=== PATIENT | female | born 1950 | race Caucasian/White ===

== ENCOUNTER → 2020-10-03 12:58 | Outpatient (BNVA) | payer MEDICARE, SELFPAY | PROVIDERS: PCP Internal Medicine; Referring Provider Internal Medicine; Visit Provider Internal Medicine Cardiovascular Disease | DX: R00.2 Palpitations (principal); I49.3 Ventricular premature depolarization; I10 Essential (primary) hypertension; Z79.899 Other long term (current) drug therapy | CPT/HCPCS: 99212 ==

== ENCOUNTER → 2021-03-22 13:08 | Outpatient (BNVA) | payer MEDICARE, MEDICAID, SELFPAY | PROVIDERS: PCP Internal Medicine; Referring Provider Internal Medicine; Visit Provider Internal Medicine Cardiovascular Disease | DX: I49.3 Ventricular premature depolarization (principal); I10 Essential (primary) hypertension; R07.89 Other chest pain | CPT/HCPCS: 99212 ==

== ENCOUNTER → 2021-04-09 07:33 | Outpatient (REF) | payer MEDICARE, MEDICAID, SELFPAY ==
--- NOTE | 2021-04-09 | CA_ITS ---
Acquisition Time: 2021-04-09 08:52:31 Total Exercise Time: 00:06:03 Test Indications: CP Medications: Protocol: HALEIGH Max HR: 131 BPM 86% of Pred: 152 BPM Max BP: 158/074 mmHG Max Work Load: 7.0 METS Exercise stress test with exercise 6 min 3 sec of Haleigh protocol, without anginal symptoms, without arrythmia, with normotensive response to exercise, without EKG changes meeting criteria for ischemia. Nuclear images pending. Test reviewed with Dr Osborne. Referred By: Von Rizzo Overread By: MILAGROS [place]
--- NOTE | ~2021-04-09 | NM_ITS ---
Myocardial perfusion study Indication: Chest pain to evaluate for myocardial ischemia Technique: The patient was brought in for a Lexiscan perfusion study on 04/09/2021. Patient performed low-level exercise and was injected 0.4 mg of Lexiscan intravenously. Within a minute of injection, 30 mCi of sestamibi was given intravenously. Images were obtained using the SPECT gamma camera interlaced with the gating device. Images were obtained in supine position. Resting perfusion study was performed on 04/10/2021. Patient was administered 30 mCi of sestamibi intravenously at rest. Images were then obtained in supine position. Images were obtained with and without CT attenuation. Total DLP 100 mGy-cm. Images were processed with the software and compared side to side in short axis, horizontal long axis and vertical long axis views. Findings: The stress perfusion study showed non attenuated images show normal uptake of radiotracer in all segments of LV myocardium. Attenuation corrected images show minimally reduced uptake in the apex of the LV myocardium.. The gated study shows normal LV systolic function with calculated LVEF of 69%. LV cavity is normal in size. The gated study shows normal systolic wall thickening and contraction of segments. Resting study shows no change in perfusion pattern compared to stress perfusion study. Gating at rest reveals normal systolic wall motion with ejection fraction at 61%. The findings are consistent with normal myocardial perfusion. NM/NM cardiolite stress test Impression: 1. Myocardial perfusion imaging study shows normal myocardial perfusion 2. Gated LVEF is 69% 3. Transient ischemic dilatation not present EKG is nondiagnostic for ischemia
--- NOTE | 2021-04-09 07:45 | CA_ITS ---
Transthoracic Echocardiogram Patient (Last, First, Middle): Padmini Caruso, Gender: Female Date of : 1950 Age: 70 Procedure Date: 04/09/2021 Procedure Type: Transthoracic Echocardiogram Location: OP Height: 167.64 cm Weight: 89.81 kg BSA: 1.99 m2 Heart Rate: bpm BP: 138 / 82 mmHg Hand Shoe Cutter: BALBIR Referring MD: Von Rizzo MD Symptoms: R06.02 - Shortness of breath Study Quality: Fair ECG Rhythm: Sinus Conclusions: - The left ventricular systolic function is normal. The visually estimated ejection fraction is between 55-60%. - There is mild anterior mitral leaflet thickening. There is mild mitral annular calcification. There is mild mitral valve regurgitation. - There is mild dilatation of the ascending aorta measuring 3.90 cm. Findings Left Ventricle Normal left ventricular cavity size. There is normal left ventricular wall thickness. The left ventricular systolic function is normal. The visually estimated ejection fraction is between 55-60%. There is no evidence of regional wall motion abnormalities. E/E prime ratio is between 8 and 15 consistent with indeterminate filling pressures. Evidence suggests grade I (mild) diastolic dysfunction. Right Ventricle Normal right ventricular cavity size and systolic function. Atria The left atrium is normal in size. The right atrium is normal in size. Aortic Valve There is a normal trileaflet aortic valve. There is no aortic valve stenosis. There is trace (trivial) aortic valve regurgitation. Mitral Valve There is mild anterior mitral leaflet thickening. There is mild mitral annular calcification. There is mild mitral valve regurgitation. There is no mitral valve stenosis. Pulmonic Valve The pulmonic valve was not well visualized. Tricuspid Valve Normal tricuspid valve structure. There is trace tricuspid valve regurgitation. The pulmonary artery systolic pressure is normal. Great Vessels There is mild dilatation of the ascending aorta measuring 3.90 cm. Venous The inferior vena cava is normal in size and collapses greater than 50% with inspiration. Pericardium/Pleural There is no evidence of pericardial effusion. Prior Study Comparison Changes noted compared to prior study dated: 06/03/2016. See comments on ascending aorta. Measurements 2D Linear Measurements IVSd: 0.95 0.6-0.9/0.6-1.0 cm LVIDd: 4.04 3.9-5.3/4.2-5.9 cm LVIDd Index: 2.03 2.4-3.2/2.2-3.1 cm/m2 LVIDs: 2.68 2.0-3.6 cm LVPWd: 1.00 0.7-1.1 cm Ao Root: 3.70 2.1-3.5 cm LA Diam: 3.30 2.7-3.8/3.0-4.0 cm LAIDs Index: 1.66 1.5-2.3 cm/m2 LV Mass: 155.39 67-162/88-224 g LV Mass Index: 78.09 43-95/49-115 g/m2 LVOT Diam: 2.00 3.0+(-)1.3 cm 2D Systolic Function EF 4C: 52.20 >55% EF 2C: 59.80 >55% EF BiP: 55.50 >55% Mitral Valve MV Pk E: 0.66 MV PK A: 0.96 MV Decel Time: 173.00 E/A: 0.70 E'Lateral: 7.18 E'Medial: 4.35 E/E' Med: 15.10 E/E' Lat: 9.10 PHT: 51.00 MVA PHT: 4.31 Decel Benzie: 3.78 Aortic Valve AoV Pk Doni: 1.52 AoV Mn Doni: 1.09 AoV VTI: 0.33 AoV Pk Grad: 9.00 Aov Mn Grad: 5.00 DEMARCO Cont.VTI: 1.78 LVOT LVOT Pk Doni: 0.90 LVOT Mn Doni: 0.66 LVOT VTI: 0.19 LVOT Pk Grad: 3.00 LVOT Mn Grad: 2.00 LVOT Diam: 2.00 LVOT Area: 3.14 Diastolic Function MV Pk E: 0.66 MV Pk A: 0.96 E/A: 0.70 E'Medial: 4.35 E/E' Med: 15.10 E' Laterial: 7.18 E/E' Lat: 9.10 Tricuspid Valve TR Pk Doni: 2.38 TR Pk Grad: 23.00 RA Press: 3.00 RVSP: 26.00 Great Vessels Aorta Ao Root-2D: 3.70 2.0-3.7 cm Ao Asc: 3.90 2.1-3.4 cm Ao Arch: 2.60 Updated in Other Vendor System with Status of Final Kike Osborne MD electronically signed on 04/09/2021 11:51:46 AM with status of Final
== END ==
LOC: HO.CARD 07:33
PROVIDERS: PCP Internal Medicine; Visit Provider Internal Medicine Cardiovascular Disease
DX: R06.02 Shortness of breath (principal); R07.89 Other chest pain
CPT/HCPCS: 78452; 93016; 93017; 93018; 93306; A9500

== ENCOUNTER → 2021-04-19 12:40 | Outpatient (BNVA) | payer MEDICARE, MEDICAID, SELFPAY | PROVIDERS: PCP Internal Medicine; Referring Provider Internal Medicine; Visit Provider Internal Medicine Cardiovascular Disease | DX: R00.2 Palpitations (principal); I10 Essential (primary) hypertension | CPT/HCPCS: 99212 ==

== ENCOUNTER → 2021-05-15 10:57 | Outpatient (REF) | payer MEDICARE, MEDICAID, SELFPAY ==
--- NOTE | 2021-05-15 11:03 | HM_ITS ---
TEST PERFORMED: Cardiac event monitoring. REQUESTING PHYSICIAN: Von Rizzo MD ENROLLMENT PERIOD: 05/15/2021-06/18/2021-34 days. INDICATION: Palpitations. FINDINGS: In the above monitoring period, the underlying rhythm was sinus. Baseline rate is 84/min. There was no evidence of any supraventricular or ventricular arrhythmias or any other abnormalities during this time. No patient activated symptoms as well. CONCLUSION: Study shows underlying sinus rhythm only without any arrhythmias. Kike Osborne MD HS/MODL / [id number]
== END ==
LOC: HO.CARD 10:57
PROVIDERS: Visit Provider Internal Medicine Cardiovascular Disease
DX: R00.2 Palpitations (principal)
CPT/HCPCS: 93270

== ENCOUNTER → 2021-09-03 13:57 | Outpatient (BNVA) | payer MEDICARE, MEDICAID, SELFPAY | PROVIDERS: PCP Internal Medicine; Referring Provider Internal Medicine; Visit Provider Internal Medicine Cardiovascular Disease | DX: I10 Essential (primary) hypertension (principal); R00.2 Palpitations | CPT/HCPCS: 93005; 99212 ==

== ENCOUNTER 2021-09-21 15:40 | Outpatient (REF) | payer MEDICARE, MEDICAID, SELFPAY ==
[2021-09-21 16:49] LABS: Influenza A PCR NEGATIVE (Negative); Influenza B PCR NEGATIVE (Negative); Resp Syncy Virus RNA Qual PCR NEGATIVE (Negative); SARS COV2 PCR INHOUSE NEGATIVE (Negative)
== END 2021-09-21 15:41 | disposition home or self-care (01) ==
LOC: HO.LNP 15:40
PROVIDERS: Visit Provider Internal Medicine
DX: Z20.822 Contact with and (suspected) exposure to COVID-19 (principal); J06.9 Acute upper respiratory infection, unspecified
CPT/HCPCS: 0241U

== ENCOUNTER 2021-11-29 18:48 | Outpatient (REF) | payer MEDICARE, MEDICAID, SELFPAY | END 2021-11-29 18:49 | disposition home or self-care (01) | LOC: HO.LNP 18:48 | PROVIDERS: Visit Provider Physician Assistant Medical | DX: Z20.822 Contact with and (suspected) exposure to COVID-19 (principal) | CPT/HCPCS: U0003; U0005 ==

== ENCOUNTER 2022-02-13 | Outpatient (REF) | payer MEDICARE, MEDICAID, SELFPAY ==
[2022-02-15 14:03] LABS: OBS1 NEGATIVE (NEGATIVE); OBS2 NEGATIVE (NEGATIVE)
[2022-02-15 14:04] LABS: OBS Int Ctl Valid YES; OBS3 NEGATIVE (NEGATIVE)
== END 2022-02-13 00:01 | disposition home or self-care (01) ==
LOC: HO.LNP
PROVIDERS: Visit Provider Internal Medicine
DX: R79.0 Abnormal level of blood mineral (principal); Z12.11 Encounter for screening for malignant neoplasm of colon
CPT/HCPCS: 82270

== ENCOUNTER 2022-03-05 20:57 | Emergency (ER) | payer OTHER, SELFPAY ==
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
[2022-03-05 21:14] VITALS: BP 168/76; PULSE 77; RESP 20; TEMP 36.7; O2SAT 97; BMI 33.7
[2022-03-05 22:24] VITALS: BP 142/72; PULSE 67; RESP 16; TEMP 36.1; O2SAT 97
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
[2022-03-05] MEDS: Ibuprofen 800 MG TABLET PO (23:25)
[2022-03-05] MEDS: Ondansetron ODT 4 MG TAB.RAPDIS TRANSLINGU (23:26)
[2022-03-06 00:14] VITALS: BP 136/79; PULSE 79; RESP 20; TEMP 36.9; O2SAT 98
== END 2022-03-06 00:15 | disposition home or self-care (01) ==
PROVIDERS: Emergency Provider Emergency Medicine Emergency Medical Services; PCP Internal Medicine
DX: S13.4XXA Sprain of ligaments of cervical spine, initial encounter (principal); R42 Dizziness and giddiness; V43.52XA Car driver injured in collision with other type car in traffic accident, initial encounter; Y93.9 Activity, unspecified; Y92.410 Unspecified street and highway as the place of occurrence of the external cause; Y99.9 Unspecified external cause status; Z79.899 Other long term (current) drug therapy
CPT/HCPCS: 70450; 72125; 99284

== ENCOUNTER 2022-06-18 11:23 | Outpatient (REF) | payer MEDICARE, MEDICAID, SELFPAY ==
--- NOTE | ~2022-06-18 | XR_ITS ---
EXAMINATION: XR FOOT, RIGHT CLINICAL INFORMATION: Pain. COMPARISON: None TECHNIQUE: AP, lateral, and oblique views of the right foot. FINDINGS: Bony alignment and mineralization are normal. No fracture, dislocation or right ankle joint effusion is seen. Boehler's angle is normal. There are minimal posterior and small to moderate plantar calcaneal spurs. No fracture or dislocation is seen. There is mild osteoarthritic change of the first metatarsophalangeal joint. No focal soft tissue swelling, gas or foreign body is seen. XR/XR foot RT min 3V IMPRESSION: 1. No fracture, dislocation or right ankle joint effusion is seen. 2. There are minimal posterior and small to moderate plantar calcaneal spurs. 3. There is mild osteoarthritic change of the right first metatarsophalangeal joint.
== END 2022-06-18 11:24 | disposition home or self-care (01) ==
LOC: HO.HMGCX 11:23
PROVIDERS: PCP Internal Medicine; Visit Provider Internal Medicine
DX: M79.671 Pain in right foot (principal)
CPT/HCPCS: 73630

== ENCOUNTER 2022-06-29 00:37 | Inpatient (IN) | payer MEDICARE, MEDICAID, SELFPAY ==
[2022-06-29] VITALS (11 sets, daily range): BP systolic 119–188; BP diastolic 59–105; PULSE 80–133; RESP 15–21; TEMP 36–39; O2SAT 95–98; BMI 35.0
--- NOTE | ~2022-06-29 | XR_ITS ---
EXAMINATION: XR CHEST CLINICAL INFORMATION: Chest pain COMPARISON: 07/22/2020 TECHNIQUE: Frontal view of the chest was obtained. FINDINGS: The lungs are well expanded. There is a hazy opacity at the right base. No pleural effusion or pneumothorax. No edema. The cardiomediastinal silhouette is normal in size, with a calcified aorta. XR/XR chest 1V IMPRESSION: Hazy right basilar opacity could be infectious/inflammatory.
--- NOTE | 2022-06-29 00:44 | ECG_ITS ---
Test Reason : CHEST PAIN Blood Pressure : / mmHG Vent. Rate : 130 BPM Atrial Rate : 130 BPM P-R Int : 166 ms QRS Dur : 074 ms QT Int : 292 ms P-R-T Axes : 059 038 057 degrees QTc Int : 429 ms Sinus tachycardia Nonspecific ST and T wave abnormality Abnormal ECG When compared with ECG of 29-JUN-2022 00:35, Nonspecific T wave abnormality, worse in Lateral leads Referred By: Generic ED Physician Electronically Signed By:YAMEL GARDNER
[2022-06-29 01:22] LABS: COVID-19 Test Negative (Negative); IDNOW Serial# 16C4AD1C; IDNOW Serial# 9DB6401D; Influenza A Negative (Negative); Influenza B2 Negative (Negative)
--- NOTE | 2022-06-29 01:22 | ED_ITS ---
[facility] - [facility] Chief complaint: Fever Stated complaint: high fever (108?) , cp , difficulty breathing Time Seen by Provider: 06/29/22 01:06 Source: patient Mode of arrival: ambulatory Limitations: no limitations History of Present Illness HPI narrative: Patient comes to the emergency room complaining of fever, chills, cough for 6 days. Patient states that tonight she had worsening cough symptoms and made her vomit. Patient states that at home her fever was 100.8. Patient denies any nausea vomiting or diarrhea, no abdominal pain, no UTI symptoms but states she has had more frequency than usual. Patient denies hematuria. Patient has tried Robitussin [id number] without any relief. 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 Patient is currently in remission to her knowledge, patient is usually seen at [facility]. Patient currently taking Denosumab and Daratumumab Related Data Home Medications Medication Instructions Recorded Confirmed nitroglycerin 0.3 mg sublingual mg sublingual DAILY PRN 08/29/20 06/18/22 tablet ondansetron 4 mg disintegrating 4 mg PO Q6H PRN nausea 08/29/20 06/18/22 tablet dexamethasone 4 mg tablet 4 mg PO PRN 09/03/21 06/18/22 amlodipine 10 mg-olmesartan 40 mg 1 tab PO DAILY 02/08/22 06/18/22 tablet Previous Rx's Medication Instructions Recorded Bystolic 5 mg tablet (nebivolol) 5 mg PO DAILY #90 tabs 01/15/22 naproxen 500 mg tablet 500 mg PO BID PRN pain 10 days #20 03/06/22 tabs Allergies Allergy/AdvReac Type Severity Reaction Status Date / Time niacin [NIACIN] Allergy Mild REDNESS, Verified 06/29/22 00:50 rash, rash Penicillins [PCN] Allergy Mild BODY RASH Verified 06/29/22 00:50 penicillin V Allergy Unknown rash Verified 06/29/22 00:50 tbo-filgrastim [From Granix] Allergy Unknown palpitation Verified 06/29/22 00:50 s atenolol AdvReac Unknown palpatations, Verified 06/29/22 00:50 palpitations lisinopril AdvReac Unknown cough Verified 06/29/22 00:50 valsartan [Diovan] AdvReac Unknown cough Verified 06/29/22 00:50 Review of Systems Review of Systems: Constitutional : No Weight loss, complaining of fever, chills, fatigue and generalized malaise ENT/Mouth : No Hearing loss, No Ear Pain, No Nasal Congestion, No Sinus Pain, No Hoarseness, No sore throat, No Rhinorrhea, No Swallowing Difficulty Eyes: No Eye Pain, No Swelling, No Redness, No Foreign Body, No Discharge, No Vision Changes Cardiovascular : No Chest Pain, No SOB, No Dyspnea on Exertion, No Orthopnea, No Edema, No Palpitations Respiratory : Complaining of cough, no sputum, wheezing, mild shortness of breath Gastrointestinal : Complaining of post-tussive vomiting cough No Diarrhea, No Constipation, No abdominal Pain, No Hematochezia, No Melena Genitourinary : no irregular bleeding, No Dysuria, complaining of recent Urinary Frequency, No Hematuria, No Urinary Incontinence, No Urgency, No Flank Pain, No Urinary Flow Changes, No Hesitancy Musculoskeletal : No joint pain, No Myalgias, No Joint Swelling Skin : No Skin Lesions, No rash Neuro : No Weakness, No Numbness, No Paresthesias, No Loss of Consciousness, No Dizziness, No Headache Psych : No Anxiety/Panic, No Depression, No SI/HI/AH/VH, No Social Issues, Heme/Lymph: No Bruising, No Bleeding,No Lymphadenopathy Endocrine : No Polyuria, No Polydipsia, No Temperature Intolerance PMF Past Medical History Medical History Allergic rhinitis Hypertension, essential Intermittent palpitations Lipid disorder Multiple myeloma in remission Obstructive sleep apnea PVCs (premature ventricular contractions) Surgical History History of appendectomy Family History Family History Father No problems noted. Mother Diabetes mellitus Sister Diabetes mellitus Sister History of high blood pressure Social History Social History Housing: House Patient Tobacco Use Status: Never used Tobacco e-Cigarette/Vaping Use: Never Used Advance Directives: No Advance Directives Information Provided: Yes Current occupational status: retired Cognitive needs: No Hearing needs: No Vision needs: No Physical Exam ED Vital Signs: Vital Signs - 24 hr 06/29/22 00:49 06/29/22 01:12 06/29/22 01:18 Temperature 102.2 F H 101.7 F H Pulse Rate 130 H 133 H Respiratory Rate 18 16 Blood Pressure 188/105 H 148/90 H Pulse Oximetry 96 95 Oxygen Delivery Method Room Air Room Air BMI result Body Mass Index 35.0 Const Other: Appearance: Alert. Oriented X3. No acute distress. Eyes: Pupils equal, round and reactive to light. ENT: Pharynx normal. Neck: Normal inspection. Neck supple. No lymph nodes noted. No crepitus CVS: Normal heart rate and rhythm. Pulses normal. Normal S1 and S2 Respiratory: No respiratory distress. Breath sounds normal. No Wheezing. No ral es Abdomen: Soft and nontender. No rigidity. No distention. Skin: Skin is warm to touch, not diaphoretic. Normal skin color. Normal skin turgor. Extremities: No lower extremity edema. No Lacerations. No Rash Neuro: Oriented X 3. No motor deficit. No sensory deficit. Moving all extremities. No slurred speech. CN 2 through 12 grossly intact Psych: calm, cooperative, normal affect Course Course Course Narrative: All of patient's labs and imaging are pending. Patient is empirically being alana ated with cefepime 2 g and 2 L of normal saline, fluids being given based on ideal weight of 55 kg, patient is obese. Patient's white blood cell count and lactic acid within normal limits, patient i s not hypotensive, sepsis not suspected. Urinalysis negative for urinary tract infection. Chest x-ray shows possible pneumonia in the right side. Due to patient's comorbidities, patient would benefit from admission. I discussed the patient with Dr. Natarajan, pt being admitted Medical Decision Making Lab Data Result diagrams: 06/29/22 01:38 06/29/22 01:38 Labs: Lab Results 06/29/22 06/29/22 06/29/22 Range/Units 01:02 01:02 01:38 WBC (4.8-10.8) X10*3/uL RBC (4.20-5.50) X10*6/uL Hgb (12.0-16.0) g/dl Hct (37.0-47.0) % MCV (80.0-98.0) fL MCH (27.0-33.0) pg MCHC (31.0-35.0) g/dl RDW (11.0-16.0) % Plt Count (160-400) X10*3/uL MPV (9.4-12.3) fL Immature Gran % (Auto) (0.0-0.4) % Neut % (Auto) (45-73) % Lymph % (Auto) (20-40) % [place] % (Auto) (2-11) % Eos % (Auto) (0-4) % Baso % (Auto) (0-2) % Lymph # (Auto) (1.2-4.9) X10*3/uL [place] # (Auto) (0.1-1.2) X10*3/uL Eos # (Auto) (0.0-0.4) X10*3/uL Baso # (Auto) (0.0-0.2) X10*3/uL Abs Immat Gran (auto) (0.00-0.03) X10*3/uL Absolute Neuts (auto) (2.0-8.3) x10*3/uL Absolute Nucleated RBC (0.0-0.012) X10*3/uL Nucleated RBC % (auto) (0.0-0.2) /100WBC PT (10.0-13.1) SEC INR (0.9-1.1) Sodium 140 (135-145) mmol/L Potassium 3.7 (3.3-5.1) mmol/L Chloride 105 (96-108) mmol/L Carbon Dioxide 21 L (22-29) mmol/L Anion Gap 18 (12-20) BUN 15 (9-16) mg/dL Creatinine 0.74 (0.5-1.4) mg/dL Estim Creat Clear Calc 79.1 Estimated GFR > 60 Random Glucose 122 H (60-115) mg/dL Lactic Acid (0.5-2.0) mmol/L Calcium 8.6 (8.4-10.2) mg/dL Total Bilirubin 0.6 (0.0-1.0) mg/dL Direct Bilirubin 0.2 (0.0-0.5) mg/dL AST 18 (5-31) U/L ALT 22 (0-31) U/L Alkaline Phosphatase 74 (39-117) U/L Troponin I High Sens (<3.5-17.0) ng/L Total Protein 6.4 L (6.5-8.0) g/dL Albumin 4.4 (3.5-5.0) g/dL Urine Color Urine Appearance Urine pH (5.0-8.0) Ur Specific [place] (1.005-1.025) Urine Protein (NEG-TRACE) MG/DL Urine Glucose (UA) (NEG) MG/DL Urine Ketones (NEG) MG/DL Urine Blood (NEG) Urine Nitrite (NEG) Ur Leukocyte Esterase (NEG) Urine RBC (0) /HPF Urine WBC (0-4) /HPF Ur Squamous Epith Cells /LPF Calcium Phosphate Cryst /LPF Urine Bacteria /LPF COVID-19 (TRACEY) Negative (Negative) COVID-19 Clin Com See Note Influenza Type A (TERRY) Negative (Negative) Influenza Type B (TERRY) Negative (Negative) Influenza A & B Note See Note 06/29/22 06/29/22 06/29/22 Range/Units 01:38 01:38 01:38 WBC (4.8-10.8) X10*3/uL RBC (4.20-5.50) X10*6/uL Hgb (12.0-16.0) g/dl Hct (37.0-47.0) % MCV (80.0-98.0) fL MCH (27.0-33.0) pg MCHC (31.0-35.0) g/dl RDW (11.0-16.0) % Plt Count (160-400) X10*3/uL MPV (9.4-12.3) fL Immature Gran % (Auto) (0.0-0.4) % Neut % (Auto) (45-73) % Lymph % (Auto) (20-40) % [place] % (Auto) (2-11) % Eos % (Auto) (0-4) % Baso % (Auto) (0-2) % Lymph # (Auto) (1.2-4.9) X10*3/uL [place] # (Auto) (0.1-1.2) X10*3/uL Eos # (Auto) (0.0-0.4) X10*3/uL Baso # (Auto) (0.0-0.2) X10*3/uL Abs Immat Gran (auto) (0.00-0.03) X10*3/uL Absolute Neuts (auto) (2.0-8.3) x10*3/uL Absolute Nucleated RBC (0.0-0.012) X10*3/uL Nucleated RBC % (auto) (0.0-0.2) /100WBC PT 10.2 (10.0-13.1) SEC INR 0.9 (0.9-1.1) Sodium (135-145) mmol/L Potassium (3.3-5.1) mmol/L Chloride (96-108) mmol/L Carbon Dioxide (22-29) mmol/L Anion Gap (12-20) BUN (9-16) mg/dL Creatinine (0.5-1.4) mg/dL Estim Creat Clear Calc Estimated GFR Random Glucose (60-115) mg/dL Lactic Acid 1.3 (0.5-2.0) mmol/L Calcium (8.4-10.2) mg/dL Total Bilirubin (0.0-1.0) mg/dL Direct Bilirubin (0.0-0.5) mg/dL AST (5-31) U/L ALT (0-31) U/L Alkaline Phosphatase (39-117) U/L Troponin I High Sens 5.1 (<3.5-17.0) ng/L Total Protein (6.5-8.0) g/dL Albumin (3.5-5.0) g/dL Urine Color Urine Appearance Urine pH (5.0-8.0) Ur Specific Henderson (1.005-1.025) Urine Protein (NEG-TRACE) MG/DL Urine Glucose (UA) (NEG) MG/DL Urine Ketones (NEG) MG/DL Urine Blood (NEG) Urine Nitrite (NEG) Ur Leukocyte Esterase (NEG) Urine RBC (0) /HPF Urine WBC (0-4) /HPF Ur Squamous Epith Cells /LPF Calcium Phosphate Cryst /LPF Urine Bacteria /LPF COVID-19 (TRACEY) (Negative) COVID-19 Clin Com Influenza Type A (TERRY) (Negative) Influenza Type B (TERRY) (Negative) Influenza A & B Note 06/29/22 06/29/22 Range/Units 01:38 01:49 WBC 6.1 (4.8-10.8) X10*3/uL RBC 4.73 (4.20-5.50) X10*6/uL Hgb 13.6 (12.0-16.0) g/dl Hct 41.2 (37.0-47.0) % MCV 87.1 (80.0-98.0) fL MCH 28.8 (27.0-33.0) pg MCHC 33.0 (31.0-35.0) g/dl RDW 13.7 (11.0-16.0) % Plt Count 111 L (160-400) X10*3/uL MPV 9.6 (9.4-12.3) fL Immature Gran % (Auto) 0.2 (0.0-0.4) % Neut % (Auto) 74.5 H (45-73) % Lymph % (Auto) 12.8 L (20-40) % [place] % (Auto) 11.0 (2-11) % Eos % (Auto) 1.0 (0-4) % Baso % (Auto) 0.5 (0-2) % Lymph # (Auto) 0.8 L (1.2-4.9) X10*3/uL [place] # (Auto) 0.7 (0.1-1.2) X10*3/uL Eos # (Auto) 0.1 (0.0-0.4) X10*3/uL Baso # (Auto) 0.0 (0.0-0.2) X10*3/uL Abs Immat Gran (auto) 0.01 (0.00-0.03) X10*3/uL Absolute Neuts (auto) 4.6 (2.0-8.3) x10*3/uL Absolute Nucleated RBC 0.000 (0.0-0.012) X10*3/uL Nucleated RBC % (auto) 0.0 (0.0-0.2) /100WBC PT (10.0-13.1) SEC INR (0.9-1.1) Sodium (135-145) mmol/L Potassium (3.3-5.1) mmol/L Chloride (96-108) mmol/L Carbon Dioxide (22-29) mmol/L Anion Gap (12-20) BUN (9-16) mg/dL Creatinine (0.5-1.4) mg/dL Estim Creat Clear Calc Estimated GFR Random Glucose (60-115) mg/dL Lactic Acid (0.5-2.0) mmol/L Calcium (8.4-10.2) mg/dL Total Bilirubin (0.0-1.0) mg/dL Direct Bilirubin (0.0-0.5) mg/dL AST (5-31) U/L ALT (0-31) U/L Alkaline Phosphatase (39-117) U/L Troponin I High Sens (<3.5-17.0) ng/L Total Protein (6.5-8.0) g/dL Albumin (3.5-5.0) g/dL Urine Color STRAW Urine Appearance CLEAR Urine pH 5.5 (5.0-8.0) Ur Specific [place] 1.020 (1.005-1.025) Urine Protein TRACE (NEG-TRACE) MG/DL Urine Glucose (UA) NEG (NEG) MG/DL Urine Ketones NEG (NEG) MG/DL Urine Blood TRACE (NEG) Urine Nitrite NEG (NEG) Ur Leukocyte Esterase NEG (NEG) Urine RBC 0-2 (0) /HPF Urine WBC 0-2 (0-4) /HPF Ur Squamous Epith Cells 1+ /LPF Calcium Phosphate Cryst TRACE /LPF Urine Bacteria NONE /LPF COVID-19 (TRACEY) (Negative) COVID-19 Clin Com Influenza Type A (TERRY) (Negative) Influenza Type B (TERRY) (Negative) Influenza A & B Note Imaging Data Chest x-ray: Radiologist's impression: FINDINGS: The lungs are well expanded. There is a hazy opacity at the right base. No pleural effusion or pneumothorax. No edema. The cardiomediastinal silhouette is normal in size, with a calcified aorta. XR/XR chest 1V IMPRESSION: Hazy right basilar opacity could be infectious/inflammatory. Critical Care Time Critical Care Time Critical Care Time: Yes Total Critical Care Time: 30 Attestation: I have personally provided critical care time. Time includes review of lab data, radiology results, discussion with consultants, and monitoring for potential decompensation. Intervention performed as documented. Discharge Plan Discharge Clinical Impression: Pneumonia Patient Disposition: Admitted As Inpatient Prescriptions: No Action nebivolol [Bystolic] 5 mg tablet 5 mg PO DAILY Qty: 90 3RF naproxen 500 mg tablet 500 mg PO BID PRN (Reason: pain) 10 Days Qty: 20 0RF nitroglycerin 0.3 mg tablet, sublingual sublingual DAILY PRN ondansetron 4 mg tablet,disintegrating 4 mg PO Q6H PRN (Reason: nausea) dexamethasone 4 mg tablet 4 mg PO PRN amlodipine-olmesartan 10-40 mg tablet 1 tab PO DAILY
[2022-06-29] MEDS: cefEPime HCl 2 GM in 0.9 % Sodium Chloride 50 ML IV (01:30)
[2022-06-29] MEDS: 0.9 % Sodium Chloride 2,000 ML 999 ML IVCONT (01:31)
[2022-06-29 01:50] LABS: INTERNATIONAL NORM RATIO 0.9 (0.9-1.1); Prothrombin Time 10.2 SEC (10.0-13.1)
[2022-06-29 01:56] LABS: Lactic Acid 1.3 mmol/L (0.5-2.0)
[2022-06-29 02:02] LABS: Alanine Aminotransferase 22 U/L (0-31); Albumin Level 4.4 g/dL (3.5-5.0); Alkaline Phosphatase 74 U/L (39-117); Anion Gap 18 (12-20); Aspartate Amino Transferase 18 U/L (5-31); Bilirubin Direct 0.2 mg/dL (0.0-0.5); Bilirubin Total 0.6 mg/dL (0.0-1.0); Blood Urea Nitrogen 15 mg/dL (9-16); Calcium 8.6 mg/dL (8.4-10.2); Carbon Dioxide 21 mmol/L (22-29); Chloride 105 mmol/L (96-108); Creatinine Clr Calc Pharmacy 79.1; Estimated Glomerular Filt Rate > 60; Glucose Random 122 mg/dL (60-115); Potassium 3.7 mmol/L (3.3-5.1); Sodium 140 mmol/L (135-145); Total Protein 6.4 g/dL (6.5-8.0)
[2022-06-29 02:08] LABS: Appearance Urine CLEAR; Color Urine STRAW; Glucose Urine UA NEG (NEG); Leukocyte Esterase Urine NEG (NEG); Nitrite Urine NEG (NEG); PH 5.5 (5.0-8.0); UACC Culture Trigger NO; Urine Blood TRACE (NEG); Urine Ketones NEG (NEG); Urine Protein TRACE MG/DL (NEG-TRACE)
[2022-06-29 02:14] LABS: Troponin-I High Sensitivity 5.1 ng/L (<3.5-17.0)
[2022-06-29 02:14] LABS: Calcium Phosphate Crystals Ur TRACE /LPF; RBC Urine 0-2 /HPF (0); Squamous Epithelial Cell Urine 1+ /LPF; WBC Urine 0-2 /HPF (0-4)
[2022-06-29 02:27] LABS: Basophils Percent Auto 0.5 % (0-2); Eosinophils Absolute Auto 0.1 X10*3/uL (0.0-0.4); Hematocrit 41.2 % (37.0-47.0); Hemoglobin 13.6 g/dl (12.0-16.0); Imm Gran Abs Auto 0.01 X10*3/uL (0.00-0.03); Imm Gran Pct Auto 0.2 % (0.0-0.4); Lymphocytes Absolute Auto 0.8 X10*3/uL (1.2-4.9); Lymphocytes Percent Auto 12.8 % (20-40); MANUAL DIFF FLAG NO; Mean Corpuscular Hemoglobin 28.8 pg (27.0-33.0); Mean Corpuscular Volume 87.1 fL (80.0-98.0); Mean Platelet Volume 9.6 fL (9.4-12.3); Monocytes Absolute Auto 0.7 X10*3/uL (0.1-1.2); Neutrophils Absolute Auto 4.6 x10*3/uL (2.0-8.3); Neutrophils Percent Auto 74.5 % (45-73); Platelet Count 111 X10*3/uL (160-400); Red Blood Count 4.73 X10*6/uL (4.20-5.50); Red Cell Distribution Width 13.7 % (11.0-16.0); White Blood Count 6.1 X10*3/uL (4.8-10.8)
[2022-06-29] MEDS: Acetaminophen 325 MG TABLET 975 MG PO (03:30)
--- NOTE | 2022-06-29 06:24 | P.HPHOSP_ITS ---
History of Present Illness Date of Service: 06/29/22 Chief Complaint: cough 71-year-old female with past medical history of HTN, multiple myeloma, plasmacytoma, reports that she is in remission presents to the hospital with 5-6 days of cough, as well as shortness of breath. Patient reports that her cough got so bad today that she had a vomiting episode as a result. She reports feeling feverish, chills, having pleuritic chest pain with every coughing, abdominal pain nausea or vomiting, no diarrhea constipation, no urinary symptoms and no lower extremity edema. Patient denies any palpitations. No headache or change in vision no numbness tingling. On arrival to the ED patient was found to have a temperature of 102.2 degrees, heart rate of 130, blood pressure of 188/104, satting 96% on room air Labs is significant for WBC count of 6.1, hemoglobin of 13.6, labs otherwise unremarkable, COVID-19 negative Chest x-ray shows hazy right basilar opacity Patient started on IV antibiotics and will be admitted for further management Review of Systems Review of Systems: Yes all other systems are reviewed and are negative [facility] Medical History Allergic rhinitis Hypertension, essential Intermittent palpitations Lipid disorder Multiple myeloma in remission Obstructive sleep apnea PVCs (premature ventricular contractions) Family History Father No problems noted. Mother Diabetes mellitus Sister Diabetes mellitus Sister History of high blood pressure Surgical History History of appendectomy Social History Housing: House Patient Tobacco Use Status: Never used Tobacco e-Cigarette/Vaping Use: Never Used Advance Directives: No Advance Directives Information Provided: Yes Current occupational status: retired Cognitive needs: No Hearing needs: No Vision needs: No Meds Allergies Allergy/AdvReac Type Severity Reaction Status Date / Time niacin [NIACIN] Allergy Mild REDNESS, Verified 06/29/22 00:50 rash, rash Penicillins [PCN] Allergy Mild BODY RASH Verified 06/29/22 00:50 penicillin V Allergy Unknown rash Verified 06/29/22 00:50 tbo-filgrastim [From Granix] Allergy Unknown palpitation Verified 06/29/22 00:50 s atenolol AdvReac Unknown palpatations, Verified 06/29/22 00:50 palpitations lisinopril AdvReac Unknown cough Verified 06/29/22 00:50 valsartan [Diovan] AdvReac Unknown cough Verified 06/29/22 00:50 Home Medications Medication Instructions Recorded Confirmed Last Taken Type nitroglycerin 0.3 mg sublingual mg sublingual DAILY PRN 08/29/20 06/18/22 Unknow n History tablet ondansetron 4 mg disintegrating 4 mg PO Q6H PRN nausea 08/29/20 06/18/22 Unknown History tablet dexamethasone 4 mg tablet 4 mg PO PRN 09/03/21 06/18/22 Unknown History amlodipine 10 mg-olmesartan 40 mg 1 tab PO DAILY 02/08/22 06/18/22 Unknown History tablet Physical Exam Vital Signs and Narrative: Vital Signs: Last Vital Signs Temp 98.8 F 06/29/22 04:26 Pulse 85 06/29/22 05:33 Resp 19 06/29/22 05:33 BP 146/69 H 06/29/22 05:33 Pulse Ox 95 06/29/22 05:33 O2 Del Method 06/29/22 05:33 BMI result Body Mass Index 35.0 Const: General: cooperative and no acute distress Orientation/consciousness: patient oriented x3 Eyes: General: appearance normal, both eyes and all related structures Resp: Other: Productive cough during my interview Crackles mostly heard in the right lower lobe Effort & Inspection: normal respiratory effort Cardio: Rate: regular rate Rhythm: regular rhythm GI: Palpation (GI): Soft to palpation Auscultation: normal bowel sounds Skin: General skin exam: no rashes or lesions noted Neuro: General: patient oriented x3 Cognition (Neuro): normal cognition Extrem: General: Yes normal to inspection and Yes no pedal edema Results Labs CBC and Chem 7: 06/29/22 01:38 06/29/22 01:38 Labs: Laboratory Results - last 24 hr 06/29/22 06/29/22 06/29/22 01:02 01:02 01:38 MCV MCH MCHC RDW Plt Count MPV Immature Gran % (Auto) Neut % (Auto) Lymph % (Auto) [place] % (Auto) Eos % (Auto) Baso % (Auto) Lymph # (Auto) [place] # (Auto) Eos # (Auto) Baso # (Auto) Abs Immat Gran (auto) Absolute Neuts (auto) Absolute Nucleated RBC Nucleated RBC % (auto) PT INR Anion Gap 18 Estim Creat Clear Calc 79.1 Estimated GFR > 60 Random Glucose 122 H Lactic Acid Calcium 8.6 Total Bilirubin 0.6 Direct Bilirubin 0.2 AST 18 ALT 22 Alkaline Phosphatase 74 Total Protein 6.4 L Albumin 4.4 Urine Color Urine Appearance Urine pH Ur Specific [place] Urine Protein Urine Glucose (UA) Urine Ketones Urine Blood Urine Nitrite Ur Leukocyte Esterase Urine RBC Urine WBC Ur Squamous Epith Cells Calcium Phosphate Cryst Urine Bacteria COVID-19 (TRACEY) Negative COVID-19 Clin Com See Note Influenza Type A (TERRY) Negative Influenza Type B (TERRY) Negative Influenza A & B Note See Note 06/29/22 06/29/22 06/29/22 01:38 01:38 01:38 MCV 87.1 MCH 28.8 MCHC 33.0 RDW 13.7 Plt Count 111 L MPV 9.6 Immature Gran % (Auto) 0.2 Neut % (Auto) 74.5 H Lymph % (Auto) 12.8 L [place] % (Auto) 11.0 Eos % (Auto) 1.0 Baso % (Auto) 0.5 Lymph # (Auto) 0.8 L [place] # (Auto) 0.7 Eos # (Auto) 0.1 Baso # (Auto) 0.0 Abs Immat Gran (auto) 0.01 Absolute Neuts (auto) 4.6 Absolute Nucleated RBC 0.000 Nucleated RBC % (auto) 0.0 PT 10.2 INR 0.9 Anion Gap Estim Creat Clear Calc Estimated GFR Random Glucose Lactic Acid 1.3 Calcium Total Bilirubin Direct Bilirubin AST ALT Alkaline Phosphatase Total Protein Albumin Urine Color Urine Appearance Urine pH Ur Specific [place] Urine Protein Urine Glucose (UA) Urine Ketones Urine Blood Urine Nitrite Ur Leukocyte Esterase Urine RBC Urine WBC Ur Squamous Epith Cells Calcium Phosphate Cryst Urine Bacteria COVID-19 (TRACEY) COVID-19 Clin Com Influenza Type A (TERRY) Influenza Type B (TERRY) Influenza A & B Note 06/29/22 01:49 MCV MCH MCHC RDW Plt Count MPV Immature Gran % (Auto) Neut % (Auto) Lymph % (Auto) [place] % (Auto) Eos % (Auto) Baso % (Auto) Lymph # (Auto) [place] # (Auto) Eos # (Auto) Baso # (Auto) Abs Immat Gran (auto) Absolute Neuts (auto) Absolute Nucleated RBC Nucleated RBC % (auto) PT INR Anion Gap Estim Creat Clear Calc Estimated GFR Random Glucose Lactic Acid Calcium Total Bilirubin Direct Bilirubin AST ALT Alkaline Phosphatase Total Protein Albumin Urine Color STRAW Urine Appearance CLEAR Urine pH 5.5 Ur Specific [place] 1.020 Urine Protein TRACE Urine Glucose (UA) NEG Urine Ketones NEG Urine Blood TRACE Urine Nitrite NEG Ur Leukocyte Esterase NEG Urine RBC 0-2 Urine WBC 0-2 Ur Squamous Epith Cells 1+ Calcium Phosphate Cryst TRACE Urine Bacteria NONE COVID-19 (TRACEY) COVID-19 Clin Com Influenza Type A (TERRY) Influenza Type B (TERRY) Influenza A & B Note Imaging Radiologist's Impressions: Impressions Chest X-Ray 06/29/22 01:09 IMPRESSION: Hazy right basilar opacity could be infectious/inflammatory. Assessment and Plan (1) Pneumonia: Status: Acute (2) Sepsis: Status: Acute Plan 71-year-old female with past medical history of multiple myeloma, hypertension presents to the hospital with cough as well as dyspnea found to have pneumonia # sepsis - meets sepsis criteria with fever and tachycardia, no leukocytosis, normal lactic acid - likely source pneumonia - will treat with IV antibiotics - follow cultures # community-acquired pneumonia - negative COVID, influenza and RSV - will treat with IV antibiotics - follow cultures - monitor respiratory status # hypertension - stable - continue home medications DVT prophylaxis: Lovenox Given patient's comorbidities as well as sepsis as well as need for IV antib iotics patient will be admitted to in patient will require minimal to night hospital stay for further management Quality Stroke Does the patient have a stroke diagnosis?: No VTE Prior VTE?: No VTE Risk Level:: Medical - moderate - high VTE Device Contraindication: Treatment Not Indicated VTE Drug Contraindication: N/A - Med Ordered
[2022-06-29] MEDS: Enoxaparin Sodium 40 MG/0.4 ML SYRINGE SUBCUT (06:45)
[2022-06-29] MEDS: Azithromycin 500 MG in 0.9 % Sodium Chloride 250 ML 125 MG IV (06:45)
--- NOTE | 2022-06-29 07:58 | PHA.MEDREC ---
Pharmacy Consult ? Medication Reconciliation Pharmacy has completed the medication reconciliation.
--- NOTE | 2022-06-29 08:53 | MHC.CM.PN ---
PT REPORTS SHE LIVES WITH HER AND IS FULLY INDEPENDENT PT REPORTS SHE HAS HOME OXYGEN THAT SHE WEARS AT NIGHT, AND NO OTHER DME PT DENIES ANY HOME OR COMMUNITY SERVICES PT REPORTS SHE HAS A HCP, NAMING HER , ON FILE AT [facility] PT CONFIRMS HER PCP IS DORIAN BLAND PT REPORTS SHE IS COVID VACCINATED IMM DELIVERED, COPY SENT TO [facility] CURRENT DC PLAN IS HOME WITH NO SERVICES TO TRANSPORT
--- NOTE | 2022-06-29 08:55 | ECG_ITS ---
Test Reason : cp,cough Blood Pressure : / mmHG Vent. Rate : 136 BPM Atrial Rate : 136 BPM P-R Int : 148 ms QRS Dur : 076 ms QT Int : 270 ms P-R-T Axes : 036 020 052 degrees QTc Int : 406 ms Sinus tachycardia with Fusion complexes Nonspecific ST and T wave abnormality Abnormal ECG When compared with ECG of 22-JUL-2020 13:53, Fusion complexes are now Present Aberrant conduction is no longer Present ST now depressed in Anterolateral leads Referred By: Petrona Hurtado Electronically Signed By:BEBO RAMIREZ
[2022-06-29] MEDS: cefTRIAXone sodium 1 GM in 0.9 % Sodium Chloride 50 ML IV (09:58)
[2022-06-29 10:36] LABS: Procalcitonin 0.04 ng/mL
[2022-06-29] MEDS: Acetaminophen 325 MG TABLET 650 MG PO (12:42)
--- NOTE | 2022-06-29 13:25 | PM.EVENT ---
Event Note Date of Service: 06/29/22 Event Note: day hospitalist update S purulent cough + dyspnea no lightheadedness O Temp Pulse Resp BP Pulse Ox O2 Del Method 98.8 F 80 21 H 128/71 95 06/29/22 04:26 06/29/22 06:38 06/29/22 06:38 06/29/22 06:38 06/29/22 06:38 06/29/22 06:38 gen NAD HEENT MMM no ulcers neck supple no LAD lungs diminished air entry R base CV RRR no m/r/g abd soft/NT ext no C/C/E Laboratory Results - last 24 hr 06/29/22 06/29/22 06/29/22 01:02 01:02 01:38 WBC RBC Hgb Hct MCV MCH MCHC RDW Plt Count MPV Immature Gran % (Auto) Neut % (Auto) Lymph % (Auto) [place] % (Auto) Eos % (Auto) Baso % (Auto) Lymph # (Auto) [place] # (Auto) Eos # (Auto) Baso # (Auto) Abs Immat Gran (auto) Absolute Neuts (auto) Absolute Nucleated RBC Nucleated RBC % (auto) PT INR Sodium 140 Potassium 3.7 Chloride 105 Carbon Dioxide 21 L Anion Gap 18 BUN 15 Creatinine 0.74 Estim Creat Clear Calc 79.1 Estimated GFR > 60 Random Glucose 122 H Lactic Acid Calcium 8.6 Total Bilirubin 0.6 Direct Bilirubin 0.2 AST 18 ALT 22 Alkaline Phosphatase 74 Troponin I High Sens Total Protein 6.4 L Albumin 4.4 Procalcitonin Urine Color Urine Appearance Urine pH Ur Specific [place] Urine Protein Urine Glucose (UA) Urine Ketones Urine Blood Urine Nitrite Ur Leukocyte Esterase Urine RBC Urine WBC Ur Squamous Epith Cells Calcium Phosphate Cryst Urine Bacteria COVID-19 (TRACEY) Negative COVID-19 Clin Com See Note Influenza Type A (TERRY) Negative Influenza Type B (TERRY) Negative Influenza A & B Note See Note 06/29/22 06/29/22 06/29/22 01:38 01:38 01:38 WBC RBC Hgb Hct MCV MCH MCHC RDW Plt Count MPV Immature Gran % (Auto) Neut % (Auto) Lymph % (Auto) [place] % (Auto) Eos % (Auto) Baso % (Auto) Lymph # (Auto) [place] # (Auto) Eos # (Auto) Baso # (Auto) Abs Immat Gran (auto) Absolute Neuts (auto) Absolute Nucleated RBC Nucleated RBC % (auto) PT 10.2 INR 0.9 Sodium Potassium Chloride Carbon Dioxide Anion Gap BUN Creatinine Estim Creat Clear Calc Estimated GFR Random Glucose Lactic Acid 1.3 Calcium Total Bilirubin Direct Bilirubin AST ALT Alkaline Phosphatase Troponin I High Sens 5.1 Total Protein Albumin Procalcitonin Urine Color Urine Appearance Urine pH Ur Specific [place] Urine Protein Urine Glucose (UA) Urine Ketones Urine Blood Urine Nitrite Ur Leukocyte Esterase Urine RBC Urine WBC Ur Squamous Epith Cells Calcium Phosphate Cryst Urine Bacteria COVID-19 (TRACEY) COVID-19 Clin Com Influenza Type A (TERRY) Influenza Type B (TERRY) Influenza A & B Note 06/29/22 06/29/22 06/29/22 01:38 01:38 01:49 WBC 6.1 RBC 4.73 Hgb 13.6 Hct 41.2 MCV 87.1 MCH 28.8 MCHC 33.0 RDW 13.7 Plt Count 111 L MPV 9.6 Immature Gran % (Auto) 0.2 Neut % (Auto) 74.5 H Lymph % (Auto) 12.8 L [place] % (Auto) 11.0 Eos % (Auto) 1.0 Baso % (Auto) 0.5 Lymph # (Auto) 0.8 L [place] # (Auto) 0.7 Eos # (Auto) 0.1 Baso # (Auto) 0.0 Abs Immat Gran (auto) 0.01 Absolute Neuts (auto) 4.6 Absolute Nucleated RBC 0.000 Nucleated RBC % (auto) 0.0 PT INR Sodium Potassium Chloride Carbon Dioxide Anion Gap BUN Creatinine Estim Creat Clear Calc Estimated GFR Random Glucose Lactic Acid Calcium Total Bilirubin Direct Bilirubin AST ALT Alkaline Phosphatase Troponin I High Sens Total Protein Albumin Procalcitonin 0.04 Urine Color STRAW Urine Appearance CLEAR Urine pH 5.5 Ur Specific [place] 1.020 Urine Protein TRACE Urine Glucose (UA) NEG Urine Ketones NEG Urine Blood TRACE Urine Nitrite NEG Ur Leukocyte Esterase NEG Urine RBC 0-2 Urine WBC 0-2 Ur Squamous Epith Cells 1+ Calcium Phosphate Cryst TRACE Urine Bacteria NONE COVID-19 (TRACEY) COVID-19 Clin Com Influenza Type A (TERRY) Influenza Type B (TERRY) Influenza A & B Note A/P hospital d#1 71yo F with multiple myeloma [diagnosed 2019, plasmacytoma resected, s/p chemo/XRT, currently on immunotherapy q2mo at [facility] [place]] presenting with 6d of cough + dyspnea, found to be septic from PNA # sepsis due to PNA, PSI score 89 - not severe - continue ceftriaxone + azithromycin d#2 - trend PCT - follow BCx - check urinary antigens for Legionella + pneumococcus, respiratory pathogen panel - ID consult # HTN - continue b-annita, CCB/ARB # VTE ppx: LMWH In my clinical judgment, the patient requires continued hospitalization for the following reasons: IV ABX
--- NOTE | 2022-06-29 16:26 | PC.NURSE ---
RN to RN report given to Heidy.
[2022-06-29] MEDS: 0.9 % Sodium Chloride Flush 3 ML SYRINGE IVFLUSH ×2 (18:03→21:04)
[2022-06-30 04:00] VITALS: BP 129/66; PULSE 78; RESP 17; TEMP 36.1; O2SAT 97
[2022-06-30 06:09] LABS: MANUAL DIFF FLAG NO
[2022-06-30 06:12] LABS: Basophils Percent Auto 0.4 % (0-2); Eosinophils Absolute Auto 0.1 X10*3/uL (0.0-0.4); Eosinophils Percent Auto 1.2 % (0-4); Hematocrit 36.5 % (37.0-47.0); Hemoglobin 11.9 g/dl (12.0-16.0); Imm Gran Abs Auto 0.01 X10*3/uL (0.00-0.03); Imm Gran Pct Auto 0.1 % (0.0-0.4); Lymphocytes Absolute Auto 1.5 X10*3/uL (1.2-4.9); Lymphocytes Percent Auto 22.3 % (20-40); Mean Corpuscular HGB Conc 32.6 g/dl (31.0-35.0); Mean Corpuscular Hemoglobin 28.8 pg (27.0-33.0); Mean Corpuscular Volume 88.4 fL (80.0-98.0); Mean Platelet Volume 9.8 fL (9.4-12.3); Monocytes Absolute Auto 0.8 X10*3/uL (0.1-1.2); Monocytes Percent Auto 12.2 % (2-11); Neutrophils Absolute Auto 4.3 x10*3/uL (2.0-8.3); Neutrophils Percent Auto 63.8 % (45-73); Platelet Count 107 X10*3/uL (160-400); Red Blood Count 4.13 X10*6/uL (4.20-5.50); Red Cell Distribution Width 13.9 % (11.0-16.0); White Blood Count 6.7 X10*3/uL (4.8-10.8)
[2022-06-30 06:37] LABS: Anion Gap 15 (12-20); Blood Urea Nitrogen 11 mg/dL (9-16); Calcium 8.3 mg/dL (8.4-10.2); Carbon Dioxide 25 mmol/L (22-29); Chloride 104 mmol/L (96-108); Creatinine Clr Calc Pharmacy 82.4; Estimated Glomerular Filt Rate > 60; Glucose Random 112 mg/dL (60-115); Potassium 3.8 mmol/L (3.3-5.1); Sodium 140 mmol/L (135-145)
[2022-06-30] MEDS: Benzonatate 100 MG CAPSULE PO ×3 (07:22→21:49)
[2022-06-30] MEDS: Enoxaparin Sodium 40 MG/0.4 ML SYRINGE SUBCUT (07:22)
[2022-06-30] MEDS: Azithromycin 500 MG in 0.9 % Sodium Chloride 250 ML 125 MG IV (07:22)
[2022-06-30 07:30] VITALS: BP 144/67; PULSE 73; RESP 18; TEMP 36.3; O2SAT 98
[2022-06-30] MEDS: 0.9 % Sodium Chloride Flush 3 ML SYRINGE IVFLUSH ×2 (07:33→21:42)
[2022-06-30 08:56] LABS: Adenovirus PCR Not Detected (Not Detect.); Bordetella parapertussis PCR Not Detected (Not Detect.); Bordetella pertussis PCR Not Detected (Not Detect.); Chlamydia pneumoniae PCR Not Detected (Not Detect.); Coronavirus 229E PCR Not Detected (Not Detect.); Coronavirus HKU1 PCR Not Detected (Not Detect.); Coronavirus NL63 PCR Not Detected (Not Detect.); Coronavirus OC43 PCR Not Detected (Not Detect.); Human metapneumovirus PCR Not Detected (Not Detect.); Influenza A PCR Not Detected (Not Detect.); Influenza B PCR Not Detected (Not Detect.); Mycoplasma pneumoniae PCR Not Detected (Not Detect.); Parainfluenza 1 PCR Not Detected (Not Detect.); Parainfluenza 2 PCR Not Detected (Not Detect.); Parainfluenza 3 PCR Not Detected (Not Detect.); Parainfluenza 4 PCR Detected (Not Detect.); RSV PCR Not Detected (Not Detect.); Rhino/Enterovirus PCR Not Detected (Not Detect.); SARS-CoV-2 PCR Not Detected (Not Detect.)
[2022-06-30] MEDS: cefTRIAXone sodium 1 GM in 0.9 % Sodium Chloride 50 ML IV (10:07)
--- NOTE | 2022-06-30 10:33 | HO.PM.IMPN ---
Subjective Subjective Date of Service: 06/30/22 Physical Exam Vital Signs: Vital Signs: Last Vital Signs Temp 97.3 F 06/30/22 07:30 Pulse 73 06/30/22 07:30 Resp 18 06/30/22 07:30 BP 144/67 H 06/30/22 07:30 Pulse Ox 98 06/30/22 07:30 O2 Del Method 06/30/22 07:30 O2 Flow Rate 2 06/30/22 07:30 BMI result Body Mass Index 35.0 Objective Data Active Medications Acetaminophen (Acetaminophen 325 Mg Tablet) 650 mg PO Q6H PRN PRN Reason: Pain, Mild (Pain Scale 1-3) Last Admin: 06/29/22 12:42 Dose: 650 mg Documented By: ELIANE Benzonatate (Benzonatate 100 Mg Capsule) 100 mg PO TID PRN PRN Reason: Cough Last Admin: 06/30/22 07:22 Dose: 100 mg Documented By: EDWIGE Docusate Sodium (Docusate Sodium 100 Mg Capsule) 100 mg PO DAILY PRN PRN Reason: Constipation Enoxaparin Sodium (Enoxaparin Sodium 40 Mg/0.4 Ml Syringe) 40 mg SUBCUT Q24H [facility], [facility] Last Admin: 06/30/22 07:22 Dose: 40 mg Documented By: EDWIGE Ceftriaxone Sodium 1 gm/ (Sodium Chloride) 50 mls @ 100 mls/hr IV Q24H [facility], [facility] Last Admin: 06/30/22 10:07 Dose: 100 mls/hr Documented By: EDWIGE Azithromycin 500 mg/ Sodium (Chloride) 250 mls @ 125 mls/hr IV Q24H [facility], [facility] Last Infusion: 06/30/22 10:08 Dose: 0 mls/hr Documented By: EDWIGE Non-Formulary Medication (Amlodipine-Olmesartan) 1 tab PO DAILY [facility] Pt Own (Nebivolol [ Bystolic] 5 Mg Tablet) 5 mg PO DAILY [facility] Last Admin: 06/30/22 07:22 Dose: 5 mg Documented By: EDWIGE Ondansetron HCl (Ondansetron Hcl 4 Mg/2 Ml Vial) 4 mg IVPUSH Q8H PRN PRN Reason: Nausea and Vomiting Sodium Chloride (0.9 % Sodium Chloride Flush 3 Ml Syringe) 3 ml IVFLUSH QSHIFT [facility] Last Admin: 06/30/22 07:33 Dose: 3 ml Documented By: EDWIGE Labs CBC & Chem 7: 06/30/22 05:41 06/30/22 05:41 Labs: Laboratory Results - last 24 hr 06/29/22 06/29/22 06/30/22 01:38 17:52 05:41 MCV 88.4 MCH 28.8 MCHC 32.6 RDW 13.9 Plt Count 107 L MPV 9.8 Immature Gran % (Auto) 0.1 Neut % (Auto) 63.8 Lymph % (Auto) 22.3 [place] % (Auto) 12.2 H Eos % (Auto) 1.2 Baso % (Auto) 0.4 Lymph # (Auto) 1.5 [place] # (Auto) 0.8 Eos # (Auto) 0.1 Baso # (Auto) 0.0 Abs Immat Gran (auto) 0.01 Absolute Neuts (auto) 4.3 Absolute Nucleated RBC 0.000 Nucleated RBC % (auto) 0.0 Anion Gap Estim Creat Clear Calc Estimated GFR Random Glucose Calcium Procalcitonin 0.04 Respiratory Panel [place] See Note Adenovirus (Rapid PCR) Not Detected B.pert (TEM-PCR) Not Detected B.parapertussis DNA PCR Not Detected C. pneumoniae DNA (PCR) Not Detected Coronavirus OC43 (PCR) Not Detected Coronavirus HKU1 (PCR) Not Detected Coronavirus 229E (PCR) Not Detected Coronavirus NL63 (PCR) Not Detected Human Metapneumovir PCR Not Detected Influenza A (RT-PCR) Not Detected Influenza B (RT-PCR) Not Detected M. pneumoniae (PCR) Not Detected Parainfluenza 1 (PCR) Not Detected Parainfluenza 2 (PCR) Not Detected Parainfluenza 3 (PCR) Not Detected Parainfluenza 4 (PCR) Detected A RSV (PCR) Not Detected Entero/Rhino (PCR) Not Detected SARS-CoV-2 RNA (RT-PCR) Not Detected 06/30/22 05:41 MCV MCH MCHC RDW Plt Count MPV Immature Gran % (Auto) Neut % (Auto) Lymph % (Auto) [place] % (Auto) Eos % (Auto) Baso % (Auto) Lymph # (Auto) [place] # (Auto) Eos # (Auto) Baso # (Auto) Abs Immat Gran (auto) Absolute Neuts (auto) Absolute Nucleated RBC Nucleated RBC % (auto) Anion Gap 15 Estim Creat Clear Calc 82.4 Estimated GFR > 60 Random Glucose 112 Calcium 8.3 L Procalcitonin Respiratory Panel [place] Adenovirus (Rapid PCR) B.pert (TEM-PCR) B.parapertussis DNA PCR C. pneumoniae DNA (PCR) Coronavirus OC43 (PCR) Coronavirus HKU1 (PCR) Coronavirus 229E (PCR) Coronavirus NL63 (PCR) Human Metapneumovir PCR Influenza A (RT-PCR) Influenza B (RT-PCR) M. pneumoniae (PCR) Parainfluenza 1 (PCR) Parainfluenza 2 (PCR) Parainfluenza 3 (PCR) Parainfluenza 4 (PCR) RSV (PCR) Entero/Rhino (PCR) SARS-CoV-2 RNA (RT-PCR) Microbiology Microbiology Results: Microbiology 06/29/22 Unknown Gram Stain - Final Sputum - Expectorated 06/29/22 01:49 Blood Culture - Preliminary Blood - Venous No growth after 24 hours. 06/29/22 01:38 Blood Culture - Preliminary Blood - Venous No growth after 24 hours. Assessment and Plan (1) Sepsis: Status: Acute (2) Pneumonia: Status: Acute Plan hospital d#2 71yo F with multiple myeloma [diagnosed 2019, plasmacytoma resected, s/p chemo/XRT, [place] [facility] [place] presenting with 6d of cough + dyspnea, found to be septic from PNA # sepsis due to PNA in immmunosuppressed host - PSI score 89, sepsis not severe - continue ceftriaxone + azithromycin d#2, follow BCx, urinary antigens for Legionella + pneumococcus pending - RPP positive for parainfluenza 4 so consider d/c'ing ABX tomorrow if PCT low, discuss with ID [consult pending] # HTN - continue b-annita, CCB/ARB # VTE ppx: LMWH In my clinical judgment, the patient requires continued hospitalization for the following reasons: IV ABX, immunocompromise Quality Stroke Does the patient have a stroke diagnosis?: No VTE Prior VTE?: No VTE Risk Level:: Medical - moderate - high VTE Device Contraindication: Treatment Not Indicated VTE Drug Contraindication: N/A - Med Ordered
[2022-06-30] MEDS: guaiFEN/Codeine SF 200/20/10ML 10 ML LIQUID PO ×3 (10:53→21:48)
[2022-06-30 11:46] VITALS: BP 139/77; PULSE 75; RESP 18; TEMP 36.6; O2SAT 97
[2022-06-30] MEDS: Throat Lozenge, Medicated LOZENGE 1 LOZENGE MUCOUS MEM (15:08)
[2022-06-30 15:47] VITALS: BP 144/70; PULSE 70; RESP 22; TEMP 36.3; O2SAT 92
[2022-06-30 19:51] VITALS: BP 158/74; PULSE 77; RESP 20; TEMP 36.2; O2SAT 97
[2022-06-30 23:38] VITALS: BP 139/69; PULSE 73; RESP 17; TEMP 36.9; O2SAT 99
[2022-07-01 03:09] VITALS: BP 135/72; PULSE 70; RESP 17; TEMP 36; O2SAT 99
[2022-07-01] MEDS: Azithromycin 500 MG in 0.9 % Sodium Chloride 250 ML 125 MG IV (06:18)
[2022-07-01] MEDS: Enoxaparin Sodium 40 MG/0.4 ML SYRINGE SUBCUT (06:18)
[2022-07-01 06:26] LABS: Procalcitonin 0.04 ng/mL
[2022-07-01] MEDS: guaiFEN/Codeine SF 200/20/10ML 10 ML LIQUID PO ×2 (06:30→21:12)
[2022-07-01 07:28] VITALS: BP 144/76; PULSE 75; RESP 18; TEMP 36.4; O2SAT 93
[2022-07-01] MEDS: Docusate Sodium 100 MG CAPSULE PO (08:03)
[2022-07-01] MEDS: 0.9 % Sodium Chloride Flush 3 ML SYRINGE IVFLUSH ×3 (08:04→21:19)
[2022-07-01] MEDS: cefTRIAXone sodium 1 GM in 0.9 % Sodium Chloride 50 ML IV (09:17)
[2022-07-01] MEDS: Benzonatate 100 MG CAPSULE PO ×2 (10:38→21:12)
[2022-07-01 11:35] VITALS: BP 151/76; PULSE 75; RESP 18; TEMP 36.4; O2SAT 95
--- NOTE | 2022-07-01 14:30 | P.PNIM_ITS ---
Subjective Subjective Date of Service: 07/01/22 Interval History: slowly improving. Still short of breath with minimal exertion Review of Systems denies chest pain Denies shortness of breath Denies nausea vomiting diarrhea Denies fever chills Physical Exam Vital Signs: Vital Signs: Last Vital Signs Temp 97.6 F 07/01/22 11:35 Pulse 75 07/01/22 11:35 Resp 18 07/01/22 11:35 BP 151/76 H 07/01/22 11:35 Pulse Ox 95 07/01/22 11:35 O2 Del Method 07/01/22 11:35 O2 Flow Rate 2 07/01/22 03:09 BMI result Body Mass Index 35.0 Const: Other: no acute issues Resp: Other: bilateral crackles left greater than right with scattered exp Cardio: Other: no S4; positive S1-S2; no S3 murmurs rubs or gallops GI: Other: soft nontender nondistended normoactive bowel sounds Extrem: Other: no edema bilaterally Objective Data Active Medications Acetaminophen (Acetaminophen 325 Mg Tablet) 650 mg PO Q6H PRN PRN Reason: Pain, Mild (Pain Scale 1-3) Last Admin: 06/29/22 12:42 Dose: 650 mg Documented By: ELIANE Benzocaine (Throat Lozenge, Medicated Lozenge) 1 lozenge MUCOUS MEM Q2H PRN PRN Reason: Sore Throat Last Admin: 06/30/22 15:08 Dose: 1 lozenge Documented By: EDWIGE Benzonatate (Benzonatate 100 Mg Capsule) 100 mg PO TID PRN PRN Reason: Cough Last Admin: 07/01/22 10:38 Dose: 100 mg Documented By: EDNA Docusate Sodium (Docusate Sodium 100 Mg Capsule) 100 mg PO DAILY PRN PRN Reason: Constipation Last Admin: 07/01/22 08:03 Dose: 100 mg Documented By: EDNA Enoxaparin Sodium (Enoxaparin Sodium 40 Mg/0.4 Ml Syringe) 40 mg SUBCUT Q24H [facility] Last Admin: 07/01/22 06:18 Dose: 40 mg Documented By: MALLIKA Guaifenesin/Codeine Phosphate (Guaifen/Codeine Sf 200/20/10ml 10 Ml Liquid) 10 ml PO Q4H PRN PRN Reason: cough Last Admin: 07/01/22 06:30 Dose: 10 ml Documented By: MALLIKA Ceftriaxone Sodium 1 gm/ (Sodium Chloride) 50 mls @ 100 mls/hr IV Q24H [facility] Last Infusion: 07/01/22 09:47 Dose: 0 mls/hr Documented By: EDNA Azithromycin 500 mg/ Sodium (Chloride) 250 mls @ 125 mls/hr IV Q24H [facility] Last Infusion: 07/01/22 08:18 Dose: 0 mls/hr Documented By: EDNA Non-Formulary ( Amlodipine- Olmesartan 10-40 Mg Tablet) 1 tab PO DAILY [facility] Last Admin: 07/01/22 08:03 Dose: 1 tab Documented By: EDNA Pt Own (Nebivolol [ Bystolic] 5 Mg Tablet) 5 mg PO DAILY [facility] Last Admin: 07/01/22 08:03 Dose: 5 mg Documented By: EDNA Ondansetron HCl (Ondansetron Hcl 4 Mg/2 Ml Vial) 4 mg IVPUSH Q8H PRN PRN Reason: Nausea and Vomiting Sodium Chloride (0.9 % Sodium Chloride Flush 3 Ml Syringe) 3 ml IVFLUSH QSHIFT [facility] Last Admin: 07/01/22 08:04 Dose: 3 ml Documented By: EDNA Labs CBC & Chem 7: 06/30/22 05:41 06/30/22 05:41 Labs: Laboratory Results - last 24 hr 07/01/22 05:26 Procalcitonin 0.04 Microbiology Microbiology Results: Microbiology 06/29/22 Unknown Gram Stain - Final Sputum - Expectorated Sputum Culture - Preliminary Normal so far. 06/29/22 01:49 Blood Culture - Preliminary Blood - Venous No growth after 48 hours. 06/29/22 01:38 Blood Culture - Preliminary Blood - Venous No growth after 48 hours. Assessment and Plan (1) Pneumonia: Status: Acute (2) Hypertension: Status: Acute Plan 71yo F with multiple myeloma [diagnosed 2019, plasmacytoma resected, s/p chemo/XRT, currently on immunotherapy [place]2mo [place] [facility] [place] presenting with 6d of cough + dyspnea, found to be septic from PNA 1. Right lower lobe pneumonia -Ceftriaxone/Azithromycin(3) - id consult pending - given exam; would add pulse dose methylprednisolone for the next 24 hours 2.HTN - acceptable control on current therapies - continue b-annita, CCB/ARB # VTE ppx: LMWH requires ongoing hospitalization for IV antibiotics to treat pneumonia along with IV steroids Quality Stroke Does the patient have a stroke diagnosis?: No VTE Prior VTE?: No VTE Risk Level:: Medical - moderate - high VTE Device Contraindication: Treatment Not Indicated VTE Drug Contraindication: N/A - Med Ordered
--- NOTE | 2022-07-01 14:57 | W.PM.IDCN ---
History of Present Illness Data of Consult Service Date: 07/01/22 Requesting physician: Adam Ovalles Primary Care Provider: MD DARRYL Chambers Reason for consult: shortness of breath She has shortness of breath and cough for a week. She has no hypoxia at this time She has right middle lung concern infiltrate. Review of Systems Review of Systems: Yes all other systems are reviewed and are negative PMFSH Past Medical History Medical History Allergic rhinitis Hypertension, essential Intermittent palpitations Lipid disorder Multiple myeloma in remission Obstructive sleep apnea PVCs (premature ventricular contractions) Family History Family History Father No problems noted. Mother Diabetes mellitus Sister Diabetes mellitus Sister History of high blood pressure Family history: reviewed and not pertinent Surgical History Surgical History History of appendectomy Social History Social History Household Members: Spouse Housing: House Do you presently have visiting nurse or other home services: No Patient Tobacco Use Status: Never used Tobacco e-Cigarette/Vaping Use: Never Used service: No Current occupational status: retired Cognitive needs: No Hearing needs: No Vision needs: No Meds Allergies Allergy/AdvReac Type Severity Reaction Status Date / Time niacin [NIACIN] Allergy Mild REDNESS, Verified 06/29/22 00:50 rash, rash Penicillins [PCN] Allergy Mild BODY RASH Verified 06/29/22 00:50 penicillin V Allergy Unknown rash Verified 06/29/22 00:50 tbo-filgrastim [From Granix] Allergy Unknown palpitation Verified 06/29/22 00:50 s atenolol AdvReac Unknown palpatations, Verified 06/29/22 00:50 palpitations lisinopril AdvReac Unknown cough Verified 06/29/22 00:50 valsartan [Diovan] AdvReac Unknown cough Verified 06/29/22 00:50 Active Medications: Current Medications Acetaminophen (Acetaminophen 325 Mg Tablet) 650 mg PO Q6H PRN PRN Reason: Pain, Mild (Pain Scale 1-3) Last Admin: 06/29/22 12:42 Dose: 650 mg Benzocaine (Throat Lozenge, Medicated Lozenge) 1 lozenge MUCOUS MEM Q2H PRN PRN Reason: Sore Throat Last Admin: 06/30/22 15:08 Dose: 1 lozenge Benzonatate (Benzonatate 100 Mg Capsule) 100 mg PO TID PRN PRN Reason: Cough Last Admin: 07/01/22 10:38 Dose: 100 mg Docusate Sodium (Docusate Sodium 100 Mg Capsule) 100 mg PO DAILY PRN PRN Reason: Constipation Last Admin: 07/01/22 08:03 Dose: 100 mg Enoxaparin Sodium (Enoxaparin Sodium 40 Mg/0.4 Ml Syringe) 40 mg SUBCUT Q24H [facility] Last Admin: 07/01/22 06:18 Dose: 40 mg Guaifenesin/Codeine Phosphate (Guaifen/Codeine Sf 200/20/10ml 10 Ml Liquid) 10 ml PO Q4H PRN PRN Reason: cough Last Admin: 07/01/22 06:30 Dose: 10 ml Ceftriaxone Sodium 1 gm/ (Sodium Chloride) 50 mls @ 100 mls/hr IV Q24H [facility] Last Infusion: 07/01/22 09:47 Dose: Infused Azithromycin 500 mg/ Sodium (Chloride) 250 mls @ 125 mls/hr IV Q24H [facility] Last Infusion: 07/01/22 08:18 Dose: Infused Magnesium Hydroxide (Milk Of Magnesia 30 Ml Oral.Susp) 30 ml PO DAILY PRN PRN Reason: Constipation Methylprednisolone Sodium Succinate (Methylprednisolone Sod Succ 40 Mg/Ml Vial) 40 mg IVPUSH Q8H [facility] Non-Formulary ( Amlodipine- Olmesartan 10-40 Mg Tablet) 1 tab PO DAILY [facility] Last Admin: 07/01/22 08:03 Dose: 1 tab Pt Own (Nebivolol [ Bystolic] 5 Mg Tablet) 5 mg PO DAILY [facility] Last Admin: 07/01/22 08:03 Dose: 5 mg Ondansetron HCl (Ondansetron Hcl 4 Mg/2 Ml Vial) 4 mg IVPUSH Q8H PRN PRN Reason: Nausea and Vomiting Sodium Chloride (0.9 % Sodium Chloride Flush 3 Ml Syringe) 3 ml IVFLUSH QSHIFT [facility] Last Admin: 07/01/22 08:04 Dose: 3 ml Home Medications Medication Instructions Recorded Confirmed Last Taken Type ondansetron 4 mg disintegrating 4 mg PO Q6H PRN nausea 08/29/20 06/29/22 Unknown History tablet amlodipine 10 mg-olmesartan 40 mg 1 tab PO DAILY 02/08/22 06/29/22 06/28/22 History tablet acyclovir 400 mg tablet 1 tab PO BID 06/29/22 06/29/22 Unknown History dexamethasone 4 mg tablet 3 tab PO DAILY 06/29/22 06/29/22 Unknown History Physical Exam Vital Signs: Vital Signs: Last Vital Signs Temp 97.6 F 07/01/22 11:35 Pulse 75 07/01/22 11:35 Resp 18 07/01/22 11:35 BP 151/76 H 07/01/22 11:35 Pulse Ox 95 07/01/22 11:35 O2 Del Method 07/01/22 11:35 O2 Flow Rate 2 07/01/22 03:09 BMI result Body Mass Index 35.0 Const: General: cooperative HEENT: Head: Yes normal to inspection Face and sinus: Yes normal facial exam Mouth: Normal oral and palatal mucosa present Teeth and gingiva: dentition normal Eyes: General: appearance normal, both eyes and all related structures Pupils: Equal, round and reactive pupils present Resp: Effort & Inspection: normal respiratory effort Cardio: Rate: regular rate Rhythm: regular rhythm GI: Palpation (GI): Soft to palpation and nontender : General: Yes no CVA tenderness Back/Spine/Pelvis: Back: no CVA tenderness Skin: General skin exam: no rashes or lesions noted Neuro: General: moves all extremities Cranial nerves: Yes Equal, round and reactive pupils present Extrem: General: Yes normal to inspection Psych: Appearance: grossly normal Results Labs CBC & Chem 7: 06/30/22 05:41 06/30/22 05:41 Microbiology Microbiology Results: Microbiology 06/29/22 Unknown Sputum - Expectorated Gram Stain - Final 06/29/22 Unknown Sputum - Expectorated Sputum Culture - Preliminary Normal so far. 06/29/22 01:49 Blood - Venous Blood Culture - Preliminary No growth after 48 hours. 06/29/22 01:38 Blood - Venous Blood Culture - Preliminary No growth after 48 hours. Assessment and Plan (1) Sepsis: Status: Acute (2) Pneumonia: Status: Acute There is possible strep pneumonia,atypical Plan Continue Ceftriaxone and azithromycin check urine Legionella Check nares MRSA Duration 3-5 d IV and then po Ceftin and Zmax total 10 d
[2022-07-01] MEDS: methylPREDNISolone Sod Succ 40 MG/ML VIAL IVPUSH (15:39)
[2022-07-01] MEDS: Milk of Magnesia 30 ML ORAL.SUSP PO (15:41)
[2022-07-01 16:00] VITALS: BP 157/80; PULSE 75; RESP 16; TEMP 36.3; O2SAT 95
[2022-07-01 19:40] VITALS: BP 159/78; PULSE 81; RESP 17; TEMP 36.1; O2SAT 97
[2022-07-01] MEDS: Throat Lozenge, Medicated LOZENGE 1 LOZENGE MUCOUS MEM (21:12)
[2022-07-01 23:59] VITALS: BP 156/79; PULSE 81; RESP 18; TEMP 36; O2SAT 97
[2022-07-02 00:42] LABS: Strep Pneumo Ag urine Not Detected (Not Detected)
[2022-07-02 04:00] VITALS: BP 159/73; PULSE 69; RESP 20; TEMP 36.2; O2SAT 98
[2022-07-02 05:35] LABS: MANUAL DIFF FLAG NO
[2022-07-02 05:42] LABS: Basophils Percent Auto 0.2 % (0-2); Hematocrit 35.1 % (37.0-47.0); Hemoglobin 11.7 g/dl (12.0-16.0); Imm Gran Abs Auto 0.02 X10*3/uL (0.00-0.03); Imm Gran Pct Auto 0.5 % (0.0-0.4); Lymphocytes Absolute Auto 0.6 X10*3/uL (1.2-4.9); Lymphocytes Percent Auto 15.3 % (20-40); Mean Corpuscular HGB Conc 33.3 g/dl (31.0-35.0); Mean Corpuscular Hemoglobin 29.3 pg (27.0-33.0); Mean Corpuscular Volume 87.8 fL (80.0-98.0); Mean Platelet Volume 10.1 fL (9.4-12.3); Monocytes Absolute Auto 0.2 X10*3/uL (0.1-1.2); Monocytes Percent Auto 4.7 % (2-11); Neutrophils Absolute Auto 3.2 x10*3/uL (2.0-8.3); Neutrophils Percent Auto 79.3 % (45-73); Platelet Count 123 X10*3/uL (160-400); Red Cell Distribution Width 13.2 % (11.0-16.0); White Blood Count 4.1 X10*3/uL (4.8-10.8)
[2022-07-02 05:57] LABS: Alanine Aminotransferase 23 U/L (0-31); Albumin Level 3.9 g/dL (3.5-5.0); Alkaline Phosphatase 71 U/L (39-117); Anion Gap 14 (12-20); Aspartate Amino Transferase 16 U/L (5-31); Bilirubin Total 0.4 mg/dL (0.0-1.0); Blood Urea Nitrogen 14 mg/dL (9-16); Calcium 8.7 mg/dL (8.4-10.2); Carbon Dioxide 26 mmol/L (22-29); Chloride 105 mmol/L (96-108); Creatinine Clr Calc Pharmacy 84.8; Estimated Glomerular Filt Rate > 60; Glucose Fasting 139 mg/dL (60-99); Potassium 4.6 mmol/L (3.3-5.1); Sodium 140 mmol/L (135-145); Total Protein 5.8 g/dL (6.5-8.0)
[2022-07-02] MEDS: Enoxaparin Sodium 40 MG/0.4 ML SYRINGE SUBCUT (06:11)
[2022-07-02] MEDS: Azithromycin 500 MG in 0.9 % Sodium Chloride 250 ML 125 MG IV (06:12)
[2022-07-02 07:50] VITALS: BP 163/80; PULSE 79; RESP 19; TEMP 36.4; O2SAT 100
--- NOTE | 2022-07-02 08:44 | P.PNIM_ITS ---
Subjective Subjective Date of Service: 07/02/22 Interval History: No acute issues overnight. States cough no longer productive. . . Dry in nature with some chest pain with cough Review of Systems Admits chest pain with cough Denies shortness of breath at rest or with ambulation Denies nausea vomiting diarrhea Denies fever chills Physical Exam Vital Signs: Vital Signs: Last Vital Signs Temp 97.5 F 07/02/22 07:50 Pulse 79 07/02/22 07:50 Resp 19 07/02/22 07:50 BP 163/80 H 07/02/22 07:50 Pulse Ox 100 07/02/22 07:50 O2 Del Method 07/02/22 07:50 O2 Flow Rate 2 07/02/22 04:00 BMI result Body Mass Index 35.0 Const: Other: no acute distress Resp: Other: dense crackles and rhonchi left base otherwise clear wheezing resolved Cardio: Other: no S4; positive S1-S2; no S3 murmurs rubs or gallops GI: Other: soft nontender nondistended with normoactive bowel sounds Neuro: Other: cranial nerves 2-12 grossly intact. Motor 5/5 all extremities. Sensation intact. Cognition appropriate. Gait stable Extrem: Other: no edema bilaterally Objective Data Active Medications Acetaminophen (Acetaminophen 325 Mg Tablet) 650 mg PO Q6H PRN PRN Reason: Pain, Mild (Pain Scale 1-3) Last Admin: 06/29/22 12:42 Dose: 650 mg Documented By: ELIANE Benzocaine (Throat Lozenge, Medicated Lozenge) 1 lozenge MUCOUS MEM Q2H PRN PRN Reason: Sore Throat Last Admin: 07/01/22 21:12 Dose: 1 lozenge Documented By: MALLIKA Benzonatate (Benzonatate 100 Mg Capsule) 100 mg PO TID PRN PRN Reason: Cough Last Admin: 07/01/22 21:12 Dose: 100 mg Documented By: MALLIKA Docusate Sodium (Docusate Sodium 100 Mg Capsule) 100 mg PO DAILY PRN PRN Reason: Constipation Last Admin: 07/01/22 08:03 Dose: 100 mg Documented By: EDNA Enoxaparin Sodium (Enoxaparin Sodium 40 Mg/0.4 Ml Syringe) 40 mg SUBCUT Q24H [facility] Last Admin: 07/02/22 06:11 Dose: 40 mg Documented By: KULDIP Guaifenesin/Codeine Phosphate (Guaifen/Codeine Sf 200/20/10ml 10 Ml Liquid) 10 ml PO Q4H PRN PRN Reason: cough Last Admin: 07/01/22 21:12 Dose: 10 ml Documented By: MALLIKA Ceftriaxone Sodium 1 gm/ (Sodium Chloride) 50 mls @ 100 mls/hr IV Q24H [facility] Last Infusion: 07/01/22 09:47 Dose: 0 mls/hr Documented By: EDNA Azithromycin 500 mg/ Sodium (Chloride) 250 mls @ 125 mls/hr IV Q24H [facility] Last Admin: 07/02/22 06:12 Dose: 125 mls/hr Documented By: KULDIP Magnesium Hydroxide (Milk Of Magnesia 30 Ml Oral.Susp) 30 ml PO DAILY PRN PRN Reason: Constipation Last Admin: 07/01/22 15:41 Dose: 30 ml Documented By: EDNA Non-Formulary ( Amlodipine- Olmesartan 10-40 Mg Tablet) 1 tab PO DAILY [facility] Last Admin: 07/01/22 08:03 Dose: 1 tab Documented By: EDNA Pt Own (Nebivolol [ Bystolic] 5 Mg Tablet) 5 mg PO DAILY [facility] Last Admin: 07/01/22 08:03 Dose: 5 mg Documented By: EDNA Ondansetron HCl (Ondansetron Hcl 4 Mg/2 Ml Vial) 4 mg IVPUSH Q8H PRN PRN Reason: Nausea and Vomiting Sodium Chloride (0.9 % Sodium Chloride Flush 3 Ml Syringe) 3 ml IVFLUSH QSHIFT [facility] Last Admin: 07/01/22 21:19 Dose: 3 ml Documented By: MALLIKA Labs CBC & Chem 7: 07/02/22 05:09 07/02/22 05:09 Labs: Laboratory Results - last 24 hr 06/29/22 07/02/22 07/02/22 10:08 05:09 05:09 MCV 87.8 MCH 29.3 MCHC 33.3 RDW 13.2 Plt Count 123 L MPV 10.1 Immature Gran % (Auto) 0.5 H Neut % (Auto) 79.3 H Lymph % (Auto) 15.3 L [place] % (Auto) 4.7 Eos % (Auto) 0.0 Baso % (Auto) 0.2 Lymph # (Auto) 0.6 L [place] # (Auto) 0.2 Eos # (Auto) 0.0 Baso # (Auto) 0.0 Abs Immat Gran (auto) 0.02 Absolute Neuts (auto) 3.2 Absolute Nucleated RBC 0.000 Nucleated RBC % (auto) 0.0 Anion Gap 14 Estim Creat Clear Calc 84.8 Estimated GFR > 60 Fasting Glucose 139 H Calcium 8.7 Total Bilirubin 0.4 AST 16 ALT 23 Alkaline Phosphatase 71 Total Protein 5.8 L Albumin 3.9 Ur Strep pneumoniae Ag Not Detected Microbiology Microbiology Results: Microbiology 06/29/22 Unknown Gram Stain - Final Sputum - Expectorated Sputum Culture - Final Quality Stroke Does the patient have a stroke diagnosis?: No VTE Prior VTE?: No VTE Risk Level:: Medical - moderate - high VTE Device Contraindication: Treatment Not Indicated VTE Drug Contraindication: N/A - Med Ordered
[2022-07-02] MEDS: cefTRIAXone sodium 1 GM in 0.9 % Sodium Chloride 50 ML IV (08:51)
[2022-07-02] MEDS: 0.9 % Sodium Chloride Flush 3 ML SYRINGE IVFLUSH (08:51)
--- NOTE | 2022-07-02 11:48 | PM.DS ---
DS: Providers Provider Date of Service: 07/02/22 Date of admission: 06/29/22 06:20 Date of discharge: 07/02/22 Primary care physician: Yi Joseph MD Consults: 06/29/22 13:11 Consult to Infectious Diseases Routine Consulting Provider: Milagros Mary Reason for consultation: PNA in pt with MM DS: Diagnosis Discharge Diagnosis (1) Sepsis: Status: Acute (2) Pneumonia: Status: Acute DS: Summary Hospital Course Hospital Course: 71-year-old female with past medical history of HTN, multiple myeloma, plasmacytoma, reports that she is in remission presents to the hospital with 5-6 days of cough, as well as shortness of breath.? Patient reports that her cough got so bad today that she had a vomiting episode as a result.? She reports feeling feverish, chills, having pleuritic chest pain with every coughing, abdominal pain nausea or vomiting, no diarrhea constipation, no urinary symptoms and no lower extremity edema.? Patient denies any palpitations.? No headache or change in vision no numbness tingling.? On arrival to the ED patient was found to have a temperature of 102.2 degrees, heart rate of 130, blood pressure of 188/104, satting 96% on room air Labs is significant for WBC count of 6.1, hemoglobin of 13.6, labs otherwise unremarkable, COVID-19 negative Chest x-ray shows hazy right basilar opacity Hospital Course Admitted to [facility]; started on ceftriaxone and azithromycin. Continue to improve; able to wean O2 to room air. (Patient has concentrator for HS use). Seen by Infectious Disease. Acceptable to switch to Ceftin and azithromycin to complete a total of a 10 day course. patient was on pulse dose methylprednisolone for reactive airway component however after 1 day began to have side effects from meds. She states this is not a new phenomenon and happens with her chemo. At this point patient is requesting to be discharged and is medically stable for the same Time Spent with Patient Time attestation: Total time spent providing and/or coordinating discharge services: Discharge coordination time: Greater than 30 minutes Quality: Safe Use of Opioids Does Pt have an Active Cancer Diagnosis on the Problem List?: Yes Opioid Measure Date for [facility] Report: 06/02/22 Opioid Measure Time for [facility] Report: 11:52 Quality: Stroke Does the patient have a stroke diagnosis?: No Physical Exam Vital Signs: Vital Signs: Last Vital Signs Temp 97.5 F 07/02/22 07:50 Pulse 79 07/02/22 07:50 Resp 19 07/02/22 07:50 BP 163/80 H 07/02/22 07:50 Pulse Ox 100 07/02/22 07:50 O2 Del Method 07/02/22 07:50 O2 Flow Rate 2 07/02/22 04:00 BMI result Body Mass Index 35.0 Const: Other: No acute distress Resp: Other: diminished left base with scant crackles heard otherwise clear Cardio: Other: no S4; positive S1-S2; no S3 murmurs rubs or gallops GI: Other: soft nontender nondistended normoactive bowel sound Neuro: Other: cranial nerves 2-12 grossly intact as tested. Sensation is intact all extremities. Motor 5/5 all extremities. Gait steady Extrem: Other: no edema bilaterally DS: Data Data Completed and Pending Labs on day of discharge: Laboratory Results - last 24 hr 06/29/22 07/02/22 07/02/22 10:08 05:09 05:09 WBC 4.1 L RBC 4.00 L Hgb 11.7 L Hct 35.1 L MCV 87.8 MCH 29.3 MCHC 33.3 RDW 13.2 Plt Count 123 L MPV 10.1 Immature Gran % (Auto) 0.5 H Neut % (Auto) 79.3 H Lymph % (Auto) 15.3 L [place] % (Auto) 4.7 Eos % (Auto) 0.0 Baso % (Auto) 0.2 Lymph # (Auto) 0.6 L [place] # (Auto) 0.2 Eos # (Auto) 0.0 Baso # (Auto) 0.0 Abs Immat Gran (auto) 0.02 Absolute Neuts (auto) 3.2 Absolute Nucleated RBC 0.000 Nucleated RBC % (auto) 0.0 Sodium 140 Potassium 4.6 D Chloride 105 Carbon Dioxide 26 Anion Gap 14 BUN 14 Creatinine 0.68 Estim Creat Clear Calc 84.8 Estimated GFR > 60 Fasting Glucose 139 H Calcium 8.7 Total Bilirubin 0.4 AST 16 ALT 23 Alkaline Phosphatase 71 Total Protein 5.8 L Albumin 3.9 Ur Strep pneumoniae Ag Not Detected Preliminary micro results at discharge 06/29/22 01:49 Blood Culture - Preliminary Blood - Venous No growth after 48 hours. 06/29/22 01:38 Blood Culture - Preliminary Blood - Venous No growth after 48 hours. Discharge Plan Discharge Patient Disposition: Home, Self-Care Discharge Diagnosis: pneumonia Referrals: Yi Joseph MD [Primary Care Provider] - 1 Week Discharge Medications: New benzonatate 100 mg Capsule 100 mg PO TID PRN (Reason: Cough) Qty: 30 0RF codeine-guaifenesin 10-100 mg/5 mL Liquid 10 ml PO Q4H PRN (Reason: cough) Qty: 237 0RF azithromycin 500 mg tablet 500 mg PO DAILY 7 Days Qty: 7 0RF cefuroxime axetil 500 mg tablet 500 mg PO BID 7 Days Qty: 14 0RF Continued nebivolol [Bystolic] 5 mg tablet 5 mg PO DAILY Qty: 90 3RF acyclovir 400 mg tablet 1 tab PO BID dexamethasone 4 mg tablet 3 tab PO DAILY ondansetron 4 mg tablet,disintegrating 4 mg PO Q6H PRN (Reason: nausea) amlodipine-olmesartan 10-40 mg tablet 1 tab PO DAILY Discharge Orders: Discharge Order (Routine); Ordered 07/02/22 Ordered By: Adam Ovalles Diet: Advance to usual diet Activity on Discharge: As tolerated Stand Alone Forms: Patient Portal Discharge page Care Plan Goals: complete course of azithromycin 500 mg daily for 7 days along with Ceftin 500 mg twice daily for 7 days Health Concerns: follow-up with your PCP in 2 weeks Plan of Treatment: continue home oxygen as per previous to hospitalization Assessment: see discharge summary
[2022-07-02 11:50] VITALS: BP 170/93; PULSE 80; RESP 18; TEMP 36.7; O2SAT 98
--- NOTE | 2022-07-02 13:10 | MHC.CM.PN ---
CM met with Patient at bedside to discuss dc planning; CM addressed IMM with Patient and provided her with the original and placed a copy on the chart. Patient had this CM also speak with her Daughter/Fani @ [phone], who has requested to speak with MD. VONNIE has relayed Fani's contact information to MD.Patient and her Daughter do not feel that Patient is ready for dc today. CM will follow.
--- NOTE | 2022-07-02 13:15 | MHC.CM.PN ---
Per MD, Patient will NOT be dc to home today.
[2022-07-02 15:01] LABS: MRSA Nasal PCR NEGATIVE (Negative); SA Nasal PCR NEGATIVE (Negative)
--- NOTE | 2022-07-02 15:05 | MHC.CM.PN ---
Per , has spoken with Patient, her , and her Daughter and Patient indeed will dc to home today, self care.
[2022-07-05 22:17] LABS: Legionella Ag Urine Not Detected (Not Detected)
== END 2022-07-02 13:46 | disposition home or self-care (01) | DRG 871 ==
LOC: HO.ED 03:56 → HO.EDOVER 06:27 → HO.S3 15:35
PROVIDERS: Family Medicine; Admitting Provider Internal Medicine; Emergency Provider Emergency Medicine; PCP Internal Medicine; Visit Provider Hospitalist
DX: A41.9 Sepsis, unspecified organism (principal); J18.9 Pneumonia, unspecified organism; C90.01 Multiple myeloma in remission; Z94.81 Bone marrow transplant status; D84.821 Immunodeficiency due to drugs; I10 Essential (primary) hypertension; B34.8 Other viral infections of unspecified site; Z20.822 Contact with and (suspected) exposure to COVID-19; Z92.3 Personal history of irradiation; Z92.21 Personal history of antineoplastic chemotherapy; G47.33 Obstructive sleep apnea (adult) (pediatric); Z88.0 Allergy status to penicillin; Z88.8 Allergy status to other drugs, medicaments and biological substances; Z79.899 Other long term (current) drug therapy
CPT/HCPCS: 36415; 71045; 80048; 80053; 80076; 81001; 83605; 84145; 84484; 85025; 85610; 87040; 87070; 87205; 87449; 87502; 87633; 87635; 87640; 87641; 87899; 93005; 99218; 99285; J0456; J0692; J0696; J1650; J2920

== ENCOUNTER 2022-07-30 12:59 | Outpatient (REF) | payer MEDICARE, MEDICAID, SELFPAY ==
--- NOTE | ~2022-07-30 | XR_ITS ---
EXAMINATION: XR CHEST CLINICAL INFORMATION: Pneumonia. COMPARISON: 06/29/2022 chest radiograph. TECHNIQUE: 2 views of the chest were obtained. FINDINGS: There is mild blunting of the left costophrenic angle with mild superjacent linear markings at the level the lingula. The left upper lung field and right lung are clear. The heart and mediastinal structures are unremarkable. XR/XR chest 2V IMPRESSION: Mild pleural scarring and superjacent linear atelectasis/scarring without significant change. No acute abnormality.
== END 2022-07-30 13:00 | disposition home or self-care (01) ==
LOC: HO.HMGCX 12:59
PROVIDERS: PCP Internal Medicine; Visit Provider Internal Medicine
DX: J18.9 Pneumonia, unspecified organism (principal)
CPT/HCPCS: 71046

== ENCOUNTER → 2022-08-08 12:56 | Outpatient (BNVA) | payer MEDICARE, MEDICAID, SELFPAY | PROVIDERS: PCP Internal Medicine; Visit Provider Internal Medicine Cardiovascular Disease | DX: R00.2 Palpitations (principal); I10 Essential (primary) hypertension; I49.3 Ventricular premature depolarization; I77.89 Other specified disorders of arteries and arterioles | CPT/HCPCS: 99212 ==

== ENCOUNTER 2022-12-18 16:50 | Outpatient (REF) | payer MEDICARE, MEDICAID, SELFPAY ==
[2022-12-18 18:04] LABS: Influenza A PCR NEGATIVE (Negative); Influenza B PCR NEGATIVE (Negative); Resp Syncy Virus RNA Qual PCR NEGATIVE (Negative); SARS COV2 PCR INHOUSE NEGATIVE (Negative)
== END 2022-12-18 16:51 | disposition home or self-care (01) ==
LOC: HO.LNP 16:50
PROVIDERS: Visit Provider Internal Medicine
DX: Z20.822 Contact with and (suspected) exposure to COVID-19 (principal); R09.89 Other specified symptoms and signs involving the circulatory and respiratory systems
CPT/HCPCS: 0241U

== ENCOUNTER 2023-01-03 05:29 | Emergency (ER) | payer MEDICARE, MEDICAID, SELFPAY ==
--- NOTE | ~2023-01-03 | CT_ITS ---
EXAMINATION: CT ANGIOGRAM OF THE CHEST WITH AND WITHOUT CONTRAST (CT PULMONARY ANGIOGRAM FOR PE) CLINICAL INFORMATION: Reason for Exam ? PE COMPARISON: Previous chest CTA July 2020 and chest x-ray from earlier the same day TECHNIQUE: Prior to contrast administration, noncontrast localization images were obtained. Subsequently, multidetector volumetric imaging was performed from the thoracic inlet to below the diaphragms following the administration of 65 mL Omnipaque 350 intravenous contrast. No contrast reaction reported Sagittal, coronal, and MIP oblique sagittal reformatted images were obtained on the CT workstation, uploaded to PACS, and reviewed. This CT examination was performed using dose optimization techniques as appropriate, variously including the following: *Automated exposure control *Adjustment of mA and/or kV according to patient size (this includes techniques or standardized protocols for targeted exams where dose is matched to indication/reason for exam; i.e. extremities or head) *Use of iterative reconstruction technique Total exam dose-length product 333 mGy-cm FINDINGS: QUALITY OF STUDY/CONTRAST BOLUS: Satisfactory. PULMONARY ARTERIES: No central or segmental pulmonary emboli. THORACIC AORTA: No aneurysm or dissection. LUNG: Stable postsurgical changes at the left lung base. New 3 mm peripheral left lower lobe nodule axial image 277 series 7. New 4 mm peripheral or subpleural left lower lobe nodule adjacent to the diaphragmatic pleural surface axial image 312 series 7. New 2 mm peripheral or subpleural right lower lobe nodule axial image 3:30 series 7. This may represent a subpleural node. Chronic peripheral or subpleural scarring or subsegmental atelectasis at the left posterior lateral costophrenic angle. PLEURA: No pleural effusion or pneumothorax. MEDIASTINUM: Normal heart size. No pericardial effusion. No hilar or mediastinal lymphadenopathy. No evidence of septal bowing or right heart strain. CORONARY ARTERY CALCIFICATION: Moderate CHEST WALL/AXILLA: No axillary or internal mammary lymphadenopathy. OSSEOUS STRUCTURES: Stable postsurgical changes to the left lower ribs. Stable lytic lesions in the T6 vertebral body and question tiny lytic lesion in the T9 vertebral body. Question small lytic lesion in the right posterior seventh rib axial image 2:30 series 7 that is new. Degenerative changes spine. UPPER ABDOMEN: Diverticulosis. 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 No reflux of contrast into the hepatic veins to suggest elevated right heart pressures. CT/CT angio chest PE protocol IMPRESSION: No evidence of pulmonary embolism. Stable postsurgical changes at the left lung base. Several new small bilateral lower lobe pulmonary nodules. Chest CT follow-up as per protocol. Stable lytic lesions or lucencies in the T6 and T9 vertebral bodies. Question new small lytic lesion or lucency in the right posterior seventh rib VTE: negative
--- NOTE | ~2023-01-03 | XR_ITS ---
EXAMINATION: XR CHEST CLINICAL INFORMATION: Dyspnea COMPARISON: 07/30/2022 TECHNIQUE: 2 views of the chest were obtained. FINDINGS: The lungs are well expanded. There is no focal consolidation, edema, or effusion. No pneumothorax. The cardiomediastinal silhouette is within normal limits. Aortic calcifications. No acute osseous abnormality. Mild degenerative changes in the spine. XR/XR chest 2V IMPRESSION: Clear lungs.
[2023-01-03 05:31] VITALS: BP 169/95; PULSE 75; RESP 16; TEMP 36.8; O2SAT 98; BMI 33.9
--- NOTE | 2023-01-03 05:36 | ECG_ITS ---
Test Reason : dyspnea Blood Pressure : / mmHG Vent. Rate : 076 BPM Atrial Rate : 076 BPM P-R Int : 166 ms QRS Dur : 084 ms QT Int : 390 ms P-R-T Axes : 050 007 033 degrees QTc Int : 438 ms Normal sinus rhythm Minimal voltage criteria for LVH, may be normal variant ( R in aVL ) Borderline ECG When compared with ECG of 29-JUN-2022 01:21, Vent. rate has decreased BY 54 BPM Nonspecific T wave abnormality no longer evident in Lateral leads Referred By: Generic ED Physician Electronically Signed By:Siva Sarah
[2023-01-03 05:54] LABS: MANUAL DIFF FLAG NO
[2023-01-03 05:58] LABS: Basophils Percent Auto 0.8 % (0-2); Eosinophils Absolute Auto 0.1 X10*3/uL (0.0-0.4); Eosinophils Percent Auto 1.8 % (0-4); Hematocrit 39.6 % (37.0-47.0); Hemoglobin 13.2 g/dl (12.0-16.0); Imm Gran Abs Auto 0.01 X10*3/uL (0.00-0.03); Imm Gran Pct Auto 0.2 % (0.0-0.4); Lymphocytes Absolute Auto 1.9 X10*3/uL (1.2-4.9); Lymphocytes Percent Auto 38.4 % (20-40); Mean Corpuscular HGB Conc 33.3 g/dl (31.0-35.0); Mean Corpuscular Hemoglobin 29.5 pg (27.0-33.0); Mean Corpuscular Volume 88.4 fL (80.0-98.0); Mean Platelet Volume 9.7 fL (9.4-12.3); Monocytes Absolute Auto 0.5 X10*3/uL (0.1-1.2); Monocytes Percent Auto 9.2 % (2-11); Neutrophils Absolute Auto 2.4 x10*3/uL (2.0-8.3); Neutrophils Percent Auto 49.6 % (45-73); Platelet Count 142 X10*3/uL (160-400); Red Blood Count 4.48 X10*6/uL (4.20-5.50); White Blood Count 4.9 X10*3/uL (4.8-10.8)
[2023-01-03 06:08] LABS: COVID-19 Test Negative (Negative); IDNOW Serial# 6674DD1D
[2023-01-03 06:11] LABS: Anion Gap 15 (12-20); Blood Urea Nitrogen 22 mg/dL (9-16); Calcium 9.3 mg/dL (8.4-10.2); Carbon Dioxide 23 mmol/L (22-29); Chloride 108 mmol/L (96-108); Creatinine Clr Calc Pharmacy 82.3; Estimated Glomerular Filt Rate > 60; Glucose Random 115 mg/dL (60-115); Potassium 4.4 mmol/L (3.3-5.1); Sodium 142 mmol/L (135-145)
[2023-01-03 06:16] LABS: B Type Natriuretic Peptide 34 pg/mL (<100); Troponin-I High Sensitivity < 3.5 ng/L (<3.5-17.0)
--- NOTE | 2023-01-03 07:22 | ED_ITS ---
HPI - SOB/Dyspnea General Chief Complaint: Dyspnea Stated Complaint: high blood pressure Time Seen by Provider: 01/03/23 07:08 Source: patient Limitations: no limitations History of Present Illness HPI Narrative: This is 72 years old patient presented to the emergency department complaining of shortness of breath and elevated blood pressure since yesterday. Patient as history of multiple myeloma, hypertension. She denies any fever cough chest pain. MD elicited complaint: shortness of breath Pertinent past history: other (Multiple myeloma) Onset (ago): day(s) (1) Severity: mild Exacerbating factors: lying flat Relieving factors: nothing Related Data Home oxygen amount: none Home Medications Medication Instructions Recorded Confirmed acyclovir 400 mg tablet 1 tab PO BID 06/29/22 12/18/22 Previous Rx's Medication Instructions Recorded amlodipine 10 mg-olmesartan 40 mg 1 tab PO DAILY #90 tabs 08/08/22 tablet (Ovi) Bystolic 5 mg tablet (nebivolol) 5 mg PO DAILY #90 tabs 10/21/22 azithromycin 250 mg tablet 250 mg PO ONCE 5 days #6 tabs 12/18/22 Allergies Allergy/AdvReac Type Severity Reaction Status Date / Time niacin [NIACIN] Allergy Mild REDNESS, Verified 12/18/22 13:16 rash, rash Penicillins [PCN] Allergy Mild BODY RASH Verified 12/18/22 13:16 penicillin V Allergy Unknown rash Verified 12/18/22 13:16 tbo-filgrastim [From Granix] Allergy Unknown palpitation Verified 12/18/22 13:16 s atenolol AdvReac Unknown palpatations, Verified 12/18/22 13:16 palpitations lisinopril AdvReac Unknown cough Verified 12/18/22 13:16 valsartan [Diovan] AdvReac Unknown cough Verified 12/18/22 13:16 Review of Systems Constitutional: Constitutional: Reports no additional constitutional complain ts Eyes: Eyes: Reports no additional eye complaints Cardiovascular: Cardiovascular: Reports no additional cardiovascular complaints Gastrointestinal: Gastrointestinal: Reports no additional gastrointestinal complaints PMFSH Past Medical History Medical History Allergic rhinitis Hypertension, essential Intermittent palpitations Lipid disorder Multiple myeloma in remission Obstructive sleep apnea PVCs (premature ventricular contractions) Surgical History History of appendectomy Family History Family History Father No problems noted. Mother Diabetes mellitus Sister Diabetes mellitus Sister History of high blood pressure Social History Social History Household Members: Spouse Housing: House Do you presently have visiting nurse or other home services: No Patient Tobacco Use Status: Never used Tobacco e-Cigarette/Vaping Use: Never Used Advance Directives: No Advance Directives Information Provided: Yes service: No Current occupational status: retired Cognitive needs: No Hearing needs: No Vision needs: No Physical Exam Vital Signs: Vital Signs: Last Vital Signs Temp 98.2 F 01/03/23 05:31 Pulse 71 01/03/23 11:01 Resp 18 01/03/23 11:01 BP 161/86 H 01/03/23 11:01 Pulse Ox 98 01/03/23 11:01 O2 Del Method 01/03/23 11:01 BMI result Body Mass Index 33.9 Const: General: cooperative Nutritional Appearance: average body habitus Orientation/consciousness: patient oriented x3 Limitations: no limitations HEENT: Head: Yes normal to inspection General nose exam: Normal external nose present Face and sinus: Yes normal facial exam Mouth: Normal oral and palatal mucosa present Neck: Neck: Yes normal visual inspection Chest: Chest palpation & inspection: normal inspection of the chest Resp: Effort & Inspection: normal respiratory effort and able to speak in complete sentences Auscultation: clear to auscultation bilaterally Cardio: Jugular venous distension: no JVD Rhythm: regular rhythm GI: Inspection: Yes normal to inspection Palpation (GI): Soft to palpation, not firm, nontender and no guarding Skin: General skin exam: no rashes or lesions noted and elasticity normal Lesions: no lesions Rashes: no rashes Neuro: General: patient oriented x3 Cranial nerves: Yes CN's II-XII intact bilaterally Course Reevaluation(s) Reevaluation #1: Patient is feeling much better this time, workup is negative, CTA is negative troponin is normal there is no evidence of congestive heart failure no evidence of pulmonary emboli no evidence of ACS. At this point I think the patient can be discharged home and follow-up with the primary care physician. She is comfortable with the plan. Time: 10:26 Medications Administered Discontinued Medications Generic Name Dose Route Start Last Admin Trade Name Camille PRN Reason Stop Dose Admin Iohexol 85 ml 01/03/23 08:37 01/03/23 08:38 Iohexol 350 Mg/Ml 100 Ml Infus..Btl IV 01/03/23 08:38 85 ml ONCE ONE Administration Medical Decision Making Medical Decision Making [facility] Narrative: Patient presented with shortness of breath history of multiple myeloma we get chest x-ray EKG labs and reassess. She has a normal echo done March 2021 with a normal EF and slightly dilated ascending of heart,normal ETT March 2021 Differential Diagnosis Differential Diagnoses: The differential diagnosis associated with the presentation includes Differential diagnosis is broad including congestive heart failure/pulmonary emboli/pneumonia Admission/Observation Consideration of admission/observation: Escalation of care including admission/observation considered Lab Data [facility] Lab Attestation statement: I reviewed the patient's lab results. 01/03/23 05:50 01/03/23 05:50 Labs: Lab Results 01/03/23 01/03/23 01/03/23 Range/Units 05:50 05:50 05:50 WBC 4.9 (4.8-10.8) X10*3/uL RBC 4.48 (4.20-5.50) X10*6/uL Hgb 13.2 (12.0-16.0) g/dl Hct 39.6 (37.0-47.0) % MCV 88.4 (80.0-98.0) fL MCH 29.5 (27.0-33.0) pg MCHC 33.3 (31.0-35.0) g/dl RDW 13.0 (11.0-16.0) % Plt Count 142 L (160-400) X10*3/uL MPV 9.7 (9.4-12.3) fL Immature Gran % (Auto) 0.2 (0.0-0.4) % Neut % (Auto) 49.6 (45-73) % Lymph % (Auto) 38.4 (20-40) % [place] % (Auto) 9.2 (2-11) % Eos % (Auto) 1.8 (0-4) % Baso % (Auto) 0.8 (0-2) % Lymph # (Auto) 1.9 (1.2-4.9) X10*3/uL [place] # (Auto) 0.5 (0.1-1.2) X10*3/uL Eos # (Auto) 0.1 (0.0-0.4) X10*3/uL Baso # (Auto) 0.0 (0.0-0.2) X10*3/uL Abs Immat Gran (auto) 0.01 (0.00-0.03) X10*3/uL Absolute Neuts (auto) 2.4 (2.0-8.3) x10*3/uL Absolute Nucleated RBC 0.000 (0.0-0.012) X10*3/uL Nucleated RBC % (auto) 0.0 (0.0-0.2) /100WBC Sodium 142 (135-145) mmol/L Potassium 4.4 (3.3-5.1) mmol/L Chloride 108 (96-108) mmol/L Carbon Dioxide 23 (22-29) mmol/L Anion Gap 15 (12-20) BUN 22 H (9-16) mg/dL Creatinine 0.74 (0.5-1.4) mg/dL Estim Creat Clear Calc 82.3 Estimated GFR > 60 Random Glucose 115 (60-115) mg/dL Calcium 9.3 D (8.4-10.2) mg/dL Troponin I High Sens < 3.5 (<3.5-17.0) ng/L B-Natriuretic Peptide (<100) pg/mL Urine Color Urine Appearance Urine pH (5.0-9.0) Ur Specific [employer] (1.005-1.025) Urine Protein (Neg-Trace) mg/dL Urine Glucose (UA) (Negative) mg/dL Urine Ketones (Negative) mg/dL Urine Blood (Negative) Urine Nitrite (Negative) Ur Leukocyte Esterase (Negative) Urine RBC (0-2) /HPF Urine WBC (0-5) /HPF Ur Squamous Epith Cells (0-2) /HPF Urine Bacteria (None Seen) Hyaline Casts (0-2) /LPF COVID-19 (TRACEY) (Negative) COVID-19 Clin Com 01/03/23 01/03/23 01/03/23 Range/Units 05:50 05:50 07:31 WBC (4.8-10.8) X10*3/uL RBC (4.20-5.50) X10*6/uL Hgb (12.0-16.0) g/dl Hct (37.0-47.0) % MCV (80.0-98.0) fL MCH (27.0-33.0) pg MCHC (31.0-35.0) g/dl RDW (11.0-16.0) % Plt Count (160-400) X10*3/uL MPV (9.4-12.3) fL Immature Gran % (Auto) (0.0-0.4) % Neut % (Auto) (45-73) % Lymph % (Auto) (20-40) % [place] % (Auto) (2-11) % Eos % (Auto) (0-4) % Baso % (Auto) (0-2) % Lymph # (Auto) (1.2-4.9) X10*3/uL [place] # (Auto) (0.1-1.2) X10*3/uL Eos # (Auto) (0.0-0.4) X10*3/uL Baso # (Auto) (0.0-0.2) X10*3/uL Abs Immat Gran (auto) (0.00-0.03) X10*3/uL Absolute Neuts (auto) (2.0-8.3) x10*3/uL Absolute Nucleated RBC (0.0-0.012) X10*3/uL Nucleated RBC % (auto) (0.0-0.2) /100WBC Sodium (135-145) mmol/L Potassium (3.3-5.1) mmol/L Chloride (96-108) mmol/L Carbon Dioxide (22-29) mmol/L Anion Gap (12-20) BUN (9-16) mg/dL Creatinine (0.5-1.4) mg/dL Estim Creat Clear Calc Estimated GFR Random Glucose (60-115) mg/dL Calcium (8.4-10.2) mg/dL Troponin I High Sens (<3.5-17.0) ng/L B-Natriuretic Peptide 34 (<100) pg/mL Urine Color Yellow Urine Appearance Clear Urine pH 6.5 (5.0-9.0) Ur Specific [employer] 1.010 (1.005-1.025) Urine Protein Negative (Neg-Trace) mg/dL Urine Glucose (UA) Negative (Negative) mg/dL Urine Ketones Negative (Negative) mg/dL Urine Blood Negative (Negative) Urine Nitrite Negative (Negative) Ur Leukocyte Esterase Small (1+) H (Negative) Urine RBC 0-2 (0-2) /HPF Urine WBC 0-5 (0-5) /HPF Ur Squamous Epith Cells 0-2 (0-2) /HPF Urine Bacteria None Seen (None Seen) Hyaline Casts 0-2 (0-2) /LPF COVID-19 (TRACEY) Negative (Negative) COVID-19 Clin Com See Note Independent Interpretation I performed an independent interpretation of an: EKG Interpretation: Electrocardiogram reviewed by me shows normal sinus rhythm with a rate of [address]-T segment is isoelectric Radiology Impression Discussion of test interpretation with radiology: I have reviewed the radiologist's reading. Radiologist Impression: ectasis at the left posterior lateral costophrenic angle. PLEURA: No pleural effusion or pneumothorax. MEDIASTINUM: Normal heart size.? No pericardial effusion.? No hilar or mediastinal lymphadenopathy.? No evidence of septal bowing or right heart strain. CORONARY ARTERY CALCIFICATION: Moderate CHEST WALL/AXILLA: No axillary or internal mammary lymphadenopathy. OSSEOUS STRUCTURES: Stable postsurgical changes to the left lower ribs. Stable lytic lesions in the T6 vertebral body and question tiny lytic lesion in the T9 vertebral body. Question small lytic lesion in the right posterior seventh rib axial image 2:30 series 7 that is new. Degenerative changes spine. UPPER ABDOMEN: Diverticulosis. 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 No reflux of contrast into the hepatic veins to suggest elevated right heart pressures. CT/CT angio chest PE protocol IMPRESSION: No evidence of pulmonary embolism. Stable postsurgical changes at the left lung base. Several new small bilateral lower lobe pulmonary nodules. Chest CT follow-up as per protocol. Stable lytic lesions or lucencies in the T6 and T9 vertebral bodies. Question new small lytic lesion or lucency in the right posterior seventh rib ? VTE: negative Dictated By: Discharge Plan Discharge Clinical Impression: SOB (shortness of breath) Patient Disposition: Home, Self-Care Instructions: Shortness of Breath (ED) Additional Instructions: Follow-up with your primary care physician return if you worse, the CT scan shows no pneumonia ,no fluid in the lungs ,no blood clot in your lungs , blood tests for heart attack was negative Prescriptions: No Action nebivolol [Bystolic] 5 mg tablet 5 mg PO DAILY Qty: 90 3RF acyclovir 400 mg tablet 1 tab PO BID azithromycin 250 mg tablet 250 mg PO ONCE 5 Days Qty: 6 0RF Rx Instructions: Take 2 tablets today then 1 daily amlodipine-olmesartan [Ovi] 10-40 mg tablet 1 tab PO DAILY Qty: 90 4RF Referrals: Yi Joseph MD [Primary Care Provider] - 01/03/23 10:28 am Interventions: ED Discharge Assessment Last Done: 01/03/23 11:01 Discharge Date/Time: 01/03/23 11:02
[2023-01-03 08:19] LABS: Appearance Urine Clear; Color Urine Yellow; Glucose Urine UA Negative (Negative); Leukocyte Esterase Urine Small (1+) (Negative); Nitrite Urine Negative (Negative); PH 6.5 (5.0-9.0); UMIC TRIGGER UACC YES; Urine Blood Negative (Negative); Urine Ketones Negative (Negative); Urine Protein Negative (Neg-Trace)
[2023-01-03 08:31] LABS: Bacteria Urine None Seen (None Seen); Hyaline Casts Urine 0-2 /LPF (0-2); RBC Urine 0-2 /HPF (0-2); Squamous Epithelial Cell Urine 0-2 /HPF (0-2); UACC Culture Trigger YES; WBC Urine 0-5 /HPF (0-5)
[2023-01-03] MEDS: iohexoL 350 MG/ML 100 ML INFUS..BTL 85 ML IV (08:38)
[2023-01-03 11:01] VITALS: BP 161/86; PULSE 71; RESP 18; O2SAT 98
== END 2023-01-03 11:02 | disposition home or self-care (01) ==
PROVIDERS: Emergency Provider Emergency Medicine; PCP Internal Medicine
DX: R06.02 Shortness of breath (principal); Z20.822 Contact with and (suspected) exposure to COVID-19; I10 Essential (primary) hypertension; Z79.899 Other long term (current) drug therapy
CPT/HCPCS: 36415; 71046; 71275; 80048; 81001; 81003; 83880; 84484; 85025; 87086; 87635; 93005; 99283; 99284; Q9967

== ENCOUNTER 2023-02-17 00:45 | Emergency (ER) | payer MEDICARE, MEDICAID, SELFPAY ==
--- NOTE | 2023-02-17 | ECG_ITS ---
Test Reason : CHEST PRESSURE Blood Pressure : / mmHG Vent. Rate : 084 BPM Atrial Rate : 084 BPM P-R Int : 166 ms QRS Dur : 080 ms QT Int : 384 ms P-R-T Axes : 039 016 041 degrees QTc Int : 453 ms Normal sinus rhythm Normal ECG When compared with ECG of 03-JAN-2023 05:42, No significant change was found Referred By: Generic ED Physician Electronically Signed By:Siva Sarah
--- NOTE | ~2023-02-17 | XR_ITS ---
EXAMINATION: XR CHEST CLINICAL INFORMATION: Shortness of breath COMPARISON: 01/03/2023 TECHNIQUE: Frontal view of the chest was obtained. FINDINGS: Normal symmetric lung volumes. No parenchymal consolidation. No pleural effusion. No pneumothorax. Cardiomediastinal silhouette and pulmonary vascularity are within normal limits. Aorta is atherosclerotic. No acute osseous abnormalities. XR/XR chest 1V IMPRESSION: Clear lungs
[2023-02-17 01:07] VITALS: BP 182/84; PULSE 84; RESP 18; TEMP 36.9; O2SAT 98; BMI 34.5
[2023-02-17 01:32] LABS: Basophils Absolute Auto 0.1 X10*3/uL (0.0-0.2); Basophils Percent Auto 1.3 % (0-2); Eosinophils Absolute Auto 0.1 X10*3/uL (0.0-0.4); Eosinophils Percent Auto 3.3 % (0-4); Hematocrit 37.6 % (37.0-47.0); Hemoglobin 12.8 g/dl (12.0-16.0); Imm Gran Abs Auto 0.01 X10*3/uL (0.00-0.03); Imm Gran Pct Auto 0.3 % (0.0-0.4); Lymphocytes Absolute Auto 1.6 X10*3/uL (1.2-4.9); Lymphocytes Percent Auto 40.6 % (20-40); MANUAL DIFF FLAG NO; Mean Corpuscular Hemoglobin 29.9 pg (27.0-33.0); Mean Corpuscular Volume 87.9 fL (80.0-98.0); Mean Platelet Volume 9.5 fL (9.4-12.3); Monocytes Absolute Auto 0.4 X10*3/uL (0.1-1.2); Monocytes Percent Auto 9.6 % (2-11); Neutrophils Absolute Auto 1.8 x10*3/uL (2.0-8.3); Neutrophils Percent Auto 44.9 % (45-73); Platelet Count 135 X10*3/uL (160-400); Red Blood Count 4.28 X10*6/uL (4.20-5.50)
[2023-02-17 01:49] LABS: Alanine Aminotransferase 21 U/L (0-31); Albumin Level 4.3 g/dL (3.5-5.0); Alkaline Phosphatase 54 U/L (39-117); Anion Gap 15 (12-20); Aspartate Amino Transferase 21 U/L (5-31); Bilirubin Total 0.6 mg/dL (0.0-1.0); Blood Urea Nitrogen 20 mg/dL (9-16); Calcium 9.1 mg/dL (8.4-10.2); Carbon Dioxide 20 mmol/L (22-29); Chloride 109 mmol/L (96-108); Creatinine Clr Calc Pharmacy 84.2; Estimated Glomerular Filt Rate > 60; Glucose Random 114 mg/dL (60-115); Potassium 3.9 mmol/L (3.3-5.1); Sodium 140 mmol/L (135-145); Total Protein 6.2 g/dL (6.5-8.0)
[2023-02-17 01:50] LABS: Troponin-I High Sensitivity 3.9 ng/L (<3.5-17.0)
--- NOTE | 2023-02-17 02:32 | ED.CHESTPAIN ---
HPI - Chest Pain General Chief Complaint: Chest Pain Stated Complaint: difficulty breathing, chest pressure Time Seen by Provider: 02/17/23 02:31 Source: patient Mode of arrival: ambulatory Limitations: no limitations History of Present Illness HPI narrative: Patient history of hypertension comes in with multiple complaints complaining of shortness of breath for few hours prior to arrival palpitation off and on for a long had blood pressure elevated to 159/76 report dizziness and headache no abdominal pain no back pain or nausea no vomit no fever no chills patient does have a history of sleep apnea uses oxygen at home has history of multiple myeloma in remission denies any significant anxiety does have a history of palpitations off and on in the past patient complains of chest pain which is sharp lasting only for few seconds no chest pain at this time started 3- 4 hours prior to arrival does have a history of intermittent palpitation in the past with workup negative had event monitor placed in 07/07 which was negative, no near-syncope or syncope episode Related Data Home Medications Medication Instructions Recorded Confirmed acyclovir 400 mg tablet 1 tab PO BID 06/29/22 02/11/23 Previous Rx's Medication Instructions Recorded amlodipine 10 mg-olmesartan 40 mg 1 tab PO DAILY #90 tabs 08/08/22 tablet (Ovi) Bystolic 5 mg tablet (nebivolol) 5 mg PO DAILY #90 tabs 10/21/22 Allergies Allergy/AdvReac Type Severity Reaction Status Date / Time niacin [NIACIN] Allergy Mild REDNESS, Verified 02/17/23 01:12 rash, rash Penicillins [PCN] Allergy Mild BODY RASH Verified 02/17/23 01:12 penicillin V Allergy Unknown rash Verified 02/17/23 01:12 tbo-filgrastim [From Granix] Allergy Unknown palpitation Verified 02/17/23 01:12 s atenolol AdvReac Unknown palpatations, Verified 02/17/23 01:12 palpitations lisinopril AdvReac Unknown cough Verified 02/17/23 01:12 valsartan [Diovan] AdvReac Unknown cough Verified 02/17/23 01:12 Review of Systems Review of Systems: Yes all other systems are reviewed and are negative PMFSH Past Medical History Medical History Allergic rhinitis Hypertension, essential Intermittent palpitations Lipid disorder Multiple myeloma in remission Obstructive sleep apnea PVCs (premature ventricular contractions) Surgical History History of appendectomy Family History Family History Father No problems noted. Mother Diabetes mellitus Sister Diabetes mellitus Sister History of high blood pressure Social History Social History Household Members: Spouse Housing: House Do you presently have visiting nurse or other home services: No Patient Tobacco Use Status: Never used Tobacco e-Cigarette/Vaping Use: Never Used Advance Directives: No service: No Current occupational status: retired Cognitive needs: No Hearing needs: No Vision needs: No Physical Exam Vital Signs: Vital Signs: Last Vital Signs Temp 98.5 F 02/17/23 01:07 Pulse 84 02/17/23 01:07 Resp 18 02/17/23 01:07 BP 182/84 H 02/17/23 01:07 Pulse Ox 98 02/17/23 01:07 O2 Del Method Room Air 02/17/23 01:07 BMI result Body Mass Index 34.5 Appearance: Alert. Oriented X3. No acute distress. Anxious Eyes: No pallor or icterus ENT: Pharynx normal. Oral Mucosa moist Neck: Normal inspection. Neck supple. CVS: Normal heart rate and rhythm. Pulses normal. Respiratory: No respiratory distress. Equal air entry bilateral, no wheezing/rales/rhonchi Abdomen: Soft and nontender. Bowel sounds are present, no mass palpable, no CVA tenderness Skin: Skin warm and dry. Normal skin color. Normal skin turgor. Extremities: No lower extremity edema. No calf tenderness Neuro: Oriented X 3. No motor deficit. No sensory deficit.No cerebellar signs , cranial nerves II-XII intact Medical Decision Making Medical Decision Making MDM Narrative: Patient had atypical symptoms with workup in the past negative no arrhythmias noticed today cardiac enzymes negative patient seems to be anxious but denies anxiety will discharge patient home and advised to follow with PCP Lab Data MDM Lab Attestation statement: I reviewed the patient's lab results. 02/17/23 01:26 02/17/23 01:26 Labs: Lab Results 02/17/23 02/17/23 02/17/23 Range/Units 01:26 01:26 01:26 WBC 4.0 L (4.8-10.8) X10*3/uL RBC 4.28 (4.20-5.50) X10*6/uL Hgb 12.8 (12.0-16.0) g/dl Hct 37.6 (37.0-47.0) % MCV 87.9 (80.0-98.0) fL MCH 29.9 (27.0-33.0) pg MCHC 34.0 (31.0-35.0) g/dl RDW 13.0 (11.0-16.0) % Plt Count 135 L (160-400) X10*3/uL MPV 9.5 (9.4-12.3) fL Immature Gran % (Auto) 0.3 (0.0-0.4) % Neut % (Auto) 44.9 L (45-73) % Lymph % (Auto) 40.6 H (20-40) % [place] % (Auto) 9.6 (2-11) % Eos % (Auto) 3.3 (0-4) % Baso % (Auto) 1.3 (0-2) % Lymph # (Auto) 1.6 (1.2-4.9) X10*3/uL [place] # (Auto) 0.4 (0.1-1.2) X10*3/uL Eos # (Auto) 0.1 (0.0-0.4) X10*3/uL Baso # (Auto) 0.1 (0.0-0.2) X10*3/uL Abs Immat Gran (auto) 0.01 (0.00-0.03) X10*3/uL Absolute Neuts (auto) 1.8 L (2.0-8.3) x10*3/uL Absolute Nucleated RBC 0.000 (0.0-0.012) X10*3/uL Nucleated RBC % (auto) 0.0 (0.0-0.2) /100WBC Sodium 140 (135-145) mmol/L Potassium 3.9 (3.3-5.1) mmol/L Chloride 109 H (96-108) mmol/L Carbon Dioxide 20 L (22-29) mmol/L Anion Gap 15 (12-20) BUN 20 H (9-16) mg/dL Creatinine 0.73 (0.5-1.4) mg/dL Estim Creat Clear Calc 84.2 Estimated GFR > 60 Random Glucose 114 (60-115) mg/dL Calcium 9.1 (8.4-10.2) mg/dL Total Bilirubin 0.6 (0.0-1.0) mg/dL AST 21 (5-31) U/L ALT 21 (0-31) U/L Alkaline Phosphatase 54 (39-117) U/L Troponin I High Sens 3.9 (<3.5-17.0) ng/L B-Natriuretic Peptide (<100) pg/mL Total Protein 6.2 L (6.5-8.0) g/dL Albumin 4.3 (3.5-5.0) g/dL 02/17/23 Range/Units 01:26 WBC (4.8-10.8) X10*3/uL RBC (4.20-5.50) X10*6/uL Hgb (12.0-16.0) g/dl Hct (37.0-47.0) % MCV (80.0-98.0) fL MCH (27.0-33.0) pg MCHC (31.0-35.0) g/dl RDW (11.0-16.0) % Plt Count (160-400) X10*3/uL MPV (9.4-12.3) fL Immature Gran % (Auto) (0.0-0.4) % Neut % (Auto) (45-73) % Lymph % (Auto) (20-40) % [place] % (Auto) (2-11) % Eos % (Auto) (0-4) % Baso % (Auto) (0-2) % Lymph # (Auto) (1.2-4.9) X10*3/uL [place] # (Auto) (0.1-1.2) X10*3/uL Eos # (Auto) (0.0-0.4) X10*3/uL Baso # (Auto) (0.0-0.2) X10*3/uL Abs Immat Gran (auto) (0.00-0.03) X10*3/uL Absolute Neuts (auto) (2.0-8.3) x10*3/uL Absolute Nucleated RBC (0.0-0.012) X10*3/uL Nucleated RBC % (auto) (0.0-0.2) /100WBC Sodium (135-145) mmol/L Potassium (3.3-5.1) mmol/L Chloride (96-108) mmol/L Carbon Dioxide (22-29) mmol/L Anion Gap (12-20) BUN (9-16) mg/dL Creatinine (0.5-1.4) mg/dL Estim Creat Clear Calc Estimated GFR Random Glucose (60-115) mg/dL Calcium (8.4-10.2) mg/dL Total Bilirubin (0.0-1.0) mg/dL AST (5-31) U/L ALT (0-31) U/L Alkaline Phosphatase (39-117) U/L Troponin I High Sens (<3.5-17.0) ng/L B-Natriuretic Peptide 51 (<100) pg/mL Total Protein (6.5-8.0) g/dL Albumin (3.5-5.0) g/dL Independent Interpretation I performed an independent interpretation of an: EKG Interpretation: Normal sinus rhythm heart rate 84 beats per minute normal interval normal axis no acute ST-T changes no acute ischemic Discharge Plan Discharge Clinical Impression: Atypical chest pain, Palpitations Patient Disposition: Home, Self-Care Instructions: Chest Pain (ED), Heart Palpitations (ED) Additional Instructions: Continue medications as prescribed by her PCP Follow-up with your PCP Prescriptions: No Action nebivolol [Bystolic] 5 mg tablet 5 mg PO DAILY Qty: 90 3RF acyclovir 400 mg tablet 1 tab PO BID amlodipine-olmesartan [Ovi] 10-40 mg tablet 1 tab PO DAILY Qty: 90 4RF
[2023-02-17 03:20] LABS: B Type Natriuretic Peptide 51 pg/mL (<100)
[2023-02-17 03:54] VITALS: PULSE 78
[2023-02-17 04:47] VITALS: BP 157/82; PULSE 73; RESP 16; TEMP 36.2; O2SAT 98
== END 2023-02-17 04:48 | disposition home or self-care (01) ==
PROVIDERS: Emergency Provider Internal Medicine; PCP Internal Medicine
DX: R07.89 Other chest pain (principal); R06.02 Shortness of breath; R00.2 Palpitations; Z79.899 Other long term (current) drug therapy
CPT/HCPCS: 36415; 71045; 80053; 83880; 84484; 85025; 93005; 99283; 99285

== ENCOUNTER → 2023-02-25 13:18 | Outpatient (BNVA) | payer MEDICARE, MEDICAID, SELFPAY | PROVIDERS: PCP Internal Medicine; Visit Provider Internal Medicine Cardiovascular Disease | DX: I77.89 Other specified disorders of arteries and arterioles (principal); I10 Essential (primary) hypertension | CPT/HCPCS: 99212 ==

== ENCOUNTER → 2023-04-15 10:57 | Outpatient (REF) | payer MEDICARE, MEDICAID, SELFPAY ==
--- NOTE | 2023-04-15 11:04 | CA_ITS ---
Transthoracic Echocardiogram Patient (Last, First, Middle): Padmini Caruso, Gender: Female Date of : 1950 Age: 72 Procedure Date: 04/15/2023 Procedure Type: Transthoracic Echocardiogram Location: OP Height: 167.64 cm Weight: 96.16 kg BSA: 2.05 m2 Heart Rate: bpm BP: 140 / 85 mmHg Mill Controller: USMAN Referring MD: Von Rizzo MD Emissions Engineer: Von Rizzo MD Symptoms: I77.89 - Other specified disorders of arteries and arterioles Study Quality: Adequate ECG Rhythm: Sinus Conclusions: - 1. Normal LV systolic function with mild LVH with impaired relaxation filling pattern 2. Mild mitral regurgitation 3. Normal RV systolic pressure 4. Mildly dilated ascending aorta at 3.9 cm 5. No gross pericardial effusion Findings Left Ventricle Normal left ventricular size and systolic function. There is mildly increased left ventricular wall thickness. The visually estimated ejection fraction is between 60-65%. Spectral Doppler is indicative of an impaired relaxation filling pattern. E/E prime ratio is between 8 and 15 consistent with indeterminate filling pressures. Right Ventricle Normal right ventricular cavity size and systolic function. Atria The left atrium is likely dilated. Interatrial shunt cannot be excluded. The right atrium is normal in size. Aortic Valve Normal aortic valve structure and function. There is no aortic valve stenosis. There is trace (trivial) aortic valve regurgitation. Mitral Valve There is moderate anterior and mild posterior mitral leaflet thickening. There is mild anterior and mild posterior mitral annular calcification. There is mild mitral valve regurgitation. There is no mitral valve stenosis. Pulmonic Valve The pulmonic valve is likely normal. There is trace to mild pulmonic valve regurgitation. Tricuspid Valve Normal tricuspid valve structure. There is mild tricuspid valve regurgitation. The right ventricular systolic pressure is normal. The right ventricular systolic pressure is 23 mmHg. Normal right atrial pressure. There is no evidence of pulmonary hypertension. Great Vessels The pulmonary artery was not well visualized. There is mild dilatation of the ascending aorta measuring 3.90 cm. Venous The inferior vena cava is normal in size and collapses greater than 50% with inspiration. Pericardium/Pleural There is no evidence of pericardial effusion. Prior Study Comparison No significant change compared to prior study dated: 04/09/2021. Measurements 2D Linear Measurements IVSd: 1.25 0.6-0.9/0.6-1.0 cm LVIDd: 4.06 3.9-5.3/4.2-5.9 cm LVIDd Index: 1.98 2.4-3.2/2.2-3.1 cm/m2 LVIDs: 2.51 2.0-3.6 cm LVPWd: 1.15 0.7-1.1 cm LA Diam: 3.20 2.7-3.8/3.0-4.0 cm LAIDs Index: 1.56 1.5-2.3 cm/m2 LV Mass: 210.77 67-162/88-224 g LV Mass Index: 102.81 43-95/49-115 g/m2 LVOT Diam: 2.00 3.0+(-)1.3 cm 2D Systolic Function EF 4C: 61.30 >55% EF 2C: 63.30 >55% EF BiP: 62.10 >55% Mitral Valve MV Pk E: 0.54 MV PK A: 0.65 MV Decel Time: 320.00 E/A: 0.80 E'Lateral: 7.94 E'Medial: 5.98 E/E' Med: 9.00 E/E' Lat: 6.80 PHT: 94.00 MVA PHT: 2.34 Decel [place]: 1.69 Aortic Valve AoV Pk Doni: 1.13 AoV Mn Doni: 0.82 AoV VTI: 0.26 AoV Pk Grad: 5.00 Aov Mn Grad: 3.00 DEMARCO Cont.VTI: 2.90 LVOT LVOT Pk Doni: 1.06 LVOT Mn Doni: 0.70 LVOT VTI: 0.24 LVOT Pk Grad: 4.00 LVOT Mn Grad: 2.00 LVOT Diam: 2.00 LVOT Area: 3.14 Diastolic Function MV Pk E: 0.54 MV Pk A: 0.65 E/A: 0.80 E'Medial: 5.98 E/E' Med: 9.00 E' Laterial: 7.94 E/E' Lat: 6.80 Right Ventricle TAPSE (mm): 20.70 TVS' Doni: 11.40 Tricuspid Valve TR Pk Doni: 2.25 TR Pk Grad: 20.00 RA Press: 3.00 RVSP: 23.00 Great Vessels Aorta Sinus of Valsalva: 3.95 2.0-3.[address] [place]: 3.20 1.7-3.4 cm Ao Asc: 3.90 2.1-3.4 cm Updated in Other Vendor System with Status of Final Von Rizzo MD electronically signed on 04/15/2023 3:27:40 PM with status of Final
== END ==
LOC: HO.CARD 10:57
PROVIDERS: PCP Internal Medicine; Visit Provider Internal Medicine Cardiovascular Disease
DX: I77.89 Other specified disorders of arteries and arterioles (principal)
CPT/HCPCS: 93306

== ENCOUNTER 2023-05-17 11:42 | Emergency (ER) | payer MEDICARE, MEDICAID, SELFPAY ==
--- NOTE | 2023-05-17 11:45 | ED_ITS ---
HPI - General Adult General Chief complaint: Upper Respiratory Symptoms Stated complaint: covid+ home test, cough Time Seen by Provider: 05/17/23 12:19 Source: patient Mode of arrival: ambulatory Limitations: no limitations History of Present Illness HPI narrative: Patient is a 72-year-old female with history of hypertension, enlarged thoracic aorta, multiple myeloma in remission, SHAN presenting to the emergency department with 3 days of sore throat, cough productive of yellow sputum and headache. States took a COVID test yesterday which was negative and took an additional COVID test this morning which was positive. Has been using [id number] cold medication with little relief. States coughing kept her up all night last night. Denies chest pain. Denies shortness of breath at rest. Denies any ab dominal pain, nausea, vomiting, or diarrhea. Reports that she lost her sense of smell/taste today. MD complaint: Cough, COVID positive Onset (ago): day(s) Location: chest Radiation: non-radiation Associated symptoms: cough Treatments prior to arrival: other (OTC cold medication) Related Data Home Medications Medication Instructions Recorded Confirmed acyclovir 400 mg tablet 400 mg PO BID 02/25/23 03/18/23 Previous Rx's Medication Instructions Recorded nebivolol 10 mg tablet (Bystolic) 10 mg PO DAILY #90 tabs 02/25/23 insulin aspart U-100 100 unit/mL 2 unit (0.02 mL) subcut TID PRN 03/18/23 (3 mL) subcutaneous pen (Novolog Diabetes #15 mL FlexPen U-100 Insulin aspart) amlodipine 5 mg-olmesartan 20 mg 1 tab PO BID 90 days #180 tabs 05/06/23 tablet benzonatate 100 mg capsule 100 mg PO TID PRN cough #20 caps 05/17/23 Allergies Allergy/AdvReac Type Severity Reaction Status Date / Time niacin [NIACIN] Allergy Mild REDNESS, Verified 05/17/23 11:45 rash, rash Penicillins [PCN] Allergy Mild BODY RASH Verified 05/17/23 11:45 penicillin V Allergy Unknown rash Verified 05/17/23 11:45 tbo-filgrastim [From Granix] Allergy Unknown palpitation Verified 05/17/23 11:45 s atenolol AdvReac Unknown palpatations, Verified 05/17/23 11:45 palpitations lisinopril AdvReac Unknown cough Verified 05/17/23 11:45 valsartan [Diovan] AdvReac Unknown cough Verified 05/17/23 11:45 Review of Systems Review of Systems: As per HPI. Yes all other systems are reviewed and are negative Constitutional: Constitutional: Reports as per HPI FOR[facility]LY [facility], [facility] Past Medical History Medical History Allergic rhinitis Hypertension, essential Intermittent palpitations Lipid disorder Multiple myeloma in remission Obstructive sleep apnea PVCs (premature ventricular contractions) Surgical History History of appendectomy Family History Family History Father No problems noted. Mother Diabetes mellitus Sister Diabetes mellitus Sister History of high blood pressure Social History Social History Household Members: Spouse Housing: House Do you presently have visiting nurse or other home services: No Patient Tobacco Use Status: Never used Tobacco e-Cigarette/Vaping Use: Never Used Advance Directives: No Advance Directives Information Provided: Yes service: No Current occupational status: retired Cognitive needs: No Hearing needs: No Vision needs: No Physical Exam ED Vital Signs: Vital Signs - 24 hr 05/17/23 11:46 Temperature 98 F Pulse Rate 89 Respiratory Rate 19 Blood Pressure 124/73 Pulse Oximetry 98 Oxygen Delivery Method Room Air BMI result Body Mass Index 34.2 Vital signs have been reviewed and appear to be correct. Blood pressure normal. Heart rate normal. Respiratory rate normal. Temperature normal. Oxygen saturation normal. Const General: cooperative, healthy appearing and no acute distress Orientation/consciousness: oriented to person, oriented to place, oriented to time and patient oriented x3 Limitations: no limitations HENMT Head: Yes normocephalic and Yes atraumatic Ears: external ears normal and TM's normal bilaterally General nose exam: Normal external nose present Face and sinus: Yes face symmetric Mouth: oropharynx normal and moist mucous membranes Throat: Yes uvula midline and Yes posterior oropharynx abnormal (Mild erythema, no edema or exudate) Eyes Pupils: Equal, round and reactive pupils present Neck Neck: Yes normal visual inspection and Yes supple Resp Effort & Inspection: normal respiratory effort and able to speak in complete sentences Auscultation: clear to auscultation bilaterally Cardio Rate: regular rate Rhythm: regular rhythm Heart sounds: S1 normal heart sound present and S2 normal heart sound present GI Palpation (GI): Soft to palpation and nontender Auscultation: normoactive bowel sounds General: Yes no CVA tenderness Back/Spine/Pelvis Back: no CVA tenderness Skin General skin exam: elasticity normal and turgor normal Neuro General: oriented to person, oriented to place, oriented to time, patient oriented x3, moves all extremities, no focal motor deficits and CN's II-XI intact bilaterally Cranial nerves: Yes Equal, round and reactive pupils present Cognition (Neuro): normal cognition Extrem General: Yes full ROM, Yes no pedal edema and Yes no calf tenderness Psych Mental Status: mental status grossly normal Affect: normal affect Thought process: Normal thought process present Course Course Course Narrative: RME performed by Michelle Cast PA-C. Patient is a 72 year old assigned female at presenting to the emergency department with a cough and headache. Patient states that she had a positive COVID-19 home test. Patient states that she is coughing so hard, she gets dizzy and she would like something for it. Labs, imaging, and swab ordered. Patient placed back in the waiting room pending room availability and results. Medical Decision Making Medical Decision Making MDM Narrative: Patient is a 72-year-old female with history of hypertension, enlarged thoracic aorta, multiple myeloma in remission, SHAN presenting to the emergency department with 3 days of sore throat, cough productive of yellow sputum and headache. On exam patient is awake, A+Ox3, VS WNL, afebrile, normal neurological exam without focal deficits, mild erythema to oropharynx, no edema or exudate, uvula midline, lung sounds clear to auscultation throughout, abdomen soft and nontender with normoactive bowel sounds. Given reported symptoms and physical exam findings, differential includes COVID-19 infection, pneumonia, strep pharyngitis. Labs notable for low platelets which appears to be patient's baseline, no leukocytosis. X-ray notable for no acute findings, no evidence of pneumonia. My interpretation is in agreement with the radiologist's interpretation. Feel patient is stable for discharge home with follow-up with primary care provider. All results discussed with patient and all questions answered. Will prescribe benzonatate as needed for cough. Return precautions discussed at bedside. Patient agreeable to plan of care. Differential Diagnosis Differential Diagnoses: The differential diagnosis associated with the presentation includes Covid infection, pneumonia, strep pharyngitis Lab Data MDM Lab Attestation statement: I reviewed the patient's lab results. See above. 05/17/23 12:06 05/17/23 12:06 Labs: Lab Results 05/17/23 05/17/23 05/17/23 Range/Units 12:03 12:06 12:06 WBC 6.2 (4.8-10.8) X10*3/uL RBC 4.20 (4.20-5.50) X10*6/uL Hgb 12.7 (12.0-16.0) g/dl Hct 37.6 (37.0-47.0) % MCV 89.5 (80.0-98.0) fL MCH 30.2 (27.0-33.0) pg MCHC 33.8 (31.0-35.0) g/dl RDW 12.9 (11.0-16.0) % Plt Count 117 L (160-400) X10*3/uL MPV 9.8 (9.4-12.3) fL Immature Gran % (Auto) 0.3 (0.0-0.4) % Neut % (Auto) 68.9 (45-73) % Lymph % (Auto) 16.3 L (20-40) % Crosby % (Auto) 12.9 H (2-11) % Eos % (Auto) 1.0 (0-4) % Baso % (Auto) 0.6 (0-2) % Lymph # (Auto) 1.0 L (1.2-4.9) X10*3/uL Crosby # (Auto) 0.8 (0.1-1.2) X10*3/uL Eos # (Auto) 0.1 (0.0-0.4) X10*3/uL Baso # (Auto) 0.0 (0.0-0.2) X10*3/uL Abs Immat Gran (auto) 0.02 (0.00-0.03) X10*3/uL Absolute Neuts (auto) 4.3 (2.0-8.3) x10*3/uL Absolute Nucleated RBC 0.000 (0.0-0.012) X10*3/uL Nucleated RBC % (auto) 0.0 (0.0-0.2) /100WBC Sodium 141 (135-145) mmol/L Potassium 3.6 (3.3-5.1) mmol/L Chloride 107 (96-108) mmol/L Carbon Dioxide 25 (22-29) mmol/L Anion Gap 13 (12-20) BUN 13 (9-16) mg/dL Creatinine 0.78 (0.5-1.4) mg/dL Estim Creat Clear Calc 78.4 Estimated GFR > 60 Random Glucose 128 H (60-115) mg/dL Calcium 9.5 (8.4-10.2) mg/dL Magnesium 1.9 (1.6-2.6) mg/dL Total Bilirubin 0.8 (0.0-1.0) mg/dL AST 15 (5-31) U/L ALT 13 (0-31) U/L Alkaline Phosphatase 59 (39-117) U/L Total Protein 6.5 (6.5-8.0) g/dL Albumin 4.1 (3.5-5.0) g/dL COVID-19 (TRACEY) Negative (Negative) COVID-19 Clin Com See Note S. pyogenes GrpA TERRY (Negative) 05/17/23 Range/Units 12:35 WBC (4.8-10.8) X10*3/uL RBC (4.20-5.50) X10*6/uL Hgb (12.0-16.0) g/dl Hct (37.0-47.0) % MCV (80.0-98.0) fL MCH (27.0-33.0) pg MCHC (31.0-35.0) g/dl RDW (11.0-16.0) % Plt Count (160-400) X10*3/uL MPV (9.4-12.3) fL Immature Gran % (Auto) (0.0-0.4) % Neut % (Auto) (45-73) % Lymph % (Auto) (20-40) % Crosby % (Auto) (2-11) % Eos % (Auto) (0-4) % Baso % (Auto) (0-2) % Lymph # (Auto) (1.2-4.9) X10*3/uL Crosby # (Auto) (0.1-1.2) X10*3/uL Eos # (Auto) (0.0-0.4) X10*3/uL Baso # (Auto) (0.0-0.2) X10*3/uL Abs Immat Gran (auto) (0.00-0.03) X10*3/uL Absolute Neuts (auto) (2.0-8.3) x10*3/uL Absolute Nucleated RBC (0.0-0.012) X10*3/uL Nucleated RBC % (auto) (0.0-0.2) /100WBC Sodium (135-145) mmol/L Potassium (3.3-5.1) mmol/L Chloride (96-108) mmol/L Carbon Dioxide (22-29) mmol/L Anion Gap (12-20) BUN (9-16) mg/dL Creatinine (0.5-1.4) mg/dL Estim Creat Clear Calc Estimated GFR Random Glucose (60-115) mg/dL Calcium (8.4-10.2) mg/dL Magnesium (1.6-2.6) mg/dL Total Bilirubin (0.0-1.0) mg/dL AST (5-31) U/L ALT (0-31) U/L Alkaline Phosphatase (39-117) U/L Total Protein (6.5-8.0) g/dL Albumin (3.5-5.0) g/dL COVID-19 (TRACEY) (Negative) COVID-19 Clin Com S. pyogenes GrpA TERRY Negative (Negative) Independent Interpretation I performed an independent interpretation of an: Plain X-Ray Interpretation: I independently reviewed the x-ray and agree with the radiologist's interpretation of no acute findings. Radiology Impression Discussion of test interpretation with radiology: I have reviewed the radiologist's reading. Radiologist Impression: XR/XR chest 2V IMPRESSION: No acute disease. External Record Review External record reviewed: Inpatient record, Office record and Outpatient record Prescription Management I considered prescription management with: Other (benzonatate) Discharge Plan Discharge Clinical Impression: Cough, Viral upper respiratory infection Patient Disposition: Home, Self-Care Instructions: Acute Cough (ED), COVID-19 (Coronavirus Disease 2019) (ED) Additional Instructions: You were evaluated in the emergency department today for cough. Your chest x- ray did not show evidence of a pneumonia. Your cough is most likely due to a viral illness (likely Covid 19) which will improve on its own with rest and flu ids. You are being prescribed a cough medication called benzonatate which you can use every 8 hours as needed for cough. You can take gthn-bdi-qptwshx medications such as dextromethorphan to help manage your symptoms. Please schedule an appointment for follow-up with your primary care physician within 2 days. Return to the emergency department if you experience worsening cough, fever 100.4? F or greater, recurrent vomiting, chest pain, shortness of breath, or any other concerning symptoms. Prescriptions: New benzonatate 100 mg capsule 100 mg PO TID PRN (Reason: cough) Qty: 20 0RF No Action amlodipine-olmesartan 5-20 mg tablet 1 tab PO BID 90 Days Qty: 180 3RF acyclovir 400 mg tablet 400 mg PO BID insulin aspart U-100 [Novolog FlexPen U-100 Insulin] 100 unit/mL (3 mL) insulin pen 2 unit subcut TID PRN (Reason: Diabetes) Qty: 15 0RF nebivolol [Bystolic] 10 mg tablet 10 mg PO DAILY Qty: 90 3RF Rx Instructions: Brand name only
[2023-05-17 11:46] VITALS: BP 124/73; PULSE 89; RESP 19; TEMP 36.6; O2SAT 98; BMI 34.2
[2023-05-17 14:55] VITALS: BP 147/73; PULSE 68; RESP 16; TEMP 36.8; O2SAT 96
== END 2023-05-17 15:01 | disposition home or self-care (01) ==
PROVIDERS: Emergency Provider Emergency Medicine Emergency Medical Services
DX: B34.9 Viral infection, unspecified (principal); R05.9 Cough, unspecified; Z20.822 Contact with and (suspected) exposure to COVID-19
CPT/HCPCS: 71046; 80053; 83735; 85025; 87635; 87651; 99283

== ENCOUNTER 2023-06-09 13:17 | Outpatient (AMB) | payer MEDICARE, MEDICAID, SELFPAY ==
--- NOTE | 2023-06-09 13:42 | MHC.OFFVIS ---
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: No Allergies niacin [NIACIN] Allergy (Mild, Verified 06/09/23 13:47) REDNESS, rash, rash Penicillins [PCN] Allergy (Mild, Verified 06/09/23 13:47) BODY RASH penicillin V Allergy (Unknown, Verified 06/09/23 13:47) rash tbo-filgrastim [From Granix] Allergy (Unknown, Verified 06/09/23 13:47) palpitations atenolol Adverse Reaction (Unknown, Verified 06/09/23 13:47) palpatations, palpitations lisinopril Adverse Reaction (Unknown, Verified 06/09/23 13:47) cough valsartan [Diovan] Adverse Reaction (Unknown, Verified 06/09/23 13:47) cough Medication List - Last Reconciled 06/09/23 by Von Rizzo MD acyclovir 400 mg PO BID benzonatate 100 mg PO TID PRN insulin aspart U-100 (Novolog FlexPen U-100 Insulin aspart) 2 units (0.02 mL) subcut TID PRN nebivolol (Bystolic) 10 mg PO DAILY olmesartan 40 mg PO DAILY HPI HPI Comments History of Present Illness Details Padmini comes for follow-up. About 6 weeks ago she developed sudden-onset bilateral leg swelling in warm weather. She was at that time on 10 mg of amlodipine. This was then stop. Since then she has notice at a blood pressures been elevated. She was hospitalized for COVID related pneumonia and hypoxemia. Since then oxygen level have improved. She denies any other heart failure symptoms. Denies any orthopnea, PND. She had an echocardiogram in March which has shown normal LV systolic function with mild LVH with mildly dilated ascending aorta. She denies any exertional chest pain. No lightheadedness, syncope. Blood pressures are consistently elevated in systolic 140-150 range. Her leg edema however is improved. [facility] Medical History Allergic rhinitis Hypertension, essential Intermittent palpitations Lipid disorder Multiple myeloma in remission Obstructive sleep apnea PVCs (premature ventricular contractions) Surgical History History of appendectomy Family History Father No problems noted. Mother Diabetes mellitus Sister Diabetes mellitus Sister History of high blood pressure Social History Household Members: Spouse Housing: House Do you presently have visiting nurse or other home services: No Patient Tobacco Use Status: Never used Tobacco e-Cigarette/Vaping Use: Never Used service: No Current occupational status: retired Cognitive needs: No Hearing needs: No Vision needs: No Physical Exam Vital Signs: Last Vital Signs Pulse 76 06/09/23 13:43 BP 140/80 H 06/09/23 13:43 BMI result Body Mass Index 34.9 Const General: cooperative, comfortable, no acute distress, alert, awake and well groomed Nutritional Appearance: overweight Orientation/consciousness: patient oriented x3 Limitations: no limitations Neck Neck: Yes trachea midline, Yes supple and Yes no JVD Resp Effort & Inspection: normal respiratory effort Auscultation: clear to auscultation bilaterally Cardio Jugular venous distension: no JVD Palpation: normal PMI Rate: regular rate Rhythm: regular rhythm Heart sounds: S1 normal heart sound present and S2 normal heart sound present Skin General skin exam: no rashes or lesions noted Neuro General: patient oriented x3 and no focal motor deficits Extrem General: Yes no clubbing, cyanosis or edema Psych Appearance: grossly normal Assessment & Plan Assessment & Plan (1) Hypertension, essential: Code(s): I10 - Essential (primary) hypertension Plan: Hypertensive heart disease with elevated blood pressure on today's reading could not tolerate high-dose amlodipine therapy with bilateral lower extremity edema which is unknown side effect. However blood pressures since then has been elevated. Importance of better blood pressure control was discussed advised low-salt diet which she is pursuing. Will add amlodipine 2.5 mg to her regimen. Advise to follow-up blood pressure. Target goal blood pressure less than 130/84. She does not tolerate amlodipine therapy that will switch her to spironolactone therapy. Otherwise maximize amlodipine to maintain blood pressure over 130/84 and watch for development of leg edema. There are no signs and symptoms of heart failure at this point time. (2) Enlarged thoracic aorta: Code(s): I77.89 - Other specified disorders of arteries and arterioles Plan: Mild thoracic aortic aneurysm. This has remained stable. Will continue monitor by echocardiogram on annual basis. No need for intervention repair. Continue aggressive blood pressure control as above. Continue diabetes control. Target goal LDL less than 100 mg/dL. Follow up in the clinic in 1 year's time after an echocardiogram. Thank you for allowing me to partake in her care Orders: Orders CA echo transthoracic complete 50 Weeks I77.89 - Other specified disorders of arteries and arterioles Medications: New amlodipine 2.5 mg PO DAILY 30 tabs 2RF Coding Level of Care Code Est Pt Level 4 (61831) Diagnoses Hypertension, essential I10 Enlarged thoracic aorta I77.89
[2023-06-09 13:43] VITALS: BP 140/80; PULSE 76; BMI 34.9
== END 2023-06-09 13:59 | disposition home or self-care (01) ==
PROVIDERS: Visit Provider Internal Medicine Cardiovascular Disease
DX: I10 Essential (primary) hypertension (principal); I77.89 Other specified disorders of arteries and arterioles
CPT/HCPCS: 99214

== ENCOUNTER → 2023-06-09 13:17 | Outpatient (BNVA) | payer MEDICARE, MEDICAID, SELFPAY | PROVIDERS: Visit Provider Internal Medicine Cardiovascular Disease | DX: I77.89 Other specified disorders of arteries and arterioles (principal); I10 Essential (primary) hypertension | CPT/HCPCS: 99212 ==

== ENCOUNTER 2023-06-18 15:01 | Outpatient (AMB) | payer MEDICARE, MEDICAID, SELFPAY ==
--- NOTE | 2023-06-18 15:05 | MHC.PC.OV ---
Vital Signs 06/18/23 15:45 Height 5 ft 6 in Weight 216 lb 8 oz BMI 34.9 BP 142/62 H Blood Pressure Location Rt brachial Position Sitting Pulse 76 Pulse Source Pulse Oximeter Pulse Oximetry (%) 97 Oxygen Delivery Method Room Air Intake Visit Reasons: complications post-covid Allergies niacin [NIACIN] Allergy (Mild, Verified 06/18/23 15:45) REDNESS, rash, rash Penicillins [PCN] Allergy (Mild, Verified 06/18/23 15:45) BODY RASH penicillin V Allergy (Unknown, Verified 06/18/23 15:45) rash tbo-filgrastim [From Granix] Allergy (Unknown, Verified 06/18/23 15:45) palpitations atenolol Adverse Reaction (Unknown, Verified 06/18/23 15:45) palpatations, palpitations lisinopril Adverse Reaction (Unknown, Verified 06/18/23 15:45) cough valsartan [Diovan] Adverse Reaction (Unknown, Verified 06/18/23 15:45) cough Medication List - Last Reconciled 06/18/23 by Yi Joseph MD acyclovir 400 mg PO BID amlodipine 2.5 mg PO DAILY insulin aspart U-100 (Novolog FlexPen U-100 Insulin aspart) 2 units (0.02 mL) subcut TID PRN nebivolol (Bystolic) 10 mg PO DAILY olmesartan 40 mg PO DAILY Tobacco use date assessed: 06/18/23 Fall risk assessment: No Falls in past year Last assessed Fall Risk: 06/18/23 Dental Screening Dental Screen Date: 06/18/23 Did you have a dental visit in the last 12 months?: No Did you have a dental problem in the last 6 months where you did not have access to dental care?: No Was dental information given to patient?: No HPI complications post-covid HPI Details 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 Patient was found to be COVID positive Her pulse ox was 90% and patient seemed to be taking peak She was admitted with the diagnosis of pneumonia Chest x-ray in chart from to May is unremarkable She has seen Dr. Rizzo on 09 of June note reviewed Her amlodipine was reduced to 2.5 mg patient says that since then her blood pressure is running high she will get in touch with him again to talk about it. She is complaining of ear blockage left side patient says that when she had COVID before same thing happened to her and she saw ENT specialist who has given her ear drops which did help. I have sent in [facility] ear drops for her she may use that for 7 days and see if she feels better. I have also ordered a pulmonary rehab for the patient as after having a COVID pneumonia she is having shortness of breath with minimal exertion. Her oxygen saturation is 97% at room air today [facility] Medical History Allergic rhinitis Hypertension, essential Intermittent palpitations Lipid disorder Multiple myeloma in remission Obstructive sleep apnea PVCs (premature ventricular contractions) Surgical History History of appendectomy Family History Father No problems noted. Mother Diabetes mellitus Sister Diabetes mellitus Sister History of high blood pressure Social History Household Members: Spouse Housing: House Do you presently have visiting nurse or other home services: No Patient Tobacco Use Status: Never used Tobacco e-Cigarette/Vaping Use: Never Used service: No Current occupational status: retired Cognitive needs: No Hearing needs: No Vision needs: No Questionnaire Thrive Questionnaire Date Thrive assessed: 12/06/22 AUDIT C Alcohol Use Questionnaire (AUDIT-C) 1. How often do you have a drink containing alcohol?: Never 3. How often do you have six or more drinks on one occasion?: Never Total Score: 0 Score Reviewed/Action Taken: Yes KYLE-7 AMB Questionnaire KYLE-7 Date KYLE - 7 assessed: 12/06/22 Source: Developed by Drs. Miguel Eisenberg, Terri Salazar, Keith Hagan and colleagues, with an educational breana from [employer]. Review of Systems Const Denies chills and Denies fever(s) ENT Denies epistaxis and Denies nasal discharge Card Denies chest pain Resp Denies chest congestion, Denies cough and Denies hemoptysis GI Denies diarrhea and Denies nausea Skin/Breast Denies rash Neuro Reports no additional complaints Psych Reports no additional complaints Endo Reports no additional complaints Physical exam (Primary Care) Vital Signs: Last Vital Signs Pulse 76 06/18/23 15:45 BP 142/62 H 06/18/23 15:45 Pulse Ox 97 06/18/23 15:45 Oxygen Delivery Method Room Air 06/18/23 15:45 BMI result Body Mass Index 34.9 Tobacco/Smoking Status: Tobacco use Status Tobacco use date assessed 06/18/23 06/18/23 15:46 Patient Tobacco Use Status Never used Tobacco 06/18/23 15:06 e-Cigarette/Vaping Use Never Used 06/18/23 15:06 Thrive Assessment: Date of Thrive Assessment Date Thrive assessed 12/06/22 06/18/23 15:06 Const General: cooperative, comfortable and no acute distress Orientation/consciousness: patient oriented x3 HENMT Other: Left ear fluid present Head: Yes normocephalic Eyes General: appearance normal, both eyes and all related structures Neck Neck: Yes supple Resp Effort & Inspection: normal respiratory effort, no cough and no stridor Cardio Rhythm: regular rhythm Heart sounds: S1 normal heart sound present and S2 normal heart sound present Skin General skin exam: turgor normal Neuro General: patient oriented x3, tone normal and moves all extremities Assessment and Plan Assessment & Plan (1) Hospital discharge follow-up: Code(s): Z09 - Encounter for follow-up examination after completed treatment for conditions other than malignant neoplasm (2) SOB (shortness of breath): Code(s): R06.02 - Shortness of breath (3) Post-COVID syndrome: Code(s): U09.9 - Post COVID-19 condition, unspecified (4) Blocked ear: Code(s): H93.8X9 - Other specified disorders of ear, unspecified ear (5) Hypertension, essential: Code(s): I10 - Essential (primary) hypertension Plan 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 Patient was found to be COVID positive Her pulse ox was 90% and patient seemed to be taking peak She was admitted with the diagnosis of pneumonia Chest x-ray in chart from to May is unremarkable She has seen Dr. Rizzo on 09 of June note reviewed Her amlodipine was reduced to 2.5 mg patient says that since then her blood pressure is running high she will get in touch with him again to talk about it. She is complaining of ear blockage left side patient says that when she had COVID before same thing happened to her and she saw ENT specialist who has given her ear drops which did help. I have sent in Cipro [facility] ear drops for her she may use that for 7 days and see if she feels better. I have also ordered a pulmonary rehab for the patient as after having a COVID pneumonia she is having shortness of breath with minimal exertion. Her oxygen saturation is 97% at room air today Orders: Orders Pulmonary Rehab Today R06.02 - Shortness of breath, U09.9 - Post COVID-19 condition, unspecified Medications: New ciprofloxacin-hydrocortisone 0.2-1 % (Cipro HC) 3 drps otic (ears) BID 7 days 10 mL 0RF ear inflammation Coding Level of Care Code Est Pt Level 4 (46961) Diagnoses Hospital discharge follow-up Z09 SOB (shortness of breath) R06.02 Post-COVID syndrome U09.9 Blocked ear H93.8X9 Hypertension, essential I10
[2023-06-18 15:45] VITALS: BP 142/62; PULSE 76; O2SAT 97; BMI 34.9
== END 2023-06-18 16:14 | disposition home or self-care (01) ==
LOC: HO.HMGC 15:01
PROVIDERS: Visit Provider Internal Medicine
DX: I10 Essential (primary) hypertension (principal); Z09 Encounter for follow-up examination after completed treatment for conditions other than malignant neoplasm; R06.02 Shortness of breath; U09.9 Post COVID-19 condition, unspecified; H93.8X2 Other specified disorders of left ear
CPT/HCPCS: 99214

== ENCOUNTER 2023-08-13 12:37 | Outpatient (AMB) | payer MEDICARE, MEDICAID, SELFPAY ==
[2023-08-13 12:37] VITALS: BP 140/70; PULSE 72; O2SAT 97; BMI 35.8
--- NOTE | 2023-08-13 12:37 | A.OFFPC_ITS ---
Vital Signs 08/13/23 12:37 Height 5 ft 5 in Weight 215 lb BMI 35.8 BP 140/70 H Blood Pressure Location Rt brachial Position Sitting Pulse 72 Pulse Source Pulse Oximeter Pulse Oximetry (%) 97 Oxygen Delivery Method Room Air Intake Visit Reasons: 6m follow up BP Intake Note: Pt is here today for 6 months follow up visit on BP. Allergies niacin [NIACIN] Allergy (Mild, Verified 08/13/23 12:39) REDNESS, rash, rash Penicillins [PCN] Allergy (Mild, Verified 08/13/23 12:39) BODY RASH penicillin V Allergy (Unknown, Verified 08/13/23 12:39) rash tbo-filgrastim [From Granix] Allergy (Unknown, Verified 08/13/23 12:39) palpitations atenolol Adverse Reaction (Unknown, Verified 08/13/23 12:39) palpatations, palpitations lisinopril Adverse Reaction (Unknown, Verified 08/13/23 12:39) cough valsartan [Diovan] Adverse Reaction (Unknown, Verified 08/13/23 12:39) cough Medication List - Last Reconciled 08/13/23 by Yi Joseph MD acyclovir 400 mg PO BID amlodipine 2.5 mg PO DAILY ciprofloxacin-hydrocortisone 0.2-1 % (Cipro HC) 3 drps otic (ears) BID 7 days insulin aspart U-100 (Novolog FlexPen U-100 Insulin aspart) 2 units (0.02 mL) subcut TID PRN nebivolol (Bystolic) 10 mg PO DAILY olmesartan 40 mg PO DAILY Tobacco use date assessed: 06/18/23 HPI 6m follow up BP HPI Details Patient is 73-year-old female came in today to talk about medical problem Patient says that sometimes she feels her sugar is too low because she start having slight tremors feels hungry And at that time or sugar is usually in 70s. Patient is currently taking no insulin or any other diabetic medication She has multiple myeloma and when she gets the treatment she get high-dose dexamethasone which is then tapered off over next 1 week after the treatment. During that time patient take insulin normal lock 2 units 3 times a day as per her insulin sliding scale. Her next treatment is on September 15. Blood pressure is slightly elevated today patient is currently taking amlodipine 5 mg, Bystolic 10 mg and almost certain 40 mg Blood pressure is being managed by Cardiology, she has appointment coming up tomorrow. Patient have appointment for physical examination in February of next year. She had labs done in May reviewed again CBCs normal kidney function liver functions are normal. BMI is elevated at 35.8 need to lose weight PFSH Medical History PVCs (premature ventricular contractions) Intermittent palpitations Allergic rhinitis Obstructive sleep apnea Lipid disorder Multiple myeloma in remission Hypertension, essential Surgical History History of appendectomy Family History Father No problems noted. Mother Diabetes mellitus Sister Diabetes mellitus Sister History of high blood pressure Social History Household Members: Spouse Housing: House Do you presently have visiting nurse or other home services: No Patient Tobacco Use Status: Never used Tobacco e-Cigarette/Vaping Use: Never Used Second Hand Smoke Exposure: Yes (childhood secondhand) service: No Current occupational status: retired Cognitive needs: No Hearing needs: No Vision needs: No Questionnaire Thrive Questionnaire Date Thrive assessed: 12/06/22 KYLE-7 AMB Questionnaire KYLE-7 Date KYLE - 7 assessed: 12/06/22 Source: Developed by Drs. Miguel Eisenberg, Terri Salazar, Keith Hagan and colleagues, with an educational breana from [employer]. Review of Systems Const Denies chills and Denies fever(s) ENT Denies epistaxis and Denies nasal discharge Card Denies chest pain Resp Denies chest congestion, Denies cough and Denies hemoptysis GI Denies diarrhea and Denies nausea Skin/Breast Denies rash Neuro Reports no additional complaints Psych Reports no additional complaints Endo Reports no additional complaints Physical exam (Primary Care) Vital Signs: Last Vital Signs Pulse 72 08/13/23 12:37 BP 140/70 H 08/13/23 12:37 Pulse Ox 97 08/13/23 12:37 Oxygen Delivery Method Room Air 08/13/23 12:37 BMI result Body Mass Index 35.8 Tobacco/Smoking Status: Tobacco use Status Tobacco use date assessed 06/18/23 08/13/23 12:41 Patient Tobacco Use Status Never used Tobacco 08/13/23 12:41 e-Cigarette/Vaping Use Never Used 08/13/23 12:41 Thrive Assessment: Date of Thrive Assessment Date Thrive assessed 12/06/22 08/13/23 12:41 Const General: cooperative, comfortable and no acute distress Orientation/consciousness: patient oriented x3 HENMT Head: Yes normocephalic Eyes General: appearance normal, both eyes and all related structures Neck Neck: Yes supple Resp Effort & Inspection: normal respiratory effort, no cough and no stridor Cardio Rhythm: regular rhythm Heart sounds: S1 normal heart sound present and S2 normal heart sound present Skin General skin exam: turgor normal Neuro General: patient oriented x3, tone normal and moves all extremities Extrem Right lower extremity: no edema Left lower extremity: no edema Assessment and Plan Assessment & Plan (1) Hypertension, essential: Code(s): I10 - Essential (primary) hypertension (2) Multiple myeloma in remission: Code(s): C90.01 - Multiple myeloma in remission (3) Diet-controlled diabetes mellitus: Code(s): E11.9 - Type 2 diabetes mellitus without complications (4) Obesity due to excess calories: Code(s): E66.09 - Other obesity due to excess calories Qualifiers: Obesity classification: adult class 2 (BMI 35 - 39.9) Serious obesity comorbidity presence: with serious comorbidity Body mass index: BMI 35.0-35.9 Qualified Code(s): E66.01 - Morbid (severe) obesity due to excess calories; Z68.35 - Body mass index [BMI] 35.0-35.9, adult Plan Patient is 73-year-old female came in today to talk about medical problem Patient says that sometimes she feels her sugar is too low because she start having slight tremors feels hungry And at that time or sugar is usually in 70s. Patient is currently taking no insulin or any other diabetic medication She has multiple myeloma and when she gets the treatment she get high-dose dexamethasone which is then tapered off over next 1 week after the treatment. During that time patient take insulin normal lock 2 units 3 times a day as per her insulin sliding scale. Her next treatment is on September 15. Blood pressure is slightly elevated today patient is currently taking amlodipine 5 mg, Bystolic 10 mg and almost certain 40 mg Blood pressure is being managed by Cardiology, she has appointment coming up tomorrow. Patient have appointment for physical examination in February of next year. She had labs done in May reviewed again CBCs normal kidney function liver functions are normal. BMI is elevated at 35.8 need to lose weight Coding Level of Care Code Est Pt Level 4 (55627) Diagnoses Hypertension, essential I10 Multiple myeloma in remission C90.01 Diet-controlled diabetes mellitus E11.9 Class 2 severe obesity due to excess calories with serious comorbidity and body mass index (BMI) of 35.0 to 35.9 in adult E66.01; Z68.35 Obesity classification: adult class 2 (BMI 35 - 39.9) Serious obesity comorbidity presence: with serious comorbidity Body mass index: BMI 35.0-35.9
== END 2023-08-13 14:08 | disposition home or self-care (01) ==
PROVIDERS: PCP Internal Medicine; Visit Provider Internal Medicine
DX: I10 Essential (primary) hypertension (principal); C90.01 Multiple myeloma in remission; E11.9 Type 2 diabetes mellitus without complications; E66.01 Morbid (severe) obesity due to excess calories; Z68.35 Body mass index [BMI] 35.0-35.9, adult
CPT/HCPCS: 99214

== ENCOUNTER 2023-08-14 13:00 | Outpatient (RCR) | payer MEDICARE, MEDICAID, SELFPAY ==
[2023-07-18 13:15] VITALS: PULSE 72
--- NOTE | 2023-07-18 15:01 | MHC.PR.IN ---
[address] [phone] F: [phone] Pulmonary Rehabilitation Individual Treatment Plan Padmini Caruso is a 73 year old (F) who was referred to the Pulmonary Rehabilitation program by Yi Joseph. This patient who has a primary diagnosis of Post covid will begin pulmonary rehabilitation with monitored exercise and education to optimize both physical and social performance, autonomy, increase strength and endurance, and control dypsnea. The following information was gathered from the patient: Smoking History Current smoking status: Years smoked: Last time smoked: Quit Date: Assistance with quitting needed: Past Medical History Medical History: Hypertension Chest Pain Pneumonia Sleep Apnea Surgeries: Past Pulmonary Hospitalizations # of hospitalizations in the past year: 1 # of ER vists due to breathing troubles in the past year: 1 Current Pulmonary Medications Bystolic daily 10mg amodepine 2.5 mg daily olmesartan 040mg daily Allergy History Allergies: seasonal Current Oxygen Use Supplemental Oxygen Device Used: Liter flow: How often: With sleep only Pulmonary History Cough: No Sputum: No Sleep device: Yes: non compliant Other pulmonary devices: Peak flow meter: No Nebulizer: Suction: No Ventilator: No Secretion clearance: No PEP: No Influenza vaccine: Yes Pneumonia vaccine: Yes Patient Questionaire Scores MRC Dyspnea Scale (mRC): 3 CAT Score: PHQ-9 Score: 6 Pulmonary Function Test and Vital Signs Pulmonary Function Test Date of PFT FVC Actual % FVC Predicted % FEV1 Actual % FEV1 Predicted % FEV1/FVC Actual % FEV1/FVC Predicted % DLCO Vital Signs Heart Rate 72 Blood Pressure SpO2 98% Respiratory Rate 18 Six Minute Walk Test Supplemental Oxygen O2 L/min: RA FiO2: Resting Vitals SpO2: 95% BP: 96/77mmHg HR: 74 bpm Total Distance 640 Number/ Time of Rests (sec) 0 0 FRANCISCO 4 METS 1.93 SpO2 94 HR (bpm) 77 MPH 1.21 Meters/Minute 33 Post-walk Vitals SpO2: 95 BP: 98/87 HR: 83 Performance Observations Pt walked unassisted at a moderate pace for 6 minutes. Pulmonary Rehabilitation Plan Topic Problem Goal Plan Comment Education Knowledge deficit of disease self management strategies Ineffective control of dyspnea Verbalize adequate disease self-management skills Effective control of dyspnea Advanced directives Disease overview Exacerbation prevention and management Home exercise program Intimacy Panic Control Respiratory medication Secretion clearance Travel Education initiated and ongoing. Educated on pursed lip breathing and deep breathing. Hypoxia Needs oxygen recommendation Poor knowledge of oxygen use and safety Monitor oxygen saturation with rest and exercise Recommend appropriate liter flow to patient and physician Educate on oxygen safety Educate on oxygen systems Pt states she uses oxygen at home for sleep. Pt did not specify how much. Pt states she was prescribed 02 when hospitalized over a year ago for covid. Will monitor and make recommendations Psychosocial No reported psychosocial impairments Adequate treatment of depression Benefits of exercise Relaxation techniques Coping techniques Stress management On medications currently Receiving counseling Education on coping and worry initiated and ongoing. Activities of Daily Living Impaired ADL management Fear of severe dyspnea Need for assistive device ADL performance with pacing and pursed lip breathing Educate on pursed lip breathing and pacing with stairs and activity Nutrition & Weight Management Overweight Lose weight during program Education classes Education re ongoing weight monitoring Nutrition consult Dash diet initiated and ongoing. Tobacco Managment NA Pt has never smoked Medication N/A, pt reports compliance w/ prescribed medications Adherence to prescribed medications Importance of medication compliance Medications purpose Medication schedule Medication side-effects Prescribed medications Pt is not currently on respiratory medications. All other medications taken as prescribed. Inhaled Medication N/A No inhalers prescribed at this time. Secretion Management Ineffective airway clearance Patient demonstrates effective cough and airway clearance Patient demonstrates effective cough and airway clearance Education initiated and ongoing. Exercise & Fitness Decreased strength & endurance Knowledge deficit of exercise guidelines & safety No regular exercise Pulmonary Rehab 2-3x/week Weight or resistance training 2-3x/week Aerobic Exercise: 30-60mins x 9 weeks Review benefits & core components of exercise program Review how to measure and monitor dyspnea level Review exercise safety guidelines Review frequency and duration of exercise Review exercise intensity FRANCISCO RPD 3-4/10 Review home exercise guidelines 6 minute walk 640 feet UBE L1.0 RPD 4 Mets 1.4 Nustep L1.0 Mets 1.1 RPD3 TM L0.7 mets 1.0 RPD 4 Diabetes Management Does patient have DM?: No Diabetes Type: Current Blood Glucose Level: Current A1C Level: Self Check: Pt is not a diabetic Patient's Goals and Concerns Pt goals in own words To learn how to breath better and exercise to get more energy to make breathing better. . Insurance Follow Up Rep Review I have reviewed the outcome assessment, treatment plan, goals, and problem list. The treatment plan and goals support the patient's needs and abilities, and thereby recommend that the exercise plan be completed as documented. Special precautions or modifications to the treatment plan include:
[2023-07-22 14:49] VITALS: BP 142/65; BP 148/78
[2023-07-24 15:07] VITALS: BP 138/72; BP 148/78
[2023-07-29 14:56] VITALS: BP 122/68; BP 140/78
[2023-07-31 13:15] VITALS: BP 114/72; BP 130/64
[2023-08-05 14:19] VITALS: BP 130/74; BP 130/80
[2023-08-12 14:36] VITALS: BP 138/70; BP 146/76
--- NOTE | 2023-09-30 07:37 | MHC.PR.DC ---
[address] [phone] F: [phone] Pulmonary Rehabilitation Discharge Padmini Caruso is a 73 year old (F) who was referred to the Pulmonary Rehabilitation program by Yi Joseph. This patient who has a primary diagnosis of Post covid has completed 5 sessions of the pulmonary rehabilitation program with monitored exercise and education to optimize both physical and social performance, autonomy, increase strength and endurance, and control dypsnea. They were evaluated on . Discharge summary and tests are below. Initial MRC Score: 3 Discharge MRC Score: Six Minute Walk Test Initial 6MWT Discharge 6MWT Supplemental Oxygen O2 L/min: RA FiO2: O2 L/min: FiO2: Resting Vitals SpO2: 95% BP: 96/77mmHg HR: 74 bpm SpO2: % BP: mmHg HR: bpm Total Distance (ft) 640 Number/ Time of Rests (sec) 0 0 FRANCISCO 4 Walk Vitals SpO2: 94 HR: 77 SpO2: HR: Post-Walk Vitals SpO2: 95 BP: 98/87 HR: 83 SpO2: BP: HR: Performance Observations Pt walked unassisted at a moderate pace for 6 minutes. Exercise Assessment on : Pre-exercise Post-exercise SpO2 Heart Rate FRANCISCO METS Exercise Assessment on : Pre-exercise Post-exercise SpO2 Heart Rate FRANCISCO METS Exercise Assessment on : Pre-exercise Post-exercise SpO2 Heart Rate FRANCISCO METS Topic Education/Progress Progress Comments Education Hypoxia Current oxygen Use: RA Psychosocial PHQ-9 Score: 6 Activities of Daily Living Nutrition and Weight Managment Current weight: 212 BMI: Weight change: Tobacco Stages of Change: Tobacco Use: Cigerettes/Day: Any nicotine replacement: Any cessation medication: Smoking quit date: Smokeless tobacco use and amount: Medications Inhaled Medications Patient verbalizes correct technique of: MDI: DPI: SMI: NEBULIZER: Secretion Management Patient provides adequate return demonstration of: Controlled cough: Winn cough: Acapella/ PEP Device: CPT: Sputum management: Exercise and Fitness Aerobic Exercise Frequency: Target heart range: Heart rate range: SpO2 Range: FRANCISCO RPD: Time (minutes): O2 use with exercise: Current HEP: Discharge Assessment: Discharge Reason: PT being discharged for medical reason Discharge Recommendation: :
== END 2023-09-30 07:37 | disposition home or self-care (01) ==
LOC: HO.PR 13:00
PROVIDERS: PCP Internal Medicine; Visit Provider Internal Medicine
DX: R06.02 Shortness of breath (principal); U09.9 Post COVID-19 condition, unspecified
CPT/HCPCS: 94625

== ENCOUNTER 2023-08-29 12:44 | Outpatient (AMB) | payer MEDICARE, MEDICAID, SELFPAY ==
[2023-08-29 12:50] VITALS: BP 138/84; PULSE 76; BMI 35.2
--- NOTE | 2023-08-29 12:50 | MHC.OFFVIS ---
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 Allergies amlodipine Allergy (Mild, Verified 08/29/23 12:54) knee pain niacin [NIACIN] Allergy (Mild, Verified 08/13/23 12:39) REDNESS, rash, rash Penicillins [PCN] Allergy (Mild, Verified 08/13/23 12:39) BODY RASH penicillin V Allergy (Unknown, Verified 08/13/23 12:39) rash tbo-filgrastim [From Granix] Allergy (Unknown, Verified 08/13/23 12:39) palpitations atenolol Adverse Reaction (Unknown, Verified 08/13/23 12:39) palpatations, palpitations lisinopril Adverse Reaction (Unknown, Verified 08/13/23 12:39) cough valsartan [Diovan] Adverse Reaction (Unknown, Verified 08/13/23 12:39) cough Medication List - Last Reconciled 08/29/23 by Mae Wadsworth NP ciprofloxacin-hydrocortisone 0.2-1 % (Cipro HC) 3 drps otic (ears) BID 7 days insulin aspart U-100 (Novolog FlexPen U-100 Insulin aspart) 2 units (0.02 mL) subcut TID PRN nebivolol (Bystolic) 10 mg PO DAILY olmesartan 40 mg PO DAILY spironolactone 25 mg PO DAILY 30 days HPI HPI Comments History of Present Illness Details 73-year-old female presents for a follow-up on her request for high blood pressures. She reports she gets blood pressures as high as 180s at home in the morning when she gets up. She does report during the day she will get BPs in the 130s. She had stopped her amlodipine 2,5mg QD due to knee pain. Knee pain resolved when she stopped the amlodipine. She does state she has reduce her salt and takes 1 hour walks at home and is tolerating them better now. [facility] Medical History PVCs (premature ventricular contractions) Intermittent palpitations Allergic rhinitis Obstructive sleep apnea Lipid disorder Multiple myeloma in remission Hypertension, essential Surgical History History of appendectomy Family History Father No problems noted. Mother Diabetes mellitus Sister Diabetes mellitus Sister History of high blood pressure Social History Household Members: Spouse Housing: House Do you presently have visiting nurse or other home services: No Patient Tobacco Use Status: Never used Tobacco e-Cigarette/Vaping Use: Never Used Second Hand Smoke Exposure: Yes (childhood secondhand) service: No Current occupational status: retired Cognitive needs: No Hearing needs: No Vision needs: No Review of Systems Const Denies chills, Denies fatigue, Denies fever(s), Denies frequent falls, Denies weakness, Denies weight gain and Denies weight loss ENT Denies dizziness Card Denies chest pain, Denies leg edema, Denies lightheadedness, Denies palpitations, Denies dyspnea, Denies dyspnea on exertion, Denies orthopnea and Denies other (loss of consciousness) Resp Denies cough, Denies dyspnea and Denies dyspnea on exertion GI Denies hematochezia and Denies change in stool character Musc Denies abnormal gait, Denies muscle weakness, Denies numbness, Denies radiating pain into limb and Denies tingling Neuro Denies abnormal gait, Denies dizziness, Denies frequent falls, Denies numbness, Denies tingling and Denies weakness Endo Denies fatigue and Denies palpitations Physical Exam Vital Signs: Last Vital Signs Pulse 76 08/29/23 12:50 BP 138/84 08/29/23 12:50 BMI result Body Mass Index 35.2 Const General: healthy appearing and no acute distress Orientation/consciousness: patient oriented x3 HEENT Head: Yes normal to inspection Eyes General: appearance normal, both eyes and all related structures Neck Neck: Yes normal visual inspection Chest Chest palpation & inspection: normal inspection of the chest Resp Effort & Inspection: normal respiratory effort Auscultation: clear to auscultation bilaterally Cardio Jugular venous distension: no JVD Palpation: normal PMI Rate: regular rate Rhythm: regular rhythm Heart sounds: S1 normal heart sound present, S2 normal heart sound present, no click, no gallops, no murmurs and no rubs GI Inspection: Yes normal to inspection Palpation (GI): Soft to palpation Skin General skin exam: no rashes or lesions noted Neuro General: patient oriented x3 Extrem General: Yes normal to inspection Psych Appearance: grossly normal Assessment & Plan Assessment & Plan (1) Hypertension: Code(s): I10 - Essential (primary) hypertension Plan Will add spironolactone 25mg QD for blood pressures. Nurse visit in two weeks for BP check. Keep reducing added salt from diet. Goal BP systolic 130 or below. Will have her see Dr. Rizzo in May as planned. Sooner if needed. Will see how BP is at nurse visit. Medications: New spironolactone 25 mg PO DAILY 30 days 30 tabs 1RF Coding Level of Care Code Est Pt Level 3 (46329) Diagnoses Hypertension I10
== END 2023-08-29 13:11 | disposition home or self-care (01) ==
PROVIDERS: PCP Internal Medicine; Visit Provider Nurse Practitioner
DX: I10 Essential (primary) hypertension (principal)
CPT/HCPCS: 99213

== ENCOUNTER → 2023-08-29 12:44 | Outpatient (BNVA) | payer MEDICARE, MEDICAID, SELFPAY | PROVIDERS: PCP Internal Medicine; Visit Provider Nurse Practitioner | DX: I10 Essential (primary) hypertension (principal) | CPT/HCPCS: 99212 ==

== ENCOUNTER → 2023-09-19 12:28 | Outpatient (BNVA) | payer MEDICARE, MEDICAID, SELFPAY | PROVIDERS: PCP Internal Medicine; Visit Provider Nurse Practitioner ==

== ENCOUNTER 2023-10-07 12:19 | Outpatient (AMB) | payer MEDICARE, MEDICAID, SELFPAY ==
[2023-10-07 12:26] VITALS: BP 118/70; PULSE 70; O2SAT 97; BMI 35.1
--- NOTE | 2023-10-07 12:26 | MHC.PC.OV ---
Vital Signs 10/07/23 12:26 Height 5 ft 5 in Weight 211 lb BMI 35.1 BP 118/70 Blood Pressure Location Rt brachial Position Sitting Pulse 70 Pulse Source Pulse Oximeter Pulse Oximetry (%) 97 Oxygen Delivery Method Room Air Intake Visit Reasons: bilateral leg pain x 1 month Allergies amlodipine Allergy (Mild, Verified 10/07/23 12:29) knee pain niacin [NIACIN] Allergy (Mild, Verified 10/07/23 12:29) REDNESS, rash, rash Penicillins [PCN] Allergy (Mild, Verified 10/07/23 12:29) BODY RASH penicillin V Allergy (Unknown, Verified 10/07/23 12:29) rash tbo-filgrastim [From Granix] Allergy (Unknown, Verified 10/07/23 12:29) palpitations atenolol Adverse Reaction (Unknown, Verified 10/07/23 12:29) palpatations, palpitations lisinopril Adverse Reaction (Unknown, Verified 10/07/23 12:29) cough valsartan [Diovan] Adverse Reaction (Unknown, Verified 10/07/23 12:29) cough Medication List - Last Reconciled 10/07/23 by Yi Joseph MD amlodipine 5 mg PO DAILY Bystolic (nebivolol) 10 mg PO DAILY NS insulin aspart U-100 (Novolog FlexPen U-100 Insulin aspart) 2 units (0.02 mL) subcut TID PRN olmesartan 40 mg PO DAILY Tobacco use date assessed: 06/18/23 Dental Screening Dental Screen Date: 10/07/23 Did you have a dental visit in the last 12 months?: Yes Did you have a dental problem in the last 6 months where you did not have access to dental care?: No Was dental information given to patient?: Patient has dentist HPI bilateral leg pain x 1 month HPI Details Patient is 73-year-old female came in today to be evaluated for lower leg pain left side Patient says that she had pain both legs for a while but 1 month ago she woke up with severe pain in her left leg that it was difficult for her to walk and since then it has not gotten better Patient have multiple myeloma, she is concerned about clot in her leg On examination she is tender over left calf and thigh area I am ordering ultrasound of her leg, I have also placed a referral for her to see a vascular specialist ON LICENSE OF [facility] Medical History PVCs (premature ventricular contractions) Intermittent palpitations Allergic rhinitis Obstructive sleep apnea Lipid disorder Multiple myeloma in remission Hypertension, essential Surgical History History of appendectomy Family History Father No problems noted. Mother Diabetes mellitus Sister Diabetes mellitus Sister History of high blood pressure Household Members: Spouse Housing: House Do you presently have visiting nurse or other home services: No Patient Tobacco Use Status: Never used Tobacco e-Cigarette/Vaping Use: Never Used Second Hand Smoke Exposure: Yes (childhood secondhand) service: No Current occupational status: retired Cognitive needs: No Hearing needs: No Vision needs: No Questionnaire Thrive Questionnaire Date Thrive assessed: 12/06/22 KYLE-7 AMB Questionnaire KYLE-7 Date KYLE - 7 assessed: 12/06/22 Source: Developed by Drs. Miguel Eisenberg, Terri Salazar, Keith Hagan and colleagues, with an educational breana from [employer]. Review of Systems Const Denies chills and Denies fever(s) ENT Denies epistaxis and Denies nasal discharge Card Denies chest pain Resp Denies chest congestion, Denies cough and Denies hemoptysis GI Denies diarrhea and Denies nausea Skin/Breast Denies rash Neuro Reports no additional complaints Psych Reports no additional complaints Endo Reports no additional complaints Physical exam (Primary Care) Vital Signs: Last Vital Signs Pulse 70 10/07/23 12:26 BP 118/70 10/07/23 12:26 Pulse Ox 97 10/07/23 12:26 Oxygen Delivery Method Room Air 10/07/23 12:26 BMI result Body Mass Index 35.1 Tobacco/Smoking Status: Tobacco use Status Tobacco use date assessed 06/18/23 10/07/23 12:32 Patient Tobacco Use Status Never used Tobacco 10/07/23 12:32 e-Cigarette/Vaping Use Never Used 10/07/23 12:32 Thrive Assessment: Date of Thrive Assessment Date Thrive assessed 01/20/23 11/21/23 12:32 Const General: cooperative, comfortable and no acute distress Orientation/consciousness: patient oriented x3 HENMT Head: Yes normocephalic Eyes General: appearance normal, both eyes and all related structures Neck Neck: Yes supple Resp Effort & Inspection: normal respiratory effort, no cough and no stridor Cardio Rhythm: regular rhythm Heart sounds: S1 normal heart sound present and S2 normal heart sound present Skin General skin exam: turgor normal Neuro General: patient oriented x3, tone normal and moves all extremities Extrem Other: Pain with palpation left calf and thigh area Right lower extremity: no edema Left lower extremity: no edema Assessment and Plan Assessment & Plan (1) Pain of left calf: Code(s): M79.662 - Pain in left lower leg (2) Claudication: Code(s): I73.9 - Peripheral vascular disease, unspecified Plan Patient is 73-year-old female came in today to be evaluated for lower leg pain left side Patient says that she had pain both legs for a while but 1 month ago she woke up with severe pain in her left leg that it was difficult for her to walk and since then it has not gotten better Patient have multiple myeloma, she is concerned about clot in her leg On examination she is tender over left calf and thigh area I am ordering ultrasound of her leg, I have also placed a referral for her to see a vascular specialist As patient says that the pain gets worse when she is walking Orders: Orders US venous duplex LE Today M79.662 - Pain in left lower leg Referrals Vascular Surgery Referral I73.9 - Peripheral vascular disease, unspecified Coding Level of Care Code Est Pt Level 4 (73998) Diagnoses Pain of left calf M79.662 Claudication I73.9
== END 2023-10-07 13:41 | disposition home or self-care (01) ==
PROVIDERS: PCP Internal Medicine; Visit Provider Internal Medicine
DX: M79.662 Pain in left lower leg (principal); I73.9 Peripheral vascular disease, unspecified
CPT/HCPCS: 99214

== ENCOUNTER 2023-10-07 15:10 | Outpatient (REF) | payer MEDICARE, MEDICAID, SELFPAY ==
--- NOTE | ~2023-10-07 | US_ITS ---
EXAMINATION: US VENOUS ULTRASOUND WITH DOPPLER LOWER EXTREMITY, LEFT CLINICAL INFORMATION: Pain COMPARISON: None available. TECHNIQUE: Ultrasound of the deep veins is performed from the hip to the calf with compression sonography and color and pulse Doppler assessment. Spectral analysis with color-flow imaging is performed. FINDINGS: There is normal venous compression and respiratory variation and augmented flow. The visualized common femoral vein, superficial femoral vein, profunda femoral vein, popliteal vein, and the trifurcation region shows no evidence of deep venous thrombosis. There is no significant popliteal fossa cyst. If the patient's symptoms persist, followup ultrasound in 5 days 7 days might be of value to exclude proximal propagation from a non-visualized calf vein. US/US venous duplex LE LT IMPRESSION: No DVT demonstrated in the left lower extremity.
== END 2023-10-07 15:11 | disposition home or self-care (01) ==
LOC: HO.US 15:10
PROVIDERS: PCP Internal Medicine; Visit Provider Internal Medicine
DX: M79.662 Pain in left lower leg (principal)
CPT/HCPCS: 93971

== ENCOUNTER 2023-11-21 09:30 | Outpatient (AMB) | payer MEDICARE, MEDICAID, SELFPAY ==
--- NOTE | 2023-11-21 11:31 | MHC.OFFWIV ---
Intake Vital Signs 11/21/23 11:37 Height 5 ft 5 in Weight 215 lb 6 oz BMI 35.8 BP 160/92 H Blood Pressure Location Lt brachial Position Sitting Pulse 85 Pulse Source Pulse Oximeter Temp 98.7 F Temp Source Oral Pulse Oximetry (%) 97 Oxygen Delivery Method Room Air Intake Visit Reasons: EP, cough, congestion ([phone]) Intake Note: Pt is here today for cough and congestion Patient Tobacco Use Status: Never used Tobacco Allergies amlodipine Allergy (Mild, Verified 11/21/23 11:31) knee pain niacin [NIACIN] Allergy (Mild, Verified 11/21/23 11:31) REDNESS, rash, rash Penicillins [PCN] Allergy (Mild, Verified 11/21/23 11:31) BODY RASH penicillin V Allergy (Unknown, Verified 11/21/23 11:31) rash tbo-filgrastim [From Granix] Allergy (Unknown, Verified 11/21/23 11:31) palpitations atenolol Adverse Reaction (Unknown, Verified 11/21/23 11:31) palpatations, palpitations lisinopril Adverse Reaction (Unknown, Verified 11/21/23 11:31) cough valsartan [Diovan] Adverse Reaction (Unknown, Verified 11/21/23 11:31) cough Medication List - Last Reconciled 11/21/23 by Rachelle Peter, ANA amlodipine 5 mg PO DAILY Bystolic (nebivolol) 10 mg PO DAILY NS insulin aspart U-100 (Novolog FlexPen U-100 Insulin aspart) 2 units (0.02 mL) subcut TID PRN olmesartan 40 mg PO DAILY Do you need a note to return to daycare/school/sports/work: No HPI HPI Comments History of Present Illness Details Patient reports to Walk-in clinic today with c/o cough and chest congestion. Reports that symptoms started 8 days ago. sick at home with similar symptoms. Reports productive cough, chest congestion and low grade fever (99-100 F). She has been taking Nyquil at home. [facility] Medical History PVCs (premature ventricular contractions) Intermittent palpitations Allergic rhinitis Obstructive sleep apnea Lipid disorder Multiple myeloma in remission Hypertension, essential Surgical History History of appendectomy Family History Father No problems noted. Mother Diabetes mellitus Sister Diabetes mellitus Sister History of high blood pressure Social History Household Members: Spouse Housing: House Do you presently have visiting nurse or other home services: No Patient Tobacco Use Status: Never used Tobacco e-Cigarette/Vaping Use: Never Used Second Hand Smoke Exposure: Yes (childhood secondhand) service: No Current occupational status: retired Cognitive needs: No Hearing needs: No Vision needs: No Review of Systems Const All systems reviewed & are unremarkable except as noted in HPI and below Physical Exam Vital Signs: Last Vital Signs Temp 98.7 F 11/21/23 11:37 Pulse 85 11/21/23 11:37 BP 160/92 H 11/21/23 11:37 Pulse Ox 97 11/21/23 11:37 Oxygen Delivery Method Room Air 11/21/23 11:37 BMI result Body Mass Index 35.8 Const General: cooperative and no acute distress HEENT Head: Yes normocephalic Ears: external ears normal and TM's normal bilaterally General nose exam: Normal external nose present Mouth: Normal oral and palatal mucosa present and moist mucous membranes Throat: Yes tonsils normal and Yes uvula midline Resp Effort & Inspection: normal respiratory effort and Actively coughing Quality: productive Auscultation: clear to auscultation bilaterally Cardio Rate: regular rate Rhythm: regular rhythm Heart sounds: S1 normal heart sound present and S2 normal heart sound present Assessment & Plan Assessment & Plan (1) Cough in adult: Code(s): R05.9 - Cough, unspecified Plan: Pt reports previous reaction to Azithromycin (Swelling arms, hand and feet). Pt allergic to PCN. Will instead prescribe Levofloxacin for 5 days. Advised not to use OTC cough medicine, since these could raise BP. Rest, warm liquids with honey. Advised to reports high fever, CP, SOB, Nausea or Vomiting. (2) Chest congestion: Code(s): R09.89 - Other specified symptoms and signs involving the circulatory and respiratory systems Plan: Pt reports previous reaction to Azithromycin (Swelling arms, hand and feet). Pt allergic to PCN. Will instead prescribe Levofloxacin for 5 days. Advised not to use OTC cough medicine, since these could raise BP. Rest, warm liquids with honey. Advised to reports high fever, CP, SOB, Nausea or Vomiting. Medications: New benzonatate 100 mg PO TID PRN 30 caps 0RF cough levofloxacin TAKE 1 TABLET ONCE DAILY FOR 5 DAYS 250 mg PO DAILY 5 days 5 tabs 0RF acetaminophen 500 mg PO Q6H PRN 30 caps 0RF fever Coding Level of Care Code Est Pt Level 3 (02849) Diagnoses Cough in adult R05.9 Chest congestion R09.89 Time Spent (min) 20
[2023-11-21 11:37] VITALS: BP 160/92; PULSE 85; TEMP 37.1; O2SAT 97; BMI 35.8
== END 2023-11-21 11:53 | disposition home or self-care (01) ==
PROVIDERS: PCP Internal Medicine; Visit Provider Nurse Practitioner Family
DX: R05.9 Cough, unspecified (principal); R09.89 Other specified symptoms and signs involving the circulatory and respiratory systems
CPT/HCPCS: 99213

== ENCOUNTER 2023-11-25 13:03 | Outpatient (AMB) | payer MEDICARE, MEDICAID, SELFPAY ==
[2023-11-25 13:06] VITALS: BP 156/90; PULSE 88; O2SAT 94; BMI 35.8
--- NOTE | 2023-11-25 13:06 | MHC.PC.OV ---
Vital Signs 11/25/23 13:06 Height 5 ft 5 in Weight 215 lb BMI 35.8 BP 156/90 H Blood Pressure Location Lt brachial Position Sitting Pulse 88 Pulse Source Pulse Oximeter Pulse Oximetry (%) 94 Oxygen Delivery Method Room Air Intake Visit Reasons: Elevated BP since COVID Allergies amlodipine Allergy (Mild, Verified 11/25/23 13:06) knee pain niacin [NIACIN] Allergy (Mild, Verified 11/25/23 13:06) REDNESS, rash, rash tbo-filgrastim [From Granix] Allergy (Unknown, Verified 11/25/23 13:06) palpitations atenolol Adverse Reaction (Unknown, Verified 11/25/23 13:06) palpatations, palpitations lisinopril Adverse Reaction (Unknown, Verified 11/25/23 13:06) cough valsartan [Diovan] Adverse Reaction (Unknown, Verified 11/25/23 13:06) cough Medication List - Last Reconciled 11/25/23 by Yi Joseph MD acetaminophen 500 mg PO Q6H PRN amlodipine 5 mg PO DAILY benzonatate 100 mg PO TID PRN Bystolic (nebivolol) 10 mg PO DAILY NS insulin aspart U-100 (Novolog FlexPen U-100 Insulin aspart) 2 units (0.02 mL) subcut TID PRN levofloxacin 250 mg PO DAILY 5 days olmesartan 40 mg PO DAILY Tobacco use date assessed: 11/25/23 Fall risk assessment: No Falls in past year Last assessed Fall Risk: 11/25/23 Dental Screening Dental Screen Date: 11/25/23 Did you have a dental visit in the last 12 months?: Yes Did you have a dental problem in the last 6 months where you did not have access to dental care?: No Was dental information given to patient?: Patient has dentist HPI Elevated BP since COVID HPI Details Patient is 73-year-old female with 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 Patient does not want to take any prednisone she was treated with Levaquin on November 21 when she came to walk-in clinic and was given script for benzonatate however cough is not responding to benzonatate. She has requesting a different cough medicine I have sent codeine cough syrup Blood pressure is running high since she got sick she had leftover clonidine from 4 years she took 1 as well as 1 nitroglycerin which was old Her regular medications are amlodipine 5 mg and olmesartan 40 mg. Patient is requesting a script for clonidine and nitroglycerin only to be taken as needed if her blood pressure is very high Which I have sent for her. Currently she is taking Levaquin She declined to do chest x-ray [facility] Medical History PVCs (premature ventricular contractions) Intermittent palpitations Allergic rhinitis Obstructive sleep apnea Lipid disorder Multiple myeloma in remission Hypertension, essential Surgical History History of appendectomy Family History Father No problems noted. Mother Diabetes mellitus Sister Diabetes mellitus Sister History of high blood pressure Social History Household Members: Spouse Housing: House Do you presently have visiting nurse or other home services: No Patient Tobacco Use Status: Never used Tobacco e-Cigarette/Vaping Use: Never Used Second Hand Smoke Exposure: Yes (childhood secondhand) service: No Current occupational status: retired Cognitive needs: No Hearing needs: No Vision needs: No Questionnaire Thrive Questionnaire Date Thrive assessed: 12/06/22 AUDIT C Alcohol Use Questionnaire (AUDIT-C) 1. How often do you have a drink containing alcohol?: Never 3. How often do you have six or more drinks on one occasion?: Never Total Score: 0 Score Reviewed/Action Taken: Yes KYLE-7 AMB Questionnaire KYLE-7 Date KYLE - 7 assessed: 12/06/22 Source: Developed by Drs. Miguel Eisenberg, Terri Salazar, Keith Hagan and colleagues, with an educational breana from [employer]. Review of Systems Const Denies chills and Denies fever(s) ENT Denies epistaxis and Denies nasal discharge Resp Denies hemoptysis GI Denies diarrhea and Denies nausea Skin/Breast Denies rash Neuro Reports no additional complaints Psych Reports no additional complaints Endo Reports no additional complaints Physical exam (Primary Care) Vital Signs: Last Vital Signs Pulse 88 01/09/24 13:06 BP 156/90 H 11/25/23 13:06 Pulse Ox 94 11/25/23 13:06 Oxygen Delivery Method Room Air 11/25/23 13:06 BMI result Body Mass Index 35.8 Tobacco/Smoking Status: Tobacco use Status Tobacco use date assessed 11/25/23 11/25/23 13:12 Patient Tobacco Use Status Never used Tobacco 11/25/23 13:12 e-Cigarette/Vaping Use Never Used 11/25/23 13:12 Thrive Assessment: Date of Thrive Assessment Date Thrive assessed 12/06/22 11/25/23 13:12 Const General: cooperative, comfortable and no acute distress Orientation/consciousness: patient oriented x3 HENMT Head: Yes normocephalic Eyes General: appearance normal, both eyes and all related structures Neck Neck: Yes supple Resp Other: No wheezing, able to take deep breaths Effort & Inspection: normal respiratory effort, no cough and no stridor Cardio Rhythm: regular rhythm Heart sounds: S1 normal heart sound present and S2 normal heart sound present Skin General skin exam: turgor normal Neuro General: patient oriented x3, tone normal and moves all extremities Extrem Right lower extremity: no edema Left lower extremity: no edema Assessment and Plan Assessment & Plan (1) Acute bronchitis: Code(s): J20.9 - Acute bronchitis, unspecified Qualifiers: Bronchitis organism: other organism Qualified Code(s): J20.8 - Acute bronchitis due to other specified organisms (2) Diet-controlled diabetes mellitus: Code(s): E11.9 - Type 2 diabetes mellitus without complications (3) Obesity due to excess calories: Code(s): E66.09 - Other obesity due to excess calories Qualifiers: Obesity classification: adult class 2 (BMI 35 - 39.9) Serious obesity comorbidity presence: with serious comorbidity Body mass index: BMI 35.0-35.9 Qualified Code(s): E66.01 - Morbid (severe) obesity due to excess calories; Z68.35 - Body mass index [BMI] 35.0-35.9, adult (4) Lipid disorder: Code(s): E78.9 - Disorder of lipoprotein metabolism, unspecified (5) Multiple myeloma in remission: Code(s): C90.01 - Multiple myeloma in remission (6) History of bone marrow transplant: Code(s): Z94.81 - Bone marrow transplant status Plan Patient is 73-year-old female with 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 Patient does not want to take any prednisone she was treated with Levaquin on November 21 when she came to walk-in clinic and was given script for benzonatate however cough is not responding to benzonatate. She has requesting a different cough medicine I have sent codeine cough syrup Blood pressure is running high since she got sick she had leftover clonidine from 4 years she took 1 as well as 1 nitroglycerin which was old Her regular medications are amlodipine 5 mg and olmesartan 40 mg. Patient is requesting a script for clonidine and nitroglycerin only to be taken as needed if her blood pressure is very high Which I have sent for her. Currently she is taking Levaquin She declined to do chest x-ray Medications: New clonidine HCl 0.1 mg PO ONCE 30 days 30 tabs 0RF For high blood pressure nitroglycerin do not exceed 3 doses per episode 0.3 mg sublingual ONCE 30 days PRN 30 tabs 0RF chest pain codeine-guaifenesin 10-200 mg/5 mL (Coditussin AC) 10 mL PO TID 7 days PRN 200 mL 0RF cough Coding Level of Care Code Est Pt Level 4 (41126) Diagnoses Acute bronchitis due to other specified organisms J20.8 Bronchitis organism: other organism Diet-controlled diabetes mellitus E11.9 Class 2 severe obesity due to excess calories with serious comorbidity and body mass index (BMI) of 35.0 to 35.9 in adult E66.01; Z68.35 Obesity classification: adult class 2 (BMI 35 - 39.9) Serious obesity comorbidity presence: with serious comorbidity Body mass index: BMI 35.0-35.9 Lipid disorder E78.9 Multiple myeloma in remission C90.01 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
== END 2023-11-25 13:57 | disposition home or self-care (01) ==
PROVIDERS: PCP Internal Medicine; Visit Provider Internal Medicine
DX: E11.9 Type 2 diabetes mellitus without complications (principal); E66.01 Morbid (severe) obesity due to excess calories; C90.01 Multiple myeloma in remission; Z94.81 Bone marrow transplant status; J20.8 Acute bronchitis due to other specified organisms; Z68.35 Body mass index [BMI] 35.0-35.9, adult; E78.9 Disorder of lipoprotein metabolism, unspecified
CPT/HCPCS: 99214

== ENCOUNTER 2024-01-08 12:34 | Outpatient (AMB) | payer MEDICARE, MEDICAID, SELFPAY ==
[2024-01-08 13:01] VITALS: BMI 35.8
--- NOTE | 2024-01-08 13:01 | MHC.OFFVIS ---
Intake Vital Signs 01/08/24 13:01 Height 5 ft 5 in Weight 215 lb BMI 35.8 Intake Visit Reasons: [employer] Intake Note: PCP referral for LE pain in bilateral LE. Left LE worse than Right LE. BUrning pain w/ ambulation, states it starts at the knee and goes down to ankles, started 2 years ago. Accompanied by: Self / Same As Patient Allergies amlodipine Allergy (Mild, Verified 01/08/24 13:08) knee pain niacin [NIACIN] Allergy (Mild, Verified 01/08/24 13:08) REDNESS, rash, rash tbo-filgrastim [From Granix] Allergy (Unknown, Verified 01/08/24 13:08) palpitations atenolol Adverse Reaction (Unknown, Verified 01/08/24 13:08) palpatations, palpitations lisinopril Adverse Reaction (Unknown, Verified 01/08/24 13:08) cough valsartan [Diovan] Adverse Reaction (Unknown, Verified 01/08/24 13:08) cough HPI [employer] HPI Details Very pleasant 73-year-old female presents for evaluation regarding lower extremity pain. She was sent over by Dr. Joseph. Upon discussion with her she has been experiencing left lower extremity pain. She notes it more so as she has been working with pulmonary physical therapy. It has been uncomfortable but she does not associate this with ambulation. Of note she is being maintained on aspirin. She now presents to us for vascular evaluation. [facility] Medical History PVCs (premature ventricular contractions) Intermittent palpitations Allergic rhinitis Obstructive sleep apnea Lipid disorder Multiple myeloma in remission Hypertension, essential Surgical History History of appendectomy Family History Father No problems noted. Mother Diabetes mellitus Sister Diabetes mellitus Sister History of high blood pressure Social History Household Members: Spouse Housing: House Do you presently have visiting nurse or other home services: No Patient Tobacco Use Status: Never used Tobacco e-Cigarette/Vaping Use: Never Used Second Hand Smoke Exposure: Yes (childhood secondhand) service: No Current occupational status: retired Cognitive needs: No Hearing needs: No Vision needs: No Review of Systems Const All systems reviewed & are unremarkable except as noted in HPI and below Reports no additional complaints ENT Reports Normal hearing present Card Denies chest pain, Denies chest pain at rest, Denies chest pain with activity and Denies pedal edema Resp Denies cough GI Denies abdominal pain Musc Denies abnormal gait, Denies muscle cramps and Denies radiating pain into limb Skin/Breast Denies skin ulcer and Denies wounds Neuro Reports Normal hearing present and Denies abnormal gait Psych Reports no additional complaints Physical Exam Vital Signs: BMI result Body Mass Index 35.8 Const General: cooperative, healthy appearing and comfortable Orientation/consciousness: oriented to person, oriented to place and oriented to time HEENT Head: Yes normal to inspection Neck Neck: Yes normal visual inspection Carotids: no bruits Chest Chest palpation & inspection: normal inspection of the chest Resp Effort & Inspection: normal respiratory effort and able to speak in complete sentences Auscultation: clear to auscultation bilaterally, no crackles, no rales, no rhonchi and no wheezes Cardio Other: Diminished bilateral DP pulse Rate: regular rate Rhythm: regular rhythm Heart sounds: S1 normal heart sound present and S2 normal heart sound present Bruits: no carotid bruits Peripheral pulses: Peripheral pulses 2+ throughout GI Inspection: Yes normal to inspection Skin Wounds: no wounds Hair: normal Neuro General: oriented to person, oriented to place and oriented to time Cranial nerves: Yes CN's II-XII intact bilaterally and Yes Normal hearing present Cognition (Neuro): normal cognition Motor exam (neuro): 5/5 motor strength present throughout Extrem Other: venous exam: No significant superficial varicosities or spider telangiectasias, minimal edema General: No clubbing, No cyanosis and No edema Psych Appearance: grossly normal Mental Status: mental status grossly normal Speech and movement: Normal speech and movement present Assessment & Plan Assessment & Plan (1) PAD (peripheral artery disease): Code(s): I73.9 - Peripheral vascular disease, unspecified Plan: In short patient has lower extremity pain. Unclear etiology and may be related to arterial disease. I have taken the liberty of ordering noninvasive testing to rule that out. She will follow up with us after testing. Thank you for allowing us to assist in her care. If there are any questions or concerns please do not hesitate to contact us. Orders: Orders US arterial duplex LE BI 1 Week I73.9 - Peripheral vascular disease, unspecified Coding Level of Care Code New Pt Level 4 (22877) Diagnoses PAD (peripheral artery disease) I73.9
== END 2024-01-08 13:20 | disposition home or self-care (01) ==
LOC: HO.HVS 12:35
PROVIDERS: PCP Internal Medicine; Visit Provider Surgery Vascular Surgery
DX: I73.9 Peripheral vascular disease, unspecified (principal)
CPT/HCPCS: 99203

== ENCOUNTER → 2024-01-08 12:34 | Outpatient (BNVA) | payer MEDICARE, MEDICAID, SELFPAY | PROVIDERS: PCP Internal Medicine; Visit Provider Surgery Vascular Surgery | DX: I73.9 Peripheral vascular disease, unspecified (principal) | CPT/HCPCS: 99202 ==

== ENCOUNTER 2024-01-27 12:36 | Outpatient (REF) | payer MEDICARE, MEDICAID, SELFPAY ==
--- NOTE | ~2024-01-27 | US_ITS ---
EXAMINATION: Noninvasive assessment of the bilateral lower extremities with ARTERIAL DUPLEX and ANKLE BRACHIAL INDICES (ABIs). CLINICAL INFORMATION: Peripheral vascular disease TECHNIQUE: Duplex Doppler techniques with waveform analysis and measurement of velocities in the bilateral common femoral, profunda femoris, superficial femoral, popliteal and tibial arteries were performed. Additionally, ankle pulse volume recordings, ankle pressure measurements and ankle brachial indices were obtained of the lower extremity arterial system bilaterally. The study was performed only at rest. COMPARISON: None FINDINGS: DIRECT DUPLEX DOPPLER FINDINGS: RIGHT LEG: Common femoral artery: 121 cm/s, phasicity: Triphasic Profunda femoris artery: 87.4 cm/s, phasicity: Biphasic Superficial femoral artery (proximal): 75.4 cm/s, phasicity: Biphasic Superficial femoral artery (mid): 279 cm/s, phasicity: Biphasic Superficial femoral artery (distal): 85.1 cm/s, phasicity: Biphasic Popliteal artery: 112 cm/s, phasicity: Biphasic Posterior tibial artery: 62.2 cm/s, phasicity: Biphasic Peroneal artery: 33.5 cm/s, phasicity: Biphasic Anterior tibial artery: 104 cm/s, phasicity: Biphasic Dorsalis pedis artery: 63 cm/s, phasicity:Biphasic LEFT LEG: Common femoral artery: 105 cm/s, phasicity: Biphasic Profunda femoris artery: 111 cm/s, phasicity: Biphasic Superficial femoral artery (proximal): 75.8 cm/s, phasicity: Biphasic Superficial femoral artery (mid): 77 cm/s, phasicity: Biphasic Superficial femoral artery (distal): 128 cm/s, phasicity: Biphasic Popliteal artery: 71.6 cm/s, phasicity: Monophasic Posterior tibial artery: 15.6 cm/s, phasicity: Monophasic Peroneal artery: 65.7 cm/s, phasicity: Biphasic Anterior tibial artery: 57.8 cm/s, phasicity: Biphasic Dorsalis pedis artery: 23 cm/s, phasicity: Biphasic ANKLE-BRACHIAL INDEX: Right: 0.96? Left: 0.71 ANKLE PRESSURES: Right: PT 151, DP 128 Left: PT?112, DP?106 ANKLE PVR WAVEFORMS: Right: Mildly dampened Left: Mildly dampened US/US arterial duplex LE BI IMPRESSION: Right leg: Normal ankle brachial index with mildly dampened PVR waveform. Elevated velocity with atherosclerotic plaque in the mid superficial femoral artery consistent with moderate stenosis Left leg: Mildly decreased ankle brachial index with mildly dampened PVR waveform. Dampened below-knee runoff vessel waveforms consistent with small vessel occlusive disease BEV Reference: - >1.4 = calcified vessels - 0.9 - 1.4 = normal - no significant arterial disease - 0.7 - 0.89 = mild peripheral arterial disease - 0.51 - 0.69 = moderate peripheral arterial disease - ? 0.50 = severe peripheral arterial disease - < .30 = critical arterial disease
== END 2024-01-27 12:37 | disposition home or self-care (01) ==
LOC: HO.US 12:36
PROVIDERS: PCP Internal Medicine; Visit Provider Surgery Vascular Surgery
DX: I73.9 Peripheral vascular disease, unspecified (principal)
CPT/HCPCS: 93923; 93925

== ENCOUNTER 2024-02-17 11:24 | Outpatient (AMB) | payer MEDICARE, MEDICAID, SELFPAY ==
--- NOTE | 2024-02-17 11:25 | MHC.PC.OV ---
Vital Signs 02/17/24 11:28 02/17/24 11:50 Height 5 ft 5 in Weight 209 lb BMI 34.8 BP 162/80 H 148/78 H Blood Pressure Location Rt brachial Lt brachial Position Sitting Sitting Pulse 75 Pulse Source Pulse Oximeter Pulse Oximetry (%) 97 Oxygen Delivery Method Room Air Intake Visit Reasons: PE Allergies amlodipine Allergy (Mild, Verified 02/17/24 11:29) knee pain niacin [NIACIN] Allergy (Mild, Verified 02/17/24 11:29) REDNESS, rash, rash tbo-filgrastim [From Granix] Allergy (Unknown, Verified 02/17/24 11:29) palpitations atenolol Adverse Reaction (Unknown, Verified 02/17/24 11:29) palpatations, palpitations lisinopril Adverse Reaction (Unknown, Verified 02/17/24 11:29) cough valsartan [Diovan] Adverse Reaction (Unknown, Verified 02/17/24 11:29) cough Medication List - Last Reconciled 02/17/24 by Yi Joseph MD amlodipine 5 mg PO DAILY benzonatate 100 mg PO TID PRN Bystolic (nebivolol) 20 mg (2 x 10 mg) PO DAILY 90 days NS clonidine HCl 0.1 mg PO ONCE 30 days insulin aspart U-100 (Novolog FlexPen U-100 Insulin aspart) 2 units (0.02 mL) subcut TID PRN nitroglycerin 0.3 mg sublingual ONCE PRN 30 days olmesartan 40 mg PO DAILY Tobacco use date assessed: 02/17/24 Fall risk assessment: No Falls in past year Last assessed Fall Risk: 02/17/24 Dental Screening Dental Screen Date: 02/17/24 Did you have a dental visit in the last 12 months?: Yes Did you have a dental problem in the last 6 months where you did not have access to dental care?: No Was dental information given to patient?: Patient has dentist HPI PE HPI Details Patient is a 73-year-old female came in today for physical examination She is due for labs including lipids However patient is afraid of needles, she says that she is very hard stick But I placed order any patient says that she will try I did the A1c today in the office as patient is diet-controlled diabetic Her score is 5.9 She declined to do mammogram Declined to do colonoscopy Patient has history of hysterectomy secondary to prolapse Four thoracic aortic dilatation patient is being followed by the net application support specialist And varicose veins she is seeing vascular specialist has appointment coming up. Her blood pressure is fluctuating again it is 162/80 today This morning it was in 130s at home, we checked it again after 15 minutes and it came down to 148 systolic She is taking all her medications and tolerating them. Follow-up early May [facility] Medical History PVCs (premature ventricular contractions) Intermittent palpitations Allergic rhinitis Obstructive sleep apnea Lipid disorder Multiple myeloma in remission Hypertension, essential Surgical History History of appendectomy Family History Father No problems noted. Mother Diabetes mellitus Sister Diabetes mellitus Sister History of high blood pressure Social History Household Members: Spouse Housing: House Do you presently have visiting nurse or other home services: No Patient Tobacco Use Status: Never used Tobacco e-Cigarette/Vaping Use: Never Used Second Hand Smoke Exposure: Yes (childhood secondhand) service: No Current occupational status: retired Cognitive needs: No Hearing needs: No Vision needs: No Questionnaire PHQ-9 Over the last 2 weeks, how often have you been bothered by any of the following problems? 39348 - PHQ-9 Billing: Patient declined-do not bill Source: Developed by Drs. Miguel Eisenberg, Terri Salazar, Keith Hagan and colleagues, with an educational breana from [employer]. Thrive Questionnaire Date Thrive assessed: 12/06/22 AUDIT C Alcohol Use Questionnaire (AUDIT-C) 1. How often do you have a drink containing alcohol?: Never 3. How often do you have six or more drinks on one occasion?: Never Total Score: 0 Score Reviewed/Action Taken: Yes KYLE-7 AMB Questionnaire KYLE-7 Date KYLE - 7 assessed: 02/17/24 Feeling nervous, anxious, or on edge: 1 = Several days Not being able to stop or control worryin = Not at all Worrying too much about different things: 0 = Not at all Trouble relaxin = Several days Being so restless that it is hard to sit still: 0 = Not at all Becoming easily annoyed or irritable: 0 = Not at all Feeling afraid as if something awful might happen: 0 = Not at all Total KYLE-7 score (0-4 normal; 5-9 mild; 10-14 moderate; 15-21 severe): 2 Source: Developed by Drs. Miguel Eisenberg, Terri Salazar, Keith aHgan and colleagues, with an educational breana from [employer]. KYLE-7 Assessment Billing KYLE-7 Assessment Tool: KYLE-7 Assessment [id number] Review of Systems Const Denies chills, Denies fever(s) and Denies headache(s) Eyes Denies blurry vision ENT Denies headache(s), Denies nasal discharge, Denies nasal obstruction, Denies odynophagia and Denies sinus pain Card Denies chest pain at rest and Denies chest pain with activity Resp Denies cough and Denies hemoptysis GI Denies diarrhea, Denies odynophagia, Denies vomiting and Denies hematemesis Reports as per HPI Musc Denies abnormal gait Skin/Breast Reports as per HPI Neuro Denies Neuro-related abnormal movements, Denies Abnormal speech present, Denies abnormal gait, Denies headache(s) and Denies Sensory deficit (Neuro) Psych Denies mood swings and Denies paranoia Endo Reports as per HPI Jac/Lymph Reports as per HPI Aller/Immun Reports as per HPI Physical exam (Primary Care) Vital Signs: Last Vital Signs Pulse 75 02/17/24 11:28 BP 148/78 H 02/17/24 11:50 Pulse Ox 97 02/17/24 11:28 Oxygen Delivery Method Room Air 02/17/24 11:28 BMI result Body Mass Index 34.8 Tobacco/Smoking Status: Tobacco use Status Tobacco use date assessed 02/17/24 02/17/24 11:31 Patient Tobacco Use Status Never used Tobacco 02/17/24 11:31 e-Cigarette/Vaping Use Never Used 02/17/24 11:31 Thrive Assessment: Date of Thrive Assessment Date Thrive assessed 12/06/22 02/17/24 11:31 Const General: cooperative, comfortable and no acute distress Orientation/consciousness: patient oriented x3 HENMT Head: Yes normocephalic and Yes atraumatic Eyes General: appearance normal, both eyes and all related structures Pupils: Equal, round and reactive pupils present EOM: EOMs intact bilaterally Neck Neck: Yes supple and No lymphadenopathy Thyroid: Thyroid normal Lymphatic: no lymphadenopathy noted Chest Breast/axilla palpation: normal palpation of the breasts Resp Effort & Inspection: normal respiratory effort and able to speak in complete sentences Auscultation: clear to auscultation bilaterally Cardio Heart sounds: S1 normal heart sound present and S2 normal heart sound present GI Palpation (GI): Soft to palpation and nontender Auscultation: normal bowel sounds General: Yes no CVA tenderness Back/Spine/Pelvis Back: no CVA tenderness Skin General skin exam: elasticity normal and turgor normal Neuro General: patient oriented x3 and gait normal Cranial nerves: Yes Equal, round and reactive pupils present Speech: No Abnormal speech present Sensory Exam: No Sensory deficit (Neuro) Coordination: tandem gait normal and Romberg test negative Extrem General: Yes normal exam except as noted and No edema Results AMB Hemoglobin A1c AMB Hemoglobin A1c 5.9 % Last Edit by Flash Donahue MA on 02/17/24 12:03 Results Reviewed Results Reviewed: Laboratory Last Values Hgb A1c (Clinic) 5.9 % (4.0-6.0) 02/17/24 12:02 Assessment and Plan Assessment & Plan (1) Encounter for general adult medical examination with abnormal findings: Code(s): Z00.01 - Encounter for general adult medical examination with abnormal findings (2) Diet-controlled diabetes mellitus: Code(s): E11.9 - Type 2 diabetes mellitus without complications (3) PAD (peripheral artery disease): Code(s): I73.9 - Peripheral vascular disease, unspecified (4) History of bone marrow transplant: Code(s): Z94.81 - Bone marrow transplant status (5) Enlarged thoracic aorta: Code(s): I77.89 - Other specified disorders of arteries and arterioles (6) Multiple myeloma in remission: Code(s): C90.01 - Multiple myeloma in remission (7) Lipid disorder: Code(s): E78.9 - Disorder of lipoprotein metabolism, unspecified (8) Hypertension, essential: Code(s): I10 - Essential (primary) hypertension Plan Patient is a 73-year-old female came in today for physical examination She is due for labs including lipids However patient is afraid of needles, she says that she is very hard stick But I placed order any patient says that she will try I did the A1c today in the office as patient is diet-controlled diabetic Her score is 5.9 She declined to do mammogram Declined to do colonoscopy Patient has history of hysterectomy secondary to prolapse Four thoracic aortic dilatation patient is being followed by the net application support specialist And varicose veins she is seeing vascular specialist has appointment coming up. Her blood pressure is fluctuating again it is 162/80 today This morning it was in 130s at home, we checked it again after 15 minutes and it came down to 148 systolic She is taking all her medications and tolerating them. Follow-up early May Orders: Orders Complete Blood Count Auto Diff Today C90.01 - Multiple myeloma in remission, E11.9 - Type 2 diabetes mellitus without complications, E78.9 - Disorder of lipoprotein metabolism, unspecified, I10 - Essential (primary) hypertension, I73.9 - Peripheral vascular disease, unspecified, I77.89 - Other specified disorders of arteries and arterioles, Z00.01 - Encounter for general adult medical examination with abnormal findings, Z94.81 - Bone marrow transplant status Comprehensive [place]. Panel Fast Today C90.01 - Multiple myeloma in remission, E11.9 - Type 2 diabetes mellitus without complications, E78.9 - Disorder of lipoprotein metabolism, unspecified, I10 - Essential (primary) hypertension, I73.9 - Peripheral vascular disease, unspecified, I77.89 - Other specified disorders of arteries and arterioles, Z00.01 - Encounter for general adult medical examination with abnormal findings, Z94.81 - Bone marrow transplant status TSH reflex Free T4 Today C90.01 - Multiple myeloma in remission, E11.9 - Type 2 diabetes mellitus without complications, E78.9 - Disorder of lipoprotein metabolism, unspecified, I10 - Essential (primary) hypertension, I73.9 - Peripheral vascular disease, unspecified, I77.89 - Other specified disorders of arteries and arterioles, Z00.01 - Encounter for general adult medical examination with abnormal findings, Z94.81 - Bone marrow transplant status Hemoglobin A1c Today E11.9 - Type 2 diabetes mellitus without complications Lipid Panel Today C90.01 - Multiple myeloma in remission, E11.9 - Type 2 diabetes mellitus without complications, E78.9 - Disorder of lipoprotein metabolism, unspecified, I10 - Essential (primary) hypertension, I73.9 - Peripheral vascular disease, unspecified, I77.89 - Other specified disorders of arteries and arterioles, Z00.01 - Encounter for general adult medical examination with abnormal findings, Z94.81 - Bone marrow transplant status Medications: New rosuvastatin (Crestor) 20 mg PO DAILY Discontinued benzonatate Discontinued Reason: Doctor's Order 100 mg PO TID PRN 30 caps 0RF cough Coding Level of Care Code Est Pt Prev Care >65y(47939) Diagnoses Encounter for general adult medical examination with abnormal findings Z00.01 Diet-controlled diabetes mellitus E11.9 PAD (peripheral artery disease) I73.9 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 Enlarged thoracic aorta I77.89 Multiple myeloma in remission C90.01 Lipid disorder E78.9 Hypertension, essential I10 Additional Codes KYLE-7 Assessment Billing - KYLE-7 Assessment Tool: KYLE-7 Assessment [id number] ([id number])
[2024-02-17 11:28] VITALS: BP 162/80; PULSE 75; O2SAT 97; BMI 34.8
[2024-02-17 11:50] VITALS: BP 148/78
== END 2024-02-17 12:08 | disposition home or self-care (01) ==
PROVIDERS: Visit Provider Internal Medicine
DX: Z00.00 Encounter for general adult medical examination without abnormal findings (principal); E11.51 Type 2 diabetes mellitus with diabetic peripheral angiopathy without gangrene; I73.9 Peripheral vascular disease, unspecified; Z94.81 Bone marrow transplant status; I77.89 Other specified disorders of arteries and arterioles; C90.01 Multiple myeloma in remission; E78.9 Disorder of lipoprotein metabolism, unspecified; I10 Essential (primary) hypertension
CPT/HCPCS: 83036; 99397

== ENCOUNTER 2024-02-26 12:47 | Outpatient (AMB) | payer MEDICARE, MEDICAID, SELFPAY ==
[2024-02-26 13:05] VITALS: BMI 34.8
--- NOTE | 2024-02-26 13:05 | A.OFFVIS_ITS ---
Intake Vital Signs 02/26/24 13:05 Height 5 ft 5 in Weight 209 lb BMI 34.8 Intake Visit Reasons: follow up Arterial US 01/27/2024 Intake Note: follow up arterial US 01/27/24. Pt states she has LE pain when ambulating, Left LE worse than Right LE. States pain is below the knee, Left LE started 2 yrs ago, right LE started 6 months ago Accompanied by: Self / Same As Patient Allergies amlodipine Allergy (Mild, Verified 02/26/24 13:08) knee pain niacin [NIACIN] Allergy (Mild, Verified 02/26/24 13:08) REDNESS, rash, rash tbo-filgrastim [From Granix] Allergy (Unknown, Verified 02/26/24 13:08) palpitations atenolol Adverse Reaction (Unknown, Verified 02/26/24 13:08) palpatations, palpitations lisinopril Adverse Reaction (Unknown, Verified 02/26/24 13:08) cough valsartan [Diovan] Adverse Reaction (Unknown, Verified 02/26/24 13:08) cough HPI follow up Arterial US 01/27/2024 HPI Details Very pleasant 73-year-old female presents for routine arterial surveillance follow-up. She appears to be doing relatively well. She ambulates several blocks with no significant difficulty. She does have occasional leg pain and cramping but it has not associated with exercise or walking. She now presents for follow-up with noninvasive arterial testing. [facility] Medical History PVCs (premature ventricular contractions) Intermittent palpitations Allergic rhinitis Obstructive sleep apnea Lipid disorder Multiple myeloma in remission Hypertension, essential Surgical History History of appendectomy Family History Father No problems noted. Mother Diabetes mellitus Sister Diabetes mellitus Sister History of high blood pressure Social History Household Members: Spouse Housing: House Do you presently have visiting nurse or other home services: No Patient Tobacco Use Status: Never used Tobacco e-Cigarette/Vaping Use: Never Used Second Hand Smoke Exposure: Yes (childhood secondhand) service: No Current occupational status: retired Cognitive needs: No Hearing needs: No Vision needs: No Review of Systems Const All systems reviewed & are unremarkable except as noted in HPI and below Reports no additional complaints ENT Reports Normal hearing present Card Denies chest pain, Denies chest pain at rest, Denies chest pain with activity and Denies pedal edema Resp Denies cough GI Denies abdominal pain Musc Denies abnormal gait, Denies muscle cramps and Denies radiating pain into limb Skin/Breast Denies skin ulcer and Denies wounds Neuro Reports Normal hearing present and Denies abnormal gait Psych Reports no additional complaints Physical Exam Vital Signs: BMI result Body Mass Index 34.8 Const General: cooperative, healthy appearing and comfortable Orientation/consciousness: oriented to person, oriented to place and oriented to time HEENT Head: Yes normal to inspection Neck Neck: Yes normal visual inspection Carotids: no bruits Chest Chest palpation & inspection: normal inspection of the chest Resp Effort & Inspection: normal respiratory effort and able to speak in complete sentences Auscultation: clear to auscultation bilaterally, no crackles, no rales, no rhonchi and no wheezes Cardio Other: Palpable right DP Rate: regular rate Rhythm: regular rhythm Heart sounds: S1 normal heart sound present and S2 normal heart sound present Bruits: no carotid bruits Peripheral pulses: Peripheral pulses 2+ throughout GI Inspection: Yes normal to inspection Skin Wounds: no wounds Hair: normal Neuro General: oriented to person, oriented to place and oriented to time Cranial nerves: Yes CN's II-XII intact bilaterally and Yes Normal hearing present Cognition (Neuro): normal cognition Motor exam (neuro): 5/5 motor strength present throughout Extrem Other: venous exam: No significant superficial varicosities or spider telangiectasias, minimal edema General: No clubbing, No cyanosis and No edema Psych Appearance: grossly normal Mental Status: mental status grossly normal Speech and movement: Normal speech and movement present Results Reviewed Results Reviewed: Noninvasive testing dated 01/27/2024 demonstrates BEV on the right of 0.96 and on the left of 0.71 with multi phasic flow. Written report and images were r eniewed. Assessment & Plan Assessment & Plan (1) PAD (peripheral artery disease): Code(s): I73.9 - Peripheral vascular disease, unspecified Plan: In short patient has stable claudication. I did review the pathophysiology of peripheral vascular disease with the patient. In addition we did discuss routine conservative measures including a healthy diet and the importance of exercise and ambulation. We did discuss risk factor modification. The patient will continue to to follow-up with surveillance follow-up in approximately 1 year. Thank you for allowing us to participate in this patient's care. If there are any questions or concerns please do not hesitate to contact us. Orders: Orders US arterial duplex LE BI 1 Year I73.9 - Peripheral vascular disease, unspecified Coding Level of Care Code Est Pt Level 4 (96531) Diagnoses PAD (peripheral artery disease) I73.9
== END 2024-02-26 14:08 | disposition home or self-care (01) ==
PROVIDERS: PCP Internal Medicine; Visit Provider Surgery Vascular Surgery
DX: I73.9 Peripheral vascular disease, unspecified (principal)
CPT/HCPCS: 99213

== ENCOUNTER → 2024-02-26 12:47 | Outpatient (BNVA) | payer MEDICARE, MEDICAID, SELFPAY | PROVIDERS: PCP Internal Medicine; Visit Provider Surgery Vascular Surgery | DX: I73.9 Peripheral vascular disease, unspecified (principal) | CPT/HCPCS: 99212 ==

== ENCOUNTER 2024-05-18 13:09 | Outpatient (AMB) | payer MEDICARE, MEDICAID, SELFPAY ==
[2024-05-18 13:26] VITALS: BP 138/76; PULSE 77; O2SAT 95; BMI 33.0
--- NOTE | 2024-05-18 13:26 | A.OFFPC_ITS ---
Vital Signs 05/18/24 13:26 Height 5 ft 5 in Weight 198 lb 6 oz BMI 33.0 BP 138/76 Blood Pressure Location Rt brachial Pulse 77 Pulse Source Pulse Oximeter Pulse Oximetry (%) 95 Oxygen Delivery Method Room Air Intake Visit Reasons: 4 month follow up Allergies amlodipine Allergy (Mild, Verified 05/18/24 13:27) knee pain niacin [NIACIN] Allergy (Mild, Verified 05/18/24 13:27) REDNESS, rash, rash tbo-filgrastim [From Granix] Allergy (Unknown, Verified 05/18/24 13:27) palpitations atenolol Adverse Reaction (Unknown, Verified 05/18/24 13:27) palpatations, palpitations lisinopril Adverse Reaction (Unknown, Verified 05/18/24 13:27) cough valsartan [Diovan] Adverse Reaction (Unknown, Verified 05/18/24 13:27) cough Medication List - Last Reconciled 05/18/24 by Yi Joseph MD amlodipine 5 mg PO DAILY aspirin (Adult Aspirin Regimen) 81 mg PO DAILY Bystolic (nebivolol) 20 mg (2 x 10 mg) PO DAILY 90 days NS clonidine HCl 0.1 mg PO ONCE 90 days insulin aspart U-100 (Novolog FlexPen U-100 Insulin aspart) 2 units (0.02 mL) subcut TID PRN nitroglycerin 0.3 mg sublingual ONCE PRN 30 days olmesartan 40 mg PO DAILY rosuvastatin (Crestor) 20 mg PO DAILY Tobacco use date assessed: 05/18/24 Fall risk assessment: No Falls in past year Last assessed Fall Risk: 05/18/24 Dental Screening Dental Screen Date: 05/18/24 Did you have a dental visit in the last 12 months?: Yes Did you have a dental problem in the last 6 months where you did not have access to dental care?: No Was dental information given to patient?: Patient has dentist HPI 4 month follow up HPI Details Patient is a 73-year-old female came in today for her regular follow-up appointment Patient have multiple myeloma And she has gotten treatment 3 years ago Now it has flared up again. Patient will go through treatment again in [place] Patient is diet-controlled diabetic, she is due for labs however patient is afraid of needles She has appointment coming up with her provider in [place] she will have labs through them. 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 Follow-up 4 months [facility] Medical History PVCs (premature ventricular contractions) Intermittent palpitations Allergic rhinitis Obstructive sleep apnea Lipid disorder Multiple myeloma in remission Hypertension, essential Surgical History History of appendectomy Family History Father No problems noted. Mother Diabetes mellitus Sister Diabetes mellitus Sister History of high blood pressure Social History Household Members: Spouse Housing: House Do you presently have visiting nurse or other home services: No Patient Tobacco Use Status: Never used Tobacco e-Cigarette/Vaping Use: Never Used Second Hand Smoke Exposure: Yes (childhood secondhand) service: No Current occupational status: retired Cognitive needs: No Hearing needs: No Vision needs: No Questionnaire Thrive Questionnaire Date Thrive assessed: 12/06/22 AUDIT C Alcohol Use Questionnaire (AUDIT-C) 1. How often do you have a drink containing alcohol?: Never 3. How often do you have six or more drinks on one occasion?: Never Total Score: 0 Score Reviewed/Action Taken: Yes KYLE-7 AMB Questionnaire KYLE-7 Date KYLE - 7 assessed: 02/17/24 Source: Developed by Drs. Miguel Eisenberg, Terri Salazar, Keith Hagan and colleagues, with an educational breana from [employer]. Review of Systems Const Denies chills and Denies fever(s) ENT Denies epistaxis and Denies nasal discharge Card Denies chest pain Resp Denies chest congestion, Denies cough and Denies hemoptysis GI Denies diarrhea and Denies nausea Skin/Breast Denies rash Neuro Reports no additional complaints Psych Reports no additional complaints Endo Reports no additional complaints Physical exam (Primary Care) Vital Signs: Last Vital Signs Pulse 77 07/02/24 13:26 BP 138/76 05/18/24 13:26 Pulse Ox 95 05/18/24 13:26 Oxygen Delivery Method Room Air 05/18/24 13:26 BMI result Body Mass Index 33.0 Tobacco/Smoking Status: Tobacco use Status Tobacco use date assessed 05/18/24 05/18/24 13:30 Patient Tobacco Use Status Never used Tobacco 05/18/24 13:26 e-Cigarette/Vaping Use Never Used 05/18/24 13:26 Thrive Assessment: Date of Thrive Assessment Date Thrive assessed 12/06/22 05/18/24 13:26 Const General: cooperative, comfortable and no acute distress Orientation/consciousness: patient oriented x3 HENMT Head: Yes normocephalic Eyes General: appearance normal, both eyes and all related structures Neck Neck: Yes supple Resp Effort & Inspection: normal respiratory effort, no cough and no stridor Cardio Rhythm: regular rhythm Heart sounds: S1 normal heart sound present and S2 normal heart sound present Skin General skin exam: turgor normal Neuro General: patient oriented x3, tone normal and moves all extremities Extrem Right lower extremity: no edema Left lower extremity: no edema Assessment and Plan Assessment & Plan (1) Hypertension, essential: Code(s): I10 - Essential (primary) hypertension (2) Diet-controlled diabetes mellitus: Code(s): E11.9 - Type 2 diabetes mellitus without complications (3) PAD (peripheral artery disease): Code(s): I73.9 - Peripheral vascular disease, unspecified (4) History of bone marrow transplant: Code(s): Z94.81 - Bone marrow transplant status (5) Enlarged thoracic aorta: Code(s): I77.89 - Other specified disorders of arteries and arterioles (6) Multiple myeloma in remission: Code(s): C90.01 - Multiple myeloma in remission (7) Lipid disorder: Code(s): E78.9 - Disorder of lipoprotein metabolism, unspecified Plan Patient is a 73-year-old female came in today for her regular follow-up appointment Patient have multiple myeloma And she has gotten treatment 3 years ago Now it has flared up again. Patient will go through treatment again in [place] Patient is diet-controlled diabetic, she is due for labs however patient is afraid of needles She has appointment coming up with her provider in [place] she will have labs through them. 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 Follow-up 4 months Medications: Discontinued clonidine HCl Discontinued Reason: Doctor's Order 0.1 mg PO ONCE 90 days 90 tabs 0RF For high blood pressure Coding Level of Care Code Est Pt Level 4 (98769) Complex EM visit Add On G2211 Diagnoses Hypertension, essential I10 Diet-controlled diabetes mellitus E11.9 PAD (peripheral artery disease) I73.9 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 Enlarged thoracic aorta I77.89 Multiple myeloma in remission C90.01 Lipid disorder E78.9
== END 2024-05-18 13:47 | disposition home or self-care (01) ==
PROVIDERS: PCP Internal Medicine; Visit Provider Internal Medicine
DX: I10 Essential (primary) hypertension (principal); E11.51 Type 2 diabetes mellitus with diabetic peripheral angiopathy without gangrene; I73.9 Peripheral vascular disease, unspecified; Z94.81 Bone marrow transplant status; I77.89 Other specified disorders of arteries and arterioles; C90.01 Multiple myeloma in remission; E78.9 Disorder of lipoprotein metabolism, unspecified
CPT/HCPCS: 99214; G2211

== ENCOUNTER → 2024-05-31 12:50 | Outpatient (REF) | payer MEDICARE, MEDICAID, SELFPAY ==
--- NOTE | 2024-05-31 12:52 | CA_ITS ---
Transthoracic Echocardiogram Patient (Last, First, Middle): Padmini Caruso, Gender: Female Date of : 1950 Age: 73 Procedure Date: 05/31/2024 Procedure Type: Transthoracic Echocardiogram Location: OP Height: 165.1 cm Weight: 89.36 kg BSA: 1.97 m2 Heart Rate: 64 bpm BP: 132 / 75 mmHg Marble Finisher: JILLIAN Referring MD: Von Rizzo MD Clerk General: Von Rizzo MD Symptoms: Ascending aortic aneurysm Study Quality: Fair ECG Rhythm: Sinus Conclusions: - 1. Normal LV ejection fraction of 60 65% with mild LVH with impaired relaxation filling pattern 2. Normal cardiac valvular Doppler 3. Mildly dilated ascending aorta 3.9 cm 4. No gross pericardial effusion Findings Left Ventricle Normal left ventricular size and systolic function. There is mildly increased left ventricular wall thickness. The visually estimated ejection fraction is between 60-65%. Spectral Doppler is indicative of an impaired relaxation filling pattern. E/E prime ratio is between 8 and 15 consistent with indeterminate filling pressures. Right Ventricle Normal right ventricular cavity size and systolic function. Atria The left atrium is likely dilated. There is no evidence of interatrial shunt. The right atrium is normal in size. Aortic Valve Normal aortic valve structure and function. There is no aortic valve stenosis. There is no aortic valve regurgitation. Mitral Valve There is mild anterior and posterior mitral leaflet thickening. There is mild anterior and mild posterior mitral annular calcification. There is trace mitral valve regurgitation. There is no mitral valve stenosis. Pulmonic Valve The pulmonic valve is likely normal. Tricuspid Valve Normal tricuspid valve structure. There is trace tricuspid valve regurgitation. The right ventricular systolic pressure is normal. The right ventricular systolic pressure is 23 mmHg. Normal right atrial pressure. There is no evidence of pulmonary hypertension. Great Vessels The pulmonary artery was not well visualized. There is mild dilatation of the ascending aorta measuring 3.90 cm. Venous The inferior vena cava is normal in size and collapses greater than 50% with inspiration. Pericardium/Pleural There is no evidence of pericardial effusion. Prior Study Comparison No significant change compared to prior study dated: 04/15/2023. Measurements 2D Linear Measurements IVSd: 1.23 0.6-0.9/0.6-1.0 cm LVIDd: 3.53 3.9-5.3/4.2-5.9 cm LVIDd Index: 1.79 2.4-3.2/2.2-3.1 cm/m2 LVIDs: 1.75 2.0-3.6 cm LVPWd: 1.24 0.7-1.1 cm LA Diam: 3.30 2.7-3.8/3.0-4.0 cm LAIDs Index: 1.68 1.5-2.3 cm/m2 LV Mass: 178.89 67-162/88-224 g LV Mass Index: 90.81 43-95/49-115 g/m2 LVOT Diam: 2.00 3.0+(-)1.3 cm 2D Systolic Function EF 4C: 56.20 >55% EF 2C: 67.60 >55% EF BiP: 62.70 >55% Mitral Valve MV Pk E: 0.68 MV PK A: 0.99 MV Decel Time: 268.00 E/A: 0.70 E'Lateral: 8.70 E'Medial: 4.13 E/E' Med: 16.40 E/E' Lat: 7.80 PHT: 78.00 MVA PHT: 2.82 Decel Walton: 2.53 Aortic Valve AoV Pk Doni: 1.37 AoV Mn Doni: 0.88 AoV VTI: 0.29 AoV Pk Grad: 8.00 Aov Mn Grad: 4.00 DMEARCO Cont.VTI: 2.63 LVOT LVOT Pk Doni: 1.09 LVOT Mn Doni: 0.71 LVOT VTI: 0.25 LVOT Pk Grad: 5.00 LVOT Mn Grad: 2.00 LVOT Diam: 2.00 LVOT Area: 3.14 Diastolic Function MV Pk E: 0.68 MV Pk A: 0.99 E/A: 0.70 E'Medial: 4.13 E/E' Med: 16.40 E' Laterial: 8.70 E/E' Lat: 7.80 Right Ventricle TAPSE (mm): 19.40 TVS' Doni: 12.90 Tricuspid Valve TR Pk Doni: 2.25 TR Pk Grad: 20.00 RA Press: 3.00 RVSP: 23.00 Great Vessels Aorta Sinus of Valsalva: 3.60 2.0-3.5 cm Ao Asc: 3.90 2.1-3.4 cm Pulmonary Valve PV Pk Doni: 0.83 Peak PV Grad: 3.00 Updated in Other Vendor System with Status of Final Von Rizzo MD electronically signed on 06/01/2024 2:13:07 PM with status of Final
== END ==
LOC: HO.CARD 12:50
PROVIDERS: PCP Internal Medicine; Visit Provider Internal Medicine Cardiovascular Disease
DX: I77.89 Other specified disorders of arteries and arterioles (principal)
CPT/HCPCS: 93306

== ENCOUNTER → 2024-05-31 12:52 | Outpatient (BNV) | payer MEDICARE, MEDICAID, SELFPAY | PROVIDERS: PCP Internal Medicine; Visit Provider Internal Medicine Cardiovascular Disease | DX: I34.81 Nonrheumatic mitral (valve) annulus calcification (principal); I71.21 Aneurysm of the ascending aorta, without rupture | CPT/HCPCS: 93306 ==

== ENCOUNTER 2024-06-10 13:12 | Outpatient (AMB) | payer MEDICARE, MEDICAID, SELFPAY ==
[2024-06-10 13:25] VITALS: BP 134/78; PULSE 69; BMI 32.6
--- NOTE | 2024-06-10 13:25 | A.OFFVIS_ITS ---
Vital Signs 06/10/24 13:25 Height 5 ft 5 in Weight 196 lb 3.382 oz BMI 32.6 BP 134/78 Blood Pressure Location Lt brachial Position Sitting Pulse 69 Intake Visit Reasons: 1 yr fu Intake Note: 1 year follow-up with ekg feeling good Pewter Fabricator Required: No Allergies amlodipine Allergy (Mild, Verified 05/18/24 13:27) knee pain niacin [NIACIN] Allergy (Mild, Verified 05/18/24 13:27) REDNESS, rash, rash tbo-filgrastim [From Granix] Allergy (Unknown, Verified 05/18/24 13:27) palpitations atenolol Adverse Reaction (Unknown, Verified 05/18/24 13:27) palpatations, palpitations lisinopril Adverse Reaction (Unknown, Verified 05/18/24 13:27) cough valsartan [Diovan] Adverse Reaction (Unknown, Verified 05/18/24 13:27) cough Medication List - Last Reconciled 06/10/24 by Von Rizzo MD amlodipine 5 mg PO DAILY aspirin (Adult Aspirin Regimen) 81 mg PO DAILY Bystolic (nebivolol) 20 mg (2 x 10 mg) PO DAILY 90 days NS nitroglycerin 0.3 mg sublingual ONCE PRN 30 days olmesartan 20 mg PO DAILY rosuvastatin (Crestor) 20 mg PO DAILY HPI Comments Details: Padmini comes for follow-up. She did not start taking her spironolactone as she says since last measured her blood pressures been well controlled. Sometimes systolic 108 and she gets lightheaded. Otherwise she has been doing well. She has had recurrence of her multiple myeloma in his planned to undergo chemotherapy and bone marrow transplant. No heart failure symptoms. No exertional chest pain. Her claudication symptoms have remained stable. [facility] Medical History PVCs (premature ventricular contractions) Intermittent palpitations Allergic rhinitis Obstructive sleep apnea Lipid disorder Multiple myeloma in remission Hypertension, essential Surgical History History of appendectomy Family History Father No problems noted. Mother Diabetes mellitus Sister Diabetes mellitus Sister History of high blood pressure Social History Household Members: Spouse Housing: House Do you presently have visiting nurse or other home services: No Patient Tobacco Use Status: Never used Tobacco e-Cigarette/Vaping Use: Never Used Second Hand Smoke Exposure: Yes (childhood secondhand) service: No Current occupational status: retired Cognitive needs: No Hearing needs: No Vision needs: No Review of Systems Const Denies chills, Denies fatigue, Denies fever(s), Denies frequent falls, Denies weakness, Denies weight gain and Denies weight loss ENT Denies dizziness Card Denies chest pain, Denies leg edema, Denies lightheadedness, Denies palpitations, Denies dyspnea, Denies dyspnea on exertion, Denies orthopnea and Denies other (loss of consciousness) Resp Denies cough, Denies dyspnea and Denies dyspnea on exertion GI Denies hematochezia and Denies change in stool character Musc Denies abnormal gait, Denies muscle weakness, Denies numbness, Denies radiating pain into limb and Denies tingling Neuro Denies abnormal gait, Denies dizziness, Denies frequent falls, Denies numbness, Denies tingling and Denies weakness Endo Denies fatigue and Denies palpitations Physical Exam Vital Signs: Last Vital Signs Pulse 69 06/10/24 13:25 BP 134/78 06/10/24 13:25 BMI result Body Mass Index 32.6 Const General: cooperative, comfortable, no acute distress, alert, awake and well groomed Nutritional Appearance: overweight Orientation/consciousness: patient oriented x3 Limitations: no limitations Neck Neck: Yes trachea midline, Yes supple and Yes no JVD Resp Effort & Inspection: normal respiratory effort Auscultation: clear to auscultation bilaterally Cardio Jugular venous distension: no JVD Palpation: normal PMI Rate: regular rate Rhythm: regular rhythm Heart sounds: S1 normal heart sound present and S2 normal heart sound present Skin General skin exam: no rashes or lesions noted Neuro General: patient oriented x3 and no focal motor deficits Extrem General: Yes no clubbing, cyanosis or edema Psych Appearance: grossly normal Office Procedures EKG Details: EKG shows normal sinus rhythm normal EKG at 69 beats per minute [id number], Complete Assessment & Plan Assessment & Plan (1) Hypertension: Code(s): I10 - Essential (primary) hypertension Category: Medical Plan: Hypertension with overall difficult control blood pressure with somewhat labile blood pressure related to vascular disease. She does have occasional blood pressure in the 108 range which makes her lightheaded. Discussed about orthostatic precautions. Discussed about maintaining adequate hydration. Continue current therapy. No indication for spironolactone addition at this point time. Continue amlodipine-olmesartan combination as well as continue Bystolic. This has done very well. Target goal blood pressure less than 13 0/84. Low-salt diet was discussed. Stress mitigation strategies were discussed. (2) PAD (peripheral artery disease): Code(s): I73.9 - Peripheral vascular disease, unspecified Category: Medical Plan: Peripheral vascular disease, continue low-dose aspirin therapy for life. Should be on high-intensity statin therapy. Target goal LDL less than 70 mg/dL. Advised lipid panel near future. Continue aggressive blood pressure control. Being followed by vascular surgery. Will follow up in the clinic in 1 year's time, sooner p.r.n.. Thank you for allowing me to partake in her care Orders: Orders Lipid Panel Today I73.9 - Peripheral vascular disease, unspecified Medications: New Ovi 5-20 mg (amlodipine-olmesartan) 1 tab PO DAILY 30 tabs 11RF NS Coding Level of Care Code Est Pt Level 4 (22647) Diagnoses Hypertension I10 PAD (peripheral artery disease) I73.9 CPT Codes EKG - CPT: 50450-[id number], Complete ([id number])
== END 2024-06-10 13:50 | disposition home or self-care (01) ==
PROVIDERS: Visit Provider Internal Medicine Cardiovascular Disease
DX: I10 Essential (primary) hypertension (principal); I73.9 Peripheral vascular disease, unspecified
CPT/HCPCS: 93010; 99214

== ENCOUNTER → 2024-06-10 13:12 | Outpatient (BNVA) | payer MEDICARE, MEDICAID, SELFPAY | PROVIDERS: Visit Provider Internal Medicine Cardiovascular Disease | DX: I10 Essential (primary) hypertension (principal); I73.9 Peripheral vascular disease, unspecified; C90.01 Multiple myeloma in remission | CPT/HCPCS: 93005; 99212 ==

== ENCOUNTER 2024-12-14 00:02 | Emergency (ER) | payer MEDICARE, MEDICAID, SELFPAY ==
--- NOTE | 2024-12-14 | ECG_ITS ---
Test Reason : DYAPNEA Blood Pressure : */* mmHG Vent. Rate : 69 BPM Atrial Rate : 69 BPM P-R Int : 172 ms QRS Dur : 72 ms QT Int : 398 ms P-R-T Axes : 36 17 13 degrees QTcB Int : 426 ms Normal sinus rhythm Normal ECG When compared with ECG of 17-Feb-2023 01:03, No significant change was found Referred By: Generic ED Physician Electronically Signed By: YAMEL GARDNER
--- NOTE | ~2024-12-14 | CT_ITS ---
CLINICAL HISTORY: SOB CT angiography chest with contrast. 3D Postprocessing. Comparison: None Findings: No filling defect to suggest pulmonary embolism. The distal branches are not entirely well evaluated due to motion artifact. No heart strain by CT. No mediastinal adenopathy or pericardial effusion. Mild atherosclerotic disease of the coronary arteries. No suspicious thyroid lesion. Lungs demonstrate no effusion or pneumothorax. No focal consolidation. The visualized upper abdomen is unremarkable. No acute osseous abnormality. Impression: No evidence of pulmonary embolism. No definite acute process in the chest. This document has been electronically signed by: Malik Huerta MD on 12/14/2024 06:44:18
--- NOTE | ~2024-12-14 | XR_ITS ---
CLINICAL HISTORY: dyspnea 1 view chest x-ray. Comparison: CR/SR - XR CHEST 2V - 05/17/23 12:03 EDT Findings: The lungs appear clear. There is no consolidation, effusion, or pneumothorax. Cardiomediastinal silhouette is within normal limits. IMPRESSION: No acute cardiopulmonary abnormality. This document has been electronically signed by: Doroteo Clinton MD on 12/14/2024 02:57:18
[2024-12-14 00:10] VITALS: BP 190/100; PULSE 79; O2SAT 98
[2024-12-14 00:32] VITALS: BP 174/84; PULSE 74; RESP 18; TEMP 36.8; O2SAT 94; BMI 34.0
[2024-12-14 01:15] LABS: MANUAL DIFF FLAG NO
[2024-12-14 01:16] LABS: Basophils Percent Auto 0.3 % (0-2); Eosinophils Percent Auto 0.6 % (0-4); Hemoglobin 12.8 g/dl (12.0-16.0); Imm Gran Abs Auto 0.04 X10*3/uL (0.00-0.03); Imm Gran Pct Auto 1.1 % (0.0-0.4); Lymphocytes Absolute Auto 0.5 X10*3/uL (1.2-4.9); Lymphocytes Percent Auto 13.2 % (20-40); Mean Corpuscular HGB Conc 34.6 g/dl (31.0-35.0); Mean Corpuscular Volume 89.6 fL (80.0-98.0); Monocytes Absolute Auto 0.1 X10*3/uL (0.1-1.2); Monocytes Percent Auto 3.6 % (2-11); Neutrophils Percent Auto 81.2 % (45-73); Red Blood Count 4.13 X10*6/uL (4.20-5.50); Red Cell Distribution Width 12.8 % (11.0-16.0); White Blood Count 3.6 X10*3/uL (4.8-10.8)
[2024-12-14 01:20] LABS: Platelet Count 88 X10*3/uL (160-400)
[2024-12-14 01:39] LABS: Alanine Aminotransferase 26 U/L (0-31); Albumin Level 4.4 g/dL (3.5-5.0); Anion Gap 13 (12-20); Aspartate Amino Transferase 25 U/L (5-31); Bilirubin Total 0.6 mg/dL (0.0-1.0); Blood Urea Nitrogen 22 mg/dL (9-16); Calcium 9.6 mg/dL (8.4-10.2); Carbon Dioxide 24 mmol/L (22-29); Chloride 111 mmol/L (96-108); Creatinine Clr Calc Pharmacy 77.7; Estimated Glomerular Filt Rate > 60; Glucose Random 135 mg/dL (60-115); Sodium 144 mmol/L (135-145); Total Protein 6.7 g/dL (6.5-8.0); Troponin-I High Sensitivity 3.8 ng/L (<3.5-17.0)
[2024-12-14 01:47] VITALS: PULSE 70; O2SAT 97
[2024-12-14 01:55] LABS: Influenza A PCR NEGATIVE (Negative); Influenza B PCR NEGATIVE (Negative); Resp Syncy Virus RNA Qual PCR NEGATIVE (Negative); SARS COV2 PCR INHOUSE NEGATIVE (Negative)
[2024-12-14 02:33] LABS: Alkaline Phosphatase 61 U/L (39-117)
--- NOTE | 2024-12-14 02:34 | ED.GENADULT ---
HPI - General Adult General Chief complaint: General Medical Stated complaint: Covid +, diff breathing, dizzy Time Seen by Provider: 12/14/24 02:15 Source: patient and EMS Mode of arrival: EMS Limitations: no limitations History of Present Illness ED Provider: DR. Mays HPI narrative: 74-year-old female came in for evaluation for intermittent shortness of breath x2 weeks patient tested positive for COVID 3 weeks ago, no sick contacts, no recent travel, no lower extremity swelling or tenderness, no recent travel, no history of DVT. nonproductive cough and wheezing sometimes. Related Data Home Medications ?Medication ?Instructions ?Recorded ?Confirmed rosuvastatin 20 mg tablet (Crestor) 20 mg PO DAILY 02/17/24 06/10/24 aspirin 81 mg tablet,delayed 81 mg PO DAILY 02/26/24 06/10/24 release (Adult Aspirin Regimen) Previous Rx's ?Medication ?Instructions ?Recorded nitroglycerin 0.3 mg sublingual 0.3 mg sublingual ONCE PRN chest 11/25/23 tablet pain 30 days #30 tabs Bystolic 10 mg tablet (nebivolol) 20 mg (2 x 10 mg) PO DAILY 90 days 12/04/23 #180 tabs Ovi 5 mg-20 mg tablet 1 tab PO DAILY #30 tabs 06/10/24 (amlodipine-olmesartan) albuterol sulfate 90 mcg/actuation 2 puff inhalation Q6H PRN 12/14/24 aerosol inhaler shortness of breath or wheezing #8.5 grams prednisone 20 mg tablet 20 mg PO BID #14 tabs 12/14/24 Allergies Allergy/AdvReac Type Severity Reaction Status Date / Time amlodipine Allergy Mild knee pain Verified 12/14/24 00:35 niacin [NIACIN] Allergy Mild REDNESS, Verified 12/14/24 00:35 rash, rash tbo-filgrastim [From Granix] Allergy Unknown palpitation Verified 12/14/24 00:35 s atenolol AdvReac Unknown palpatations, Verified 12/14/24 00:35 palpitations lisinopril AdvReac Unknown cough Verified 12/14/24 00:35 valsartan [Diovan] AdvReac Unknown cough Verified 12/14/24 00:35 Review of Systems Review of Systems: All other systems are reviewed and are negative Constitutional: Reports as per HPI and Reports no additional constitutional complaints Eyes: Reports as per HPI and Reports no additional eye complaints Reports system reviewed and no additional complaints, except as documented Cardiovascular: Reports as per HPI and Reports no additional cardiovascular complaints Respiratory: Reports as per HPI and Reports no additional respiratory complaints Gastrointestinal: Reports as per HPI and Reports no additional gastrointestinal complaints Genitourinary: Reports no additional female genitourinary complaints Musculoskeletal: Reports no additional musculoskeletal complaints Skin/Breast: Reports system reviewed and no additional complaints, except as docu Psychiatric: Reports no additional psychiatric complaints Endocrine: Reports no additional endocrine complaints Hematologic/Lymphatic: Reports no additional hematologic/lymphatic complaints Allergic/Immunologic: Reports no additional allergic/immunologic complaints Reports system reviewed and no additional complaints, except as documented and Reports Abnormal speech present [facility] Past Medical History Medical History PVCs (premature ventricular contractions) Intermittent palpitations Allergic rhinitis Obstructive sleep apnea Lipid disorder Multiple myeloma in remission Hypertension, essential Surgical History History of appendectomy Family History Family History Father No problems noted. Mother Diabetes mellitus Sister Diabetes mellitus Sister History of high blood pressure Social History Social History Household Members: Spouse Housing: House Do you presently have visiting nurse or other home services: No Patient Tobacco Use Status: Never used Tobacco Smoked in Last 30 Days: No e-Cigarette/Vaping Use: Never Used Second Hand Smoke Exposure: Yes (childhood secondhand) Use of substances other than those prescribed or required for medical reasons: No Advance Directives: No Advance Directives Information Provided: Yes service: No Current occupational status: retired Cognitive needs: No Hearing needs: No Vision needs: No Physical Exam ED Vital Signs: Vital Signs - 24 hr 12/14/24 00:32 12/14/24 01:47 12/14/24 02:56 Temperature 98.2 F 98.2 F Pulse Rate 74 70 69 Respiratory Rate 18 16 Blood Pressure 174/84 H 169/80 H Pulse Oximetry 94 97 99 Oxygen Delivery Method Room Air Room Air Room Air 12/14/24 06:31 Temperature 98.0 F Pulse Rate 67 Respiratory Rate 16 Blood Pressure 143/68 H Pulse Oximetry 98 Oxygen Delivery Method Room Air BMI result Body Mass Index 34.0 Vital signs have been reviewed and appear to be correct. Blood pressure elevated. Heart rate normal. Respiratory rate normal. Temperature normal. Oxygen saturation normal. Appearance: Alert. Oriented X3. No acute distress. Head: Normal external exam. Normocephalic. Atraumatic. No Caballero signs noted. No raccoon eyes noted Eyes: PERRLA. EOMI. Conjunctiva and sclera normal. Eyelids normal. ENT: TM's Normal. Pharynx normal. Uvula midline. Moist mucous membranes. No trismus noted. No drooling noted. No muffled voice noted. Neck: Normal inspection. Neck supple. FROM. No adenopathy. Thyroid Normal. No meningeal signs. No neck mass noted. CVS: Normal heart rate and rhythm. Heart sound normal. No murmurs noted. Pulses normal throughout. Respiratory: No respiratory distress. Painless inspiration. Breath sounds normal. No wheezes/rales/rhonchi noted. Chest nontender. No accessory muscle usage noted or decreased air movement noted. Abdomen: Soft and nontender. Bowel sounds normal in all 4 quadrants. No distention noted. No organomegaly noted. No visible injury noted. Back: No CVA tenderness. Full range of motion noted. Skin: Skin warm and dry. Normal skin color. Normal skin turgor. No rashes/lesions/lacerations noted. Extremities: No lower extremity edema. Extremities exhibit normal range of motion. Extremities nontender. Neuro: Oriented X 3. Cranial nerve exam: II-XII are grossly intact No motor deficit. No sensory deficit. Reflexes normal. Course Reevaluation(s) Reevaluation #1: 75-year-old female this is positive for COVID 2 weeks ago presented with intermittent shortness of breath, patient felt better after bronchodilator and prednisone administrating in the ED, normal VS with O2 sat 99% on room air. Due to elevated D-dimer patient had a CTA of the chest which is unremarkable for acute pathology. Will hydrate the patient after the IV contrast and discharged home. Time: 06:51 Medications Administered Discontinued Medications Generic Name Dose Route Start Last Admin Trade Name Freq PRN Reason Stop Dose Admin Iohexol 65 ml 12/14/24 05:50 12/14/24 05:50 Iohexol 350 Mg/Ml 100 Ml Infus..Btl IV 12/14/24 05:51 65 ml ONCE ONE Administration Prednisone 60 mg 12/14/24 02:34 12/14/24 03:31 Prednisone 20 Mg Tablet PO 12/14/24 02:35 Not Given ONCE ONE Medical Decision Making Differential Diagnosis Differential Diagnoses: The differential diagnosis associated with the presentation includes ( pneumonia, pneumothorax, pleural effusion, CHF, pulmonary embolism, acute bronchitis.) Admission/Observation Consideration of admission/observation: Escalation of care including admission/observation considered Consult Healthcare Provider Management of the patient was discussed with: Hospitalist Lab Data MDM Lab Attestation statement: I reviewed the patient's lab results. 12/14/24 01:03 12/14/24 01:03 Labs: Lab Results 12/14/24 12/14/24 Range/Units 01:03 03:00 WBC 3.6 L (4.8-10.8) X10*3/uL RBC 4.13 L (4.20-5.50) X10*6/uL Hgb 12.8 (12.0-16.0) g/dl Hct 37.0 (37.0-47.0) % MCV 89.6 (80.0-98.0) fL MCH 31.0 (27.0-33.0) pg MCHC 34.6 (31.0-35.0) g/dl RDW 12.8 (11.0-16.0) % Plt Count 88 L (160-400) X10*3/uL MPV 10.0 (9.4-12.3) fL Immature Gran % (Auto) 1.1 H (0.0-0.4) % Neut % (Auto) 81.2 H (45-73) % Lymph % (Auto) 13.2 L (20-40) % [place] % (Auto) 3.6 (2-11) % Eos % (Auto) 0.6 (0-4) % Baso % (Auto) 0.3 (0-2) % Lymph # (Auto) 0.5 L (1.2-4.9) X10*3/uL [place] # (Auto) 0.1 (0.1-1.2) X10*3/uL Eos # (Auto) 0.0 (0.0-0.4) X10*3/uL Baso # (Auto) 0.0 (0.0-0.2) X10*3/uL Abs Immat Gran (auto) 0.04 H (0.00-0.03) X10*3/uL Absolute Neuts (auto) 3.0 (2.0-8.3) x10*3/uL Absolute Nucleated RBC 0.000 (0.0-0.012) X10*3/uL Nucleated RBC % (auto) 0.0 (0.0-0.2) /100WBC D-Dimer High Sensitivty 356 NG/ML Sodium 144 (135-145) mmol/L Potassium 4.0 (3.3-5.1) mmol/L Chloride 111 H (96-108) mmol/L Carbon Dioxide 24 (22-29) mmol/L Anion Gap 13 (12-20) BUN 22 H (9-16) mg/dL Creatinine 0.71 (0.5-1.4) mg/dL Estim Creat Clear Calc 77.7 Estimated GFR > 60 Random Glucose 135 H (60-115) mg/dL Calcium 9.6 (8.4-10.2) mg/dL Total Bilirubin 0.6 (0.0-1.0) mg/dL AST 25 (5-31) U/L ALT 26 (0-31) U/L Alkaline Phosphatase 61 (39-117) U/L Troponin I High Sens 3.8 (<3.5-17.0) ng/L Total Protein 6.7 (6.5-8.0) g/dL Albumin 4.4 (3.5-5.0) g/dL Influenza Type A (PCR) NEGATIVE (Negative) Influenza Type B (PCR) NEGATIVE (Negative) RSV RNA Qual (PCR) NEGATIVE (Negative) SARS-CoV-2 RNA (RT-PCR) NEGATIVE (Negative) Independent Interpretation I performed an independent interpretation of an: Plain X-Ray ( No acute pathology.) Radiology Impression Discussion of test interpretation with radiology: I have reviewed the radiologist's reading. Discharge Plan Discharge Clinical Impression: Acute bronchitis Patient Disposition: Home, Self-Care Instructions: Acute Bronchitis (ED) Prescriptions: New prednisone 20 mg tablet 20 mg PO BID Qty: 14 0RF albuterol sulfate 90 mcg/actuation HFA aerosol inhaler 2 puff inhalation Q6H PRN (Reason: shortness of breath or wheezing) Qty: 8.5 0RF No Action nebivolol [Bystolic] 10 mg tablet 20 mg PO DAILY 90 Days Qty: 180 3RF Rx Instructions: Brand name only rosuvastatin [Crestor] 20 mg tablet 20 mg PO DAILY nitroglycerin 0.3 mg tablet, sublingual 0.3 mg sublingual ONCE PRN (Reason: chest pain) 30 Days Qty: 30 0RF Rx Instructions: do not exceed 3 doses per episode amlodipine-olmesartan [Ovi] 5-20 mg tablet 1 tab PO DAILY Qty: 30 11RF aspirin [Adult Aspirin Regimen] 81 mg tablet,delayed release (DR/EC) 81 mg PO DAILY Referrals: Yi Joseph MD [Primary Care Provider] - Print Language: Maltese
--- NOTE | 2024-12-14 02:50 | PC.RT ---
pt seen by RT. Lung [id number] clear bilateral, pt has no hx of smoking, on RA, RR 16. No tx given at this time, MD aware.
[2024-12-14 02:56] VITALS: BP 169/80; PULSE 69; RESP 16; TEMP 36.8; O2SAT 99
[2024-12-14 03:15] LABS: D Dimer High Sensitivity 356 NG/ML
[2024-12-14] MEDS: iohexoL 350 MG/ML 100 ML INFUS..BTL 65 ML IV (05:50)
[2024-12-14 06:31] VITALS: BP 143/68; PULSE 67; RESP 16; TEMP 36.7; O2SAT 98
[2024-12-14] MEDS: 0.9 % Sodium Chloride 1,000 ML 999 ML IV (06:51)
[2024-12-14 08:32] VITALS: BP 143/68; PULSE 67; RESP 16; TEMP 36.7; O2SAT 98
== END 2024-12-14 08:33 | disposition home or self-care (01) ==
PROVIDERS: Emergency Provider Emergency Medicine; PCP Internal Medicine
DX: J20.9 Acute bronchitis, unspecified (principal); R06.02 Shortness of breath; R05.9 Cough, unspecified; Z03.818 Encounter for observation for suspected exposure to other biological agents ruled out; E11.9 Type 2 diabetes mellitus without complications; I10 Essential (primary) hypertension; E78.5 Hyperlipidemia, unspecified; Z79.02 Long term (current) use of antithrombotics/antiplatelets; Z79.82 Long term (current) use of aspirin; Z79.899 Other long term (current) drug therapy
CPT/HCPCS: 0241U; 36415; 71045; 71275; 80053; 84484; 85025; 85379; 93005; 99284; Q9967

== ENCOUNTER → 2024-12-14 01:06 | Outpatient (BNV) | payer MEDICARE, MEDICAID, SELFPAY | PROVIDERS: Emergency Provider Emergency Medicine; PCP Internal Medicine; Visit Provider Internal Medicine | DX: R06.00 Dyspnea, unspecified (principal) | CPT/HCPCS: 93010 ==

== ENCOUNTER → 2024-12-14 02:03 | Outpatient (BNV) | payer MEDICARE, MEDICAID, SELFPAY | PROVIDERS: Emergency Provider Emergency Medicine; Visit Provider Radiology Diagnostic Radiology | DX: R06.02 Shortness of breath (principal); R06.00 Dyspnea, unspecified | CPT/HCPCS: 71045; 71275 ==

== ENCOUNTER 2025-02-25 09:46 | Outpatient (AMB) | payer MEDICARE, MEDICAID, SELFPAY ==
[2025-02-25 09:49] VITALS: BP 178/90; PULSE 74; O2SAT 98; BMI 33.7
--- NOTE | 2025-02-25 09:49 | MHC.PC.OV ---
Vital Signs 02/25/25 09:49 02/25/25 10:18 Height 5 ft 4 in Weight 196 lb 2 oz BMI 33.7 BP 178/90 H 145/85 H Blood Pressure Location Lt brachial Position Sitting Pulse 74 Pulse Source Pulse Oximeter Pulse Oximetry (%) 98 Oxygen Delivery Method Room Air Intake Visit Reasons: PE Allergies amlodipine Allergy (Mild, Verified 02/25/25 09:51) knee pain niacin [NIACIN] Allergy (Mild, Verified 02/25/25 09:51) REDNESS, rash, rash tbo-filgrastim [From Granix] Allergy (Unknown, Verified 02/25/25 09:51) palpitations atenolol Adverse Reaction (Unknown, Verified 02/25/25 09:51) palpatations, palpitations lisinopril Adverse Reaction (Unknown, Verified 02/25/25 09:51) cough valsartan [Diovan] Adverse Reaction (Unknown, Verified 02/25/25 09:51) cough Medication List - Last Reconciled 02/25/25 by Yi Joseph MD albuterol sulfate 90 mcg/actuation 2 puffs inhalation Q6H PRN aspirin (Adult Aspirin Regimen) 81 mg PO DAILY Ovi 5-20 mg (amlodipine-olmesartan) 1 tab PO DAILY NS Bystolic (nebivolol) 20 mg (2 x 10 mg) PO DAILY 90 days NS nitroglycerin 0.3 mg sublingual ONCE PRN 30 days rosuvastatin (Crestor) 20 mg PO DAILY Tobacco use date assessed: 02/25/25 Fall risk assessment: No Falls in past year Last assessed Fall Risk: 02/25/25 Dental Screening Dental Screen Date: 02/25/25 Did you have a dental visit in the last 12 months?: Yes Did you have a dental problem in the last 6 months where you did not have access to dental care?: No Was dental information given to patient?: Patient has dentist HPI PE HPI Details Patient is 74-year-old female came in today for physical examination Patient has a history of hypertension, multiple myeloma in remission currently, patient was enrolled in a trial treatment and ended up having severe side effects She is recovering now. Patient also sees cardiology for recurrent palpitations, her blood pressure management is through Cardiology now. She has appointment coming up in May Diabetes is stable patient's hemoglobin A1c is well-controlled without medications. 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 varicose veins management through vascular specialist Medication list reviewed Last set of labs reviewed Review of Systems - General: No fever no chills - Neurological: No headaches no dizziness - Ear nose throat: No sore throat no hearing difficulty no ear pain - Cardiovascular: No syncope, no chest pain, no palpitations - Gastrointestinal: No nausea vomiting or diarrhea - Endocrine: No polyuria polydipsia no heat intolerance - Genitourinary: No dysuria , no blood in urine Physical Exam General: Cooperative, comfortable, no acute distress Head: Normal to inspection Ears: Hearing grossly normal bilaterally Nose: Normal external nose present Face: shows normal expressions Eyes: Appearance normal, both eyes and all related structures Neck: Normal visual inspection, moving neck without any distress Respiratory: Normal respiratory effort and able to speak in complete sentences. Clear to auscultation bilaterally Cardiovascular: S1 and S2, regular in rate and rhythm GI: nontender bowel sounds positive Skin: normal turgor, no rashes Neuro: non focal, balance intact Extremities: no new findings PFSH Medical History PVCs (premature ventricular contractions) Intermittent palpitations Allergic rhinitis Obstructive sleep apnea Lipid disorder Multiple myeloma in remission Hypertension, essential Surgical History History of appendectomy Family History Father No problems noted. Mother Diabetes mellitus Sister Diabetes mellitus Sister History of high blood pressure Social History Household Members: Spouse Housing: House Do you presently have visiting nurse or other home services: No Patient Tobacco Use Status: Never used Tobacco e-Cigarette/Vaping Use: Never Used Second Hand Smoke Exposure: Yes (childhood secondhand) service: No Current occupational status: retired Cognitive needs: No Hearing needs: No Vision needs: No Questionnaire PHQ-9 Over the last 2 weeks, how often have you been bothered by any of the following problems? 1. Little interest or pleasure in doing things: not at all 2. Feeling down, depressed, or hopeless: not at all 3. Trouble falling or staying asleep, or sleeping too much: several days 4. Feeling tired or having little energy: several days 5. Poor appetite or overeating: not at all 6. Feeling bad about yourself - or that you are a failure or have let yourself or your family down: not at all 7. Trouble concentrating on things, such as reading the newspaper or watching television: not at all 8. Moving or speaking so slowly that other people could have noticed. Or the opposite - being so fidgety or restless that you have been moving around a lot more than usual: not at all 9. Thoughts that you would be better off or of hurting yourself in some way: not at all Total score: 2 Depression Screening Interpretation: Negative Depression Screening Done: Yes 16606 - PHQ-9 Billing: Yes Source: Developed by Drs. Miguel Eisenberg, Terri Salazar, Keith Hagan and colleagues, with an educational breana from [employer]. Thrive Questionnaire Date Thrive assessed: 02/25/25 I am a: Patient What is your living situation today?: I have a steady place to live Within the past 12 months, did the food you bought not last and you didn't have the money to get more?: I choose not to answer this question Within the past 12 months, did you worry whether your food would run out before you got money to buy more?: I choose not to answer this question Do you have trouble paying for medicines?: No Do you have trouble getting transportation to medical appointments?: No Do you have trouble paying your heating and electricity bill?: I choose not to answer this question Do you have trouble taking care of your child, family member or friend?: No Do you have trouble with day-to-day activities such as bathing, preparing meals, shopping, managing finances, etc.?: No Are you currently unemployed and looking for a job?: No Are you interested in more education?: No Please select the resources that you would like help with: None Currently or been in a relationship where the following occur: No concerns reported THRIVE Score: 0 AUDIT C Alcohol Use Questionnaire (AUDIT-C) 1. How often do you have a drink containing alcohol?: Never 3. How often do you have six or more drinks on one occasion?: Never Total Score: 0 Score Reviewed/Action Taken: Yes KYLE-7 AMB Questionnaire KYLE-7 Date KYLE - 7 assessed: 02/25/25 Feeling nervous, anxious, or on edge: 0 = Not at all Not being able to stop or control worryin = Not at all Worrying too much about different things: 0 = Not at all Trouble relaxin = Not at all Being so restless that it is hard to sit still: 0 = Not at all Becoming easily annoyed or irritable: 0 = Not at all Feeling afraid as if something awful might happen: 0 = Not at all Total KYLE-7 score (0-4 normal; 5-9 mild; 10-14 moderate; 15-21 severe): 0 Source: Developed by Drs. Miguel Eisenberg, Terri Salazar, Keith Hagan and colleagues, with an educational breana from [employer]. KYLE-7 Assessment Billing KYLE-7 Assessment Tool: KYLE-7 Assessment 43669 Physical exam (Primary Care) Vital Signs: Last Vital Signs Pulse 74 02/25/25 09:49 BP 145/85 H 02/25/25 10:18 Pulse Ox 98 02/25/25 09:49 Oxygen Delivery Method Room Air 02/25/25 09:49 BMI result Body Mass Index 33.7 Tobacco/Smoking Status: Tobacco use Status Tobacco use date assessed 02/25/25 02/25/25 09:57 Patient Tobacco Use Status Never used Tobacco 02/25/25 09:57 e-Cigarette/Vaping Use Never Used 02/25/25 09:57 PHQ-9: PHQ-9 Score PHQ-9: Total score 2 02/25/25 10:23 Depression Screening Interpretation: Negative Thrive Assessment: Date of Thrive Assessment Date Thrive assessed 02/25/25 02/25/25 09:57 Currently or been in a relationship where the following occur: No concerns reported Results AMB Hemoglobin A1c AMB Hemoglobin A1c 5.6 % Last Edit by Flash Donahue CMA on 02/25/25 10:26 Results Reviewed Results Reviewed: Laboratory Last Values Hgb A1c (Clinic) 5.6 % (4.0-6.0) 02/25/25 10:24 Coding Level of Care Code Est Pt Level 3 (13900) Est Pt Prev Care >65y(35163) Diagnoses Encounter for general adult medical examination with abnormal findings Z00.01 Diet-controlled diabetes mellitus E11.9 Multiple myeloma in remission C90.01 Hypertension, essential I10 Lipid disorder E78.9 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 PAD (peripheral artery disease) I73.9 Intermittent palpitations R00.2 Additional Codes KYLE-7 Assessment Billing - KYLE-7 Assessment Tool: KYLE-7 Assessment [id number] ([id number]) PHQ-9 - 06698 - PHQ-9 Billing: Yes ([id number]) Assessment & Plan Assessment & Plan (1) Encounter for general adult medical examination with abnormal findings: Code(s): Z00.01 - Encounter for general adult medical examination with abnormal findings Category: Medical (2) Diet-controlled diabetes mellitus: Code(s): E11.9 - Type 2 diabetes mellitus without complications Category: Medical (3) Multiple myeloma in remission: Code(s): C90.01 - Multiple myeloma in remission Category: Medical (4) Hypertension, essential: Code(s): I10 - Essential (primary) hypertension Category: Medical (5) Lipid disorder: Code(s): E78.9 - Disorder of lipoprotein metabolism, unspecified Category: Medical (6) History of bone marrow transplant: Code(s): Z94.81 - Bone marrow transplant status Category: Surgical (7) PAD (peripheral artery disease): Code(s): I73.9 - Peripheral vascular disease, unspecified Category: Medical (8) Intermittent palpitations: Code(s): R00.2 - Palpitations Category: Medical Plan Patient is 74-year-old female came in today for physical examination Patient has a history of hypertension, multiple myeloma in remission currently, patient was enrolled in a trial treatment and ended up having severe side effects She is recovering now. Patient also sees cardiology for recurrent palpitations, her blood pressure management is through Cardiology now. She has appointment coming up in May Diabetes is stable patient's hemoglobin A1c is well-controlled without medications. 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
[2025-02-25 10:18] VITALS: BP 145/85
--- OUTSIDE RECORDS SUMMARY | 2025-02-25 10:22 | XMS_ITS | Clinical Summary ---
Author Organization [facility] Address [address] [place] [address] Care Team Providers Care Disability Counselor Name Role Phone Unavailable Primary Care Provider Unavailabl e Social History Tobacco Use Types Packs/Day Years Used Date Smoking Tobacco: Never Assessed Sex and Gender Information Value Date Recorded Sex Assigned at Not on file Gender Identity Not on file Sexual Orientation Not on file Plan of Treatment Health Maintenance Due Date Last Done Comments Hepatitis C Virus Screening 1950 DTaP/Tdap/Td Vaccines (1 - Tdap) 1971 Pneumococcal Vaccines 50+ (1 of 1 - PCV) 2002 Zoster (Shingles) Vaccine (1 of 2) 2002 COVID-19 Vaccine ( - 2023-2 5 season) 2024 RSV Vaccine 60 years and old er and Patients (1 - 1-dose 75+ series) 2027 Hepatitis B Vaccines Aged Out No long er eligible based on patient's age to complete this topic
== END 2025-02-25 10:23 | disposition home or self-care (01) ==
LOC: HO.HMCC 09:47
PROVIDERS: Visit Provider Internal Medicine
DX: Z00.00 Encounter for general adult medical examination without abnormal findings (principal); E11.51 Type 2 diabetes mellitus with diabetic peripheral angiopathy without gangrene; C90.01 Multiple myeloma in remission; Z94.81 Bone marrow transplant status; I73.9 Peripheral vascular disease, unspecified; I10 Essential (primary) hypertension; E78.9 Disorder of lipoprotein metabolism, unspecified; R00.2 Palpitations

== ENCOUNTER → 2025-02-25 09:46 | Outpatient (BNVA) | payer MEDICARE, MEDICAID, SELFPAY | PROVIDERS: Visit Provider Internal Medicine | DX: Z00.01 Encounter for general adult medical examination with abnormal findings (principal); E11.9 Type 2 diabetes mellitus without complications; C90.01 Multiple myeloma in remission; I10 Essential (primary) hypertension; E78.9 Disorder of lipoprotein metabolism, unspecified; I73.9 Peripheral vascular disease, unspecified; R00.2 Palpitations; Z94.81 Bone marrow transplant status | CPT/HCPCS: 83036; 96127; 99397 ==

== ENCOUNTER 2025-03-01 14:44 | Outpatient (AMB) | payer MEDICARE, MEDICAID, SELFPAY ==
[2025-03-01 14:52] VITALS: BP 158/80; PULSE 92; BMI 33.5
--- NOTE | 2025-03-01 14:52 | A.OFFVIS_ITS ---
Vital Signs 03/01/25 14:52 Height 5 ft 4 in Weight 195 lb 5.273 oz BMI 33.5 BP 158/80 H Blood Pressure Location Lt brachial Position Sitting Pulse 92 Pulse Source Pulse Oximeter Intake Visit Reasons: High BP Drum Attendant Required: No Allergies amlodipine Allergy (Mild, Verified 03/01/25 14:54) knee pain niacin [NIACIN] Allergy (Mild, Verified 03/01/25 14:54) REDNESS, rash, rash tbo-filgrastim [From Granix] Allergy (Unknown, Verified 03/01/25 14:54) palpitations atenolol Adverse Reaction (Unknown, Verified 03/01/25 14:54) palpatations, palpitations lisinopril Adverse Reaction (Unknown, Verified 03/01/25 14:54) cough valsartan [Diovan] Adverse Reaction (Unknown, Verified 03/01/25 14:54) cough Medication List - Last Reconciled 03/01/25 by Toni Sen NP acyclovir 400 mg PO BID albuterol sulfate 90 mcg/actuation 2 puffs inhalation Q6H PRN aspirin (Adult Aspirin Regimen) 81 mg PO DAILY Ovi 5-20 mg (amlodipine-olmesartan) 1 tab PO DAILY NS Bystolic (nebivolol) 20 mg (2 x 10 mg) PO DAILY 90 days NS entecavir 0.5 mg PO DAILY nitroglycerin 0.3 mg sublingual ONCE PRN 30 days rosuvastatin (Crestor) 20 mg PO DAILY HPI Comments Details: This is a 74-year-old female patient presenting for complaints of elevated blood pressures. Patient with a history of poorly controlled hypertension in his undergoing chemotherapy for recurrent multiple myeloma. Patient was previously on Ovi 10-40, during which time her systolic blood pressure stopped with the low 100s with episodes of lightheadedness. As a result, the dose was reduced to 5-20. She now reports that she has transitioned to a different chemo regimen and is suspecting that her blood pressures are beginning to rise again. She states that her blood pressures at home has been elevated in the 150s systolic. Patient is otherwise denying any cardiac symptoms including exertional chest pain, shortness of breath, palpitations, dizziness, fatigue, orthopnea, PND, leg edema, presyncope, or syncope. Patient states she has been compliant with all her other medications. [facility] Medical History PVCs (premature ventricular contractions) Intermittent palpitations Allergic rhinitis Obstructive sleep apnea Lipid disorder Multiple myeloma in remission Hypertension, essential Surgical History History of appendectomy Family History Father No problems noted. Mother Diabetes mellitus Sister Diabetes mellitus Sister History of high blood pressure Social History Household Members: Spouse Housing: House Do you presently have visiting nurse or other home services: No Patient Tobacco Use Status: Never used Tobacco e-Cigarette/Vaping Use: Never Used Second Hand Smoke Exposure: Yes (childhood secondhand) service: No Current occupational status: retired Cognitive needs: No Hearing needs: No Vision needs: No Review of Systems ENT Reports dizziness Card Denies chest pain, Denies chest pain at rest, Denies chest pain with activity, Denies rapid heart rate, Denies pedal edema, Denies edema, Denies leg edema, Denies lightheadedness, Denies palpitations, Denies dyspnea, Denies dyspnea on exertion and Denies orthopnea Resp Denies cough, Denies dyspnea and Denies dyspnea on exertion GI Denies hematochezia and Denies change in stool character Musc Denies abnormal gait, Reports limited range of motion, Reports muscle cramps, Denies muscle weakness, Denies numbness, Denies radiating pain into limb, Denies stiffness and Denies tingling Neuro Denies abnormal gait, Reports dizziness, Denies numbness and Denies tingling Endo Denies palpitations Physical Exam Vital Signs: Last Vital Signs Pulse 92 03/01/25 14:52 BP 158/80 H 03/01/25 14:52 BMI result Body Mass Index 33.5 Const General: cooperative, healthy appearing, comfortable and no acute distress Orientation/consciousness: patient oriented x3 HEENT Head: Yes normal to inspection Neck Neck: Yes normal visual inspection, Yes trachea midline and Yes supple Chest Chest palpation & inspection: normal inspection of the chest Resp Effort & Inspection: normal respiratory effort Auscultation: clear to auscultation bilaterally, no crackles, no rales, no rhonchi and no wheezes Cardio Jugular venous distension: no JVD Palpation: normal PMI Rate: regular rate Rhythm: regular rhythm Heart sounds: S1 normal heart sound present, S2 normal heart sound present, no click, no gallops, no murmurs and no rubs Peripheral pulses: Peripheral pulses 2+ throughout GI Inspection: Yes normal to inspection Palpation (GI): Soft to palpation Auscultation: normal bowel sounds Skin General skin exam: no rashes or lesions noted Neuro General: patient oriented x3 Extrem General: Yes normal to inspection, No no pedal edema and No calf tenderness Psych Appearance: grossly normal Mental Status: mental status grossly normal Speech and movement: Normal speech and movement present Assessment & Plan Assessment & Plan (1) Hypertension: Code(s): I10 - Essential (primary) hypertension Category: Medical Plan: Blood pressure today continues to be elevated. States that her blood pressures at home has been elevated as well. We will increase her Ovi back to 10-40. Continue Bystolic therapy. We will have patient return in a month's time to recheck blood pressure with the nurse. Advised patient to continue monitoring blood pressures at home and keep a log of it to bring to the next visit. We w ill check her labs periodically. Ideally, blood pressure goal for her less than 130/80. (2) PAD (peripheral artery disease): Code(s): I73.9 - Peripheral vascular disease, unspecified Category: Medical Plan: Continue lifelong aspirin therapy. Continue statin therapy. (3) Enlarged thoracic aorta: Code(s): I77.89 - Other specified disorders of arteries and arterioles Category: Medical Plan: 05/31/2024-echo study showed normal EF between 60-65% with mild LVH with impaired relaxation filling pattern. Mildly dilated ascending aorta at 3.9 cm. Echo will be repeated periodically to monitor this. Clinically euvolemic. Advised heart healthy diet, regular exercise, losing some weight, low-salt diet, med compliance, and aggressive management of vascular risk factors. Patient will follow-up in 1 month's time with the nurse for blood pressure. Patient will keep her upcoming three-month follow-up visit with Dr. Rizzo. In the interim, patient will call the office with any concerns or change in symptoms. This note was generated using voice recognition software. While every effort has been made to ensure accuracy and proper senior environmental technician, there may be occasional errors that could affect the content or meaning of the described symptoms. Orders: Orders Basic Metabolic Panel 1 Month I10 - Essential (primary) hypertension Medications: New amlodipine-olmesartan 10-40 mg (Ovi) 1 tab PO DAILY 90 tabs 3RF Refilled Bystolic (nebivolol) Brand name only 20 mg (2 x 10 mg) PO DAILY 90 days 180 tabs 3RF NS Bystolic (nebivolol) Brand name only 20 mg (2 x 10 mg) PO DAILY 90 days 180 tabs 3RF NS Coding Level of Care Code Est Pt Level 4 (66003) Complex EM visit Add On G2211 Diagnoses Hypertension I10 PAD (peripheral artery disease) I73.9 Enlarged thoracic aorta I77.89 Time Spent (min) 31 Comment Time spent in reviewing the chart, test results, assessment, counseling and documentation.
--- OUTSIDE RECORDS SUMMARY | 2025-03-01 17:59 | XMS_ITS | Clinical Summary ---
Author Organization [facility] Address [address] [place] [address] Care Team Providers Care Railway Traction Line Worker Name Role Phone Unavailable Primary Care Provider [...]
== END 2025-03-01 15:25 | disposition home or self-care (01) ==
LOC: HO.HCS 14:44
PROVIDERS: PCP Internal Medicine
DX: I10 Essential (primary) hypertension (principal); I73.9 Peripheral vascular disease, unspecified; I77.89 Other specified disorders of arteries and arterioles
CPT/HCPCS: 99214; G2211

== ENCOUNTER → 2025-03-01 14:44 | Outpatient (BNVA) | payer MEDICARE, MEDICAID, SELFPAY | PROVIDERS: PCP Internal Medicine | DX: I10 Essential (primary) hypertension (principal); I73.9 Peripheral vascular disease, unspecified; I77.89 Other specified disorders of arteries and arterioles | CPT/HCPCS: 99212 ==

== ENCOUNTER 2025-04-15 14:34 | Outpatient (AMB) | payer MEDICARE, MEDICAID, SELFPAY ==
--- OUTSIDE RECORDS SUMMARY | 2025-04-15 14:37 | XMS_ITS | Clinical Summary ---
Author Organization [facility] Address [address] [place] [address] Care Team Providers Care Culture Media Laboratory Assistant Name Role Phone Unavailable Primary Care Provider Unavailabl e Social History Tobacco Use Types Packs/Day Years Used Date Smoking Tobacco: Never Assessed Comments Unknown Sex and Gender Information Value Date Recorded Sex Assigned at Not on file Legal Sex Female 12:38 PM EDT Gender Identity Not on file Sexual Orientation [...]
--- NOTE | 2025-04-15 14:43 | MHC.OFFVIS ---
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 Numerical Control Required: No Accompanied by: Self / Same As Patient Allergies amlodipine Allergy (Mild, Verified 03/01/25 14:54) knee pain niacin [NIACIN] Allergy (Mild, Verified 03/01/25 14:54) REDNESS, rash, rash tbo-filgrastim [From Granix] Allergy (Unknown, Verified 03/01/25 14:54) palpitations atenolol Adverse Reaction (Unknown, Verified 03/01/25 14:54) palpatations, palpitations lisinopril Adverse Reaction (Unknown, Verified 03/01/25 14:54) cough valsartan [Diovan] Adverse Reaction (Unknown, Verified 03/01/25 14:54) cough Medication List - Last Reconciled 04/15/25 by Toni Sen NP acyclovir 400 mg PO BID albuterol sulfate 90 mcg/actuation 2 puffs inhalation Q6H PRN amlodipine-olmesartan 10-40 mg (Ovi) 1 tab PO DAILY aspirin (Adult Aspirin Regimen) 81 mg PO DAILY entecavir 0.5 mg PO DAILY nebivolol (Bystolic) 20 mg PO DAILY nitroglycerin 0.3 mg sublingual ONCE PRN 30 days rosuvastatin (Crestor) 20 mg PO DAILY HPI Comments Details: This is a 74-year-old female patient presenting for complaints of palpitations. Patient with a history of poorly controlled hypertension in his undergoing chemotherapy for recurrent multiple myeloma. Patient was previously having elevated blood pressures on reduced dose of Ovi and was restarted back on Ovi 10-40. Patient states that her blood pressure has been stable at home. However, she started getting some palpitations in the last couple days and has some dizziness with this. Patient states that these happen very frequently and can occur with exertion as well as with rest. Due to this, patient thought everything was due to her medications and stopped taking them completely for the past 3 days. Patient otherwise is denying any exertional chest pain, shortness of breath, orthopnea, PND, leg edema, presyncope, or syncope. [facility] Medical History PVCs (premature ventricular contractions) Intermittent palpitations Allergic rhinitis Obstructive sleep apnea Lipid disorder Multiple myeloma in remission Hypertension, essential Surgical History History of appendectomy Family History Father No problems noted. Mother Diabetes mellitus Sister Diabetes mellitus Sister History of high blood pressure Social History Household Members: Spouse Housing: House Do you presently have visiting nurse or other home services: No Patient Tobacco Use Status: Never used Tobacco e-Cigarette/Vaping Use: Never Used Second Hand Smoke Exposure: Yes (childhood secondhand) service: No Current occupational status: retired Cognitive needs: No Hearing needs: No Vision needs: No Review of Systems Const Denies chills, Denies fatigue, Denies fever(s), Denies frequent falls, Denies weakness, Denies weight gain and Denies weight loss ENT Denies dizziness Card Denies chest pain, Denies leg edema, Denies lightheadedness, Denies palpitations, Reports dyspnea and Reports dyspnea on exertion Resp Denies cough, Reports dyspnea and Reports dyspnea on exertion GI Denies hematochezia Musc Denies abnormal gait, Denies muscle weakness, Denies numbness, Denies radiating pain into limb and Denies tingling Neuro Denies abnormal gait, Denies dizziness, Denies frequent falls, Denies numbness, Denies tingling and Denies weakness Endo Denies fatigue and Denies palpitations Physical Exam Vital Signs: Last Vital Signs Pulse 86 04/15/25 14:47 BP 140/74 H 04/15/25 14:47 BMI result Body Mass Index 34.2 Const General: cooperative, healthy appearing, comfortable and no acute distress Orientation/consciousness: patient oriented x3 HEENT Head: Yes normal to inspection Neck Neck: Yes normal visual inspection, Yes trachea midline and Yes supple Chest Chest palpation & inspection: normal inspection of the chest Resp Effort & Inspection: normal respiratory effort Auscultation: clear to auscultation bilaterally, no crackles, no rales, no rhonchi and no wheezes Cardio Jugular venous distension: no JVD Palpation: normal PMI Rate: regular rate Rhythm: regular rhythm Heart sounds: S1 normal heart sound present, S2 normal heart sound present, no click, no gallops, no murmurs and no rubs Peripheral pulses: Peripheral pulses 2+ throughout GI Inspection: Yes normal to inspection Palpation (GI): Soft to palpation Auscultation: normal bowel sounds Skin General skin exam: no rashes or lesions noted Neuro General: patient oriented x3 Extrem General: Yes normal to inspection, No no pedal edema and No calf tenderness Psych Appearance: grossly normal Mental Status: mental status grossly normal Speech and movement: Normal speech and movement present Office Procedures EKG Details: EKG today shows sinus rhythm with frequent PVCs, rate 78 beats per minute, [place], [place]. [id number], Complete Assessment & Plan Assessment & Plan (1) Palpitations: Code(s): R00.2 - Palpitations Category: Medical Plan: EKG today showed sinus rhythm with PVCs. Patient's symptoms could be related to the PVCs. However, we will proceed with a 3 day Holter study to assess for potential arrhythmias. Further treatment based on findings. (2) Dizziness: Code(s): R42 - Dizziness and giddiness Category: Medical Plan: 05/31/2024-echo study showed a normal EF between 60-65% with mild LVH with impaired relaxation filling pattern, mildly dilated ascending aorta at 3.9 cm. We will repeat an echo to look for any LV systolic and diastolic dysfunction. (3) Enlarged thoracic aorta: Code(s): I77.89 - Other specified disorders of arteries and arterioles Category: Medical Plan: As above. (4) Hypertension, essential: Code(s): I10 - Essential (primary) hypertension Category: Medical Plan: Blood pressure today is elevated however patient states that while on the medications her blood pressures has been stable. Advised to restart the medications and to monitor her blood pressures with an goal less than 130/80. Advised heart healthy diet, regular exercise, adequate hydration, emphasized on med compliance, and management of vascular risk factors. We will follow-up after the completion of above test. In the interim, patient will call the office with any concerns or change in symptoms. This note was generated using voice recognition software. While every effort has been made to ensure accuracy and proper shale processing technician, there may be occasional errors that could affect the content or meaning of the described symptoms. Orders: Orders ECG 3 day holter monitor 2 Weeks R00.2 - Palpitations CA echo transthoracic complete Today R42 - Dizziness and giddiness AMB EKG-In Office Today R00.2 - Palpitations Coding Level of Care Code Est Pt Level 4 (27762) Complex EM visit Add On G2211 Diagnoses Palpitations R00.2 Dizziness R42 Enlarged thoracic aorta I77.89 Hypertension, essential I10 CPT Codes EKG - CPT: 14124-Cknmrzltndmjjzdrd, Complete ([id number]) Time Spent (min) 32 Comment Time spent in reviewing the chart, test results, assessment, counseling and documentation.
[2025-04-15 14:47] VITALS: BP 140/74; PULSE 86; BMI 34.2
== END 2025-04-15 15:17 | disposition home or self-care (01) ==
LOC: HO.HCS 14:35
PROVIDERS: PCP Internal Medicine
DX: R00.2 Palpitations (principal); R42 Dizziness and giddiness; I77.89 Other specified disorders of arteries and arterioles; I10 Essential (primary) hypertension
CPT/HCPCS: 93010; 99214; G2211

== ENCOUNTER → 2025-04-15 14:34 | Outpatient (BNVA) | payer MEDICARE, MEDICAID, SELFPAY | PROVIDERS: PCP Internal Medicine | DX: R00.2 Palpitations (principal); R42 Dizziness and giddiness; I77.89 Other specified disorders of arteries and arterioles; I10 Essential (primary) hypertension | CPT/HCPCS: 93005; 99212 ==

== ENCOUNTER → 2025-05-19 08:56 | Outpatient (REF) | payer MEDICARE, MEDICAID, SELFPAY ==
--- NOTE | 2025-05-19 09:00 | CA_ITS ---
Transthoracic Echocardiogram Patient (Last, First, Middle): Padmini Caruso, Gender: Female Date of : 1950 Age: 74 Procedure Date: 05/19/2025 Procedure Type: Transthoracic Echocardiogram Location: OP Height: 165. cm Weight: 88.91 kg BSA: 1.96 m2 Heart Rate: 68 bpm BP: 142 / 82 mmHg Glove Cutter: JILLIAN Shanks MD: Toni Sen NP [place]: Von Rizzo MD Symptoms: R42 - Dizziness and giddiness Study Quality: Fair ECG Rhythm: Sinus Conclusions: - 1. Normal LV ejection fraction 55-60% with impaired relaxation filling pattern 2. Trivial aortic regurgitation 3. Mildly dilated ascending aorta at 4 cm 4. Normal RV systolic pressure 5. No gross pericardial effusion Findings Left Ventricle Normal left ventricular size, thickness, and systolic function. The visually estimated ejection fraction is between 55-60%. Spectral Doppler is indicative of an impaired relaxation filling pattern. E/E prime ratio is between 8 and 15 consistent with indeterminate filling pressures. Right Ventricle Normal right ventricular cavity size and systolic function. Atria The left atrium is normal in size. There is lipomatous hypertrophy of the interatrial septum. There is no evidence of interatrial shunt. The right atrium is normal in size. Aortic Valve The aortic valve was not well visualized. There is no aortic valve stenosis. There is trace (trivial) aortic valve regurgitation. Mitral Valve There is mild anterior and posterior mitral leaflet thickening. There is mild mitral annular calcification. There is trace mitral valve regurgitation. There is no mitral valve stenosis. Pulmonic Valve The pulmonic valve was not well visualized. Tricuspid Valve Likely normal tricuspid valve structure and function. There is trace tricuspid valve regurgitation. The right ventricular systolic pressure is normal. The right ventricular systolic pressure is 20 mmHg. Normal right atrial pressure. There is no evidence of pulmonary hypertension. Great Vessels The pulmonary artery was not well visualized. There is mild dilatation of the ascending aorta measuring 4.00 cm. Small plaque is seen in the sino tubular ridge. Venous The inferior vena cava is normal in size and collapses greater than 50% with inspiration. Pericardium/Pleural There is no evidence of pericardial effusion. Prior Study Comparison Changes noted compared to prior study dated: 05/31/2024. LVH is not appreciated on this study Measurements 2D Linear Measurements IVSd: 0.83 0.6-0.9/0.6-1.0 cm LVIDd: 3.49 3.9-5.3/4.2-5.9 cm LVIDd Index: 1.78 2.4-3.2/2.2-3.1 cm/m2 LVIDs: 2.43 2.0-3.6 cm LVPWd: 1.00 0.7-1.1 cm LA Diam: 3.70 2.7-3.8/3.0-4.0 cm LAIDs Index: 1.89 1.5-2.3 cm/m2 LV Mass: 111.94 67-162/88-224 g LV Mass Index: 57.11 43-95/49-115 g/m2 LVOT Diam: 2.10 3.0+(-)1.3 cm 2D Systolic Function EF 4C: 56.60 >55% EF 2C: 55.50 >55% EF BiP: 57.10 >55% Mitral Valve MV Pk E: 0.69 MV PK A: 0.99 MV Decel Time: 314.00 E/A: 0.70 E'Lateral: 8.59 E'Medial: 4.46 E/E' Med: 15.60 E/E' Lat: 8.10 PHT: 92.00 MVA PHT: 2.39 Decel [place]: 2.21 Aortic Valve AoV Pk Doni: 1.53 AoV Mn Doni: 1.04 AoV VTI: 0.34 AoV Pk Grad: 9.00 Aov Mn Grad: 5.00 DEMARCO Cont.VTI: 2.65 AI Pk Doni: 3.95 AI [place]: 2.29 LVOT LVOT Pk Doni: 1.06 LVOT Mn Doni: 0.75 LVOT VTI: 0.26 LVOT Pk Grad: 4.00 LVOT Mn Grad: 3.00 LVOT Diam: 2.10 LVOT Area: 3.46 Diastolic Function MV Pk E: 0.69 MV Pk A: 0.99 E/A: 0.70 E'Medial: 4.46 E/E' Med: 15.60 E' Laterial: 8.59 E/E' Lat: 8.10 Right Ventricle TAPSE (mm): 19.40 TVS' Doni: 12.80 Tricuspid Valve TR Pk Doni: 2.09 TR Pk Grad: 17.00 RA Press: 3.00 RVSP: 20.00 Great Vessels Aorta Sinus of Valsalva: 3.60 2.0-3.5 cm Ao Asc: 4.00 2.1-3.4 cm Pulmonary Valve PV Pk Doni: 0.85 Peak PV Grad: 3.00 Updated in Other Vendor System with Status of Final Von Rizzo MD electronically signed on 05/19/2025 11:36:08 AM with status of Final
--- OUTSIDE RECORDS SUMMARY | 2025-05-19 09:07 | XMS_ITS | Clinical Summary ---
Author Organization [facility] Address [address] [place] [address] Care Team Providers Care Solid Surface Fabricator Name Role Phone Unavailable Primary Care Provider [...]
== END ==
LOC: HO.CARD 08:56
PROVIDERS: PCP Internal Medicine
DX: R42 Dizziness and giddiness (principal)
CPT/HCPCS: 93306

== ENCOUNTER → 2025-05-19 09:00 | Outpatient (BNV) | payer MEDICARE, MEDICAID, SELFPAY | PROVIDERS: PCP Internal Medicine; Visit Provider Internal Medicine Cardiovascular Disease | DX: I34.81 Nonrheumatic mitral (valve) annulus calcification (principal); I35.8 Other nonrheumatic aortic valve disorders | CPT/HCPCS: 93306 ==

== ENCOUNTER 2025-06-08 11:04 | Outpatient (AMB) | payer MEDICARE, MEDICAID, SELFPAY ==
[2025-06-08 11:17] VITALS: BP 130/76; PULSE 75; BMI 34.1
--- NOTE | 2025-06-08 11:17 | A.OFFVIS_ITS ---
Vital Signs 06/08/25 11:17 Height 5 ft 4 in Weight 198 lb 6.656 oz BMI 34.1 BP 130/76 Blood Pressure Location Lt brachial Position Sitting Pulse 75 Intake Visit Reasons: 1 yr follow up Intake Note: 1 year follow-up feeling good now was seen in March for dizziness Director Of Casino Marketing Required: No Allergies amlodipine Allergy (Mild, Verified 03/01/25 14:54) knee pain niacin (NIACIN) Allergy (Mild, Verified 03/01/25 14:54) REDNESS, rash, rash tbo-filgrastim (From Granix) Allergy (Unknown, Verified 03/01/25 14:54) palpitations atenolol Adverse Reaction (Unknown, Verified 03/01/25 14:54) palpatations, palpitations lisinopril Adverse Reaction (Unknown, Verified 03/01/25 14:54) cough valsartan (Diovan) Adverse Reaction (Unknown, Verified 03/01/25 14:54) cough Medication List - Last Reconciled 06/08/25 by Von Rizzo MD acyclovir 400 mg PO BID albuterol sulfate 90 mcg/actuation 2 puffs inhalation Q6H PRN amlodipine-olmesartan 10-40 mg (Ovi) 1 tab PO DAILY aspirin (Adult Aspirin Regimen) 81 mg PO DAILY entecavir 0.5 mg PO DAILY nebivolol (Bystolic) 20 mg PO DAILY nitroglycerin 0.3 mg sublingual ONCE PRN 30 days rosuvastatin (Crestor) 20 mg PO DAILY HPI Comments Details: Padmini comes for follow-up. She has been doing well from cardiac perspective. Blood pressure has been somewhat variable and sometimes in the morning a blood pressure systolic is above 150. Rest of the time when she measures and after in the blood pressure is normal. She remains functional and active. Denies any exertional chest pain or shortness of breath. No lightheadedness, syncope. Recent echocardiogram shows mildly enlarged ascending aorta. Her multiple myelomas in remission. She denies any heart failure symptoms. No prolonged palpitation or irregular heartbeat. Her symptoms of skipped heartbeats have improved [facility] Medical History PVCs (premature ventricular contractions) Intermittent palpitations Allergic rhinitis Obstructive sleep apnea Lipid disorder Multiple myeloma in remission Hypertension, essential Surgical History History of appendectomy Family History Father No problems noted. Mother Diabetes mellitus Sister Diabetes mellitus Sister History of high blood pressure Social History Household Members: Spouse Housing: House Do you presently have visiting nurse or other home services: No Patient Tobacco Use Status: Never used Tobacco e-Cigarette/Vaping Use: Never Used Second Hand Smoke Exposure: Yes (childhood secondhand) service: No Current occupational status: retired Cognitive needs: No Hearing needs: No Vision needs: No Review of Systems Const Denies chills, Denies fatigue, Denies fever(s), Denies frequent falls, Denies weakness, Denies weight gain and Denies weight loss ENT Denies dizziness Card Denies chest pain, Denies leg edema, Denies lightheadedness, Denies palpitations, Denies dyspnea, Denies dyspnea on exertion, Denies orthopnea and Denies other (loss of consciousness) Resp Denies cough, Denies dyspnea and Denies dyspnea on exertion GI Denies hematochezia and Denies change in stool character Musc Denies abnormal gait, Denies muscle weakness, Denies numbness, Denies radiating pain into limb and Denies tingling Neuro Denies abnormal gait, Denies dizziness, Denies frequent falls, Denies numbness, Denies tingling and Denies weakness Endo Denies fatigue and Denies palpitations Physical Exam Vital Signs: Last Vital Signs Pulse 75 06/08/25 11:17 BP 130/76 06/08/25 11:17 BMI result Body Mass Index 34.1 Const General: cooperative, healthy appearing, comfortable and no acute distress Orientation/consciousness: patient oriented x3 HEENT Head: Yes normal to inspection Neck Neck: Yes normal visual inspection, Yes trachea midline and Yes supple Chest Chest palpation & inspection: normal inspection of the chest Resp Effort & Inspection: normal respiratory effort Auscultation: clear to auscultation bilaterally, no crackles, no rales, no rhonchi and no wheezes Cardio Jugular venous distension: no JVD Palpation: normal PMI Rate: regular rate Rhythm: regular rhythm Heart sounds: S1 normal heart sound present, S2 normal heart sound present, no click, no gallops, no murmurs and no rubs Peripheral pulses: Peripheral pulses 2+ throughout GI Inspection: Yes normal to inspection Palpation (GI): Soft to palpation Auscultation: normal bowel sounds Skin General skin exam: no rashes or lesions noted Neuro General: patient oriented x3 Extrem General: Yes normal to inspection, No no pedal edema and No calf tenderness Psych Appearance: grossly normal Mental Status: mental status grossly normal Speech and movement: Normal speech and movement present Office Procedures EKG Details: EKG shows normal sinus rhythm normal EKG 35021-[id number], Complete Assessment & Plan Assessment & Plan (1) Hypertension, essential: Code(s): I10 - Essential (primary) hypertension Category: Medical Plan: Hypertension which has been difficult control in the past. Currently appears to be well controlled. Advised to continue monitor blood pressure at various times in the day and maintain a log. Overall target goal blood pressure less than 130/84. Low-salt diet was discussed. Stress mitigation strategies was discussed. She understands agrees. Continue participate in regular physical activity and weight loss. (2) PVCs (premature ventricular contractions): Code(s): I49.3 - Ventricular premature depolarization Category: Medical Plan: Symptoms of PVCs symptoms have improved. She is not very symptomatic with this. Avoidance of stimulants was discussed. Continue current nebivolol therapy. Continue stress mitigation strategies. (3) Enlarged thoracic aorta: Code(s): I77.89 - Other specified disorders of arteries and arterioles Category: Medical Plan: Mildly enlarged thoracic aorta which is unchanged. Will continue monitor by echocardiogram in 1 year's time. No surgical interventions required. Continue aggressive blood pressure control which is apparently well optimized at this point time. Will follow up in the clinic in 6 months time on her request. Thank you for allowing me to partake in his care Coding Level of Care Code Est Pt Level 4 (79914) Complex EM visit Add On G2211 Diagnoses Hypertension, essential I10 PVCs (premature ventricular contractions) I49.3 Enlarged thoracic aorta I77.89 CPT Codes EKG - CPT: 53507-Zchhobwbdupisthiu, Complete ([id number])
--- OUTSIDE RECORDS SUMMARY | 2025-06-08 12:07 | XMS_ITS | Clinical Summary ---
Author Organization [facility] Address [address] [place] [address] Care Team Providers Care Biofuels Research Scientist Name Role Phone Unavailable Primary Care Provider [...]
--- OUTSIDE RECORDS SUMMARY | 2025-06-08 12:07 | XMS_ITS | Encounter Summary ---
Author Organization [facility] Address [address] [facility] [address] [place] [address] Phone Care Team Providers Care Railroad Car Cleaning Supervisor Name Role Phone Yi Joseph MD Primary Care Provider [phone] Agus Noland MD Unavailable [phone] Self-Referred, Patient Unavailable Unavailab Vaughn Mcallister MD Unavailable Agustin Ybarra MD Unavailable [phone] Camila Yanes RN Unavailable [email or web address] Markus Gregory DO Unavailable Encounter Details Date Type Department Care Team (Late st Contact Info) Description 05/30/2025 Orders Only [facility] Department of Cellular Therapy [address], [address] [place] [address] Hardik Guerrero [address] [place] [address] [address] [place] [address] [email or web address] Multiple myeloma, remission status unspecified (Primary Dx) Social History Tobacco Use Types Packs/Day Years [...] Care Team (Late st Contact Info) Description 06/22/2025 10:30 AM EDT Blood Draw [facility] Department of Cellular Therapy [address], [address] [place] [address] Magnolia Frank, NIKKI [address] [facility] for Outpatient CareLUN [address] [place] [phone] [email or web address] 06/22/2025 11:30 AM EDT Office Visit [facility] Center for Hematology Malignancies [address], [address] [place] [address] Magnolia Frank, FIRESTOPPER TECHNICIAN [address] [place] [address] for Outpatient CareLUN [address] [place] [phone] [email or web address] Vaughn Boogie MD [address] [place] [phone] [email or web address] 06/22/2025 11:30 AM EDT Nurse Only [facility] Department of Cellular Therapy [address], [address], [address] [place] [address] Magnolia Frank, NIKKI [address] [place] [address] for Outpatient CareLUN [address] [place] [id number] [email or web address] Scheduled Orders Name Type Priority Associated Diagnoses Orde r Schedule Beta-2 microglobulin, blood Lab Routine Multiple myeloma, remission status unspecified Expected: 05/30/2025, Expires: 05/30/2026 CBC and differential Lab Routine Multiple myeloma, remission status unspecified Expected: 05/30/2025, Expires: 05/30/2026 Comprehensive metabolic panel Lab Routine Multiple myeloma, remission status unspecified Expected: 05/30/2025, Expires: 05/30/2026 CPK (creatine kinase) Lab Routine Multiple myeloma, remission status unspecified Expected: 05/30/2025, Expires: 05/30/2026 C-Reactive Protein Lab Routine Multiple myeloma, remission status unspecified Expected: 05/30/2025, Expires: 05/30/2026 Ferritin Lab Routine Multiple myeloma, remission status unspecified Expected: 05/30/2025, Expires: 05/30/2026 Free light chains, serum Lab Routine Multiple myeloma, remission status unspecified Expected: 05/30/2025, Expires: 05/30/2026 LDH Lab Routine Multiple myeloma, remission status unspecified Expected: 05/30/2025, Expires: 05/30/2026 X-Label/study Lab Routine Multiple myeloma, remission status unspecified Expected: 05/30/2025, Expires: 05/30/2026 Urine protein electrophoresis (UPEP) Lab Routine Multiple myeloma, remission status unspecified Expected: 05/30/2025, Expires: 05/30/2026 Uric acid Lab Routine Multiple myeloma, remission status unspecified Expected: 05/30/2025, Expires: 05/30/2026 Total protein, 24 hr urine Lab Routine Multiple myeloma, remission status unspecified Expected: 05/30/2025, Expires: 05/30/2026 SPEP panel with immunofixation Lab Routine Multiple myeloma, remission status unspecified Expected: 05/30/2025, Expires: 05/30/2026 Phosphorus Lab Routine Multiple myeloma, remission status unspecified Expected: 05/30/2025, Expires: 05/30/2026 Magnesium Lab Routine Multiple myeloma, remission status unspecified Expected: 05/30/2025, Expires: 05/30/2026 documented as of this encounter Goals Goal Patient Goal Type Associated Problems Recent Progress Patient-Stated? Author Acute Care Plan Acute Care Plan Fatuma Slater RN Note: Cellular therapy/ Immune Effector Cell patient. Patient received cellular therapy product on protocol [id number] on 09/22/24 Page the on-call Immune Effector Cell Attending via [email or web address] Page immediately if patient presents within the [...] team evaluation. Patients should be admitted to [place] [address] to the Immune Effector Cell Service. documented as of this encounter Visit Diagnoses Diagnosis Multiple myeloma, remission status unspecified- Primary documented in this encounter Additional Health Concerns Assessment Noted Time PHQ-2 Depression Total Score: 0 04/06/20 19 9:24 AM EDT documented as of this encounter Care Teams Railroad Car Cleaning Supervisor Relationship Specialty Start Date End Date Yi Joseph MD [address] [facility] [place] [address] PCP - General 11/20/17 Agus Noland MD [address] [place] [phone] [email or web address] Primary Oncologist Medical Oncology 06/25/18 Self-Referred, Patient Referring Physician 06/29/18 Vaughn Boogie MD [address] [place] [phone] [email or web address] Primary Oncologist Medical Oncology 11/23/18 Agustin Ybarra MD [address] [place] [address] Division [place] [address] [email or web address] [email or web address] Surgery 03/31/19 Camila Yanes, MANJU [address] [place] [phone] [email or web address] Primary Infusion Nurse 06/14/20 Markus Gregory DO [address] [place] [address] [address] [place] [address] Gastroenterology 06/29/24 documented as of this encounter Additional Source Comments The information contained in this document represents components of the legal health record. It is not the complete legal health record.[facility]
== END 2025-06-08 11:48 | disposition home or self-care (01) ==
LOC: HO.HCS 11:05
PROVIDERS: Visit Provider Internal Medicine Cardiovascular Disease
DX: I10 Essential (primary) hypertension (principal); I49.3 Ventricular premature depolarization; I77.89 Other specified disorders of arteries and arterioles
CPT/HCPCS: 93010; 99214; G2211

== ENCOUNTER → 2025-06-08 11:04 | Outpatient (BNVA) | payer MEDICARE, MEDICAID, SELFPAY | PROVIDERS: Visit Provider Internal Medicine Cardiovascular Disease | DX: I10 Essential (primary) hypertension (principal); I49.3 Ventricular premature depolarization; I77.89 Other specified disorders of arteries and arterioles | CPT/HCPCS: 93005; 99212 ==

== ENCOUNTER 2025-08-30 10:56 | Outpatient (AMB) | payer MEDICARE, MEDICAID, SELFPAY ==
[2025-08-30 11:00] VITALS: BP 130/72; PULSE 80; O2SAT 98; BMI 33.6
--- NOTE | 2025-08-30 11:00 | A.OFFPC_ITS ---
Vital Signs 08/30/25 11:00 Height 5 ft 4 in Weight 196 lb BMI 33.6 BP 130/72 Blood Pressure Location Rt brachial Position Sitting Pulse 80 Pulse Source Pulse Oximeter Pulse Oximetry (%) 98 Intake Visit Reasons: 6m f/u - see comments Allergies amlodipine Allergy (Mild, Verified 08/30/25 11:01) knee pain niacin (NIACIN) Allergy (Mild, Verified 08/30/25 11:01) REDNESS, rash, rash tbo-filgrastim (From Granix) Allergy (Unknown, Verified 08/30/25 11:01) palpitations atenolol Adverse Reaction (Unknown, Verified 08/30/25 11:01) palpatations, palpitations lisinopril Adverse Reaction (Unknown, Verified 08/30/25 11:01) cough valsartan (Diovan) Adverse Reaction (Unknown, Verified 08/30/25 11:01) cough Medication List - Last Reconciled 08/30/25 by Yi Joseph MD acyclovir 400 mg PO BID albuterol sulfate 90 mcg/actuation 2 puffs inhalation Q6H PRN amlodipine-olmesartan 10-40 mg (Ovi) 1 tab PO DAILY aspirin (Adult Aspirin Regimen) 81 mg PO DAILY entecavir 0.5 mg PO DAILY nebivolol (Bystolic) 20 mg PO DAILY nitroglycerin 0.3 mg sublingual ONCE PRN 30 days rosuvastatin (Crestor) 20 mg PO DAILY Tobacco use date assessed: 02/25/25 Fall risk assessment: No Falls in past year Last assessed Fall Risk: 08/30/25 Dental Screening Dental Screen Date: 02/25/25 HPI 6m f/u - see comments HPI Details History of Present Illness The patient is a 75-year-old female presenting with management of blood sugar and polyuria. Blood sugar management: - The patient reports her blood sugar wa s a bit high at 145 when checked during the middle of the day. - Last blood test was taken at the begin june, with plans for another in August. - The patient denies recent fingerstick blood sugar tests. - She is currently under observation for multiple myeloma in [place], she is on trial treatment and see specialist q 6 M Polyuria at night: - Patient reports waking up multiple abiel es per night to urinate, with episodes occurring as frequently as every hour. - Polyuria at night has been ongoing for a while. - Denies frequent urination during the d ay. - She suspects the medication olmesartan might be a cause but has not been validated. - Patient believes reduced nighttime flu id intake to potentially impact test dehydration results; reports possible lower urination output during the day compared to the night. Medical History: - Multiple myeloma. Surgical History: - CAR-T cell therapy. Medications: - Amlodipine: Indicated for hypertension . - Olmesartan: Indicated for hypertension . - Rosuvastatin: Dosage not specified; in dicated for hyperlipidemia. - Bystolic: Indication not specified; ne ed to confirm its indication with the patient. Social History: - Patient attempts to drink two liters o f water per day. - Typically stops fluid intake by 6:00 o r 7:00 PM. - Consumes mint tea at night for relaxat ion. Problem List - Blood sugar management - Nocturnal polyuria - Hypertension - Multiple myeloma Plan - Advise patient to monitor and manage f luid intake especially after 3:00 PM to reduce nighttime polyuria. - Continue current antihypertensive and lipid-lowering therapy. - Plan follow-up blood sugar lab tests i n August. - Continue observation under current [facility] myeloma care regimen. - Suggest reducing night time consumptio n of mint tea - Maintain regular check of blood pressu re at home. - Recommendation to bring printed lab re sults during next visits for comprehensive review. Review of Systems - General: No fever no chills - Neurological: No headaches no dizziness - Ear nose throat: No sore throat no hearing difficulty no ear pain - Cardiovascular: No syncope, no chest pain, no palpitations - Gastrointestinal: No nausea vomiting or diarrhea - Endocrine: No polydipsia no heat intolerance - Genitourinary: No dysuria , no blood in urine Physical Exam General: No acute distress HEENT: No acute findings Neck: Supple Respiratory system: Lungs are clear Cardiovascular: S1-S2 regular in rate and rhythm Gastrointestinal: No pain Extremities: No new findings NURSING HOME ADMISSIONS DIRECTOR: Alert awake oriented x3 motor intact Skin: Normal turgor PFSH Medical History PVCs (premature ventricular contractions) Intermittent palpitations Allergic rhinitis Obstructive sleep apnea Lipid disorder Multiple myeloma in remission Hypertension, essential Surgical History History of appendectomy Family History Father No problems noted. Mother Diabetes mellitus Sister Diabetes mellitus Sister History of high blood pressure Social History Household Members: Spouse Housing: House Do you presently have visiting nurse or other home services: No Patient Tobacco Use Status: Never used Tobacco e-Cigarette/Vaping Use: Never Used Second Hand Smoke Exposure: Yes (childhood secondhand) service: No Current occupational status: retired Cognitive needs: No Hearing needs: No Vision needs: No Questionnaire PHQ-9 Over the last 2 weeks, how often have you been bothered by any of the following problems? 1. Little interest or pleasure in doing things: not at all 2. Feeling down, depressed, or hopeless: not at all 3. Trouble falling or staying asleep, or sleeping too much: several days 4. Feeling tired or having little energy: several days 5. Poor appetite or overeating: not at all 6. Feeling bad about yourself - or that you are a failure or have let yourself or your family down: not at all 7. Trouble concentrating on things, such as reading the newspaper or watching television: not at all 8. Moving or speaking so slowly that other people could have noticed. Or the opposite - being so fidgety or restless that you have been moving around a lot more than usual: not at all 9. Thoughts that you would be better off or of hurting yourself in some way: not at all Total score: 2 Depression Screening Interpretation: Negative Depression Screening Done: Yes [id number] - PHQ-9 Billing: Yes Source: Developed by Drs. Miguel Eisenberg, Terri Salazar, Keith Hagan and colleagues, with an educational breana from [employer]. Thrive Questionnaire Date Thrive assessed: 02/25/25 I am a: Patient What is your living situation today?: I have a steady place to live Within the past 12 months, did the food you bought not last and you didn't have the money to get more?: I choose not to answer this question Within the past 12 months, did you worry whether your food would run out before you got money to buy more?: I choose not to answer this question Do you have trouble paying for medicines?: No Do you have trouble getting transportation to medical appointments?: No Do you have trouble paying your heating and electricity bill?: I choose not to answer this question Do you have trouble taking care of your child, family member or friend?: No Do you have trouble with day-to-day activities such as bathing, preparing meals, shopping, managing finances, etc.?: No Are you currently unemployed and looking for a job?: No Are you interested in more education?: No Please select the resources that you would like help with: None Currently or been in a relationship where the following occur: No concerns reported THRIVE Score: 0 AUDIT C Alcohol Use Questionnaire (AUDIT-C) 1. How often do you have a drink containing alcohol?: Never 3. How often do you have six or more drinks on one occasion?: Never Total Score: 0 KYLE-7 AMB Questionnaire KYLE-7 Date KYLE - 7 assessed: 02/25/25 Feeling nervous, anxious, or on edge: 0 = Not at all Not being able to stop or control worryin = Not at all Worrying too much about different things: 0 = Not at all Trouble relaxin = Not at all Being so restless that it is hard to sit still: 0 = Not at all Becoming easily annoyed or irritable: 0 = Not at all Feeling afraid as if something awful might happen: 0 = Not at all Total KYLE-7 score (0-4 normal; 5-9 mild; 10-14 moderate; 15-21 severe): 0 Source: Developed by Drs. Miguel Eisenberg, Terri Salazar, Keiht Hagan and colleagues, with an educational breana from [employer]. KYLE-7 Assessment Billing KYLE-7 Assessment Tool: KYLE-7 Assessment 58570 Physical exam (Primary Care) Vital Signs: Last Vital Signs Pulse 80 08/30/25 11:00 BP 130/72 08/30/25 11:00 Pulse Ox 98 08/30/25 11:00 BMI result Body Mass Index 33.6 Tobacco/Smoking Status: Tobacco use Status Tobacco use date assessed 02/25/25 08/30/25 11:02 Patient Tobacco Use Status Never used Tobacco 08/30/25 11:02 e-Cigarette/Vaping Use Never Used 08/30/25 11:02 PHQ-9: PHQ-9 Score PHQ-9: Total score 2 08/30/25 11:21 Depression Screening Interpretation: Negative Thrive Assessment: Date of Thrive Assessment Date Thrive assessed 02/25/25 08/30/25 11:02 Currently or been in a relationship where the following occur: No concerns reported Results AMB Hemoglobin A1c AMB Hemoglobin A1c 5.4 % Last Edit by Hardik Moy CMA on 08/30/25 11: 25 Results Reviewed Results Reviewed: Laboratory Last Values Hgb A1c (Clinic) 5.4 % (4.0-6.0) 08/30/25 11:24 Coding Level of Care Code Est Pt Level 4 (47622) Diagnoses Diet-controlled diabetes mellitus E11.9 Multiple myeloma in remission C90.01 Hypertension, essential I10 Lipid disorder E78.9 Additional Codes PHQ-9 - 16413 - PHQ-9 Billing: Yes ([id number]) KYLE-7 Assessment Billing - KYLE-7 Assessment Tool: KYLE-7 Assessment 26752 ([id number]) Assessment & Plan Assessment & Plan (1) Diet-controlled diabetes mellitus: Code(s): E11.9 - Type 2 diabetes mellitus without complications Category: Medical (2) Multiple myeloma in remission: Code(s): C90.01 - Multiple myeloma in remission Category: Medical (3) Hypertension, essential: Code(s): I10 - Essential (primary) hypertension Category: Medical (4) Lipid disorder: Code(s): E78.9 - Disorder of lipoprotein metabolism, unspecified Category: Medical Plan . Blood sugar management: - The patient reports her blood sugar was a bit high at 145 when checked during the middle of the day. - Last blood test was taken at the beginning of June, with plans for another in August. - The patient denies recent fingerstick blood sugar tests. - She is currently under observation for multiple myeloma in [place], she is on trial treatment and see specialist q 6 M Polyuria at night: - Patient reports waking up multiple times per night to urinate, with episodes occurring as frequently as every hour. - Polyuria at night has been ongoing for a while. - Denies frequent urination during the day. - She suspects the medication olmesartan might be a cause but has not been validated. - Patient believes reduced nighttime fluid intake to potentially impact test dehydration results; reports possible lower urination output during the day compared to the night. Medical History: - Multiple myeloma. Surgical History: - CAR-T cell therapy. Medications: - Amlodipine: Indicated for hypertension. - Olmesartan: Indicated for hypertension. - Rosuvastatin: Dosage not specified; indicated for hyperlipidemia. - Bystolic: Indication not specified; need to confirm its indication with the patient. Social History: - Patient attempts to drink two liters of water per day. - Typically stops fluid intake by 6:00 or 7:00 PM. - Consumes mint tea at night for relaxation. Problem List - Blood sugar management - Nocturnal polyuria - Hypertension - Multiple myeloma Plan - Advise patient to monitor and manage fluid intake especially after 3:00 PM to reduce nighttime polyuria. - Continue current antihypertensive and lipid-lowering therapy. - Plan follow-up blood sugar lab tests in August. - Continue observation under current multiple myeloma care regimen. - Suggest reducing night time consumption of mint tea - Maintain regular check of blood pressure at home. - Recommendation to bring printed lab results during next visits for comprehensive review. Orders: Orders AMB Hemoglobin A1c Today Z13.9 - Encounter for screening, unspecified
--- OUTSIDE RECORDS SUMMARY | 2025-08-30 13:04 | XMS_ITS | Clinical Summary ---
Author Organization [facility] Address [address] [place] [address] Care Team Providers Care Cloth Calender Name Role Phone Unavailable Primary Care Provider Unavailabl e Social History Tobacco Use Types Packs/Day Years Used Date Smoking Tobacco: Never Assessed Comments Unknown Sex and Gender Information Value Date Recorded Sex Assigned at Not on file Legal Sex Female 12:38 PM EDT Gender Identity Not on file Sexual Orientation Not on file Plan of Treatment Health Maintenance Due Date Last Done Comments Advance Care Planning 1950 Hepatitis C Virus Screening 1950 DTaP/Tdap/Td Vaccines (1 - Tdap) 1971 Pneumococcal Vaccines 50+ (1 of 1 - PCV) 2002 Zoster (Shingles) Vaccine (1 of 2) 2002 COVID-19 Vaccine ( - 2023-2 5 season) 2025 RSV Vaccine 60 years and old er and Patients (1 - 1-dose 75+ series) 2027 Hepatitis B Vaccines Aged Out No long er eligible based on patient's age to complete this topic
== END 2025-08-30 11:38 | disposition home or self-care (01) ==
LOC: HO.HMCC 10:57
PROVIDERS: PCP Internal Medicine; Visit Provider Internal Medicine
DX: E11.9 Type 2 diabetes mellitus without complications (principal); C90.01 Multiple myeloma in remission; I10 Essential (primary) hypertension; E78.9 Disorder of lipoprotein metabolism, unspecified; Z13.9 Encounter for screening, unspecified

== ENCOUNTER → 2025-08-30 10:56 | Outpatient (BNVA) | payer MEDICARE, MEDICAID, SELFPAY | PROVIDERS: PCP Internal Medicine; Visit Provider Internal Medicine | DX: E11.9 Type 2 diabetes mellitus without complications (principal); R35.89 Other polyuria; C90.01 Multiple myeloma in remission; I10 Essential (primary) hypertension; E78.9 Disorder of lipoprotein metabolism, unspecified | CPT/HCPCS: 83036; 96127; 99212 ==

== ENCOUNTER 2025-09-29 10:40 | Outpatient (AMB) | payer MEDICARE, MEDICAID, SELFPAY ==
[2025-09-29 10:41] VITALS: BP 160/80; PULSE 78; RESP 16; TEMP 36.6; O2SAT 98; BMI 34.8
--- NOTE | 2025-09-29 10:41 | AM.OFFWIN_ITS ---
Intake Vital Signs 09/29/25 10:41 Height 5 ft 4 in Weight 203 lb BMI 34.8 BP 160/80 H Blood Pressure Location Rt brachial Position Sitting Respiration 16 Pulse 78 Pulse Source Pulse Oximeter Temp 97.9 F Temp Source Oral Pulse Oximetry (%) 98 Oxygen Delivery Method Room Air Intake Visit Reasons: EP Facial numbness Intake Note: The EP complains of facial numbness on the left side of the face and pain over temporal area on the left side of the head started a week ago. Patient Tobacco Use Status: Never used Tobacco Allergies amlodipine Allergy (Mild, Verified 09/29/25 10:54) knee pain niacin (NIACIN) Allergy (Mild, Verified 09/29/25 10:54) REDNESS, rash, rash tbo-filgrastim (From Granix) Allergy (Unknown, Verified 09/29/25 10:54) palpitations atenolol Adverse Reaction (Unknown, Verified 09/29/25 10:54) palpatations, palpitations lisinopril Adverse Reaction (Unknown, Verified 09/29/25 10:54) cough valsartan (Diovan) Adverse Reaction (Unknown, Verified 09/29/25 10:54) cough Do you need a note to return to daycare/school/sports/work: No HPI HPI Comments History of Present Illness Details History of Present Illness - The patient is a 75-year-old female pr esenting with left sided facial numbness and headache. - The facial numbness began a few days a go and has progressively worsened. - It had started at the corner of her mo uth and then has moved up her cheek to her left nare. - The headache started prior to the numb ness and is localized to the left side. - She states that she has pain in the le ft zoroastrianism and a pressure in the ear that radiates down. - No associated cold symptoms, fever, or recent head trauma reported. - No history of similar symptoms, numbne ss in extremities, or weakness. - Blood pressure was noted to be elevate d during the visit, and the patient did not take her antihypertensive medication in the morning. - The patient has a history of multiple myeloma and recent blood work was normal. - She reports no facial droop, slurred s peech, unilateral weakness, chest pain, SOB or abd pain. Physical Exam General: Cooperative, healthy appearing, comfortable, no acute distress and well developed Orientation: Patient oriented x3 Limitations: No limitations Head: Normal to inspection. TTP of the left zoroastrianism. Ears: Hearing grossly normal bilaterally. No swelling in the canal. TM's normal. Nose: Normal external nose present Face and sinus: No facial swelling. No TTP of the sinuses. Eyes: Appearance normal, both eyes and all related structures Neck: Normal visual inspection and Yes full ROM. No lymphadenopathy noted. No carotid bruits noted. Respiratory: Normal respiratory effort and able to speak in complete sentences. Clear to auscultation bilaterally. No w/r/r noted. Cardiovascular: Regular rate and rhythm. Normal S1 and S2. No m/r/g noted. GI: Normal to inspection. Soft to palpation and nontender Skin: No rashes or lesions noted Neuro: Patient oriented x3. Sensation is intact. No facial droop noted. CN II- XII intact. Extremities: Normal to inspection. Strength is 5/5 on the UE bilaterally. Patient was informed and verbally consented to the use of an ambient scribe for clinic note documentation during this visit. [facility] Medical History PVCs (premature ventricular contractions) Intermittent palpitations Allergic rhinitis Obstructive sleep apnea Lipid disorder Multiple myeloma in remission Hypertension, essential Surgical History History of appendectomy Family History Father No problems noted. Mother Diabetes mellitus Sister Diabetes mellitus Sister History of high blood pressure Social History Household Members: Spouse Housing: House Do you presently have visiting nurse or other home services: No Patient Tobacco Use Status: Never used Tobacco e-Cigarette/Vaping Use: Never Used Second Hand Smoke Exposure: Yes (childhood secondhand) service: No Current occupational status: retired Cognitive needs: No Hearing needs: No Vision needs: No Review of Systems Const All systems reviewed & are unremarkable except as noted in HPI and below Physical Exam Vital Signs: Last Vital Signs Temp 97.9 F 09/29/25 10:41 Pulse 78 09/29/25 10:41 Resp 16 09/29/25 10:41 BP 160/80 H 09/29/25 10:41 Pulse Ox 98 09/29/25 10:41 Oxygen Delivery Method Room Air 09/29/25 10:41 BMI result Body Mass Index 34.8 Assessment & Plan Assessment & Plan (1) Facial numbness: Code(s): R20.0 - Anesthesia of skin (2) Headache: Code(s): R51.9 - Headache, unspecified Qualifiers: Headache type: new daily persistent Qualified Code(s): G44.52 - New daily persistent headache (NDPH) Plan Most likely CLARK vs high blood pressure vs electrolyte abnormality vs TIA vs temporal arteritis Unlikely stroke but her symptoms are concerning as they are new and persistent plan - Recommend a head CT scan to rule out any intracranial pathology. - The patient is advised to contact her oncologist for advise or go to the emergency room now for further evaluation. - The patient should inform her oncologist about the new symptoms for further assessment - Also advised her to take her BP medication daily - Pt was going to go to the ER for the head CT once she calls her oncologist. Coding Level of Care Code Est Pt Level 4 (40116) Diagnoses Facial numbness R20.0 New daily persistent headache G44.52 Headache type: new daily persistent
--- OUTSIDE RECORDS SUMMARY | 2025-09-29 13:06 | XMS_ITS | Clinical Summary ---
Author Organization [facility] Address [address] [place] [address] Care Team Providers Care Liner Assembler Name Role Phone Unavailable Primary Care Provider [...] - 2023-2 5 season) 2025 RSV Vaccine 50 years and old er and Patients (1 - 1-dose 75+ series) 2027 Hepatitis B Vaccines Aged Out No long er eligible based on patient's age to complete this topic
== END 2025-09-29 11:45 | disposition home or self-care (01) ==
PROVIDERS: PCP Internal Medicine; Visit Provider Physician Assistant Medical
DX: R20.0 Anesthesia of skin (principal); G44.52 New daily persistent headache (NDPH)

== ENCOUNTER → 2025-09-29 10:40 | Outpatient (BNVA) | payer MEDICARE, MEDICAID, SELFPAY | PROVIDERS: PCP Internal Medicine; Visit Provider Physician Assistant Medical | DX: R20.0 Anesthesia of skin (principal); G44.52 New daily persistent headache (NDPH) | CPT/HCPCS: 99212 ==

== ENCOUNTER 2025-10-18 11:06 | Outpatient (AMB) | payer MEDICARE, MEDICAID, SELFPAY ==
--- NOTE | 2025-10-18 11:13 | MHC.PC.OV ---
Vital Signs 10/18/25 11:15 Height 5 ft 4 in Weight 201 lb BMI 34.5 BP 130/78 Blood Pressure Location Lt brachial Position Sitting Pulse 72 Pulse Source Pulse Oximeter Pulse Oximetry (%) 97 Intake Visit Reasons: Pain in LT. Ear Allergies amlodipine Allergy (Mild, Verified 10/18/25 11:16) knee pain niacin (NIACIN) Allergy (Mild, Verified 10/18/25 11:16) REDNESS, rash, rash tbo-filgrastim (From Granix) Allergy (Unknown, Verified 10/18/25 11:16) palpitations atenolol Adverse Reaction (Unknown, Verified 10/18/25 11:16) palpatations, palpitations lisinopril Adverse Reaction (Unknown, Verified 10/18/25 11:16) cough valsartan (Diovan) Adverse Reaction (Unknown, Verified 10/18/25 11:16) cough Medication List - Last Reconciled 10/18/25 by Yi Joseph MD acyclovir 400 mg PO BID albuterol sulfate 90 mcg/actuation 2 puffs inhalation Q6H PRN amlodipine-olmesartan 10-40 mg (Ovi) 1 tab PO DAILY aspirin (Adult Aspirin Regimen) 81 mg PO DAILY nebivolol (Bystolic) 20 mg PO DAILY nitroglycerin 0.3 mg sublingual ONCE PRN 30 days rosuvastatin (Crestor) 20 mg PO DAILY Tobacco use date assessed: 02/25/25 Dental Screening Dental Screen Date: 02/25/25 HPI HPI Comments History of Present Illness Details History of Present Illness The patient is a 75 year old individual presenting with left-sided facial pain and numbness. Trigeminal Neuralgia: - The patient has experienced constant pain around the left sikhism for more than a month, which is sometimes shooting in nature and extends into the ear. - Associated symptoms include numbness in the facial area and increased pain with chewing, the latter of which began three days ago. - For relief, the patient has used a topical cream and strong CBD oil, which provides a few hours of relief. - The patient has previously been seen at a walk-in clinic and by a dentist for this issue, who found no ear pathology. - The patient cannot take ibuprofen. History of Diabetes Mellitus: - The patient has a history of diabetes and expressed concern that taking prednisone could cause it to return. Medical History: - Diabetes mellitus Medications: - Topical cream for pain - CBD oil, very strong, for pain Social History: - The patient denies grinding teeth. - The patient's provides transportation. [facility] Medical History PVCs (premature ventricular contractions) Intermittent palpitations Allergic rhinitis Obstructive sleep apnea Lipid disorder Multiple myeloma in remission Hypertension, essential Surgical History History of appendectomy Family History Father No problems noted. Mother Diabetes mellitus Sister Diabetes mellitus Sister History of high blood pressure Social History Household Members: Spouse Housing: House Do you presently have visiting nurse or other home services: No Patient Tobacco Use Status: Never used Tobacco e-Cigarette/Vaping Use: Never Used Second Hand Smoke Exposure: Yes (childhood secondhand) service: No Current occupational status: retired Cognitive needs: No Hearing needs: No Vision needs: No Questionnaire Thrive Questionnaire Date Thrive assessed: 02/25/25 I am a: Patient What is your living situation today?: I have a steady place to live Within the past 12 months, did the food you bought not last and you didn't have the money to get more?: I choose not to answer this question Within the past 12 months, did you worry whether your food would run out before you got money to buy more?: I choose not to answer this question Do you have trouble paying for medicines?: No Do you have trouble getting transportation to medical appointments?: No Do you have trouble paying your heating and electricity bill?: I choose not to answer this question Do you have trouble taking care of your child, family member or friend?: No Do you have trouble with day-to-day activities such as bathing, preparing meals, shopping, managing finances, etc.?: No Are you currently unemployed and looking for a job?: No Are you interested in more education?: No Please select the resources that you would like help with: None Currently or been in a relationship where the following occur: No concerns reported THRIVE Score: 0 KYLE-7 AMB Questionnaire KYLE-7 Date KYLE - 7 assessed: 02/25/25 Source: Developed by Drs. Miguel Eisenberg, Terri Salazar, Keith Hagan and colleagues, with an educational breana from [employer]. Review of Systems Narrative Review of Systems - General: No fever no chills - Neurological: No headaches no dizziness - Ear nose throat: No sore throat no hearing difficulty no ear pain - Cardiovascular: No syncope, no chest pain, no palpitations - Gastrointestinal: No nausea vomiting or diarrhea - Endocrine: No polyuria polydipsia no heat intolerance - Genitourinary: No dysuria , no blood in urine Physical exam (Primary Care) Vital Signs: Last Vital Signs Pulse 72 10/18/25 11:15 BP 130/78 10/18/25 11:15 Pulse Ox 97 10/18/25 11:15 BMI result Body Mass Index 34.5 Tobacco/Smoking Status: Tobacco use Status Tobacco use date assessed 02/25/25 10/18/25 11:18 Patient Tobacco Use Status Never used Tobacco 10/18/25 11:18 e-Cigarette/Vaping Use Never Used 10/18/25 11:18 Thrive Assessment: Date of Thrive Assessment Date Thrive assessed 02/25/25 10/18/25 11:18 Currently or been in a relationship where the following occur: No concerns reported Narrative Physical Exam General: No acute distress HEENT: Pain in the left sikhism over TMJ with palpation and opening of jaw, sometimes shooting pain in the ear and jaw, numbness present chin off and on left side only, ear WNL Neck: Supple Respiratory system: Able to talk in full sentences, no audible wheeze Gastrointestinal: No pain Extremities: No new findings 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 oriented x3 motor intact Skin: Normal turgor Coding Level of Care Code Est Pt Level 4 (93535) Diagnoses TMJ inflammation M26.69 Trigeminal neuralgia of left side of face G50.0 Diet-controlled diabetes mellitus E11.9 NSAID sensitivity Z88.6 Assessment & Plan Assessment & Plan (1) TMJ inflammation: Code(s): M26.69 - Other specified disorders of temporomandibular joint Category: Medical (2) Trigeminal neuralgia of left side of face: Code(s): G50.0 - Trigeminal neuralgia Category: Medical (3) Diet-controlled diabetes mellitus: Code(s): E11.9 - Type 2 diabetes mellitus without complications Category: Medical (4) NSAID sensitivity: Code(s): Z88.6 - Allergy status to analgesic agent Category: Medical Plan Problem List - Trigeminal neuralgia - Temporomandibular joint disorder - History of diabetes mellitus Plan - The assessment is inflammation of the temporomandibular joint causing irritation of the trigeminal nerve, resulting in trigeminal neuralgia. - A prescription for prednisone 5 mg will be sent to address the inflammation. - A prescription for Tegretol will be sent to manage the nerve irritation. 100 mg ER once a day - The patient was advised to follow up in a couple of weeks. Medications: New prednisone 5 mg PO DAILY 10 tabs 0RF 10 days carbamazepine ER 100 mg PO DAILY 14 tabs 0RF
[2025-10-18 11:15] VITALS: BP 130/78; PULSE 72; O2SAT 97; BMI 34.5
== END 2025-10-18 11:41 | disposition home or self-care (01) ==
LOC: HO.HMCC 11:07
PROVIDERS: PCP Internal Medicine; Visit Provider Internal Medicine
DX: M26.69 Other specified disorders of temporomandibular joint (principal); G50.0 Trigeminal neuralgia; E11.9 Type 2 diabetes mellitus without complications; Z88.6 Allergy status to analgesic agent

== ENCOUNTER → 2025-10-18 11:06 | Outpatient (BNVA) | payer MEDICARE, MEDICAID, SELFPAY | PROVIDERS: PCP Internal Medicine; Visit Provider Internal Medicine | DX: M26.69 Other specified disorders of temporomandibular joint (principal); G60.0 Hereditary motor and sensory neuropathy; E11.9 Type 2 diabetes mellitus without complications; Z88.6 Allergy status to analgesic agent | CPT/HCPCS: 99212 ==

== ENCOUNTER 2025-11-16 09:02 | Outpatient (AMB) | payer MEDICARE, MEDICAID, SELFPAY ==
--- OUTSIDE RECORDS SUMMARY | 2018-02-05 23:00 | XMS_ITS | Encounter Summary ---
Author Organization [facility] Address [address] [place] [address] Phone Care Team Providers Care Miner Helper Name Role Phone Yi Joseph MD Unavailable Cj Redding TELEPHONIC RN Unavailable Yi Joseph MD Primary Care Provider [phone] Encounter Details Date Type Department Care Team (Late st Contact Info) Description 02/06/2018 Hospital Encounter [facility] [address] [place] [address] Eamon Ghosh MD [address] [place] [address] [email or web address] Social History Tobacco Use Types Packs/Day Years Used Date Smoking Tobacco: Never Smokeless Tobacco: Never Alcohol Use Standard Drinks/Week Comments Not Currently 0 (1 standard drink = 0.6 oz pur e alcohol) Education Answer Date Recorded Are you interested in more education? Not on andrea e 03/14/2023 Are you concerned about learning? Not on file 03/14/2023 No 03/14/2023 No 03/14/2023 Food Answer Date Recorded Within the past 6 months we worried whether our food would run out before we got money to buy more. Never True 09/27/2024 Within the past 6 months the food we bought just didn't last and we didn't have enough money to get more. Never True Residential Stability Answer Date Recor ded What is your housing situation today? I have nas morrison 09/27/2024 How many times have you move d in the past 12 months? Zero (I did not move) 09/27/2024 Paying for Meds Answer Date Recorded Do you have trouble paying for medicines? No 09/27/2024 Paying Utility Bills Answer Date Record ed Do you have trouble paying your heating or elect ricity bill? No 09/27/2024 Transportation Answer Date Recorded Has the lack of transportati on kept you from medical appointments or from getting medications? No 09/27/2024 Digital Access Answer Date Recorded No 09/27/2024 Yes 09/27/2024 Do you have reliable internet access at home? Ye sasha 09/27/2024 Do you have a device (e.g., phone, tablet, computer) with a working camera? Yes 09/27/2024 Intimate Partner Violence Answer Date R ecorded Are you denied basic needs s uch as food, clothing, or medical care? No 09/27/2024 In the past 12 months have y ou been in a relationship with a person who hurts, threatens, or tries to control you? No 09/27/2024 Are you denied basic needs s uch as food, clothing, or medical care? No 09/27/2024 In the past 12 months have y ou been in a relationship with a person who hurts, threatens, or tries to control you? No 09/27/2024 Comments No Sex and Gender Information Value Date Recorded Sex Assigned at Not on file Legal Sex Female 5:33 PM EST Gender Identity Not on file Sexual Orientation Not on file documented as of this encounter Plan of Treatment Upcoming Encounters Date Type Department Care Team (Late st Contact Info) Description 12/14/2025 10:00 AM EST Blood Draw [facility] [address] [facility], 9th Floor, [address] [place] [address] Vaughn Boogie MD [address] [facility] [address] [place] [address] [email or web address] 12/14/2025 11:00 AM EST Nurse Only [facility] [address] [facility], 9th Floor, [address] [place] [address] Vaughn Boogie MD [address] [facility] [address] [facility] [address] [place] [address] [email or web address] 12/14/2025 11:00 AM EST Office Visit [facility] [place] [facility] [address] [facility], 9th Floor, [address] [place] [address] Vaughn Boogie MD [address] [facility] [address] [place] [address] [email or web address] 03/14/2026 2:30 PM EDT Office Visit [facility] at the [facility] [address] [facility], 5th Floor, [address] [place] [address] Juan Carlos Lim MD 55 [place] [address] [email or web address] documented as of this encounter Goals Goal Patient Goal Type Associated Problems Recent Progress Patient-Stated? Author Acute Care Plan Acute Care Plan Fatuma Slater RN Note: Cellular therapy/ Immune Effector Cell patient. Patient received cellular therapy product on protocol [id number] on 09/22/24 Page the on-call Immune Effector Cell Attending via [email or web address] Login [facility] Page immediately if patient presents within the first 30 days of cell infusion. Patient needs to remain in a private space while waiting for evaluation. Please draw these labs for immediate results CBC with dif, comprehensive metabolic panel (CMP) , INR, PT, PTT, LDH, uric acid, C-Reactive Protein, ferritin, fibrinogen, Type and Screen 3. If febrile, obtain urine and blood cultures and chest X-ray. 4. Assess for the onset of new neurological symptoms. Additional workup per discretion of emergency team evaluation. Patients should be admitted to [place] [address] to the Immune Effector Cell Service. documented as of this encounter Procedures Procedure Name Priority Date/Time Associated Diagnosis Comments XR CHEST OUTSIDE (NO INTERPRETATION) Routine 02/06/2018 12:00 AM EDT documented in this encounter Results * XR Chest Outside (No Interpretation) (02/06/2018 12:00 AM EDT) Narrative [facility] - 04/14/2018 11:31 AM EDT This study is for PACS storage only and not for interpretation. us Eamon Ghosh MD IMG OUTSIDE IMAGING W/OUT INTERP RETATION Final Result [facility] documented in this encounter Visit Diagnoses Not on filedocumented in this encounter Additional Health Concerns Infection Onset Date Last Indicated Resolved Time CoV-Exposed Comment:Did not meet exposure criteria per infection control policy 11/21/2020 11/21/2020 11/22/2020 10:05 AM EST CoV-Risk 11/24/2020 11/24/2020 11/24/2020 6:50 PM EST COVID-19 Comment:Patient meets 20 day post positive time based requirements and is asymptomatic. 11/24/2020 12/03/2020 12/18/2020 10:27 AM EST COVID-19 05/17/2023 05/17/2023 06/07/2023 1:21 AM EDT COVID-19 08/16/2024 08/16/2024 09/06/2024 1:21 AM EDT CoV-Risk Comment:Per note documentation 09/20/2024 09/20/2024 7:31 AM EST CoV-Risk Comment:Per note documentation 09/27/2024 09/27/2024 4:50 AM EST CoV-Presumed 11/27/2024 11/27/2024 12/18/2024 1:21 AM EST CoV-Risk 12/30/2024 12/30/2024 01/10/2025 1:22 AM EST Influenza A 12/30/2024 12/30/2024 01/06/2025 1:22 AM EST documented as of this encounter Care Teams Miner Helper Relationship Specialty Start Date End Date Yi Joseph MD [address] [facility] [place] [address] PCP - General 11/20/17 Yi Joseph MD [address] [facility] [place] [address] Historical LMR Provider 09/06/17 2 Cj Redding CNP [address] [facility], [address] [place] [address] [email or web address] Historical LMR Provider 09/06/17 11/24/21 documented as of this encounter Additional Source Comments The information contained in this document represents components of the legal health record. It is not the complete legal health record.[facility]
--- OUTSIDE RECORDS SUMMARY | 2018-03-24 23:00 | XMS_ITS | Encounter Summary ---
Author Organization [facility] Address [address] [facility] [address] [place] [address] Phone Care Team Providers Care Chicken Cutter Name Role Phone Yi Joseph MD Unavailable Cj Redding [facility] Unavailable [phone] Yi Joseph MD Primary Care Provider [phone] Reason for Visit * MRI/CAT Scan - Closed Specialty Diagnoses / Procedures Referred By Ramila t Referred To Contact Procedures CT Chest Outside (No Interpretation) Eamon Ghosh MD [address] [place] [address] Phone: tel: [email or web address] Referral ID Status Reason Start Date Expiration Date Visits Re quested Visits Authorized [id number] Closed 04/14/2018 04/14/2019 1 1 Encounter Details Date Type Department Care Team (Late st Contact Info) Description 03/25/2018 Hospital Encounter [facility] [address] [place] [address] Eamon Ghosh MD [address] [place] [address] [email or web address] Social History Tobacco Use Types Packs/Day [...] your housing situation today? I have nas sing 09/27/2024 How many times have you move [...] have reliable internet access at home? Ye s 09/27/2024 Do you have a device (e.g., [...] Description 12/14/2025 10:00 AM EST Blood Draw [facility] [place] [address] [facility], 9th Floor, [address] [place] [address] Vaughn Boogie MD [address] [address] [email or web address] 12/14/2025 11:00 AM EST Nurse Only [facility] [address] [facility], 9th Floor, [address] [place] [address] Vaughn Boogie MD [address] [address] [email or web address] 12/14/2025 11:00 AM EST Office Visit [facility] [address] [facility], 9th Floor, [address] [place] [address] Vaughn Boogie MD [address] [address] [email or web address] 03/14/2026 2:30 PM EDT Office Visit [facility] at [facility] [address] [facility], 5th Floor, [address] [place] [address] Juan Carlos Lim MD 55 [place] [address] [email or web address] documented as of this encounter Goals Goal Patient Goal Type Associated Problems Recent Progress Patient-Stated? Author Acute Care Plan Acute Care Plan Fatuma Slater, RN Note: Cellular therapy/ Immune Effector Cell patient. Patient received cellular therapy product on protocol 22-533 on 09/22/24 Page the on-call Immune Effector Cell Attending via [email or web address] Login [facility] Page immediately if patient presents within the [...] team evaluation. Patients should be admitted to [place] [address] to the Immune Effector Cell Service. documented as of this encounter Procedures Procedure Name Priority Date/Time Associated Diagnosis Comments CT CHEST OUTSIDE (NO INTERPRETATION) Routine 03/25/2018 12:00 AM EDT documented in this encounter Results * CT Chest Outside (No Interpretation) (03/25/2018 12:00 AM EDT) Narrative [facility] [place] [facility] - 04/14/2018 11:41 AM EDT This study is for PACS storage only and not for interpretation. us Eamon Ghosh MD IMG OUTSIDE IMAGING W/OUT INTERP RETATION Final Result [facility] [place] [facility] documented in this encounter Visit [...] AM EST CoV-Risk Comment:Per note documentation 09/27/2024 09/27/2024202 4 4:50 AM EST CoV-Presumed 11/27/2024 11/27/2024 12/18/2024 1:21 AM EST CoV-Risk 12/30/2024 12/30/2024 01/10/2025 1:22 AM EST Influenza A 12/30/2024 12/30/2024 01/06/2025 1:22 AM EST documented as of this encounter Care Teams Chicken Cutter Relationship Specialty Start Date End Date Yi Joseph MD [address] [facility] [place] [address] PCP - General 11/20/17 Yi Joseph MD [address] [facility] [place] [address] Historical LMR Provider 09/06/17 2 Cj Redding [employer] [address] [place] [address], [address] [place] [address] [email or web address] Historical LMR Provider 09/06/17 11/24/21 documented as of this encounter Additional Source Comments The information contained in this document represents components of the legal health record. It is not the complete legal health record.[facility]
[2025-11-16 09:07] VITALS: BP 138/80; PULSE 96; RESP 17; O2SAT 99; BMI 34.6
--- NOTE | 2025-11-16 09:07 | MHC.PC.OV ---
Vital Signs 11/16/25 09:07 Height 5 ft 4 in Weight 201 lb 6 oz BMI 34.6 BP 138/80 Blood Pressure Location Rt brachial Position Sitting Respiration 17 Pulse 96 Pulse Source Pulse Oximeter Pulse Oximetry (%) 99 Oxygen Delivery Method Room Air Intake Visit Reasons: 2 week follow up Allergies amlodipine Allergy (Mild, Verified 11/16/25 09:07) knee pain niacin (NIACIN) Allergy (Mild, Verified 11/16/25 09:07) REDNESS, rash, rash tbo-filgrastim (From Granix) Allergy (Unknown, Verified 11/16/25 09:07) palpitations atenolol Adverse Reaction (Unknown, Verified 11/16/25 09:07) palpatations, palpitations lisinopril Adverse Reaction (Unknown, Verified 11/16/25 09:07) cough valsartan (Diovan) Adverse Reaction (Unknown, Verified 11/16/25 09:07) cough Medication List - Last Reconciled 11/16/25 by Yi Joseph MD acyclovir 400 mg PO BID albuterol sulfate 90 mcg/actuation 2 puffs inhalation Q6H PRN amlodipine-olmesartan 10-40 mg (Ovi) 1 tab PO DAILY aspirin (Adult Aspirin Regimen) 81 mg PO DAILY nebivolol (Bystolic) 20 mg PO DAILY nitroglycerin 0.3 mg sublingual ONCE PRN 30 days rosuvastatin (Crestor) 20 mg PO DAILY Tobacco use date assessed: 11/16/25 Fall risk assessment: No Falls in past year Last assessed Fall Risk: 11/16/25 Dental Screening Dental Screen Date: 11/16/25 Did you have a dental visit in the last 12 months?: Yes Did you have a dental problem in the last 6 months where you did not have access to dental care?: No Was dental information given to patient?: Patient has dentist HPI HPI Comments History of Present Illness Details History of Present Illness The patient is a 75 year old female presenting for follow-up of facial pain. Trigeminal neuralgia: - The patient reports that her facial pain initially improved with medication but then worsened after finishing the carbamazpine. - She was prescribed prednisone but did not take it because her morning blood sugar ellis to 120 mg/dL. - The carbamazepine provided some relief, though she still feels the pain constantly, experiences persistent numbness, and has difficulty sleeping due to pain at night when lying on the affected side. - She also experiences pain on the inside of her mouth while chewing. - The patient is concerned the symptoms may be related to cancer due to history of Multiple myloma and trial of new medication in [facility] Medical History PVCs (premature ventricular contractions) Intermittent palpitations Allergic rhinitis Obstructive sleep apnea Lipid disorder Multiple myeloma in remission Hypertension, essential Surgical History History of appendectomy Family History Father No problems noted. Mother Diabetes mellitus Sister Diabetes mellitus Sister History of high blood pressure Social History Household Members: Spouse Housing: House Do you presently have visiting nurse or other home services: No Patient Tobacco Use Status: Never used Tobacco e-Cigarette/Vaping Use: Never Used Second Hand Smoke Exposure: Yes (childhood secondhand) service: No Current occupational status: retired Cognitive needs: No Hearing needs: No Vision needs: No Questionnaire Thrive Questionnaire Date Thrive assessed: 02/25/25 I am a: Patient What is your living situation today?: I have a steady place to live Within the past 12 months, did the food you bought not last and you didn't have the money to get more?: I choose not to answer this question Within the past 12 months, did you worry whether your food would run out before you got money to buy more?: I choose not to answer this question Do you have trouble paying for medicines?: No Do you have trouble getting transportation to medical appointments?: No Do you have trouble paying your heating and electricity bill?: I choose not to answer this question Do you have trouble taking care of your child, family member or friend?: No Do you have trouble with day-to-day activities such as bathing, preparing meals, shopping, managing finances, etc.?: No Are you currently unemployed and looking for a job?: No Are you interested in more education?: No Currently or been in a relationship where the following occur: No concerns reported THRIVE Score: 0 AUDIT C Alcohol Use Questionnaire (AUDIT-C) 1. How often do you have a drink containing alcohol?: Never 3. How often do you have six or more drinks on one occasion?: Never Total Score: 0 Score Reviewed/Action Taken: Yes KYLE-7 AMB Questionnaire KYLE-7 Date KYLE - 7 assessed: 02/25/25 Source: Developed by Drs. Miguel Eisenberg, Terri Salazar, Keith Hagan and colleagues, with an educational breana from [email or web address]. Review of Systems Narrative Review of Systems - General: No fever no chills - Neurological: No headaches no dizziness - Ear nose throat: No sore throat no hearing difficulty no ear pain - Cardiovascular: No syncope, no chest pain, no palpitations - Gastrointestinal: No nausea vomiting or diarrhea Physical exam (Primary Care) Vital Signs: Last Vital Signs Pulse 96 11/16/25 09:07 Resp 17 11/16/25 09:07 BP 138/80 11/16/25 09:07 Pulse Ox 99 11/16/25 09:07 Oxygen Delivery Method Room Air 11/16/25 09:07 BMI result Body Mass Index 34.6 Tobacco/Smoking Status: Tobacco use Status Tobacco use date assessed 11/16/25 11/16/25 09:07 Patient Tobacco Use Status Never used Tobacco 11/16/25 09:07 e-Cigarette/Vaping Use Never Used 11/16/25 09:07 Thrive Assessment: Date of Thrive Assessment Date Thrive assessed 02/25/25 11/16/25 09:07 Currently or been in a relationship where the following occur: No concerns reported Narrative Physical Exam General: No acute distress HEENT: No acute findings / Left sided discomfort with pressure over TMJ Respiratory system: Able to talk in full sentences, no audible wheeze Gastrointestinal: Pain none Extremities: No new findings 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 - The need for a referral is noted due to the patient's upcoming change to an HMO insurance plan. - A prescription for carbamazepine (Tegretol) 100 mg, 14 tablets, will be sent to [facility] to manage symptoms while awaiting the neurology appointment. - The patient was advised she can take two tablets if needed for severe pain. - The patient will be given the neurologist's contact number to schedule the appointment. - The patient will receive a flu vaccine. I contacted the Neurologist, and was told that patient can be send over now mean while Patient checked out, by the time i was able to get in touch with Neuro tried calling her and left message Orders: Referrals Neurology Referral G50.0 - Trigeminal neuralgia Medications: Refilled carbamazepine ER 100 mg PO DAILY 14 tabs 0RF
--- OUTSIDE RECORDS SUMMARY | 2025-11-16 09:13 | XMS_ITS | Encounter Summary ---
Author Organization [facility] Address [address] [facility] [address] [place] [id number] Phone Care Team Providers Care Slip Laster Name Role Phone Yi Joseph MD Primary Care Provider [phone] Agus Noland MD Unavailable [phone] Self-Referred, Patient Unavailable Unavailab Vaughn Mcallister MD Unavailable Agustin Ybarra MD Unavailable [phone] Camila Yanes RN Unavailable [email or web address] Markus Gregory DO Unavailable Encounter Details Date Type Department Care Team (Late st Contact Info) Description 09/27/2024 Procedure Pass [facility] [place] [address] [facility], 6th [place] [address] Social History Tobacco Use Types Packs/Day Years [...] Description 12/14/2025 10:00 AM EST Blood Draw [facility] [place] Cellular Immunotherapy Program [address] [facility], 9th Floor, [address] [place] [address] Vaughn Boogie MD [address] [facility] [address] [place] [address] [email or web address] 12/14/2025 11:00 AM EST Nurse Only [facility] Cellular Immunotherapy Program [address] [facility], 9th Floor, [address] [place] [address] Vaughn Boogie MD [address] [address] [email or web address] 12/14/2025 11:00 AM EST Office Visit [facility] Hematologic [facility]ignancies Clinic [address] [facility], 9th Floor, [address] [place] [address] Vaughn Boogie MD [address] [address] [email or web address] 03/14/2026 2:30 PM EDT Office Visit [facility] Clinic at the [facility] [address] [facility], 5th Floor, [address] [place] [address] Juan Carlos Lim MD 55 [place] [address] [email or web address] documented as of this encounter Goals Goal Patient Goal Type Associated Problems Recent Progress Patient-Stated? Author Acute Care Plan Acute Care Plan Fatuma Slater RN Note: Cellular therapy/ Immune Effector Cell patient. Patient received cellular therapy product on protocol [id number] on 09/22/24 Page the on-call Immune Effector Cell Attending via [email or web address] [facility] Page immediately if patient presents within the [...] team evaluation. Patients should be admitted to [place] [address] to the Immune Effector Cell Service. documented as of this encounter Visit Diagnoses Not on filedocumented in this encounter Additional Health Concerns Infection Onset Date Last Indicated Resolved Time CoV-Risk Comment:Per note documentation 09/27/2024 09/27/2024 4:50 AM EST CoV-Presumed 11/27/2024 11/27/2024 12/18/2024 1:21 AM EST CoV-Risk 12/30/2024 12/30/2024 01/10/2025 1:22 AM EST Influenza A 12/30/2024 12/30/2024 01/06/2025 1:22 AM EST Assessment Noted Time PHQ-2 Depression Total Score: 0 04/06/20 9:24 AM EDT documented as of this encounter Care Teams Slip Laster Relationship Specialty Start Date End Date Yi Joseph MD [facility] [address] PCP - General 11/20/17 Agus Noland MD [address] [place] [address] Multiple Myeloma [facility] [place] [address] [email or web address] Primary Oncologist Medical Oncology 06/25/18 Self-Referred, Patient Referring Physician 06/29/18 Vaughn Boogie MD [address] [facility] [address] [place] [address] [email or web address] Primary Oncologist Medical Oncology 11/23/18 Agustin Ybarra MD [address] [place] [address] Division [place] [address] [email or web address] Thoracic Surgery 03/31/19 Camila Yanes, RN [address] [place] [id number] [email or web address] Primary Infusion Nurse 06/14/20 Markus Gregory [place] [address] [email or web address] Gastroenterology 06/29/24 documented as of this encounter Additional Source Comments The information contained in this document represents components of the legal health record. It is not the complete legal health record.[facility]
--- OUTSIDE RECORDS SUMMARY | 2025-11-16 09:13 | XMS_ITS | Clinical Summary ---
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
--- OUTSIDE RECORDS SUMMARY | 2025-11-16 09:13 | XMS_ITS | Encounter Summary ---
Author Organization [facility] Address [address] [place] [id number] Phone Care Team Providers Care Floor Installer Name Role Phone Yi Joseph MD Unavailable Cj Redding CNP Unavailable [phone] Yi Joseph MD Primary Care Provider [phone] Agus Noland MD Unavailable [phone] Self-Referred, Patient Unavailable Unavailab Vaughn Mcallister MD Unavailable Agustin Ybarra MD Unavailable [phone] Camila Yanes RN Unavailable [email or web address] Markus Gregory DO Unavailable Encounter Details Date Type Department Care Team (Late st Contact Info) Description 08/12/2019 Procedure Pass [facility] [address] [facility], 6th [place] [address] Social History Tobacco Use Types Packs/Day Years Used Date Smoking Tobacco: Never Smokeless Tobacco: Never Alcohol Use Standard Drinks/Week Comments Yes 0 (1 standard drink = 0.6 oz pur e alcohol) rarely Comments Unknown Sex and Gender Information Value Date Recorded Sex Assigned at Not on file Legal Sex Female 5:33 PM EST Gender Identity Not on file Sexual Orientation Not on file documented as of this encounter Plan of Treatment Upcoming Encounters Date Type Department Care Team (Late st Contact Info) Description 12/14/2025 10:00 AM EST Blood Draw [facility] Cellular Immunotherapy Program [address] [facility], 9th Floor, [address] [place] [address] Vaughn Boogie MD [address] [address] [email or web address] 12/14/2025 11:00 AM EST Nurse Only [facility] Cellular Immunotherapy Program [address] [facility], 9th Floor, [address] [place] [address] Vaughn Boogie MD [address] [address] [email or web address] 12/14/2025 11:00 AM EST Office Visit [facility] Hematologic Malignancies Clinic [address] [facility], 9th Floor, [address] [place] [address] Vaughn Boogie MD [address] [address] [email or web address] 03/14/2026 2:30 PM EDT Office Visit [facility] Cardiology Clinic at the [facility] [address] [facility], 5th Floor, [address] [place] [address] Juan Carlos Lim MD 55 [place] [address] [email or web address] documented as of this encounter Visit Diagnoses [...] documented as of this encounter Care Teams Floor Installer Relationship Specialty Start Date End Date Yi Joseph MD [address] [facility] [place] [address] PCP - General 11/20/17 Yi Joseph MD [address] [facility] [address] Historical LMR Provider 09/06/17 2 Cj Redding SENIOR WEB APPLICATIONS DEVELOPER [address] [facility], [address] [place] [address] [email or web address] Historical LMR Provider 09/06/17 11/24/21 Agus Noland MD [address] [place] [address] [facility] [place] [address] [email or web address] Primary Oncologist Medical Oncology 06/25/18 Self-Referred, Patient Referring Physician 06/29/18 Vaughn Boogie MD [address] [place] [address] [email or web address] Primary Oncologist Medical Oncology 11/23/18 Agustin Ybarra MD [address] [place] [address] Division [place] [address] [email or web address] [email or web address] Surgery 03/31/19 Camila Yanes RN [address] [place] [address] [email or web address] Primary Infusion Nurse 06/14/20 Markus Gregory DO [facility] [address] [place] [address] [email or web address] Gastroenterology 06/29/24 documented as of this encounter Additional Source Comments The information contained in this document represents components of the legal health record. It is not the complete legal health record.[facility]
--- OUTSIDE RECORDS SUMMARY | 2025-11-16 09:14 | XMS_ITS | Encounter Summary ---
Author Organization Clarisa Wise [facility] Address [address] [place] [address] [place] [address] Care Team Providers Care Ware Dresser Name Role Phone Yi Joseph Unavailable Encounter Details Date Type Department Care Team (Late st Contact Info) Description 02/20/2010 Clinical Conversion Encounter Department of Orthopedic Surgery ([address] [place] [address] [address] [place] [address], 2nd [place] [address] Trell Mendieta MD [address] [place] [address] Social History Tobacco Use Types Packs/Day Years Used Date Smoking Tobacco: Never Assessed Comments Unknown Sex and Gender Information Value Date Recorded Sex Assigned at Not on file Legal Sex Female 4:22 PM EST Gender Identity Not on file Sexual Orientation Not on file documented as of this encounter Progress Notes * Trell Mendieta MD - 12/06/2014 3:08 PM EST [id number] CARUSO [facility] PADMINI CARUSO 02/20/2010 # [id number] : 1950 Second Visit ID: Visit ID: [id number] HISTORY OF PRESENT ILLNESS: Ms. Caruso is a 59-year-old seen initial visit for a right knee injury. She fell 2-1/2 weeks ago on some grass. She had a twisting-type injury. She complained of medial pain. She has a mild localized medial swelling. Pain is still rather severe. She rates it at 7/10 today. She complains of pain with [id number] motions of her leg. Complains also of start up pain. She uses generally some ice locally for treatment. No meds. PAST MEDICAL HISTORY: Otherwise negative. She reports no medications. PAST SURGICAL HISTORY: No surgery and no problems. ALLERGIES: She does have an allergy to penicillin. She does not smoke or drink. She is with a grown child. 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 REVIEW OF SYSTEMS: Documented on intake sheet today. FAMILY AND SOCIAL HISTORY: Otherwise negative. PHYSICAL EXAMINATION: She appears well. She is 5 feet 6 inches, and 182 pounds. She stands with a neutral alignment. She has got a normal gait. Her spine is straight, pelvis level. Hip motion is symmetrical without pain. She has got just a very mild effusion in the right knee. She has got 0 to 125 symmetrical to the left. No flexion pain. She has got some very mild medial joint line pain. Her medial collateral definitely opens 4 to 5 mm more than the left side with a very soft endpoint. It causes significant pain as well. Lateral collateral ligament intact. Sag and Collin negative bilaterally. She is neurovascularly intact distally. No swelling of the leg. Palpable dorsalis pedis pulses. X-rays obtained of her knee show well-maintained joint spaces. ASSESSMENT AND PLAN: Acute medial collateral ligament sprain. Small chance of the medial meniscus tear. I will place her into a hinged brace. I will see her back in 4 to 6 weeks' time. Trell Mendieta MD [phone] [id number] J: [id number] CC: THIS DOCUMENT WAS ELECTRONICALLY AUTHENTICATED BY Trell Mendieta MD ON 02/21/2010 15:55:43 PROGRESS NOTE [facility] * [address] [place] [address], [place] [address] * [phone] Page 1 of 2 PROGRESS NOTE documented in this encounter Plan of Treatment Not on file documented as of this encounter Visit Diagnoses Not on filedocumented in this encounter Care Teams Ware Dresser Relationship Specialty Start Date End Date Jake Yi [address] [place] [address] 04/17/24 documented as of this encounter
--- OUTSIDE RECORDS SUMMARY | 2025-11-16 09:14 | XMS_ITS | Encounter Summary ---
Author Organization [facility] Address [address] [place] [address] Phone Care Team Providers Care Painter Ordnance Name Role Phone Yi Joseph MD Unavailable Cj Redding CNP Unavailable [phone] Yi Joseph MD Primary Care Provider [phone] Agus Noland MD Unavailable [phone] Self-Referred, Patient Unavailable Unavailab Vaughn Mcallister MD Unavailable Agustin Ybarra MD Unavailable [phone] Camila Yanes RN Unavailable [email or web address] Markus Gregory DO Unavailable Encounter Details Date Type Department Care Team (Late Contact Info) Description 03/26/2021 Procedure Pass [facility] [address] [address] Social History Tobacco Use Types Packs/Day Years [...] Description 12/14/2025 10:00 AM EST Blood Draw [facility] Cellular Immunotherapy Program [address], 9th [address], [address] [place] [address] Vaughn Boogie MD [address] [address] [email or web address] 12/14/2025 11:00 AM EST Nurse Only [facility] Cellular Immunotherapy Program [address], 9th Floor, [address] [place] [address] Vaughn Boogie MD [address] [address] [email or web address] 12/14/2025 11:00 AM EST Office Visit [facility] Hematologic Malignancies Clinic [address], 9th Floor, [address] [place] [address] Vaughn Boogie MD [address] [address] [email or web address] 03/14/2026 2:30 PM EDT Office Visit [facility] Cardiology Clinic at the [facility] [address], 5th Floor, [address] [place] [address] Juan Carlos Lim MD 55 [place] [address] [email or web address] documented as of this encounter Visit Diagnoses Not on filedocumented in this encounter Additional Health Concerns Infection Onset Date Last Indicated Resolved Time COVID-19 05/17/2023 05/17/2023 06/07/2023 1:21 AM EDT COVID-19 08/16/2024 08/16/2024 09/06/2024 1:21 AM EDT CoV-Risk Comment:Per note documentation 09/20/2024 09/20/2024 11/05/202 4 7:31 AM EST CoV-Risk Comment:Per note documentation 09/27/2024 09/27/2024 4:50 AM EST CoV-Presumed 11/27/2024 11/27/2024 12/18/2024 1:21 AM EST CoV-Risk 12/30/2024 12/30/2024 01/10/2025 1:22 AM EST Influenza A 12/30/2024 12/30/2024 01/06/2025 1:22 AM EST Assessment Noted Time PHQ-2 Depression Total Score: 0 04/06/20 9:24 AM EDT documented as of this encounter Care Teams Painter Ordnance Relationship Specialty Start Date End Date Yi Joseph MD [address] [place] [address] [place] [address] PCP - General 11/20/17 Yi Joseph MD [address] [place] [address] [place] [address] Historical LMR Provider 09/06/17 2 Cj eRdding CNP [address] [place] [address], 2nd [place] [address] [email or web address] Historical LMR Provider 09/06/17 11/24/21 Agus Noland MD [address] [place] [address] [facility] [place] [address] [email or web address] Primary Oncologist Medical Oncology 06/25/18 Self-Referred, Patient Referring Physician 06/29/18 Vaughn Boogie MD [address] [place] [address] [email or web address] Primary Oncologist Medical Oncology 11/23/18 Agustin Ybarra MD [address] [place] [address] Division [place] [address] [email or web address] Thoracic Surgery 03/31/19 Camila Yanes, MANJU [address] [place] [address] [email or web address] Primary Infusion Nurse 06/14/20 Markus Gregory DO [facility] [address] [place] [address] [email or web address] Gastroenterology 06/29/24 documented as of this encounter Additional Source Comments The information contained in this document represents components of the legal health record. It is not the complete legal health record.[facility]
--- OUTSIDE RECORDS SUMMARY | 2025-11-16 09:14 | XMS_ITS | Encounter Summary ---
Author Organization [facility] Address [address] [address] Phone Care Team Providers Care Math Interventionist Name Role Phone Unknown, Unknown Primary Care Provider Yi Lane MD Unavailable Cj Redding CHYRON OPERATOR Unavailable [phone] Yi Joseph MD Primary Care Provider [phone] Agus Noland MD Unavailable [phone] Self-Referred, Patient Unavailable Unavailab Vaughn Mcallister MD Unavailable Agustin Ybarra MD Unavailable [phone] Camila Yanes RN Unavailable [email or web address] Markus Gregory DO Unavailable Encounter Details Date Type Department Care Team (Latest Contact Info) Description 07/30/2017 Transcribe Orders [facility] [address] [address] Pcp, Unknown 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 12/14/2025 11:00 AM EST Nurse Only [facility] Cellular Immunotherapy Program [address] [facility], 9th Floor, [address] [place] [address] Vaughn Boogie MD [address] [address] [email or web address] 12/14/2025 11:00 AM EST Office Visit [facility] Hematologic Malignancies Clinic [address] [facility], 9th Floor, [address] [place] [address] Vaughn Boogie MD [address] [address] [email or web address] 03/14/2026 2:30 PM EDT Office Visit [facility] Card[facility] Clinic at the [facility] [address] [facility], 5th Floor, [address] [place] [address] Juan Carlos Lim MD 55 [place] [address] [email or web address] .[facility] documented as of this encounter Visit Diagnoses Diagnosis Neoplasm of uncertain behavior of other specified sites- Primary documented in this encounter Additional Health Concerns Infection [...] documented as of this encounter Care Teams Math Interventionist Relationship Specialty Start Date End Date Unknown, Unknown, MD PCP - General 07/30/17 11/19/17 Yi Joseph MD [facility] [place] [address] PCP - General 11/20/17 Yi Joseph MD [address] [place] [address] [place] [address] Historical LMR Provider 09/06/17 2 Cj Redding CHYRON OPERATOR [address] [facility], 2nd [place] [address] [email or web address] Historical LMR Provider 09/06/17 11/24/21 Agus Noland MD [address] [place] [address] [facility] [place] [address] [email or web address] Primary Oncologist Medical Oncology 06/25/18 Self-Referred, Patient Referring Physician 06/29/18 Vaughn Boogie MD [address] [place] [address] [email or web address] Primary Oncologist Medical Oncology 11/23/18 Agustin Ybarra MD [address] [place] [address] Division of Thoracic [place] [address] [email or web address] Thoracic Surgery 03/31/19 Camila Yanes, RN [address] [place] [address] [email or web address] Primary Infusion Nurse 06/14/20 Markus Gregory DO [facility] [address] [place] [address] [email or web address] Gastroenterology 06/29/24 documented as of this encounter Additional Source Comments The information contained in this document represents components of the legal health record. It is not the complete legal health record.[facility]
--- OUTSIDE RECORDS SUMMARY | 2025-11-16 09:14 | XMS_ITS | Clinical Summary ---
Author Organization Clarisa Wise [facility] Address [address] [place] [address] Care Team Providers Care Occup Ther Name Role Phone Yi Joseph Unavailable Allergies Active Allergy Reactions Criticality Noted Date Comments Penicillins Other (See Comments) 02/20/2010 Medications amLODIPine (NORVASC) 5 MG tablet 1 tablet(s) by mouth once a day 30 tablet 4 12/13/2016 Active Active Problems Problem Noted Date Diagnosed Date Sprain of medial collateral ligament of knee 04/2010 Overview (01/16/2015): Sprained Medial Collateral Ligament Of The Knee Social History Tobacco Use Types Packs/Day Years Used Date Smoking Tobacco: Never Assessed Comments Unknown Sex and Gender Information Value Date Recorded Sex Assigned at Not on file Legal Sex Female 4:22 PM EST Gender Identity Not on file Sexual Orientation Not on file Last Filed Vital Signs Vital Sign Reading Time Taken Comments Blood Pressure - - Pulse - - Temperature - - Respiratory Rate - - Oxygen Saturation - - Inhaled Oxygen Concentration - - Weight 87.5 kg (193 lb) 12/13/2016 12:0 0 AM EST Legacy value: 193; Method: With Clothes Height - - Body Mass Index - - Plan of Treatment Not on file Care Teams Occup Ther Relationship Specialty Start Date End Date Yi Joseph [address] [place] [address] 04/17/24
--- OUTSIDE RECORDS SUMMARY | 2025-11-16 09:14 | XMS_ITS | Encounter Summary ---
Author Organization [facility] Address [address] [place] [address] Phone Care Team Providers Care Printer Repair Technician Name Role Phone Yi Joseph MD Unavailable Cj Redding CNP Unavailable [phone] Yi Joseph MD Primary Care Provider [phone] Agus Noland MD Unavailable [phone] Self-Referred, Patient Unavailable Unavailab Vaughn Mcallister MD Unavailable Agustin Ybarra MD Unavailable [phone] Camila Yanes RN Unavailable [email or web address] Markus Gregory DO Unavailable Encounter Details Date Type Department Care Team (Late st Contact Info) Description 09/26/2020 Procedure Pass [facility] Cardiac Ultrasound [address] [place] [address] Social History Tobacco Use Types Packs/Day Years [...] Description 12/14/2025 10:00 AM EST Blood Draw [facility] Cellular Immunotherapy Program [address] [facility], 9th Floor, [address] [place] [address] Vaughn Boogie MD [address] [address] [email or web address] 12/14/2025 11:00 AM EST Nurse Only [facility] Cellular Immunotherapy Program [address] [facility], 9th Floor, [address] [place] [address] Vaugnh Boogie MD [address] [address] [email or web address] [facility] 12/14/2025 11:00 AM EST Office Visit [facility] Hematologic Malignancies Clinic [address] [facility], 9th Floor, [address] [place] [address] Vaughn Boogie MD [address] [address] [email or web address] 03/14/2026 2:30 PM EDT Office Visit [facility] Cardiology Clinic at the [facility] [address] [facility], 5th Floor, [address] [place] [address] Juan Carlos Lim MD 55 [place] [address] [email or web address] .[facility] documented as of this encounter Visit [...] documented as of this encounter Care Teams Printer Repair Technician Relationship Specialty Start Date End Date Yi Joseph MD [address] [place] [address] [place] [address] PCP - General 11/20/17 Yi Joseph MD [address] [place] [address] [place] [address] Historical LMR Provider 09/06/17 2 Cj Redding ELECTRIC KNIFE OPERATOR [address] [facility], 2nd [place] [address] [email or web address] Historical LMR Provider 09/06/17 11/24/21 Agus Noland MD [address] [place] [address] Everett [facility] Multiple Myeloma [facility] [place] [address] [email or web address] Primary Oncologist Medical Oncology 06/25/18 Self-Referred, Patient Referring Physician 06/29/18 Vaughn Boogie MD [address] [place] [address] [email or web address] Primary Oncologist Medical Oncology 11/23/18 Agustin Ybarra MD [address] [place] [address] Division of [place] [address] [email or web address] u Thoracic Surgery 03/31/19 Camila Yanes, RN [address] [place] [address] [email or web address] Primary Infusion Nurse 06/14/[address] [facility] [address] [place] [address] [email or web address] Gastroenterology 06/29/24 documented as of this encounter Additional Source Comments The information contained in this document represents components of the legal health record. It is not the complete legal health record.[facility]
--- OUTSIDE RECORDS SUMMARY | 2025-11-16 09:14 | XMS_ITS | Encounter Summary ---
Author Organization [facility] Address [address] [facility] [address] [place] [address] Phone Care Team Providers Care Cotton Agent Name Role Phone Yi Joseph MD Primary Care Provider [phone] Agus Noland MD Unavailable Self-Referred, Patient Unavailable Unavailab Vaughn Mcallister MD Unavailable Agustin Ybarra MD Unavailable [phone] Camila Yanes RN Unavailable [email or web address] Markus Gregory DO Unavailable Encounter Details Date Type Department Care Team (Late st Contact Info) Description 09/27/2024 Procedure Pass [facility], [place] [address] [facility], 6th [place] [address] Social History Tobacco Use Types Packs/Day Years [...] Description 12/14/2025 10:00 AM EST Blood Draw [facility] General [facility] [place] Cellular Immunotherapy Program [address] [facility], 9th Floor, [address] [place] [address] Vaughn Boogie MD 55 [facility] [address] [place] [address] [email or web address] 12/14/2025 11:00 AM EST Nurse Only [facility] Cellular Immunotherapy Program [address] [facility], 9th Floor, [address] [place] [address] Vaughn Boogie MD [address] [address] [email or web address] [facility] 12/14/2025 11:00 AM EST Office Visit [facility] Hematologic Malignancies Clinic [address] [facility], 9th Floor, [address] [place] [address] Vaughn Boogie MD [address] [address] [email or web address] [facility] 03/14/2026 2:30 PM EDT Office Visit [facility] Cardiology Clinic at the [facility] [address] [facility], 5th Floor, [address] [place] [address] Juan Carlos Lim MD 55 [place] [address] [email or web address] documented as of this encounter Goals Goal Patient Goal Type Associated Problems Recent Progress Patient-Stated? Author Acute Care Plan Acute Care Plan Fatuma Slater RN Note: Cellular therapy/ Immune Effector Cell patient. Patient received cellular therapy product on protocol 22-533 on 09/22/24 Page the on-call Immune Effector Cell Attending via www.[email or web address] Login [facility] Page immediately if patient presents within the [...] team evaluation. Patients should be admitted to [place] [address] to the Immune Effector Cell Service. documented [...] documented as of this encounter Care Teams Cotton Agent Relationship Specialty Start Date End Date Yi Joseph MD [facility] [place] [address] PCP - General 11/20/17 Agus Noland MD [address] [place] [address] Multiple Myeloma [facility] [place] [address] [email or web address] Primary Oncologist Medical Oncology 06/25/18 Self-Referred, Patient Referring Physician 06/29/18 Vaughn Boogie MD [address] [facility] [address] [place] [address] [email or web address] Primary Oncologist Medical Oncology 11/23/18 Agustin Ybarra MD [address] [place] [address] Division [place] [address] [email or web address] Thoracic Surgery 03/31/19 Camila Yanes, RN [address] [place] [address] [email or web address] Primary Infusion Nurse 06/14/20 Markus Gregory [place] [address] [email or web address] Gastroenterology 06/29/24 documented as of this encounter Additional Source Comments The information contained in this document represents components of the legal health record. It is not the complete legal health record.[facility]
--- OUTSIDE RECORDS SUMMARY | 2025-11-16 09:14 | XMS_ITS | Encounter Summary ---
Author Organization [facility] Address [address] [address] Phone Care Team Providers Care Case Maker Name Role Phone Yi Joseph MD Unavailable Cj Redding CNP Unavailable [phone] Yi Joseph MD Primary Care Provider [phone] Agus Noland MD Unavailable [phone] Self-Referred, Patient Unavailable Unavailab Vaughn Mcallister MD Unavailable Agustin Ybarra MD Unavailable [phone] Camila Yanes RN Unavailable [email or web address] Markus Gregory DO Unavailable Encounter Details Date Type Department Care Team (Late Contact Info) Description 04/14/2018 Procedure Pass [facility] Imaging [address] [place] [address] Social History Tobacco Use Types Packs/Day Years Used Date Smoking Tobacco: Never Smokeless Tobacco: Never Alcohol Use Standard Drinks/Week Comments Not Currently 0 (1 standard drink = 0.6 oz pur e alcohol) Comments No Sex and Gender Information Value Date Recorded Sex Assigned at Not on file Legal Sex Female 5:33 PM EST Gender Identity Not on file Sexual Orientation Not on file documented as of this encounter Plan of Treatment Upcoming Encounters Date Type Department Care Team (Late Contact Info) Description 12/14/2025 10:00 AM EST Blood Draw [facility] Cellular Immunotherapy Program [address] [facility], 9th Floor, [address] [place] [address] Vaughn Boogie MD [address] [address] [email or web address] 12/14/2025 11:00 AM EST Nurse Only [facility] Cellular Immunotherapy Program [address] [facility], 9th Floor, [address] [place] [address] Vaughn Boogie MD [address] [address] [email or web address] 12/14/2025 11:00 AM EST Office Visit [facility] Hematologic Malignancies Clinic [address] [facility], 9th Floor, [address] [place] [address] Vaughn Boogie MD [address] [address] [email or web address] heaven 03/14/2026 2:30 PM EDT Office Visit [facility] [address] [facility], 5th Floor, [address] [place] [address] Juan Carlos [place] MD 55 [place] [address] [email or web address] .[facility] documented as of this encounter Visit [...] documented as of this encounter Care Teams Case Maker Relationship Specialty Start Date End Date Yi Joseph MD [address] [place] [address] PCP - General 11/20/17 Yi Joseph MD [address] [place] [address] Historical LMR Provider 09/06/17 2 Cj Redding CNP 15 [facility], 2nd [place] [address] Historical LMR Provider 09/06/17 11/24/21 Agus Noland MD [address] [place] [address] [facility] [place] [place] [address] [email or web address] Primary Oncologist Medical Oncology 06/25/18 Self-Referred, Patient Referring Physician 06/29/18 Vaughn Boogie MD 55 [facility] [address] [place] [address] [email or web address] Primary Oncologist Medical Oncology 11/23/18 Agustin Ybarra MD [address] [place] [address] Division [place] [address] [email or web address]. u Thoracic Surgery 03/31/19 Camila Yanes RN [address] [place] [address] [email or web address] Primary Infusion Nurse 06/14/20 Markus Gregory DO [facility] [address] [place] [address] [email or web address] Gastroenterology 06/29/24 documented as of this encounter Additional Source Comments The information contained in this document represents components of the legal health record. It is not the complete legal health record.[facility]
--- OUTSIDE RECORDS SUMMARY | 2025-11-16 09:14 | XMS_ITS | Encounter Summary ---
Author Organization [facility] Address [address] [address] Phone Care Team Providers Care Egg Smeller Name Role Phone Yi Joseph MD Unavailable Cj Redding CNP Unavailable [phone] Yi Joseph MD Primary Care Provider [phone] Agus Noland MD Unavailable [phone] Self-Referred, Patient Unavailable Unavailab Vaughn Mcallister MD Unavailable Agustin Ybarra MD Unavailable [phone] Camila Yanes RN Unavailable [email or web address] Markus Gregory DO Unavailable Encounter Details Date Type Department Care Team (Late Contact Info) Description 08/17/2020 Procedure Pass [facility] Imaging - RF/IR [address] [place] [address] Social History Tobacco Use Types Packs/Day Years [...] Description 12/14/2025 10:00 AM EST Blood Draw [facility] Cellular Immunotherapy Program [address] [facility], 9th Floor, [address] [place] [address] Vaughn Boogie MD [address] [address] [email or web address] du 12/14/2025 11:00 AM EST Nurse Only [facility] Cellular Immunotherapy Program [address] [facility], 9th Floor, [address] [place] [address] Vaughn Boogie MD [address] [address] [email or web address] du 12/14/2025 11:00 AM EST Office Visit [facility] Hematologic Malignancies Clinic [address] [facility], 9th Floor, [address] [place] [address] Vaughn Boogie MD [address] [address] [email or web address]. [facility] 03/14/2026 2:30 PM EDT Office Visit [facility] [address] [facility], 5th Floor, [address] [place] [address] Juan Carlos Lim MD 55 [place] [address] [email or web address] .[facility] documented as of this encounter Visit Diagnoses [...] documented as of this encounter Care Teams Egg Smeller Relationship Specialty Start Date End Date Yi Joseph MD [facility] [place] [address] PCP - General 11/20/17 Yi Joseph MD [address] [place] [address] [place] [address] Historical LMR Provider 09/06/17 2 Cj Redding WRAP CHECKER 15 [facility], 2nd [place] [address] [email or web address] Historical LMR Provider 09/06/17 11/24/21 Agus Noland MD [address] [place] [address] [facility] [place] [address] [email or web address] Primary Oncologist Medical Oncology 06/25/18 Self-Referred, Patient Referring Physician 06/29/18 Vaughn Boogie MD [address] [place] [address] [email or web address] Primary Oncologist Medical Oncology 11/23/18 Agustin Ybarra MD [address] [place] [address] Division [place] [address] [email or web address]. u Thoracic Surgery 03/31/19 Camila Yanes RN [address] [place] [address] [email or web address]@[email or web address] Primary Infusion Nurse 06/14/20 Markus Gregory DO [facility] [address] [place] [address] [email or web address] Gastroenterology 06/29/24 documented as of this encounter Additional Source Comments The information contained in this document represents components of the legal health record. It is not the complete legal health record.[facility]
--- OUTSIDE RECORDS SUMMARY | 2025-11-16 09:14 | XMS_ITS | Encounter Summary ---
Author Organization [facility] Address [address] [facility] [address] [place] [address] Phone Care Team Providers Care Water Hauler Name Role Phone Yi Joseph MD Primary Care Provider [phone] Agus Noland MD Unavailable [phone] Self-Referred, Patient Unavailable Unavailab Vaughn Mcallister MD Unavailable Agustin Ybarra MD Unavailable [phone] Camila Yanes RN Unavailable [email or web address] Markus Gregory DO Unavailable Encounter Details Date Type Department Care Team (Late st Contact Info) Description 09/27/2024 Procedure Pass [facility] IMG PETMR BLK2 [address] [facility], 2nd [place] [address] Social History Tobacco Use Types Packs/Day Years [...] Description 12/14/2025 10:00 AM EST Blood Draw [facility] [place] Cellular Immunotherapy Program [address] [facility], 9th Floor, [address] [place] [address] Vaughn Boogie MD 55 [facility] [address] [place] [address] [email or web address] du 12/14/2025 11:00 AM EST Nurse Only [facility] Cellular Immunotherapy Program [address] [facility], 9th Floor, [address] [place] [address] Vaughn Boogie MD [address] [address] [email or web address]. heaven 12/14/2025 11:00 AM EST Office Visit [facility] Hematologic Malignancies Clinic [address] [facility], 9th Floor, [address] [place] [address] Vaughn Boogie MD [address] [place] [address] [email or web address]. [facility] 03/14/2026 2:30 PM EDT Office Visit [facility] [address] [facility], 5th Floor, [address] [place] [address] Juan Carlos Lim MD 55 [place] [address] [email or web address] .[facility] documented as of this encounter Goals Goal Patient Goal Type Associated Problems Recent Progress Patient-Stated? Author Acute Care Plan Acute Care Plan Fatuma Slater RN Note: Cellular therapy/ Immune Effector Cell patient. Patient received cellular therapy product on protocol [id number] on 09/22/24 Page the on-call Immune Effector Cell Attending via www.[email or web address] Login [facility] Page immediately if patient presents within [...] team evaluation. Patients should be admitted to [place] [address] to the Immune Effector Cell Service. documented [...] documented as of this encounter Care Teams Water Hauler Relationship Specialty Start Date End Date Yi Joseph MD [facility] [place] [address] PCP - General 11/20/17 Agus Noland MD [address] [place] [address] Multiple Myeloma [facility] [place] [address] [email or web address] Primary Oncologist Medical Oncology 06/25/18 Self-Referred, Patient Referring Physician 06/29/18 Vaughn Boogie MD 55 [facility] [address] [place] [address] [email or web address] Primary Oncologist Medical Oncology 11/23/18 Agustin Ybarra MD [address] [place] [address] Division [place] [address] [email or web address] Thoracic Surgery 03/31/19 Camila Yanes, RN [address] [place] [address] SEBASTIAN@[email or web address] Primary Infusion Nurse 06/14/20 Markus Gregory DO [address] [place] [address] [email or web address] Gastroenterology 06/29/24 documented as of this encounter Additional Source Comments The information contained in this document represents components of the legal health record. It is not the complete legal health record.[facility]
--- OUTSIDE RECORDS SUMMARY | 2025-11-16 09:14 | XMS_ITS | Encounter Summary ---
Author Organization [facility] Address [address] [place] [address] Phone Care Team Providers Care Train System Operator Name Role Phone Yi Joseph MD Unavailable Cj Redding CNP Unavailable [phone] Yi Joseph MD Primary Care Provider [phone] Agus Noland MD Unavailable [phone] Self-Referred, Patient Unavailable Unavailab Vaughn Mcallister MD Unavailable Agustin Ybarra MD Unavailable [phone] Camila Yanes RN Unavailable [email or web address] Markus Gregory DO Unavailable Encounter Details Date Type Department Care Team (Late st Contact Info) Description 01/15/2021 Procedure Pass [email or web address] for Outpatient Care - MRI [address] [facility], 6th [place] [address] Social History Tobacco Use Types Packs/Day Years [...] Description 12/14/2025 10:[address] EST Blood [address] [facility] Cellular Immunotherapy Program [address] [facility], 9th Floor, [address] [place] [address] Vaughn Boogie MD [address] [address] [email or web address] du 12/14/2025 11:[address] [facility] Cellular Immunotherapy Program [address] [facility], 9th Floor, [address] [place] [address] Vaughn Boogie MD [address] [address] [email or web address] heaven 12/14/2025 11:00 AM EST Office Visit [facility] Hematologic Malignancies Clinic [address] [facility], 9th Floor, [address] [place] [address] Vaughn Boogie MD [address] [address] [email or web address]. heaven 03/14/2026 2:30 PM EDT Office Visit [facility] [address] [facility], 5th Floor, [address] [place] [address] Juan Carlos [place] MD 55 [place] [address] [email or web address].[place] .[facility] documented as of this encounter Visit Diagnoses [...] documented as of this encounter Care Teams Train System Operator Relationship Specialty Start Date End Date Yi Joseph MD [address] [place] [address] PCP - General 11/20/17 Yi Joseph MD [facility] [place] [address] Historical LMR Provider 09/06/17 2 Cj Redding CNP 15 [facility], 2nd [place] [address] [email or web address] Historical LMR Provider 09/06/17 11/24/21 Agus Noland MD [address] [place] [address] [facility] [place] [address] [email or web address] Primary Oncologist Medical Oncology 06/25/18 Self-Referred, Patient Referring Physician 06/29/18 Vaughn Boogie MD [address] [place] [address] [email or web address] Primary Oncologist Medical Oncology 11/23/18 Agustin Ybarra MD [address] [place] [address] Division [place] [address] [email or web address] u Thoracic Surgery 03/31/19 Camila Yanes, MANJU [address] [place] [address] [email or web address] Primary Infusion Nurse 06/14/20 Markus Gregory DO [facility] [address] [place] [address] [email or web address] Gastroenterology 06/29/24 documented as of this encounter Additional Source Comments The information contained in this document represents components of the legal health record. It is not the complete legal health record.[facility]
--- OUTSIDE RECORDS SUMMARY | 2025-11-16 09:14 | XMS_ITS | Encounter Summary ---
Author Organization [facility] Address [address] [address] Phone Care Team Providers Care Computer Meteorologist Name Role Phone Yi Joseph MD Unavailable Cj Redding CNP Unavailable [phone] Yi Joseph MD Primary Care Provider [phone] Agus Noland MD Unavailable [phone] Self-Referred, Patient Unavailable Unavailab Vaughn Mcallister MD Unavailable Agustin Ybarra MD Unavailable [phone] Camila Yanes RN Unavailable [email or web address] Markus Gregory DO Unavailable Encounter Details Date Type Department Care Team (Late Contact Info) Description 11/23/2018 Procedure Pass [facility] MRI. [facility] 1 55 [facility], 1st [place] [address] Social History Tobacco Use Types Packs/Day Years [...] EST Blood Draw [facility] Cellular Immunotherapy Program [address] [facility], 9th Floor, [address] [place] [address] Vaughn Boogie MD [address] [address] [email or web address] du 12/14/2025 11:00 AM EST Nurse Only [facility] Cellular Immunotherapy Program [address] [facility], 9th Floor, [address] [place] [address] Vaughn Boogie MD [address] [address] [email or web address] du 12/14/2025 11:00 AM EST Office [facility] Hematologic Malignancies Clinic [address] [facility], 9th Floor, [address] [place] [address] Vaughn Boogie MD [address] [address] KAREN@[email or web address]. heaven 03/14/2026 2:30 PM EDT Office Visit [facility] [address] [facility], 5th Floor, [address] [place] [address] Juan Carlos [place] MD 55 [place] [address] [email or web address] .[facility] documented as of this encounter Visit Diagnoses [...] 1:21 AM EST CoV-Risk 12/30/2024 12/30/2024 01/10/2025 1:2 2 AM EST Influenza A 12/30/2024 12/30/2024 01/06/2025 1:22 AM EST documented as of this encounter Care Teams Computer Meteorologist Relationship Specialty Start Date End Date Yi Joseph MD [address] [facility] [place] [address] PCP - General 11/20/17 Yi Joseph MD [address] [facility] [place] [address] Historical LMR Provider 09/06/17 2 Cj Redding, PATIENT CASE COORDINATOR 15 [facility], 2nd [place] [address] [email or web address] Historical LMR Provider 09/06/17 11/24/21 Agus Noland MD [address] [place] [address] Everett [facility] [place] [address] [email or web address] Primary Oncologist Medical Oncology 06/25/18 Self-Referred, Patient Referring Physician 06/29/18 Vaughn Boogie MD 55 [facility] [address] [place] [address] [email or web address] Primary Oncologist Medical Oncology 11/23/18 Agustin Ybarra MD [address] [place] [address] Division [place] [address] [email or web address]. u Thoracic Surgery 03/31/19 Camila Yanes, RN [address] [place] [address] SEBASTIAN@[email or web address] Primary Infusion Nurse 06/14/20 Markus Gregory DO [facility] [address] [place] [address] [email or web address] Gastroenterology 06/29/24 documented as of this encounter Additional Source Comments The information contained in this document represents components of the legal health record. It is not the complete legal health record.[facility]
--- OUTSIDE RECORDS SUMMARY | 2025-11-16 09:14 | XMS_ITS | Encounter Summary ---
Author Organization [facility] Address [address] [place] [address] Phone Care Team Providers Care Marketing Strategy Analyst Name Role Phone Yi Joseph MD Primary Care Provider Agus Noland MD Unavailable [phone] Self-Referred, Patient Unavailable Unavailab Vaughn Mcallister MD Unavailable Agustin Ybarra MD Unavailable [phone] Camila Yanes RN Unavailable [email or web address] [facility] Markus Gregory DO Unavailable Encounter Details Date Type Department Care Team (Late st Contact Info) Description 11/02/2025 Orders Only [facility] Cellular Immunotherapy Program [address], 9th Floor, [address] [place] [address] Adis Mtz MD [address] [facility] [address] [place] [address] [email or web address] Multiple myeloma not having achieved remission (Primary Dx) Social History Tobacco Use Types [...] Description 12/14/2025 10:00 AM EST Blood Draw [facility] Cellular Immunotherapy Program [address] [place] [address], 9th Floor, [address] [place] [address] Vaughn Boogie MD [address] [address] [email or web address] 12/14/2025 11:00 AM EST Nurse Only [facility] Cellular Immunotherapy Program [address], 9th Floor, [address] [place] [address] Vaughn Boogie MD [address] [address] [email or web address] 12/14/2025 11:00 AM EST Office Visit [facility] Hematologic Malignancies Clinic [address], 9th Floor, [address] [place] [address] Vaughn Boogie MD [address] [address] [email or web address] heaven 03/14/2026 2:30 PM EDT Office Visit [facility] at [facility] [address], 5th Floor, [address] [place] [address] Juan Carlos Lim MD 55 [place] [address] [email or web address] Scheduled Orders Name Type Priority Associated Diagnoses Orde r Schedule CBC and Differential Lab Routine Multiple myeloma not having achieved remission Expected: 11/02/2025, Expires: 11/02/2026 Comprehensive Metabolic Panel (CMP) Lab Routine Multiple myeloma not having achieved remission Expected: 11/02/2025, Expires: 11/02/2026 Serum Protein Electrophoresis (SPEP) Panel, with Reflex to Immunofixation Lab Routine Multiple myeloma not having achieved remission Expected: 11/02/2025, Expires: 11/02/2026 Light Chains, Free, Serum Lab Routine Multiple myeloma not having achieved remission Expected: 11/02/2025, Expires: 11/02/2026 documented as of this encounter Goals Goal Patient Goal Type Associated Problems Recent Progress Patient-Stated? Author Acute Care Plan Acute Care Plan Fatuma Slater RN Note: Cellular therapy/ Immune Effector Cell patient. Patient received cellular therapy product on protocol 22-533 on 09/22/24 Page the on-call Immune Effector Cell Attending via www.[employer] [facility] Page immediately if patient presents [...] team evaluation. Patients should be admitted to [place] [address] to the Immune Effector Cell Service. documented as of this encounter Visit Diagnoses Diagnosis Multiple myeloma not having achieved remission- Primary documented in this encounter Additional Health Concerns Assessment Noted Time PHQ-2 Depression Total Score: 0 04/06/20 19 9:24 AM EDT documented as of this encounter Care Teams Marketing Strategy Analyst Relationship Specialty Start Date End Date Yi Joseph MD [facility] [place] [address] PCP - General 11/20/17 Agus Noland MD [address] [place] [address] [facility] Multiple Myeloma [facility] [place] [address] [email or web address] Primary Oncologist Medical Oncology 06/25/18 Self-Referred, Patient Referring Physician 06/29/18 Vaughn Boogie MD [address] [place] [address] [email or web address] Primary Oncologist Medical Oncology 11/23/18 Agustin Ybarra MD [address] [place] [address] Division [place] [address] [email or web address] Thoracic Surgery 03/31/19 Camila Yanes RN [address] [place] [address] [email or web address] Primary Infusion Nurse 06/14/20 Markus Gregory DO [facility] [address] [place] [address] [email or web address] Gastroenterology 06/29/24 documented as of this encounter Additional Source Comments The information contained in this document represents components of the legal health record. It is not the complete legal health record.[facility]
--- OUTSIDE RECORDS SUMMARY | 2025-11-16 09:14 | XMS_ITS | Encounter Summary ---
Author Organization [facility] Address [address] [facility] [address] [place] [address] Phone Care Team Providers Care Ceiling Installer Name Role Phone Yi Joseph MD Unavailable Cj Redding CNP Unavailable [phone] Yi Joseph MD Primary Care Provider [phone] Agus Noland MD Unavailable [phone] Self-Referred, Patient Unavailable Unavailab Vaughn Mcallister MD Unavailable Agustin Ybarra MD Unavailable [phone] Camila Yanes RN Unavailable [email or web address] Markus Gregory DO Unavailable Encounter Details Date Type Department Care Team (Late st Contact Info) Description 06/13/2020 Telephone MRI, [facility] - [address], [address] [place] [address] Vaughn Boogie MD [address] [place] [address] [email or web address] Social History Tobacco Use Types Packs/Day Years [...] Description 12/14/2025 10:00 AM EST Blood Draw [facility] Cellular Immunotherapy Program [address] [facility], 9th Floor, [address] [place] [address] Vaughn Boogie MD [address] [address] [email or web address] 12/14/2025 11:00 AM EST Nurse Only [facility] Cellular Immunotherapy Program [address] [facility], 9th Floor, [address] [place] [address] Vaughn Boogie MD [address] [address] [email or web address] 12/14/2025 11:00 AM EST Office Visit [facility] Hematologic Malignancies Clinic [address] [facility], 9th Floor, [address] [place] [address] Vaughn Boogie MD [address] [place] [address] [email or web address] 03/14/2026 2:30 PM EDT Office Visit [facility] at [facility] [address] [facility], 5th Floor, [address] [place] [address] Juan Carlos Lim MD 55 [place] [address] [email or web address] documented as of this encounter Visit [...] documented as of this encounter Care Teams Ceiling Installer Relationship Specialty Start Date End Date Yi Joseph MD [address] [facility] [address] PCP - General 11/20/17 Yi Joseph MD [address] [place] [address] Historical LMR Provider 09/06/17 1 2 Cj Redding VIROLOGY TEACHER [address] [facility], 2nd [place] [address] [email or web address] Historical LMR Provider 09/06/17 11/24/21 Agus Noland MD [address] [place] [address] [facility] [place] [address] [email or web address] Primary Oncologist Medical Oncology 06/25/18 Self-Referred, Patient Referring Physician 06/29/18 Vaughn Boogie MD [address] [facility] [address] [place] [address] [email or web address], [facility] Primary Oncologist Medical Oncology 11/23/18 Agustin Ybarra MD [address] [place] [address] Division [place] [address] [email or web address] Thoracic Surgery 03/31/19 Camila Yanes, RN 55 [place] [address] [email or web address], [facility] Primary Infusion Nurse 06/14/20 Markus Gregory DO [facility] [address] [place] [address] [email or web address] Gastroenterology 06/29/24 documented as of this encounter Additional Source Comments The information contained in this document represents components of the legal health record. It is not the complete legal health record.[facility]
--- OUTSIDE RECORDS SUMMARY | 2025-11-16 09:14 | XMS_ITS | Encounter Summary ---
Author Organization [facility] Address [address] [address] Phone Care Team Providers Care Direct Care Professional Name Role Phone Yi Joseph MD Unavailable Cj Redding CNP Unavailable [phone] Yi Joseph MD Primary Care Provider [phone] Agus Noland MD Unavailable [phone] Self-Referred, Patient Unavailable Unavailab Vaughn Mcallister MD Unavailable Agustin Ybarra MD Unavailable [phone] Camila Yanes RN Unavailable [email or web address] Markus Gregory DO Unavailable Encounter Details Date Type Department Care Team (Late Contact Info) Description 08/08/[address] [facility] Imaging - RF/IR [address] [place] [address] Social History Tobacco Use Types Packs/Day Years [...] Description 12/14/2025 10:00 AM EST Blood Draw [facility] Cellular Immunotherapy Program [address] [facility], 9th Floor, [address] [place] [address] Vaughn Boogie MD [address] [address] [email or web address] 12/14/2025 11:00 AM EST Nurse Only [facility] Cellular Immunotherapy Program [address] [facility], 9th Floor, [address] [place] [address] Vaughn Boogie MD [address] [address] [email or web address] 12/14/2025 11:00 AM EST Office Visit [facility] Hematologic Malignancies Clinic [address] [facility], 9th Floor, [address] [place] [address] Vaughn Boogie MD [address] [address] [email or web address] 03/14/2026 2:30 PM EDT Office Visit [facility] at [facility] [address] [facility], 5th Floor, [address] [place] [address] Juan Carlos Lim MD 55 [place] [address] [email or web address] .[email or web address] documented as of this encounter Visit [...] documented as of this encounter Care Teams Direct Care Professional Relationship Specialty Start Date End Date Yi Joseph MD [facility] [place] [address] PCP - General 11/20/17 Yi Joseph MD [address] [place] [address] [place] [address] Historical LMR Provider 09/06/17 2 Cj Redding RESTAURANT CASHIER [address] [facility], 2nd [place] [address] [email or web address] Historical LMR Provider 09/06/17 11/24/21 Agus Noland MD [address] [place] [address] [facility] [place] [address] [email or web address] Primary Oncologist Medical Oncology 06/25/18 Self-Referred, Patient Referring Physician 06/29/18 Vaughn Boogie MD [address] [place] [address] [email or web address] Primary Oncologist Medical Oncology 11/23/18 Agustin Ybarra MD [address] [place] [address] Division [place] [address] [email or web address] Thoracic Surgery 03/31/19 Camila Yanes RN [address] [place] [address] [email or web address] Primary Infusion Nurse 06/14/20 Markus Gregory DO [facility] [address] [place] [address] [email or web address] Gastroenterology 06/29/24 documented as of this encounter Additional Source Comments The information contained in this document represents components of the legal health record. It is not the complete legal health record.[facility]
--- OUTSIDE RECORDS SUMMARY | 2025-11-16 09:14 | XMS_ITS | Encounter Summary ---
Author Organization [facility] Address [address] [place] [phone] Phone Care Team Providers Care Fnp Name Role Phone Yi Joseph MD Unavailable Cj Redding CNP Unavailable [phone] Yi Joseph MD Primary Care Provider [phone] Agus Noland MD Unavailable [phone] Self-Referred, Patient Unavailable Unavailab Vaughn Mcallister MD Unavailable Agustin Ybarra MD Unavailable [phone] Camila Yanes RN Unavailable [email or web address] Markus Gregory DO Unavailable Reason for Referral * MRI/CAT Scan - Closed Specialty Diagnoses / Procedures Referred By Ramila goldman Referred To Contact Radiology Diagnoses Neoplasm of rib Procedures CT PET Abdomen/Pelvis Eamon Ghosh MD Phone: tel: mailto:[email or web address] Referral ID Status Reason Start Date Expiration Date Visits Re quested Visits Authorized [id number] Closed 04/30/2018 04/30/2019 1 1 * MRI/CAT Scan - Closed Specialty Diagnoses / Procedures Referred By Ramila goldman Referred To Contact Radiology Diagnoses Neoplasm of rib Procedures CT PET Chest Eamon Ghosh MD Phone: tel: mailto:[email or web address] Referral ID Status Reason Start Date Expiration Date Visits Re quested Visits Authorized [id number] Closed 04/30/2018 04/30/2019 1 1 Encounter Details Date Type Department Care Team (Late st Contact Info) Description 04/30/2018 Ancillary Orders [facility] [address] [facility], 7th [place] [address] Eaomn Ghosh MD 55 [place] [address] [email or web address] Neoplasm of rib Social History Tobacco Use Types Packs/Day Years [...] Description 12/14/2025 10:00 AM EST Blood Draw [facility] Cellular Immunotherapy Program [address] [place] [address], 9th Floor, [address] [place] [address] Vaughn Boogie MD [address] [address] [email or web address] heaven 12/14/2025 11:00 AM EST Nurse Only [facility] Cellular Immunotherapy Program [address] [facility], 9th Floor, [address] [place] [address] Vaughn Boogie MD [address] [address] [email or web address] [facility] 12/14/2025 11:00 AM EST Office Visit [facility] Hematologic Malignancies Clinic [address] [facility], 9th Floor, [address] [place] [address] Vaughn Boogie MD 55 [facility] [address] [place] [address] [email or web address] [facility] 03/14/2026 2:30 PM EDT Office Visit [facility]iology [facility] at the [facility] [address] [facility], 5th Floor, [address] [place] [address] Juan Carlos Lim MD 55 [place] [address] [email or web address] documented as of this encounter Results * CT PET ABDOMEN/PELVIS WITH CONTRAST (04/30/2018 11:57 AM EDT) Anatomical Region Laterality Modality Abdomen, Pelvis Positron Emissio n Tomography (PET) 04/30/2018 12:3 8 PM EDT Impressions 04/30/2018 8:45 PM EDT - No evidence of additional osseous lesion or metastatic disease in the abdomen or pelvis. 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 RECOMMENDATION: MRCP in 12 months. This report has been forwarded to an automated communication system which will electronically notify appropriate providers of potentially important findings. Narrative 04/30/2018 8:[address] PET ABDOMEN/PELVIS WITH CONTRAST DIAGNOSTIC CT SCAN OF THE ABDOMEN AND PELVIS PERFORMED IN CONJUNCTION WITH PET SCAN COMPARISON: None available. TECHNIQUE: Diagnostic CT of the abdomen and pelvis was performed as part of a combined PET-CT examination. Diagnostic CT was performed with intravenous contrast. CT and PET images were fused on a workstation and interpreted as part of a combined PET-CT readout. FINDINGS: LOWER THORAX: Please refer to report from concurrently performed chest CT. HEPATOBILIARY: No focal hepatic lesions. No biliary ductal dilatation. Gallbladder fundal adenomyomatosis. SPLEEN: No splenomegaly. 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 No solid masses or ductal dilatation. ADRENALS: No adrenal nodules. KIDNEYS/URETERS: There are scattered subcentimeter hypodensities in the kidneys which are too small to definitively characterize. No hydronephrosis, stones, or solid mass lesions. PELVIC ORGANS/BLADDER: Status post hysterectomy. No adnexal mass. PERITONEUM / RETROPERITONEUM: No free air or fluid. LYMPH NODES: No lymphadenopathy. VESSELS: There is calcification of the abdominal aorta consistent with atherosclerosis. GI TRACT: Colonic diverticulosis. No distention or wall thickening. BONES AND SOFT TISSUES: Small fat-containing umbilical hernia. The LEFT rib lesion is fully described on report from concurrently performed chest CT. 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 No additional osseous lesion is identified. There are mild multilevel degenerative changes. Procedure Note Tristan Clement MBBS, MD - 04/30/2018 CT PET ABDOMEN/PELVIS WITH CONTRAST DIAGNOSTIC CT SCAN OF THE ABDOMEN AND PELVIS PERFORMED IN CONJUNCTION WITHPET SCAN COMPARISON: None available. TECHNIQUE: Diagnostic CT of the abdomen and pelvis was performed as partof a combined PET-CT examination. Diagnostic CT was performed withintravenous contrast. CT and PET images were fused on a workstation and interpretedas part of a combined PET-CT readout. FINDINGS: LOWER THORAX: Please refer to report from concurrently performed chestCT. HEPATOBILIARY: No focal hepatic lesions. No biliary ductal dilatation. Gallbladder fundal adenomyomatosis. SPLEEN: No splenomegaly. PANCREAS: There is an 8 mm cystic lesion in the superior aspect of the pancreatic body without associated nodularity or enhancement (608:31),likely a sidebranch IPMN. No solid masses or ductal dilatation. ADRENALS: No adrenal nodules. KIDNEYS/URETERS: There are scattered subcentimeter hypodensities in thekidneys which are too small to definitively characterize. No hydronephrosis,stones, or solid mass lesions. PELVIC ORGANS/BLADDER: Status post hysterectomy. No adnexal mass. PERITONEUM / RETROPERITONEUM: No free air or fluid. LYMPH NODES: No lymphadenopathy. VESSELS: There is calcification of the abdominal aorta consistent with atherosclerosis. GI TRACT: Colonic diverticulosis. No distention or wall thickening. BONES AND SOFT TISSUES: Small fat-containing umbilical hernia. The LEFTrib lesion is fully described on report from concurrently performed chest CT.There is a Tarlov cyst in the right sacrum. No additional osseous lesion is identified. There are mild multilevel degenerative changes. IMPRESSION: - No evidence of additional osseous lesion or metastatic disease in theabdomen or pelvis. 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 RECOMMENDATION: MRCP in 12 months. This report has been forwarded to an automated communication system whichwill electronically notify appropriate providers of potentially importantfindings. Eamon Ghosh MD IMG CT PETCT Final Result * CT PET CHEST WITH CONTRAST (04/30/2018 11:57 AM EDT) Anatomical Region Laterality Modality Chest Positron Emissio n Tomography (PET) 04/30/2018 2:35 PM EDT Impressions 04/30/2018 4:38 PM EDT Destructive and expansile lesion in the left posterolateral 9th rib with associated soft tissue component and pathologic fracture. Differential considerations include metastatic disease, myeloma, or less likely lymphoma. Several small lucent and sclerotic foci within the vertebral bodies are nonspecific and could be related to degenerative changes, however attention on follow-up is advised. Solid noncalcified pulmonary nodules bilaterally measuring up to 6 mm are unchanged from 03/25/2018, though remain indeterminate. RECOMMENDATION: Follow-up chest CT in 3 months to reevaluate the indeterminate pulmonary nodules. This report has been forwarded to an automated communication system which will electronically notify appropriate providers of potentially important findings. Narrative 04/30/2018 4:[address] PET CHEST WITH CONTRAST Diagnostic CT scan of the chest WITH intravenous contrast in conjunction with PET scan. This study was part of a combined PET-CT examination. Interpretation is in collaboration with other subspecialty Radiologists and Nuclear Medicine physicians. Please refer to all reports for a full description of findings pertaining to this PET-CT. HISTORY: As given in the header. COMPARISON: Outside Chest CT 03/25/2018 FINDINGS: Lines/tubes: None. Lungs and Airways: The central airways are patent. Dependent atelectasis is present bilaterally. There is mild linear scarring or subsegmental atelectasis in the lingula. There are several solid noncalcified pulmonary nodules bilaterally which are unchanged from 03/25/2018. These include (on series 9) a 5 mm right upper lobe nodule (image 61), a 3 mm right upper lobe nodule (image 163), a 2 mm nodule in the left major fissure (image 176), and a 6 mm anterior left upper lobe subpleural nodule (image 108). Pleura: No pleural effusion or pneumothorax. Heart and mediastinum: The thyroid gland cannot be accurately evaluated secondary to overlying beam hardening artifact and image noise. There are atherosclerotic arterial calcifications involving the aorta, proximal aortic arch vessels, and coronary arteries. Borderline left atrial enlargement. No pericardial effusion. Normal anatomic variant shared origin of the left common carotid and brachiocephalic arteries. No filling defects are seen within the central pulmonary arteries although the study was not optimized for the evaluation of pulmonary emboli. No size significant mediastinal or hilar lymphadenopathy is seen. Soft tissues: No size significant axillary or subpectoral lymphadenopathy is identified. Abdomen: Findings in the abdomen reported separately. Bones: There is a destructive and expansile lesion in the left posterolateral 9th rib along the length of approximately 5.5 cm with associated fracture (series 606, image 163) and soft tissue density mass measuring approximately 3.2 x 1.5 cm (series 9, image 291), unchanged from 03/25/2018. Several lucencies in the lower thoracic vertebral body endplates with narrow zones of transition are noted. There are also subcentimeter foci of sclerosis along the superior endplate of the T10 vertebral body and left lateral fourth rib. Procedure Note Edna Fernandez MD - 04/30/2018 CT PET CHEST WITH CONTRAST Diagnostic CT scan of the chest WITH intravenous contrast in conjunctionwith PET scan. This study was part of a combined PET-CT examination. Interpretation isin collaboration with other subspecialty Radiologists and Nuclear Medicine physicians. Please refer to all reports for a full description offindings pertaining to this PET-CT. HISTORY: As given in the header. COMPARISON: Outside Chest CT 03/25/2018 FINDINGS: Lines/tubes: None. Lungs and Airways: The central airways are patent. Dependent atelectasisis present bilaterally. There is mild linear scarring or subsegmentalatelectasis in the lingula. There are several solid noncalcified pulmonary nodules bilaterally which are unchanged from 03/25/2018. These include (on series 9)a 5 mm right upper lobe nodule (image 61), a 3 mm right upper lobe nodule(image 163), a 2 mm nodule in the left major fissure (image 176), and a 6 mmanterior left upper lobe subpleural nodule (image 108). Pleura: No pleural effusion or pneumothorax. Heart and mediastinum: The thyroid gland cannot be accurately evaluated secondary to overlying beam hardening artifact and image noise. Thereare atherosclerotic arterial calcifications involving the aorta, proximalaortic arch vessels, and coronary arteries. Borderline left atrial enlargement.No pericardial effusion. Normal anatomic variant shared origin of the leftcommon carotid and brachiocephalic arteries. No filling defects are seen withinthe central pulmonary arteries although the study was not optimized for the evaluation of pulmonary emboli. No size significant mediastinal or hilar lymphadenopathy is seen. Soft tissues: No size significant axillary or subpectoral lymphadenopathyis identified. Abdomen: Findings in the abdomen reported separately. Bones: There is a destructive and expansile lesion in the leftposterolateral 9th rib along the length of approximately 5.5 cm with associatedfracture (series 606, image 163) and soft tissue density mass measuringapproximately 3.2 x 1.5 cm (series 9, image 291), unchanged from 03/25/2018. Several lucenciesin the lower thoracic vertebral body endplates with narrow zones oftransition are noted. There are also subcentimeter foci of sclerosis along the superior endplate of the T10 vertebral body and left lateral fourth rib. IMPRESSION: Destructive and expansile lesion in the left posterolateral 9th rib with associated soft tissue component and pathologic fracture. Differential considerations include metastatic disease, myeloma, or less likelylymphoma. Several small lucent and sclerotic foci within the vertebral bodies are nonspecific and could be related to degenerative changes, howeverattention on follow-up is advised. Solid noncalcified pulmonary nodules bilaterally measuring up to 6 mmare unchanged from 03/25/2018, though remain indeterminate. RECOMMENDATION: Follow-up chest CT in 3 months to reevaluate the indeterminate pulmonary nodules. This report has been forwarded to an automated communication system whichwill electronically notify appropriate providers of potentially importantfindings. Eamon Ghosh MD IMG CT PETCT Final Result documented in this encounter Visit Diagnoses Diagnosis Neoplasm of rib Neoplasm of rib documented in this encounter Additional Health Concerns [...] documented as of this encounter Care Teams Fnp Relationship Specialty Start Date End Date Yi Joseph MD [address] [facility] [place] [address] PCP - General 11/20/17 Yi Joseph MD [address] [facility] [place] [address] Historical LMR Provider 09/06/17 2 Cj Redding ADZING AND BORING MACHINE OPERATOR [address] [facility], 2nd [place] [address] [email or web address] Historical LMR Provider 09/06/17 11/24/21 Agus Noland MD [address] [place] [address] Everett Gonzalez [place] [address] [email or web address] Primary Oncologist Medical Oncology 06/25/18 Self-Referred, Patient Referring Physician 06/29/18 Vaughn Boogie MD [address] [facility] [address] [place] [address] [email or web address] Primary Oncologist Medical Oncology 11/23/18 Agustin Ybarra MD [address] [place] [address] Division [place] [address] [email or web address] Thoracic Surgery 03/31/19 Camila Yanes, MANJU [address] [place] [address] [email or web address] Primary Infusion Nurse 06/14/20 Markus Gregory DO [facility] [address] [place] [address] [email or web address] Gastroenterology 06/29/24 documented as of this encounter Additional Source Comments The information contained in this document represents components of the legal health record. It is not the complete legal health record.[facility]
--- OUTSIDE RECORDS SUMMARY | 2025-11-16 09:14 | XMS_ITS | Encounter Summary ---
Author Organization [facility] Address [address] [address] Phone Care Team Providers Care Pole Shaver Helper Name Role Phone Yi Joseph MD Unavailable Cj Redding CNP Unavailable [phone] Yi Joseph MD Primary Care Provider [phone] Agus Nloand MD Unavailable [phone] Self-Referred, Patient Unavailable Unavailab Vaughn Mcallister MD Unavailable Agustin Ybarra MD Unavailable [phone] Camila Yanes RN Unavailable [email or web address] Markus Gregory DO Unavailable Encounter Details Date Type Department Care Team (Late Contact Info) Description 08/31/2018 Procedure Pass [facility] MRI. [place] 1 [address] [facility], 1st [place] [address] Social History Tobacco Use Types Packs/Day Years [...] Description 12/14/2025 10:00 AM EST Blood Draw [facility] Cellular Immunotherapy Program [address] [facility], 9th Floor, [address] [place] [address] Vaughn Boogie MD [address] [address] [email or web address] 12/14/2025 11:00 AM EST Nurse Only [facility] Cellular Immunotherapy Program [address] [facility], 9th Floor, [address] [place] [address] Vaughn Boogie MD [address] [address] [email or web address] 12/14/2025 11:00 AM EST Office Visit [facility] Hematologic Malignancies Clinic [address] [facility], 9th Floor, [address] [place] [address] Vaughn Boogie MD [address] [address] [email or web address] 03/14/2026 2:30 PM EDT Office Visit [facility] Cardiology Clinic at the [facility] [address] [facility], 5th Floor, [address] [place] [address] Juan Carlos Lim MD 55 [place] [address] [email or web address] documented as of this encounter Visit Diagnoses [...] documented as of this encounter Care Teams Pole Shaver Helper Relationship Specialty Start Date End Date Yi Joseph MD [address] [facility] [place] [address] PCP - General 11/20/17 Yi Joseph MD [address] [facility] [place] [address] Historical LMR Provider 09/06/17 2 Cj Redding, CABLE MAINTAINER [address] [facility], 2nd [place] [address] [email or web address] Historical LMR Provider 09/06/17 11/24/21 Agus Noland MD [address] [place] [address] Everett Gonzalez [place] [address] [email or web address] Primary Oncologist Medical Oncology 06/25/18 Self-Referred, Patient Referring Physician 06/29/18 Vaughn Boogie MD 55 [email or web address] [address] [place] [address] [email or web address] Primary Oncologist Medical Oncology 11/23/18 Agustin Ybarra MD [address] [place] [address] Division [place] [address] [email or web address] Thoracic Surgery 03/31/19 Camila Yanes, RN [address] [place] [address] [email or web address] Primary Infusion Nurse 06/14/[address] [facility] [address] [place] [address] [email or web address] Gastroenterology 06/29/24 documented as of this encounter Additional Source Comments The information contained in this document represents components of the legal health record. It is not the complete legal health record.[facility]
--- OUTSIDE RECORDS SUMMARY | 2025-11-16 09:14 | XMS_ITS | Encounter Summary ---
Author Organization [facility] Address [address] [address] Phone Care Team Providers Care Game Farm Helper Name Role Phone Yi Joseph MD Unavailable Cj Redding CNP Unavailable [phone] Yi Joseph MD Primary Care Provider [phone] Agus Noland MD Unavailable [phone] Self-Referred, Patient Unavailable Unavailab Vaughn Mcallister MD Unavailable Agustin Ybarra MD Unavailable [phone] Camila Yanes RN Unavailable [email or web address] Markus Gregory DO Unavailable Encounter Details Date Type Department Care Team (Late st Contact Info) Description 04/30/2018 Procedure Pass [facility] Imaging, Stephen [address] [facility], 2nd [place] [address] Social History Tobacco Use Types Packs/Day Years [...] Description 12/14/2025 10:00 AM EST Blood Draw [facility] [place] Cellular Immunotherapy Program 32 [facility], 9th Floor, [address] [place] [address] Vaughn Boogie MD [address] [address] [email or web address] 12/14/2025 11:00 AM EST Nurse Only [facility] Cellular Immunotherapy Program [address] [facility], 9th Floor, [address] [place] [address] Vaughn Boogie MD [address] [address] [email or web address] 12/14/2025 11:00 AM EST Office Visit [facility] Hematologic Malignancies Clinic 32 [facility], 9th Floor, [address] [place] [address] Vaughn Boogie MD [address] [address] [email or web address] 03/14/2026 2:30 PM EDT Office Visit [facility] Cardiology Clinic at the [facility] 32 [facility], 5th Floor, [address] [place] [address] Juan Carlos Lim MD 55 [place] [address] [email or web address] documented as of this encounter Visit Diagnoses [...] documented as of this encounter Care Teams Game Farm Helper Relationship Specialty Start Date End Date Yi Joseph MD [address] [facility] [place] [address] PCP - General 11/20/17 Yi Joseph MD [address] [facility] [place] [address] Historical LMR Provider 09/06/17 2 Cj Redding BOILERMAKER'S ASSISTANT [address] [place] [address], 2nd [place] [address] Historical LMR Provider 09/06/17 11/24/21 Agus Noland MD [address] [place] [address] Multiple Myeloma [facility] [place] [address] [email or web address] Primary Oncologist Medical Oncology 06/25/18 Self-Referred, Patient Referring Physician 06/29/18 Vaughn Boogie MD 55 [facility] [address] [place] [address] [email or web address] Primary Oncologist Medical Oncology 11/23/18 Agustin Ybarra MD [address] [place] [address] Division of [place] [address] [email or web address] Thoracic Surgery 03/31/19 Camila Yanes RN [address] [place] [address] [email or web address] Primary Infusion Nurse 06/14/20 Markus Gregory DO [address] [place] [address] [email or web address] Gastroenterology 06/29/24 documented as of this encounter Additional Source Comments The information contained in this document represents components of the legal health record. It is not the complete legal health record.[facility]
--- OUTSIDE RECORDS SUMMARY | 2025-11-16 09:14 | XMS_ITS | Encounter Summary ---
Author Organization [facility] Address [address] [address] Phone Care Team Providers Care Gas Pipe Layer Name Role Phone Yi Joseph MD Unavailable Cj Redding CNP Unavailable [phone] Yi Joseph MD Primary Care Provider [phone] Agus Noland MD Unavailable [phone] Self-Referred, Patient Unavailable Unavailab Vaughn Mcallister MD Unavailable Agustin Ybarra MD Unavailable [phone] Camila Yanes RN Unavailable [email or web address] Markus Gregory DO Unavailable Encounter Details Date Type Department Care Team (Late Contact Info) Description 05/04/2021 Procedure Pass [facility]PT [address] [place] [address] Social History Tobacco Use Types Packs/Day Years [...] EST Blood Draw [facility] Cellular Immunotherapy Program [address] [facility], 9th Floor, [address] [place] [address] Vaughn Boogie MD [address] [address] KAREN@[email or web address] 12/14/2025 11:00 AM EST Nurse Only [facility] Cellular Immunotherapy Program [address] [facility], 9th Floor, [address] [place] [address] Vaughn Boogie MD [address] [address] KAREN@[email or web address]. [facility] 12/14/2025 11:00 AM EST Office Visit [facility] Hematologic Malignancies Clinic [address] [facility], 9th Floor, [address] [place] [address] Vaughn Boogie MD [address] [address] KAREN@[email or web address]. [facility] 03/14/2026 2:30 PM EDT Office Visit [facility] [address] [facility], 5th Floor, [address] [place] [address] Juan Carlos Lim MD 55 [place] [address] [email or web address] .[facility] documented as of this encounter Visit Diagnoses Not on filedocumented in this encounter Additional Health Concerns Infection Onset Date Last Indicated Resolved Time COVID-19 05/17/2023 05/17/2023 06/07/2023 1:21 AM EDT COVID-19 08/16/2024 08/16/2024 09/06/2024 1:21 AM EDT CoV-Risk Comment:Per note documentation 09/20/2024 09/20/2024 4 7:31 AM EST CoV-Risk Comment:Per note documentation 09/27/2024 09/27/2024 4:50 AM EST CoV-Presumed 11/27/2024 11/27/2024 12/18/2024 1:21 AM EST CoV-Risk 12/30/2024 12/30/2024 01/10/2025 1:22 AM EST Influenza A 12/30/2024 12/30/2024 01/06/2025 1:22 AM EST Assessment Noted Time PHQ-2 Depression Total Score: 0 04/06/20 19 9:24 AM EDT documented as of this encounter Care Teams Gas Pipe Layer Relationship Specialty Start Date End Date Yi Joseph MD [address] [place] [address] [place] [address] PCP - General 11/20/17 Yi Joseph MD [address] [place] [address] [place] [address] Historical LMR Provider 09/06/17 2 Cj Redding CNP [address] [place] [address], [facility] [address] [email or web address] Historical LMR Provider 09/06/17 11/24/21 Agus Noland MD [address] [place] [address] [facility] [place] [address] [email or web address] Primary Oncologist Medical Oncology 06/25/18 Self-Referred, Patient Referring Physician 06/29/18 Vaughn Boogie MD [address] [place] [address] [email or web address] Primary Oncologist Medical Oncology 11/23/18 Agustin Ybarra MD [address] [place] [address] Division [place] [address] [email or web address]. u Thoracic Surgery 03/31/19 Camila Yanes, MANJU [address] [place] [address] [email or web address] Primary Infusion Nurse 06/14/20 Markus Gregory DO [facility] [address] [place] [address] [email or web address] Gastroenterology 06/29/24 documented as of this encounter Additional Source Comments The information contained in this document represents components of the legal health record. It is not the complete legal health record.[facility]
--- OUTSIDE RECORDS SUMMARY | 2025-11-16 09:14 | XMS_ITS | Encounter Summary ---
Author Organization [facility] Address [address] [employer] [facility] [address] [place] [address] Phone Care Team Providers Care Automotive Drivability Technician Name Role Phone Yi Joseph MD Unavailable Cj Redding CNP Unavailable [phone] Yi Joseph MD Primary Care Provider [phone] Agus Noland MD Unavailable [phone] Self-Referred, Patient Unavailable Unavailab Vaughn Mcallister MD Unavailable Agustin Ybarra MD Unavailable [phone] Camila Yanes RN Unavailable [email or web address] Markus Gregory DO Unavailable Encounter Details Date Type Department Care Team (Late st Contact Info) Description 11/25/2019 Procedure Pass MRI, [facility] Imaging - [address], [address] [place] [address] Social History Tobacco Use Types Packs/Day Years [...] Description 12/14/2025 10:00 AM EST Blood Draw [facility] Cellular Immunotherapy Program 32 [facility], 9th Floor, [address] [place] [address] Vaughn Boogie MD [address] [address] KAREN@[email or web address] du 12/14/2025 11:00 AM EST Nurse Only [facility] Cellular Immunotherapy Program 32 [facility], 9th Floor, [address] [place] [address] Vaughn Boogie MD [address] [address] KAREN@[email or web address] du 12/14/2025 11:00 AM EST Office Visit [facility] Hematologic Malignancies Clinic 32 [facility], 9th Floor, [address] [place] [address] Vaughn Boogie MD [address] [address] KAREN@[email or web address] [facility] 03/14/2026 2:30 PM EDT Office Visit [facility] at the [facility] 32 [facility], 5th Floor, [address] [place] [address] Juan Carlos Lim MD 55 [place] [address] [email or web address] .[facility] documented as of this encounter Visit Diagnoses [...] documented as of this encounter Care Teams Automotive Drivability Technician Relationship Specialty Start Date End Date Yi Joseph MD [address] [facility] [place] [address] PCP - General 11/20/17 Yi Joseph MD [address] [place] [address] Dr Demetri [place] Historical LMR Provider 09/06/17 2 Cj Redding CNP [address] [facility], 2nd [place] [address] [email or web address] Historical LMR Provider 09/06/17 11/24/21 Agus Noland MD [address] [place] [address] [facility]oma [facility] [place] [address] [email or web address] Primary Oncologist Medical Oncology 06/25/18 Self-Referred, Patient Referring Physician 06/29/18 Vaughn Boogie MD [address] [facility] [address] [place] [address] [email or web address], located [facility] Primary Oncologist Medical Oncology 11/23/18 Agustin Ybarra MD [address] [place] [address] Division [place] [address] [email or web address] u Thoracic Surgery 03/31/19 Camila Yanes, RN 55 [place] [address] [email or web address], located [facility] Primary Infusion Nurse 06/14/20 Markus Gregory DO [facility] [address] [place] [address] [email or web address] Gastroenterology 06/29/24 documented as of this encounter Additional Source Comments The information contained in this document represents components of the legal health record. It is not the complete legal health record.[facility]
--- OUTSIDE RECORDS SUMMARY | 2025-11-16 09:14 | XMS_ITS | Encounter Summary ---
Author Organization [facility] Address [address] [employer] [facility] [address] [place] [address] Phone Care Team Providers Care Hand Sign Writer Name Role Phone Yi Joseph MD Unavailable Cj Redding CNP Unavailable [phone] Yi Joseph MD Primary Care Provider [phone] Agus Noland MD Unavailable [phone] Self-Referred, Patient Unavailable Unavailab Vaughn Mcallister MD Unavailable Agustin Ybarra MD Unavailable [phone] Camila Yanes RN Unavailable [email or web address] Markus Gregory DO Unavailable Encounter Details Date Type Department Care Team (Late st Contact Info) Description 06/01/2020 Procedure Pass MRI, [facility] Imaging - [address], [address] [place] [address] Social History Tobacco Use Types [...] Description 12/14/2025 10:00 AM EST Blood Draw [facility] Cellular Immunotherapy Program 32 [facility], 9th Floor, [address] [place] [address] Vaughn Boogie MD [address] [address] KAREN@[email or web address]. du 12/14/2025 11:00 AM EST Nurse Only [facility] Cellular Immunotherapy Program 32 [facility], 9th Floor, [address] [place] [address] Vaughn Boogie MD [address] [address] KAREN@[email or web address]. du 12/14/2025 11:00 AM EST Office Visit [facility] Hematologic Malignancies Clinic 32 [facility], 9th Floor, [address] [place] [address] Vaughn Boogie MD [address] [address] KAREN@[email or web address]. heaven 03/14/2026 2:30 PM EDT Office Visit [facility] at the [facility] 32 [facility], 5th Floor, [address] [place] [address] Juan Carlos Lim MD 55 [place] [address] [email or web address] .[facility] documented as of this [...] documented as of this encounter Care Teams Hand Sign Writer Relationship Specialty Start Date End Date Yi Joseph MD [address] [facility] [place] [address] PCP - General 11/20/17 Yi Joseph MD [address] [place] [address] Dr Demetri [place] Historical LMR Provider 09/06/17 2 Cj Redding CNP 15 [facility], 2nd [place] [address] [email or web address] Historical LMR Provider 09/06/17 11/24/21 Agus Noland MD [address] [place] [address] [facility] Multiple Myeloma [facility] [place] [address] [email or web address] Primary Oncologist Medical Oncology 06/25/18 Self-Referred, Patient Referring Physician 06/29/18 Vaughn Boogie MD 55 [email or web address] [address] [place] [address] [email or web address] Primary Oncologist Medical Oncology 11/23/18 Agustin Ybarra MD [address] [place] [address] Division [place] [address] [email or web address]. u Thoracic Surgery 03/31/19 Camila Yanes, RN 55 [place] [address] [email or web address]@[email or web address] Primary Infusion Nurse 06/14/20 Markus Gregory DO [facility] [address] [place] [address] [email or web address] Gastroenterology 06/29/24 documented as of this encounter Additional Source Comments The information contained in this document represents components of the legal health record. It is not the complete legal health record.[facility]
--- OUTSIDE RECORDS SUMMARY | 2025-11-16 09:14 | XMS_ITS | Encounter Summary ---
Author Organization [facility] Address 399 [facility] [address] [place] [address] Phone Care Team Providers Care Sweet Potato Disintegrator Name Role Phone Yi Joseph MD Unavailable Cj Redding CNP Unavailable [phone] Yi Joseph MD Primary Care Provider [phone] Agus Noland MD Unavailable [phone] Self-Referred, Patient Unavailable Unavailab Vaughn Mcallister MD Unavailable Agustin Ybarra MD Unavailable [phone] Camila Yanes RN Unavailable [email or web address] Markus Gregory DO Unavailable Encounter Details Date Type Department Care Team (Late st Contact Info) Description 05/31/2019 Procedure Pass MRI, [facility] Imaging - [address], [address] [place] [address] Social History Tobacco Use Types [...] Description 12/14/2025 10:00 AM EST Blood Draw [facility] Cellular Immunotherapy Program 32 [facility], 9th Floor, [address] [place] [address] Vaughn Boogie MD [address] [address] KAREN@[email or web address] du 12/14/2025 11:00 AM EST Nurse Only [facility] Cellular Immunotherapy Program 32 [facility], 9th Floor, [address] [place] [address] Vaughn Boogie MD [address] [address] KAREN@[email or web address]. du 12/14/2025 11:00 AM EST Office Visit [facility] Hematologic Malignancies Clinic 32 [facility], 9th Floor, [address] [place] [address] Vaughn Boogie MD [address] [address] KAREN@[email or web address]. heaven 03/14/2026 2:30 PM EDT Office Visit [facility] 32 [facility], 5th Floor, [address] [place] [address] Juan Carlos Lim MD 55 [place] [address] [email or web address] .[facility] documented as of this [...] documented as of this encounter Care Teams Sweet Potato Disintegrator Relationship Specialty Start Date End Date Yi Joseph MD [address] [facility] [place] [address] PCP - General 11/20/17 Yi Joseph MD [address] [place] [address] Dr Demetri [place] Historical LMR Provider 09/06/17 2 Cj Redding CNP 15 [facility], 2nd [place] [address] [email or web address] Historical LMR Provider 09/06/17 11/24/21 Agus Noland MD [address] [place] [address] [facility] [place] [address] [email or web address] Primary Oncologist Medical Oncology 06/25/18 Self-Referred, Patient Referring Physician 06/29/18 Vaughn Boogie MD [address] [facility] [address] [place] [address] [email or web address] Primary Oncologist Medical Oncology 11/23/18 Agustin Ybarra MD [address] [place] [address] Division [place] [address] [email or web address] u Thoracic Surgery 03/31/19 Camila Yanes, RN 55 [place] [address] [email or web address] Primary Infusion Nurse 06/14/20 Markus Gregory DO [facility] [address] [place] [address] [email or web address] Gastroenterology 06/29/24 documented as of this encounter Additional Source Comments The information contained in this document represents components of the legal health record. It is not the complete legal health record.[facility]
--- OUTSIDE RECORDS SUMMARY | 2025-11-16 09:14 | XMS_ITS | Encounter Summary ---
Author Organization [facility] Address [address] [address] Phone Care Team Providers Care Facs Teacher Name Role Phone Yi Joseph MD Unavailable Cj Redding CNP Unavailable [phone] Yi Joseph MD Primary Care Provider [phone] Agus Noland MD Unavailable [phone] Self-Referred, Patient Unavailable Unavailab Vaughn Mcallister MD Unavailable Agustin Ybarra MD Unavailable [phone] Camila Yanes RN Unavailable [email or web address] Markus Gregory DO Unavailable Encounter Details Date Type Department Care Team (Late st Contact Info) Description 10/12/2018 Procedure Pass [facility] MRI, [place] 2 55 [facility], 2nd [place] [address] Social History Tobacco Use Types Packs/Day Years [...] Description 12/14/2025 10:00 AM EST Blood Draw [facility] Cellular Immunotherapy Program 32 [facility], 9th Floor, [address] [place] [address] Vaughn Boogie MD [address] [address] KAREN@[email or web address] du 12/14/2025 11:00 AM EST Nurse Only [facility] Cellular Immunotherapy Program 32 [facility], 9th Floor, [address] [place] [address] Vaughn Boogie MD [address] [address] KAREN@[email or web address]. du 12/14/2025 11:00 AM EST Office Visit [facility] Hematologic Malignancies Clinic 32 [facility], 9th Floor, [address] [place] [address] Vaughn Boogie MD [address] [address] KAREN@[email or web address]. heaven 03/14/2026 2:30 PM EDT Office Visit [facility] 32 [facility], 5th Floor, [address] [place] [address] Juan Carlos Lim MD 55 [place] [address] [email or web address] .[facility] documented as of this encounter [...] documented as of this encounter Care Teams Facs Teacher Relationship Specialty Start Date End Date Yi Joseph MD [address] [facility] [place] [address] PCP - General 11/20/17 Yi Joseph MD [address] [facility] [place] [address] Historical LMR Provider 09/06/17 2 Cj Redding BINDER CASER 15 [facility], 2nd [place] [address] [email or web address] Historical LMR Provider 09/06/17 11/24/21 Agus Noland MD [address] [place] [address] [facility] [place] [address] [email or web address] Primary Oncologist Medical Oncology 06/25/18 Self-Referred, Patient Referring Physician 06/29/18 Vaughn Boogie MD 55 [facility] [address] [address] [email or web address] Primary Oncologist Medical Oncology 11/23/18 Agustin Ybarra MD [address] [place] [address] Division [place] [address] [email or web address]. u Thoracic Surgery 03/31/19 Camila Yanes, RN [address] [place] [address] SEBASTIAN@[email or web address] Primary Infusion Nurse 06/14/20 Markus Gregory DO [facility] [address] [place] [address] [email or web address] Gastroenterology 06/29/24 documented as of this encounter Additional Source Comments The information contained in this document represents components of the legal health record. It is not the complete legal health record.[facility]
--- OUTSIDE RECORDS SUMMARY | 2025-11-16 09:14 | XMS_ITS | Encounter Summary ---
Author Organization [facility] Address [address] [address] Phone Care Team Providers Care Tube Lancer Name Role Phone Yi Joseph MD Unavailable Cj Redding CNP Unavailable [phone] Yi Joseph MD Primary Care Provider [phone] Agus Noland MD Unavailable [phone] Self-Referred, Patient Unavailable Unavailab Vaughn Mcallister MD Unavailable Agustin Ybarra MD Unavailable [phone] Camila Yanes RN Unavailable [email or web address] Markus Gregory DO Unavailable Encounter Details Date Type Department Care Team (Late st Contact Info) Description 07/23/2018 Procedure Pass [facility] [place] 32 [facility], 6th [place] [address] Social History Tobacco Use Types Packs/Day Years [...] Description 12/14/2025 10:00 AM EST Blood Draw [facility] Cellular Immunotherapy Program 32 [facility], 9th Floor, [address] [place] [address] Vaughn Boogie MD [address] [address] [email or web address]. du 12/14/2025 11:00 AM EST Nurse Only [facility] Cellular Immunotherapy Program 32 [facility], 9th Floor, [address] [place] [address] Vaughn Boogie MD [address] [address] KAREN@[email or web address]. heaven 12/14/2025 11:00 AM EST Office Visit [facility] Hematologic Malignancies Clinic 32 [facility], 9th Floor, [address] [place] [address] Vaughn Boogie MD [address] [address] KAREN@[email or web address]. heaven 03/14/2026 2:30 PM EDT Office Visit [facility] Cardiology Clinic at the [facility] 32 [facility], 5th Floor, [address] [place] [address] Juan Carlos Lim MD 55 [place] [address] [email or web address] documented as of this encounter [...] documented as of this encounter Care Teams Tube Lancer Relationship Specialty Start Date End Date Yi Joseph MD 1959 [facility] [place] [address] PCP - General 11/20/17 Yi Joseph MD [address] [facility] [place] [address] Historical LMR Provider 09/06/17 2 Cj Redding TEACHING YOUNG 15 [facility], 2nd [place] [address] Historical LMR Provider 09/06/17 11/24/21 Agus Noland MD [address] [place] [address] [facility] [place] [address] [email or web address] Primary Oncologist Medical Oncology 06/25/18 Self-Referred, Patient Referring Physician 06/29/18 Vaughn Boogie MD 55 [facility] [address] [place] [address] [email or web address] Primary Oncologist Medical Oncology 11/23/18 Agustin Ybarra MD [address] [place] [address] Division [place] [address] [email or web address]. u Thoracic Surgery 03/31/19 Camila Yanes, RN [address] [place] [address] SEBASTIAN@[email or web address] Primary Infusion Nurse 06/14/20 Markus Gregory DO [facility] [address] [place] [address] [email or web address] Gastroenterology 06/29/24 documented as of this encounter Additional Source Comments The information contained in this document represents components of the legal health record. It is not the complete legal health record.[facility]
--- OUTSIDE RECORDS SUMMARY | 2025-11-16 09:14 | XMS_ITS | Encounter Summary ---
Author Organization [facility] Address [address] [address] Phone Care Team Providers Care Graduate Advisor Name Role Phone Yi Joseph MD Unavailable Cj Redding CNP Unavailable [phone] Yi Joseph MD Primary Care Provider [phone] Agus Noland MD Unavailable [phone] Self-Referred, Patient Unavailable Unavailab Vaughn Mcallister MD Unavailable Agustin Ybarra MD Unavailable [phone] Camila Yanes RN Unavailable [email or web address] Markus Gregory DO Unavailable Encounter Details Date Type Department Care Team (Late Contact Info) Description 05/15/2018 Procedure Pass [facility] [address] [place] [address] Social History Tobacco Use Types Packs/Day Years [...] [facility] Cellular Immunotherapy Program [address] [facility], 9th Floor, [address] [place] [address] Vaughn Boogie MD [address] [address] [email or web address] 12/14/2025 11:00 AM EST Nurse Only [facility] Cellular Immunotherapy Program [address] [facility], 9th Floor, [address] [place] [address] Vaughn Boogie MD [address] [address] [email or web address] 12/14/2025 11:00 AM EST Office Visit [facility] Hematologic Malignancies Clinic [address] [facility], 9th Floor, [address] [place] [address] Vaughn Boogie MD [address] [address] [email or web address] 03/14/2026 2:30 PM EDT Office Visit [facility] [address] [facility], 5th Floor, [address] [place] [address] Juan Carlos Lim MD 55 [place] [address] [email or web address] [facility] documented as of this encounter Visit [...] documented as of this encounter Care Teams Graduate Advisor Relationship Specialty Start Date End Date Yi Joseph MD [address] [facility] [place] [address] PCP - General 11/20/17 Yi Joseph MD [address] [facility] [place] [address] Historical LMR Provider 09/06/17 2 Cj Redding CARPET CUTTER 15 [facility], 2nd [place] [address] Historical LMR Provider 09/06/17 11/24/21 Agus Noland MD [address] [place] [address] Multiple Myeloma [place] [address] [email or web address] Primary Oncologist Medical Oncology 06/25/18 Self-Referred, Patient Referring Physician 06/29/18 Vaughn Boogie MD 55 [facility] [address] [place] [address] [email or web address] Primary Oncologist Medical Oncology 11/23/18 Agustin Ybarra MD [address] [place] [address] Division [place] [address] [email or web address] Thoracic Surgery 03/31/19 Camila Yanes, MANJU [address] [place] [address] [email or web address] Primary Infusion Nurse 06/14/20 Markus Gregory DO [facility] [address] [place] [address] [email or web address] Gastroenterology 06/29/24 documented as of this encounter Additional Source Comments The information contained in this document represents components of the legal health record. It is not the complete legal health record.[facility]
--- OUTSIDE RECORDS SUMMARY | 2025-11-16 09:14 | XMS_ITS | Encounter Summary ---
Author Organization [facility] Address 399 [facility] [address] [place] [address] Phone Care Team Providers Care Rate Manager Name Role Phone Yi Joseph MD Primary Care Provider [phone] Agus Noland MD Unavailable [phone] Self-Referred, Patient Unavailable Unavailab Vaughn Mcallister MD Unavailable Agustin Ybarra MD Unavailable [phone] Camila Yanes RN Unavailable [email or web address] Markus Gregory DO Unavailable Encounter Details Date Type Department Care Team (Late st Contact Info) Description 06/07/2024 Procedure Pass [facility] Cardiac Ultrasound [address] [place] [address] Social History Tobacco Use Types Packs/Day Years Used Date Smoking Tobacco: Never Smokeless Tobacco: Never Alcohol Use Standard Drinks/Week Comments Not Currently 0 (1 standard drink = 0.6 oz pur e alcohol) Education Answer Date Recorded Are you interested in more education? Not on andrea e 03/14/2023 Are you concerned about learning? Not on file 03/14/2023 No 03/14/2023 No 03/14/2023 Digital Access Answer Date Recorded No 04/13/2023 No 04/13/2023 Reliable internet access at home? Not on file 04/13/2023 Device with a working camera? Not on file Comments No Sex and Gender Information Value [...] [facility] [place] Cellular [facility] [address] [facility], 9th Floor, [address] [place] [address] Vaughn Boogie MD [address] [address] [email or web address] [facility] 12/14/2025 11:00 AM EST Nurse Only [facility] Cellular Immunotherapy Program [address] [facility], 9th Floor, [address] [place] [address] Vaughn Boogie MD [address] [address] [email or web address] du 12/14/2025 11:00 AM EST Office Visit [facility] Hematologic Malignancies Clinic [address] [facility], 9th Floor, [address] [place] [address] Vaughn Boogie MD [address] [place] [address] [email or web address] du 03/14/2026 2:30 PM EDT Office Visit [facility] [address] [facility], 5th Floor, [address] [place] [address] Juan Carlos Lim MD 55 [place] [address] [email or web address] .[facility] documented as of this encounter Visit Diagnoses Not on filedocumented in this encounter Additional Health Concerns Infection Onset Date Last Indicated Resolved Time COVID-19 08/16/2024 08/16/2024 09/06/2024 1:21 AM EDT [...] documented as of this encounter Care Teams Rate Manager Relationship Specialty Start Date End Date Yi Joseph MD [facility] [address] PCP - General 11/20/17 Agus Noland MD [address] [place] [address] [address] [place] [address] [email or web address] Primary Oncologist Medical Oncology 06/25/18 Self-Referred, Patient Referring Physician 06/29/18 Vaughn Boogie MD 55 [facility] [address] [place] [address] [email or web address] Primary Oncologist Medical Oncology 11/23/18 Agustin Ybarra MD [address] [place] [address] Division [place] [address] [email or web address] Thoracic Surgery 03/31/19 Camila Yanes RN [address] [place] [address] ALTHEA@[email or web address] Primary Infusion Nurse 06/14/20 Markus Gregory DO [address] [place] [address] [email or web address] Gastroenterology 06/29/24 documented as of this encounter Additional Source Comments The information contained in this document represents components of the legal health record. It is not the complete legal health record.[facility]
--- OUTSIDE RECORDS SUMMARY | 2025-11-16 09:14 | XMS_ITS | Encounter Summary ---
Author Organization [facility] Address [address] [address] Phone Care Team Providers Care Pad Assembler Name Role Phone Yi Joseph MD Unavailable Cj Redding CNP Unavailable [phone] Yi Joseph MD Primary Care Provider [phone] Agus Noland MD Unavailable [phone] Self-Referred, Patient Unavailable Unavailab Vaughn Mcallister MD Unavailable Agustin Ybarra MD Unavailable [phone] Camila Yanes RN Unavailable [email or web address] Markus Gregory DO Unavailable Encounter Details Date Type Department Care Team (Late st Contact Info) Description 04/30/2018 Procedure Pass [facility], Stephen [address] [facility], 2nd [place] [address] Social History Tobacco Use Types Packs/Day Years [...] Description 12/14/2025 10:00 AM EST Blood Draw [facility] [place] Cellular Immunotherapy Program [address] [facility], 9th Floor, [address] [place] [address] Vaughn Boogie MD [address] [address] [email or web address] du 12/14/2025 11:00 AM EST Nurse Only [facility] Cellular Immunotherapy Program [address] [facility], 9th Floor, [address] [place] [address] Vaughn Boogie MD [address] [address] [email or web address]. [facility] 12/14/2025 11:00 AM EST Office Visit [facility] Hematologic Malignancies Clinic [address] [facility], 9th Floor, [address] [place] [address] Vaughn Boogie MD [address] [address] [email or web address]. [facility] 03/14/2026 2:30 PM EDT Office Visit [facility] [address] [facility], 5th Floor, [address] [place] [address] Juan Carlos Lim MD 55 [place] [address] [email or web address] .[facility] documented as of this encounter Visit Diagnoses [...] documented as of this encounter Care Teams Pad Assembler Relationship Specialty Start Date End Date Yi Joseph MD [address] [facility] [place] [address] PCP - General 11/20/17 Yi Joseph MD [address] [facility] [place] [place] [address] Historical LMR Provider 09/06/17 2 Cj Redding WELLNESS PROGRAM MANAGER [address] [place] [address], 2nd [place] [address] Historical LMR Provider 09/06/17 11/24/21 Agus Noland MD [address] [place] [address] Multiple Myeloma [facility] [place] [address] [email or web address] Primary Oncologist Medical Oncology 06/25/18 Self-Referred, Patient Referring Physician 06/29/18 Vaughn Boogie MD 55 [facility] [address] [place] [address] [email or web address] Primary Oncologist Medical Oncology 11/23/18 Agustin Ybarra MD [address] [place] [address] Division [place] [address] [email or web address]. u Thoracic Surgery 03/31/19 Camila Yanes RN [address] [place] [address] [email or web address] Primary Infusion Nurse 06/14/20 Markus Gregory DO [address] [place] [address] [email or web address] Gastroenterology 06/29/24 documented as of this encounter Additional Source Comments The information contained in this document represents components of the legal health record. It is not the complete legal health record.[facility]
--- OUTSIDE RECORDS SUMMARY | 2025-11-16 09:14 | XMS_ITS | Encounter Summary ---
Author Organization [facility] Address [address] [place] [address] Care Team Providers Care Adult Literacy Instructor Name Role Phone Yi Joseph Unavailable Encounter Details Date Type Department Care Team (Late st Contact Info) Description 04/02/2010 Clinical Conversion Encounter Department of Orthopedic Surgery ([address] [place] [address] [address] [place] [address], 2nd [place] [address] Trell Mendieta MD [address] [place] [address] Social History Tobacco Use Types Packs/Day Years Used Date Smoking Tobacco: Never Assessed Comments Unknown Sex and Gender Information Value Date Recorded Sex Assigned at Not on file Legal Sex Female 4:22 PM EST Gender Identity Not on file Sexual Orientation Not on file documented as of this encounter Progress Notes * Trell Mendieta MD - 12/06/2014 6:13 PM EST [id number],JANA [place]. ORTHOPEDIC SURGERY PADMINI CARUSO 04/02/2010 # [id number] : 1950 Second Visit ID: [id number] Visit ID: [id number] Mrs. Caruso is seen in follow up for her right knee injury. She had an acute medial collateral ligament sprain and with small concern for medial meniscus tear. She is still having significant symptoms. She has start up type of pain. She describes pain as 3/10, but 6/10 when she sits too long. Complains of pain medially still. She has been wearing Appling Alvarez brace. She thinks fitting well. We will have her evaluated in the cast room for that, although it seemed fine when I put it on her myself. She does report the pain is significantly worse when she does not wear the brace. Exam shows mild effusion still. Her medial collateral ligament has healed. There is still a few millimeters opening and was better, and with a better end point than when I saw her last. Much less pain with that as well. She has more pain over the posterior medial joint line now and pain with medial Avila. She has a mild effusion. Very mild flexion pain. She gets 0 to 125. Neurovascularly intact. ASSESSMENT AND PLAN: Medial collateral ligament/medial meniscus tear. We are going to have her get an MRI scan to confirm the medial meniscus tear. I told her that we would need to talk about arthroscopy if in fact she does have a tear. She very much like to avoid the surgery. I am going to have her evaluated by the cast techs for the brace. She will call me once she has had the MRI scan closer to home in [place]. I will discuss this with her once she has had the scan. Trell Mendieta MD [phone] [id number] J: [id number] CC: Trell Mendieta MD, <Referring> THIS DOCUMENT WAS ELECTRONICALLY AUTHENTICATED BY Trell Mendieta MD ON 04/05/2010 17:19:34 PROGRESS NOTE [facility] * [address] [place] [address] * [phone] Page 1 of 1 documented in this encounter Plan of Treatment Not on file documented as of this encounter Visit Diagnoses Not on filedocumented in this encounter Care Teams Adult Literacy Instructor Relationship Specialty Start Date End Date Yi Joseph [address] [place] [address] 04/17/24 documented as of this encounter
--- OUTSIDE RECORDS SUMMARY | 2025-11-16 09:14 | XMS_ITS | Encounter Summary ---
Author Organization [facility] Address 399 [facility] [address] [place] [address] Phone Care Team Providers Care Air Sealing Technician Name Role Phone Yi Joseph MD Primary Care Provider [phone] Agus Noland MD Unavailable [phone] Self-Referred, Patient Unavailable Unavailab Vaughn Mcallister MD Unavailable Agustin Ybarra MD Unavailable [phone] Camila Yanes RN Unavailable [email or web address] Markus Gregory DO Unavailable Encounter Details Date Type Department Care Team (Late st Contact Info) Description 09/27/2024 Procedure Pass [facility], [place] 6 55 [facility], 6th [place] [address] Social History Tobacco Use Types Packs/Day Years [...] 12/14/2025 10:[address] [facility] [place] Cellular Immunotherapy Program 32 [facility], 9th Floor, [address] [place] [address] Vaughn Boogie MD 55 [facility] [address] [place] [address] [email or web address] du 12/14/2025 11:00 AM EST Nurse Only [facility] Cellular Immunotherapy Program 32 [facility], 9th Floor, [address] [place] [address] Vaughn Boogie MD [address] [address] [email or web address] [facility] 12/14/2025 11:00 AM EST Office Visit [facility] Hematologic Malignancies Clinic 32 [facility], 9th Floor, [address] [place] [address] Vaughn Boogie MD [address] [address] [email or web address] [facility] 03/14/2026 2:30 PM EDT Office Visit [facility] Clinic [facility] 32 [facility], 5th Floor, [address] [place] [address] Juan Carlos Lim MD 55 [place] [address] [email or web address] documented as of this encounter Goals Goal Patient Goal Type Associated Problems Recent Progress Patient-Stated? Author Acute Care Plan Acute Care Plan Fatuma Slater RN Note: Cellular therapy/ Immune Effector Cell patient. Patient received cellular therapy product on protocol [id number] on 09/22/24 Page the on-call Immune Effector Cell Attending via www.[employer] [facility] Page immediately if patient presents within [...] team evaluation. Patients should be admitted to [place] [address] to the Immune Effector Cell Service. documented [...] documented as of this encounter Care Teams Air Sealing Technician Relationship Specialty Start Date End Date Yi Joseph MD [facility] [place] [address] PCP - General 11/20/17 Agus Noland MD [address] [place] [address] Multiple Myeloma [facility] [place] [address] [email or web address] Primary Oncologist Medical Oncology 06/25/18 Self-Referred, Patient Referring Physician 06/29/18 Vaughn Boogie MD [address] [place] [address] [email or web address] Primary Oncologist Medical Oncology 11/23/18 Agustin Ybarra MD [address] [place] [address] Division [place] [address] [email or web address] Thoracic Surgery 03/31/19 Camila Yanes, RN [address] [place] [address] [email or web address] Primary Infusion Nurse 06/14/20 Markus Gregory [place] [address] [email or web address] Gastroenterology 06/29/24 documented as of this encounter Additional Source Comments The information contained in this document represents components of the legal health record. It is not the complete legal health record.[facility]
--- OUTSIDE RECORDS SUMMARY | 2025-11-16 09:14 | XMS_ITS | Encounter Summary ---
Author Organization [facility] Address 399 [facility] [address] [place] [address] Phone Care Team Providers Care Test Pilot Name Role Phone Yi Joseph MD Unavailable Cj Redding CNP Unavailable [phone] Yi Joseph MD Primary Care Provider [phone] Agus Noland MD Unavailable [phone] Self-Referred, Patient Unavailable Unavailab Vaughn Mcallister MD Unavailable Agustin Ybarra MD Unavailable [phone] Camila Yanes RN Unavailable [email or web address] Markus Gregory DO Unavailable Encounter Details Date Type Department Care Team (Late st Contact Info) Description 05/31/2019 Procedure Pass MRI, [facility] Imaging - [address], [address] [place] [address] Social History Tobacco Use Types [...] [facility] Cellular [facility] Program 32 [facility], 9th Floor, [address] [place] [address] Vaughn Boogie MD [address] [address] [email or web address] du 12/14/2025 11:00 AM EST Nurse Only [facility] Cellular Immunotherapy Program 32 [facility], 9th Floor, [address] [place] [address] Vaughn Boogie MD [address] [address] [email or web address] du 12/14/2025 11:00 AM EST Office Visit [facility] Hematologic Malignancies Clinic 32 [facility], 9th Floor, [address] [place] [address] Vaughn Boogie MD [address] [address] [email or web address] [facility] 03/14/2026 2:30 PM EDT Office Visit [facility] 32 [facility], 5th Floor, [address] [place] [address] Juan Carlos Lim MD 55 [place] [address] [email or web address] .[facility] documented as of this encounter Visit [...] documented as of this encounter Care Teams Test Pilot Relationship Specialty Start Date End Date Yi Joseph MD [address] [facility] [place] [address] PCP - General 11/20/17 Yi Joseph MD [address] [place] [address] Dr [place] Historical LMR Provider 09/06/17 2 Cj Redding CNP 15 [facility], 2nd [place] [address] [email or web address] Historical LMR Provider 09/06/17 11/24/21 Agus Noland MD [address] [place] [address] [facility] [place] [address] [email or web address] Primary Oncologist Medical Oncology 06/25/18 Self-Referred, Patient Referring Physician 06/29/18 Vaughn Boogie MD 55 [facility] [address] [place] [address] [email or web address] Primary Oncologist Medical Oncology 11/23/18 Agustin Ybarra MD [address] [place] [address] Division [place] [address] [email or web address]. u Thoracic Surgery 03/31/19 Camila Yanes, RN 55 [place] [address] [email or web address] Primary Infusion Nurse 06/14/20 Markus Gregory DO [facility] [address] [place] [address] [email or web address] Gastroenterology 06/29/24 documented as of this encounter Additional Source Comments The information contained in this document represents components of the legal health record. It is not the complete legal health record.[facility]
--- OUTSIDE RECORDS SUMMARY | 2025-11-16 09:15 | XMS_ITS | Encounter Summary ---
Author Organization [facility] Address [address] [place] [address] Phone Care Team Providers Care Dental Associate Name Role Phone Yi Joseph MD Primary Care Provider [phone] Agus Noland MD Unavailable [phone] Self-Referred, Patient Unavailable Unavailab Vaughn Mcallister MD Unavailable Agustin Ybarra MD Unavailable [phone] Camila Yanes RN Unavailable [email or web address] Markus Gregory DO Unavailable Encounter Details Date Type Department Care Team (Late st Contact Info) Description 06/28/2025 Procedure Pass [facility] Lab [address] [facility], 5th Floor, [address] [place] [address] Social History Tobacco Use Types Packs/Day Years [...] Description 12/14/2025 10:00 AM EST Blood Draw [facility] [place] Cellular Immunotherapy Program [address], 9th Floor, [address] [place] [address] Vaughn Boogie MD 55 [facility] [address] [place] [address] [email or web address] du 12/14/2025 11:00 AM EST Nurse Only [facility] Cellular Immunotherapy Program [address] [facility], 9th Floor, [address] [place] [address] Vaughn Boogie MD [address] [address] KAREN@[email or web address]. [place] 12/14/2025 11:00 AM EST Office Visit [facility] Hematologic Malignancies Clinic [address] [facility], 9th Floor, [address] [place] [address] Vaughn Boogie MD [address] [address] KAREN@[email or web address] [place] 03/14/2026 2:30 PM EDT Office Visit [facility] [address], 5th Floor, [address] [place] [address] Juan Carlos Lim MD 55 [place] [address] [email or web address] documented as of this encounter Goals Goal Patient Goal Type Associated Problems Recent Progress Patient-Stated? Author Acute Care Plan Acute Care Plan Fatuma Slater RN Note: Cellular therapy/ Immune Effector Cell patient. Patient received cellular therapy product on protocol 22-533 on 09/22/24 Page the on-call Immune Effector Cell Attending via www.[employer] Login [facility] Page immediately if patient presents within the [...] team evaluation. Patients should be admitted to [place] [address] to the Immune Effector Cell Service. documented as of this encounter Visit Diagnoses Not on filedocumented in this encounter Additional Health Concerns Assessment Noted Time PHQ-2 Depression Total Score: 0 04/06/20 19 9:24 AM EDT documented as of this encounter Care Teams Dental Associate Relationship Specialty Start Date End Date Yi Joseph MD [facility] [place] [address] PCP - General 11/20/17 Agus Noland MD [address] [place] [address] [place] [address] [email or web address] Primary Oncologist Medical Oncology 06/25/18 Self-Referred, Patient Referring Physician 06/29/18 Vaughn Boogie MD [address] [place] [address] KAREN@[email or web address] Primary Oncologist Medical Oncology 11/23/18 Agustin Ybarra MD [address] [place] [address] Division [place] [address] [email or web address] Thoracic Surgery 03/31/19 Camila Yanes, MANJU 55 [place] [address] [email or web address]@[email or web address] Primary Infusion Nurse 06/14/20 Markus Gregory DO [address] [place] [address] [email or web address] Gastroenterology 06/29/24 documented as of this encounter Additional Source Comments The information contained in this document represents components of the legal health record. It is not the complete legal health record.[facility]
--- OUTSIDE RECORDS SUMMARY | 2025-11-16 09:15 | XMS_ITS | Encounter Summary ---
Author Organization [facility] Address [address] [facility] [address] [place] [address] Phone Care Team Providers Care Batch Maker Name Role Phone Yi Joseph MD Unavailable Cj Redding CNP Unavailable [phone] Yi Joseph MD Primary Care Provider [phone] Agus Noland MD Unavailable [phone] Self-Referred, Patient Unavailable Unavailab Vaughn Mcallister MD Unavailable Agustin Ybarra MD Unavailable [phone] Camila Yanes RN Unavailable [email or web address] Markus Gregory DO Unavailable Encounter Details Date Type Department Care Team (Late st Contact Info) Description 07/11/2020 Procedure Pass [facility] - [address], [address] [place] [address] Social History Tobacco Use Types [...] [facility] Cellular Immunotherapy Program [address] [facility], 9th Floor, [address] [place] [address] Vaughn Boogie MD [address] [address] [email or web address]. du 12/14/2025 11:00 AM EST Nurse Only [facility] Cellular Immunotherapy Program [address] [facility], 9th Floor, [address] [place] [address] Vaughn Boogie MD [address] [address] KAREN@[email or web address]. du 12/14/2025 11:00 AM EST Office Visit [facility] Hematologic Malignancies Clinic [address] [facility], 9th Floor, [address] [place] [address] Vaughn Boogie MD [address] [address] KAREN@[email or web address]. [facility] 03/14/2026 2:30 PM EDT Office Visit [facility] [address] [facility], 5th Floor, [address] [place] [address] Juan Carlos Lim MD 55 [place] [address] [email or web address] .[facility] documented as of this encounter Visit [...] documented as of this encounter Care Teams Batch Maker Relationship Specialty Start Date End Date Yi Joseph MD [address] [facility] [place] [address] PCP - General 11/20/17 Yi Joseph MD [address] [place] [address] Dr [place] Historical LMR Provider 09/06/17 2 Cj Redding CNP [address] [facility], 2nd [place] [address] [email or web address] Historical LMR Provider 09/06/17 11/24/21 Agus Noland MD [address] [place] [address] [facility] [place] [address] [email or web address] Primary Oncologist Medical Oncology 06/25/18 Self-Referred, Patient Referring Physician 06/29/18 Vaughn Boogie MD [address] [facility] [address] [place] [address] [email or web address] Primary Oncologist Medical Oncology 11/23/18 Agustin Ybarra MD [address] [place] [address] Division [place] [address] [email or web address] u Thoracic Surgery 03/31/19 Camila Yanes, RN 55 [place] [address] [email or web address] Primary Infusion Nurse 06/14/20 Markus Gregory DO [facility] [address] [place] [address] [email or web address] Gastroenterology 06/29/24 documented as of this encounter Additional Source Comments The information contained in this document represents components of the legal health record. It is not the complete legal health record.[facility]
--- OUTSIDE RECORDS SUMMARY | 2025-11-16 09:15 | XMS_ITS | Encounter Summary ---
Author Organization [facility] Address [address] [address] Phone Care Team Providers Care Camera Repair Technician Name Role Phone Yi Joseph MD Unavailable Cj Redding CNP Unavailable [phone] Yi Joseph MD Primary Care Provider [phone] Agus Noland MD Unavailable [phone] Self-Referred, Patient Unavailable Unavailab Vaughn Mcallister MD Unavailable Agustin Ybarra MD Unavailable [phone] Camila Yanes RN Unavailable [email or web address] Markus Gregory DO Unavailable Encounter Details Date Type Department Care Team (Late st Contact Info) Description 11/15/2021 Procedure Pass [facility] MR Imaging, [place] [address] [place] [address] Social History Tobacco Use Types Packs/Day Years [...] 10:00 AM EST Blood Draw [facility] Cellular Immunotherapy Program [address] [facility], 9th Floor, [address] [place] [address] Vaughn Boogie MD [address] [address] KAREN@[email or web address]. heaven 12/14/2025 11:00 AM EST Nurse Only [facility] Cellular Immunotherapy Program [address] [facility], 9th Floor, [address] [place] [address] Vaughn Boogie MD [address] [address] KAREN@[email or web address]. heaven 12/14/2025 11:00 AM EST Office Visit [facility] Hematologic Malignancies Clinic [address] [facility], 9th Floor, [address] [place] [address] Vaughn Boogie MD [address] [address] KAREN@[email or web address]. heaven 03/14/2026 2:30 PM EDT Office [facility] [address] [facility], 5th Floor, [address] [place] [address] Juan Carlos Lim MD 55 [place] [address] [email or web address] .[facility] documented as of [...] documented as of this encounter Care Teams Camera Repair Technician Relationship Specialty Start Date End Date Yi Joseph MD [address] [place] [address] [place] [address] PCP - General 11/20/17 Yi Joseph MD [address] [place] [place] [address] [place] [address] Historical LMR Provider 09/06/17 2 Cj Redding CNP [address] [place] [address], [facility] [place] [address] [email or web address] Historical LMR Provider 09/06/17 11/24/21 Agus Noland MD [address] [place] [address] [facility] [place] [address] [email or web address] Primary Oncologist Medical Oncology 06/25/18 Self-Referred, Patient Referring Physician 06/29/18 Vaughn Boogie MD [address] [place] [address] [email or web address] Primary Oncologist Medical Oncology 11/23/18 Agustin Ybarra MD [address] [place] [address] Division of [place] [address] [email or web address]. u Thoracic Surgery 03/31/19 Camila Yanes, MANJU [address] [place] [address] SEBASTIAN@[facility] Primary Infusion Nurse 06/14/20 Markus Gregory DO [facility] [address] [place] [address] [email or web address] Gastroenterology 06/29/24 documented as of this encounter Additional Source Comments The information contained in this document represents components of the legal health record. It is not the complete legal health record.[facility]
--- OUTSIDE RECORDS SUMMARY | 2025-11-16 09:15 | XMS_ITS | Encounter Summary ---
Author Organization [facility] Address [address] [place] [address] Phone Care Team Providers Care Tone Cabinet Assembler Name Role Phone Yi Joseph MD Unavailable Cj Redding CNP Unavailable [phone] Yi Joseph MD Primary Care Provider [phone] Agus Noland MD Unavailable [phone] Self-Referred, Patient Unavailable Unavailab Vaughn Mcallister MD Unavailable Agustin Ybarra MD Unavailable [phone] Camila Yanes RN Unavailable [email or web address] Markus Gregory DO Unavailable Encounter Details Date Type Department Care Team (Late st Contact Info) Description 11/15/2021 Procedure Pass [facility] [place] [address] [facility], 6th [place] [address] Social History Tobacco Use Types Packs/Day Years [...] Description 12/14/2025 10:00 AM EST Blood Draw [facility] Cellular Immunotherapy Program [address] [facility], 9th Floor, [address] [place] [address] Vaughn Boogie MD [address] [address] [email or web address] du 12/14/2025 11:00 AM EST Nurse Only [facility] Cellular Immunotherapy Program [address] [facility], 9th Floor, [address] [place] [address] Vaughn Boogie MD [address] [address] KAREN@[email or web address]. [place] 12/14/2025 11:00 AM EST Office Visit [facility] Hematologic Malignancies Clinic [address] [facility], 9th Floor, [address] [place] [address] Vaughn Boogie MD [address] [address] KAREN@[email or web address]. [facility] 03/14/2026 2:30 PM EDT Office Visit [facility] [address] [facility], 5th Floor, [address] [place] [address] Juan Carlos Lim MD 55 [place] [address] [email or web address] .[facility] documented as of this [...] documented as of this encounter Care Teams Tone Cabinet Assembler Relationship Specialty Start Date End Date Yi Joseph MD [address] [facility] [place] [address] PCP - General 11/20/17 Yi Joseph MD [facility] [place] [address] Historical LMR Provider 09/06/17 2 Cj Redding CNP [address] [facility], 2nd [place] [address] [email or web address] Historical LMR Provider 09/06/17 11/24/21 Agus Noland MD [address] [place] [address] [facility] Myeloma [facility] [place] [address] [email or web address] Primary Oncologist Medical Oncology 06/25/18 Self-Referred, Patient Referring Physician 06/29/18 Vaughn Boogie MD [address] [place] [address] [email or web address] Primary Oncologist Medical Oncology 11/23/18 Agustin Ybarra MD [address] [place] [address] Division [place] [address] [email or web address]. u Thoracic Surgery 03/31/19 Camila Yanes, MANJU [address] [place] [address] SEBASTIAN@[email or web address] Primary Infusion Nurse 06/14/20 Markus Gregory DO [facility] [address] [place] [address] [email or web address] Gastroenterology 06/29/24 documented as of this encounter Additional Source Comments The information contained in this document represents components of the legal health record. It is not the complete legal health record.[facility]
--- OUTSIDE RECORDS SUMMARY | 2025-11-16 09:15 | XMS_ITS | Encounter Summary ---
Author Organization [facility] Address [address] [facility] [address] [place] [address] Phone Care Team Providers Care Apartment Community Manager Name Role Phone Yi Joseph MD Primary Care Provider [phone] Agus Noland MD Unavailable [phone] Self-Referred, Patient Unavailable Unavailab Vaughn Mcallister MD Unavailable Agustin Ybarra MD Unavailable [phone] Camila Yanes RN Unavailable [email or web address] Markus Gregory DO Unavailable Encounter Details Date Type Department Care Team (Late st Contact Info) Description 09/22/2025 Lab Requisition [facility] Lab Main 55 [place] [address] Ashley De La Torre, MOVIE WRITER 55 [facility] Inpatient Oncology, [facility] Floor [address] [place] [address] [email or web address] Multiple myeloma not having achieved remission Social History Tobacco Use Types Packs/Day Years [...] Description 12/14/2025 10:00 AM EST Blood Draw [facility] Cancer [place] Cellular Immunotherapy Program [address] [facility], 9th Floor, [address] [place] [address] Vaughn Boogie MD [address] [place] [address] [email or web address]. du 12/14/2025 11:00 AM EST Nurse Only [facility] Cellular Immunotherapy Program [address] [facility], 9th Floor, [address] [place] [address] Vaughn Boogie MD [address] [address] [email or web address]. du 12/14/2025 11:00 AM EST Office Visit [facility] Hematologic Malignancies Clinic [address] [facility], 9th Floor, [address] [place] [address] Vaughn Boogie MD [address] [address] KAREN@[email or web address]. [place] 03/14/2026 2:30 PM EDT Office Visit [facility] at [facility] [address] [facility], 5th Floor, [address] [place] [address] Juan Carlos Lim MD 55 [place] [address] [email or web address] documented as of this encounter Goals Goal Patient Goal Type Associated Problems Recent Progress Patient-Stated? Author Acute Care Plan Acute Care Plan Fatuma Slater RN Note: Cellular therapy/ Immune Effector Cell patient. Patient received cellular therapy product on protocol 22-533 on 09/22/24 Page the on-call Immune Effector Cell Attending via www.[employer] [facility] Page immediately if patient presents within [...] team evaluation. Patients should be admitted to [place] [address] to the Immune Effector Cell Service. documented as of this encounter Procedures Procedure Name Priority Date/Time Associated Diagnosis Comments FLOW CYTOMETRY ON TISSUE/FNA/FLUID Routine 09/21/2025 12:53 PM EST Multiple myeloma not having achieved remission documented in this encounter Results * Flow Cytometry on Tissue/FNA/Fluid (09/21/2025 12:53 PM EST) Electronic Signature 5 5:26 PM EST [facility] at 1726 EST. Interpretation Specimen Type: Bone marrow DIFFERENTIAL (% OF SINGLETS): Lymphocytes: 5%; Plasma cells: 0.01% GATE ANALYZED: Lymphocyte / Large cell IMMUNOPHENOTYPIC POPULATIONS (% OF SINGLETS): 0.01% Polytypic plasma cells. <1% Polytypic B cells. INTERPRETATION: There is no evidence of a monotypic plasma cell or B-cell population. This assay may underestimate the number of plasma cells. Flow cytometric assessment of the following antigens was incorporated into the evaluation and interpretation of this specimen: CD19, CD27, CD38, CD45, CD56, CD81, CD117, CD138, cytoplasmic kappa light chain, cytoplasmic lambda light chain (10 total unique antibodies). Professional interpretation of this flow cytometry specimen was performed by the pathologist listed above at [facility], [place], [place]. 5 5:26 PM EST [facility] Regulatory Disclosure The technical component of this test was performed at [facility], [address] [place] [address], [place] [address] (CLIA Site Planner: Sury Sanchez MD, PhD). This test was developed and its performance characteristics determined by [facility]. It has not been cleared or approved by the U.S. Food and Drug Administration (FDA). The FDA has determined that such clearance or approval is not necessary; the performing laboratory has established and verified the test's accuracy and precision. This test is for clinical purposes, and should not be regarded as investigational or for research. The [facility] laboratory and [facility] laboratory are both certified under CLIA-88 as qualified to perform high complexity laboratory testing. By signing electronically, the senior physician certifies that they personally reviewed all the laboratory data of the described specimen(s) and rendered or confirmed the diagnosis(es) related thereto. 5 5:26 PM EST [facility] Bone Marrow Aspirate (Iliac Crest) 09/21/2025 12:53 PM EST 09/22/2025 9:26 AM EST us Ashley De La Torre MOVIE WRITER LAB FLOW CYTOMETRY ORDERAB LES Final Result Performing Organization Address City/State/[facility] Co de Phone Number [facility] [address] [place] [phone] documented in this encounter Visit Diagnoses Diagnosis Multiple myeloma not having achieved remission documented in this encounter Additional Health Concerns Assessment Noted Time PHQ-2 Depression Total Score: 0 04/06/20 19 9:24 AM EDT documented as of this encounter Care Teams Apartment Community Manager Relationship Specialty Start Date End Date Yi Joseph MD [facility] [place] [address] PCP - General 11/20/17 Agus Noland MD [address] [place] [address] [facility] Multiple Myeloma [facility] [place] [address] [email or web address] Primary Oncologist Medical Oncology 06/25/18 Self-Referred, Patient Referring Physician 06/29/18 Vaughn Boogie MD [address] [place] [address] KAREN@[email or web address] Primary Oncologist Medical Oncology 11/23/18 Agustin Ybarra MD [address] [place] [address] Division [place] [address] [email or web address] Thoracic Surgery 03/31/19 Camila Yanes, MANJU [address] [place] [address] SEBASTIAN@[facility] Primary Infusion Nurse 06/14/20 Markus Gregory DO [facility] [address] [place] [address] [email or web address] Gastroenterology 06/29/24 documented as of this encounter Additional Source Comments The information contained in this document represents components of the legal health record. It is not the complete legal health record.[facility]
--- OUTSIDE RECORDS SUMMARY | 2025-11-16 09:15 | XMS_ITS | Encounter Summary ---
Author Organization [facility] Address [address] [address] Phone Care Team Providers Care Plastic Fixture Builder Name Role Phone Yi Joseph MD Unavailable Cj Redding CNP Unavailable [phone] Yi Joseph MD Primary Care Provider [phone] Agus Noland MD Unavailable [phone] Self-Referred, Patient Unavailable Unavailab Vaughn Mcallister MD Unavailable Agustin Ybarra MD Unavailable [phone] Camila Yanes RN Unavailable [email or web address] Markus Gregory DO Unavailable Encounter Details Date Type Department Care Team (Late st Contact Info) Description 12/02/2020 Procedure Pass [facility] Cardiac Ultrasound [address] [place] [address] Social History Tobacco Use Types Packs/Day Years [...] Description 12/14/2025 10:00 AM EST Blood Draw [facility] Cellular Immunotherapy Program 32 [facility], 9th Floor, [address] [place] [address] Vaughn Boogie MD [address] [address] [email or web address] 12/14/2025 11:00 AM EST Nurse Only [facility] Cellular Immunotherapy Program 32 [facility], 9th Floor, [address] [place] [address] Vaughn Boogie MD [address] [address] [email or web address] heaven 12/14/2025 11:00 AM EST Office Visit [facility] H[facility]ologic Malignancies Clinic 32 [facility], 9th Floor, [address] [place] [address] Vaughn Boogie MD [address] [address] [email or web address] [facility] 03/14/2026 2:30 PM EDT Office Visit [facility] at the [facility] 32 [facility], 5th Floor, [address] [place] [address] Juan Carlos Lim MD 55 [place] [address] [email or web address] .[facility] documented as of this encounter Visit Diagnoses Not on filedocumented in this encounter Additional Health Concerns Infection Onset Date Last Indicated Resolved Time COVID-19 Comment:Patient meets 20 day post positive [...] documented as of this encounter Care Teams Plastic Fixture Builder Relationship Specialty Start Date End Date Yi Joseph MD [facility] [place] [address] PCP - General 11/20/17 Yi Joseph MD [address] [facility] [address] Historical LMR Provider 09/06/17 2 Cj Redding SHAKE PACKER [address] [place] [address], 2nd [place] [address] [email or web address] Historical LMR Provider 09/06/17 11/24/21 Agus Noland MD [address] [place] [address] Multiple Myeloma [facility] [place] [address] [email or web address] Primary Oncologist Medical Oncology 06/25/18 Self-Referred, Patient Referring Physician 06/29/18 Vaughn Boogie MD 55 [facility] [address] [place] [address] [email or web address] Primary Oncologist Medical Oncology 11/23/18 Agustin Ybarra MD [address] [place] [address] Division [place] [address] [email or web address]. u Thoracic Surgery 03/31/19 Camila Yanes, MANJU [address] [place] [address] SEBASTIAN@[email or web address] Primary Infusion Nurse 06/14/20 Markus Gregory DO [facility] [address] [place] [address] [email or web address] Gastroenterology 06/29/24 documented as of this encounter Additional Source Comments The information contained in this document represents components of the legal health record. It is not the complete legal health record.[facility]
--- OUTSIDE RECORDS SUMMARY | 2025-11-16 09:15 | XMS_ITS | Encounter Summary ---
Author Organization [facility] Address [address] [address] Phone Care Team Providers Care Recreation Activities Coordinator Name Role Phone Yi Joseph MD Unavailable Cj Redding CNP Unavailable [phone] Yi Joseph MD Primary Care Provider [phone] Agus Noland MD Unavailable [phone] Self-Referred, Patient Unavailable Unavailab Vaughn Mcallister MD Unavailable Agustin Ybarra MD Unavailable [phone] Camila Yanes RN Unavailable [email or web address] Markus Gregory DO Unavailable Encounter Details Date Type Department Care Team (Late st Contact Info) Description 12/02/2020 Procedure Pass [facility], Smith 2 55 [facility], 2nd [place] [address] Social History Tobacco Use Types Packs/Day Years [...] 12/14/2025 10:00 AM EST Blood Draw [facility] Cellular Immunotherapy Program 32 [facility], 9th Floor, [address] [place] [address] Vaughn Boogie MD [address] [address] [email or web address] du 12/14/2025 11:00 AM EST Nurse Only [facility] Cellular Immunotherapy Program 32 [facility], 9th Floor, [address] [place] [address] Vaughn Boogie MD [address] [address] [email or web address] du 12/14/2025 11:00 AM EST Office Visit [facility] Hematologic Malignancies Clinic 32 [facility], 9th Floor, [address] [place] [address] Vaughn Boogie MD [address] [address] [email or web address] [facility] 03/14/2026 2:30 PM EDT Office Visit [facility] Cardiology Clinic at the [facility] 32 [facility], 5th Floor, [address] [place] [address] Juan Carlos Lim MD 55 [place] [address] [email or web address] .[facility] documented as of this encounter Visit Diagnoses Not on filedocumented in this encounter Additional Health Concerns Infection Onset Date Last Indicated Resolved Time COVID-19 Comment:Patient meets 20 day post positive time based requirements and is asymptomatic. 11/24/2020 12/03/2020 12/18/2020 10:27 AM EST COVID-19 05/17/2023 05/17/202306/07/2023 1:21 AM EDT COVID-19 08/16/2024 08/16/2024 09/06/2024 [...] documented as of this encounter Care Teams Recreation Activities Coordinator Relationship Specialty Start Date End Date Yi Joseph MD [facility] [place] [address] PCP - General 11/20/17 Yi Joseph MD [address] [facility] [place] [address] Historical LMR Provider 09/06/17 2 Cj Redding DESIGN ANALYST [address] [place] [address], 2nd [place] [address] [email or web address] Historical LMR Provider 09/06/17 11/24/21 Agus Noland MD [address] [place] [address] Multiple Myeloma [facility] [place] [address] [email or web address] Primary Oncologist Medical Oncology 06/25/18 Self-Referred, Patient Referring Physician 06/29/18 Vaughn Boogie MD 55 [facility] [address] [place] [address] [email or web address] Primary Oncologist Medical Oncology 11/23/18 Agustin Ybarra MD [address] [place] [address] Division [place] [address] [email or web address]. u Thoracic Surgery 03/31/19 Camila Yanes, MANJU 55 [place] [address] SEBASTIAN@[email or web address] Primary Infusion Nurse 06/14/20 Markus Gregory DO [facility] [address] [place] [address] [email or web address] Gastroenterology 06/29/24 documented as of this encounter Additional Source Comments The information contained in this document represents components of the legal health record. It is not the complete legal health record.[facility]
--- OUTSIDE RECORDS SUMMARY | 2025-11-16 09:15 | XMS_ITS | Encounter Summary ---
Author Organization [facility] Address [address] [address] Phone Care Team Providers Care It Communications Specialist Name Role Phone Yi Joseph MD Unavailable Cj Redding CNP Unavailable [phone] Yi Joseph MD Primary Care Provider [phone] Agus Noland MD Unavailable [phone] Self-Referred, Patient Unavailable Unavailab Vaughn Mcallister MD Unavailable Agustin Ybarra MD Unavailable [phone] Camila Yanes RN Unavailable [email or web address] Markus Gregory DO Unavailable Encounter Details Date Type Department Care Team (Late st Contact Info) Description 08/08/2020 Procedure Pass [facility] Emergency Imaging, [address], Floor 1 [place] [address] Social History Tobacco Use Types Packs/Day Years [...] [facility] Cellular Immunotherapy Program 32 [facility], 9th Floor, [address] [place] [address] Vaughn Boogie MD [address] [address] [email or web address] du 12/14/2025 11:00 AM EST Nurse Only [facility] Cellular Immunotherapy Program 32 [facility], 9th Floor, [address] [place] [address] Vaughn Boogie MD [address] [address] [email or web address]. du 12/14/2025 11:00 AM EST Office Visit [facility]ignancies Clinic 32 [facility], 9th Floor, [address] [place] [address] Vaughn Boogie MD [address] [address] KAREN@[email or web address]. du 03/14/2026 2:30 PM EDT Office Visit [facility] Cardiology Clinic at the [facility] 32 [facility], 5th Floor, [address] [place] [address] Juan Carlos Lmi MD 55 [place] [address] [email or web address] .[facility] documented as of this [...] documented as of this encounter Care Teams It Communications Specialist Relationship Specialty Start Date End Date Yi Joseph MD [address] [facility] [place] [address] PCP - General 11/20/[address] [facility] [place] [address] Historical LMR Provider 09/06/17 2 Cj Redding DIRECTOR OF RESPIRATORY THERAPY [address] [facility], 2nd [place] [address] [email or web address] Historical LMR Provider 09/06/17 11/24/21 Agus Noland MD [address] [place] [address] Everett Gonzalez [place] [address] [email or web address] Primary Oncologist Medical Oncology 06/25/18 Self-Referred, Patient Referring Physician 06/29/18 Vaughn Boogie MD [address] [place] [address] [email or web address] Primary Oncologist Medical Oncology 11/23/18 Agustin Ybarra MD [address] [place] [address] Division [place] [address] [email or web address]. u Thoracic Surgery 03/31/19 Camila Yanes, RN [address] [place] [address] SEBASTIAN@[facility] Primary Infusion Nurse 06/14/20 Markus Gregory DO [facility] [address] [place] [address] [email or web address] Gastroenterology 06/29/24 documented as of this encounter Additional Source Comments The information contained in this document represents components of the legal health record. It is not the complete legal health record.[facility]
--- OUTSIDE RECORDS SUMMARY | 2025-11-16 09:15 | XMS_ITS | Encounter Summary ---
Author Organization [facility] Address 399 [employer] [facility] [address] [place] [address] Phone Care Team Providers Care Insurance Consultant Name Role Phone Yi Joseph MD Primary Care Provider [phone] Agus Noland MD Unavailable [phone] Self-Referred, Patient Unavailable Unavailab Vaughn Mcallister MD Unavailable Agustin Ybarra MD Unavailable [phone] Camila Yanes RN Unavailable [email or web address] Markus Gregory DO Unavailable Encounter Details Date Type Department Care Team (Late st Contact Info) Description 09/22/2024 Documentation VIRTUAL DEPARTMENT [address] [place] [phone] Daiana Vega, [address] [phone] [email or web address] Social History Tobacco Use Types Packs/Day Years [...] [facility] Cellular Immunotherapy Program 32 [facility], 9th Floor, [address] [place] [address] Vaughn Boogie MD [address] [address] KAREN@[email or web address] [facility] 12/14/2025 11:00 AM EST Nurse Only [facility] Cellular Immunotherapy Program 32 [facility], 9th Floor, [address] [place] [address] Vaughn Boogie MD [address] [address] KAREN@[email or web address]. [facility] 12/14/2025 11:00 AM EST Office Visit [facility]ologic [facility]ignancies Clinic 32 [facility], 9th Floor, [address] [place] [address] Vaughn Boogie MD [address] [address] KAREN@[email or web address] [facility] 03/14/2026 2:30 PM EDT Office Visit [facility] at [facility] 32 [facility], 5th Floor, [address] [place] [address] Juan Carlos Lim MD 55 [place] [address] [email or web address] documented as of this encounter Goals Goal Patient Goal Type Associated Problems Recent Progress Patient-Stated? Author Acute Care Plan Acute Care Plan Fatuma Slater RN Note: Cellular therapy/ Immune Effector Cell patient. Patient received cellular therapy product on protocol [id number] on 09/22/24 Page the on-call Immune Effector Cell Attending via www.[employer] [facility] Page immediately if patient presents within [...] team evaluation. Patients should be admitted to [place] [address] to the Immune Effector Cell Service. documented [...] documented as of this encounter Care Teams Insurance Consultant Relationship Specialty Start Date End Date Yi Joseph MD [address] [facility] [place] [address] PCP - General 11/20/17 Agus Noland MD [address] [place] [address] [facility] [address] [email or web address] Primary Oncologist Medical Oncology 06/25/18 Self-Referred, Patient Referring Physician 06/29/18 Vaughn Boogie MD 55 [facility] [address] [place] [address] [email or web address] Primary Oncologist Medical Oncology 11/23/18 Agustin Ybarra MD [address] [place] [address] Division [place] [address] [email or web address] Thoracic Surgery 03/31/19 Camila Yanes RN [address] [address] SEBASTIAN@[email or web address] Primary Infusion Nurse 06/14/20 Markus Gregory DO [facility] [address] [place] [address] [email or web address] Gastroenterology 06/29/24 documented as of this encounter Additional Source Comments The information contained in this document represents components of the legal health record. It is not the complete legal health record.[facility]
--- OUTSIDE RECORDS SUMMARY | 2025-11-16 09:15 | XMS_ITS | Encounter Summary ---
Author Organization [facility] Address [address] [address] Phone Care Team Providers Care Morning Show Host Name Role Phone Yi Joseph MD Unavailable Cj Redding CNP Unavailable [phone] Yi Joseph MD Primary Care Provider [phone] Agus Noland MD Unavailable [phone] Self-Referred, Patient Unavailable Unavailab Vaughn Mcallister MD Unavailable Agustin Ybarra MD Unavailable [phone] Camila Yanes RN Unavailable [email or web address] Markus Gregory DO Unavailable Encounter Details Date Type Department Care Team (Late st Contact Info) Description 12/02/2020 Procedure Pass [facility] [place], Smith 2 55 [facility], 2nd [place] [address] Social History Tobacco Use Types Packs/Day Years [...] [facility] Cellular Immunotherapy Program 32 [facility], 9th Floor, [address] [place] [address] Vaughn Boogie MD [address] [address] KAREN@[email or web address]. du 12/14/2025 11:00 AM EST Nurse Only [facility] Cellular Immunotherapy Program 32 [facility], 9th Floor, [address] [place] [address] Vaughn Boogie MD [address] [address] KAREN@[email or web address]. du 12/14/2025 11:00 AM EST [facility] Hematologic Malignancies Clinic 32 [facility], 9th Floor, [address] [place] [address] Vaughn Boogie MD [address] [address] KAREN@[email or web address]. heaven 03/14/2026 2:30 PM EDT Office Visit [facility] 32 [facility], 5th Floor, [address] [place] [address] Juan Carlos Lim MD 55 [place] [address] [email or web address] .[facility] documented as of this [...] documented as of this encounter Care Teams Morning Show Host Relationship Specialty Start Date End Date Yi Joseph MD [facility] [place] [address] PCP - General 11/20/17 Yi Joseph MD [address] [facility] [place] [address] Historical LMR Provider 09/06/17 2 Cj Redding ACCOUNT RECEIVABLE CLERK [address] [place] [address], 2nd [place] [address] [email or web address] Historical LMR Provider 09/06/17 11/24/21 Agus Noland MD [address] [place] [address] Multiple Myeloma [facility] [place] [address] [email or web address] Primary Oncologist Medical Oncology 06/25/18 Self-Referred, Patient Referring Physician 06/29/18 Vaughn Boogie MD 55 [facility] [address] [place] [address] [email or web address] Primary Oncologist Medical Oncology 11/23/18 Agustin Ybarra MD [address] [place] [address] Division of [place]acic [place] [address] [email or web address]. u Thoracic Surgery 03/31/19 Camila Yanes, MANJU 55 [place] [address] [email or web address] Primary Infusion Nurse 06/14/20 Markus Gregory DO [facility] [address] [place] [address] [email or web address] Gastroenterology 06/29/24 documented as of this encounter Additional Source Comments The information contained in this document represents components of the legal health record. It is not the complete legal health record.[facility]
--- OUTSIDE RECORDS SUMMARY | 2025-11-16 09:15 | XMS_ITS | Encounter Summary ---
Author Organization [facility] Address [address] [address] Phone Care Team Providers Care Cantilever Crane Operator Name Role Phone Yi Joseph MD Unavailable Cj Redding CNP Unavailable [phone] Yi Joseph MD Primary Care Provider [phone] Agus Noland MD Unavailable [phone] Self-Referred, Patient Unavailable Unavailab Vaughn Mcallister MD Unavailable Agustin Ybarra MD Unavailable [phone] Camila Yanes RN Unavailable [email or web address] Markus Gregory DO Unavailable Encounter Details Date Type Department Care Team (Late st Contact Info) Description 11/25/2020 Procedure Pass [facility], [place] 6 55 [facility], 6th [place] [address] Social History Tobacco Use Types Packs/Day Years [...] [facility] Cellular Immunotherapy Program 32 [facility], 9th Floor, [address] [place] [address] Vaughn Boogie MD [address] [address] KAREN@[email or web address] du 12/14/2025 11:00 AM EST Nurse Only [facility] Cellular Immunotherapy Program 32 [facility], 9th Floor, [address] [place] [address] Vaughn Boogie MD [address] [address] KAREN@[email or web address] du 12/14/2025 11:00 AM EST Office Visit [facility] Hematologic Malignancies Clinic 32 [facility], 9th Floor, [address] [place] [address] Vaughn Boogie MD [address] [address] KAREN@[email or web address]. heaven 03/14/2026 2:30 PM EDT Office Visit [facility] 32 [facility], 5th Floor, [address] [place] [address] Juan Carlos Lim MD 55 [place] [address] [email or web address] .[facility] documented as of this encounter [...] documented as of this encounter Care Teams Cantilever Crane Operator Relationship Specialty Start Date End Date Yi Joseph MD [facility] [place] [address] PCP - General 11/20/17 Yi Joseph MD [address] [place] [address] Historical LMR Provider 09/06/17 2 Cj Redding TWX OPERATOR [address] [place] [address], 2nd [place] [address] [email or web address] Historical LMR Provider 09/06/17 11/24/21 Agus Noland MD [address] [place] [address] Multiple Myeloma [facility] [place] [address] [email or web address] Primary Oncologist Medical Oncology 06/25/18 Self-Referred, Patient Referring Physician 06/29/18 Vaughn Boogie MD 55 [facility] [address] [place] [address] [email or web address] Primary Oncologist Medical Oncology 11/23/18 Agustin Ybarra MD [address] [place] [address] Division [place] [address] [email or web address]. u Thoracic Surgery 03/31/19 Camila Yanes, MANJU 55 [place] [address] SEBASTIAN@[email or web address] Primary Infusion Nurse 06/14/20 Markus Gregory DO [facility] [address] [place] [address] [email or web address] Gastroenterology 06/29/24 documented as of this encounter Additional Source Comments The information contained in this document represents components of the legal health record. It is not the complete legal health record.[facility]
--- OUTSIDE RECORDS SUMMARY | 2025-11-16 09:15 | XMS_ITS | Encounter Summary ---
Author Organization Formerly [facility] Address [address] [address] Phone Care Team Providers Care Ambulatory Nurse Name Role Phone Yi Joseph MD Unavailable Cj Redding CNP Unavailable [phone] Yi Joseph MD Primary Care Provider [phone] Agus Noland MD Unavailable [phone] Self-Referred, Patient Unavailable Unavailab Vaughn Mcallister MD Unavailable Agustin Ybarra MD Unavailable [phone] Camila Yanes RN Unavailable [email or web address] Markus Gregory DO Unavailable Encounter Details Date Type Department Care Team (Late st Contact Info) Description 11/15/2021 Procedure Pass [facility] MR Imaging, [place] [address] [place] [address] Social History Tobacco Use Types Packs/Day Years [...] [facility] ([facility] [address] [facility], 9th Floor, [address] [place] [address] Vaughn Boogie MD [address] [address] [email or web address] 12/14/2025 11:00 AM EST Nurse Only [facility] ([facility] [address] [facility], 9th Floor, [address] [place] [address] Vaughn Boogie MD [address] [address] [email or web address] 12/14/2025 11:00 AM EST Office Visit [facility] [address] [facility], 9th Floor, [address] [place] [address] Vaughn Boogie MD [address] [address] [email or web address] 03/14/2026 2:30 PM EDT Office Visit [facility] [address] [facility], 5th Floor, [address] [place] [address] Juan Carlos Lim MD [address] [place] [address] [email or web address] documented as of this encounter Visit Diagnoses [...] documented as of this encounter Care Teams Ambulatory Nurse Relationship Specialty Start Date End Date Yi Joseph MD [address] [place] [address] [place] [address] PCP - General 11/20/17 Yi Joseph MD [address] [place] [address] [place] [address] Historical LMR Provider 09/06/17 2 Cj Redding CNP [address] [place] [address], [facility] [place] [address] [email or web address] Historical LMR Provider 09/06/17 11/24/21 Agus Noland MD [address] [place] [address] [facility] [place] [address] [email or web address] Primary Oncologist Medical Oncology 06/25/18 Self-Referred, Patient Referring Physician 06/29/18 Vaughn Boogie MD [address] [place] [address] [email or web address] Primary Oncologist Medical Oncology 11/23/18 Agustin Ybarra MD [address] [place] [address] Division [place] [address] [email or web address] Surgery 03/31/19 Camila Yanes, MANJU [address] [place] [address] [email or web address] Primary Infusion Nurse 06/14/20 Markus Gregory DO [facility] [address] [place] [address] [email or web address] Gastroenterology 06/29/24 documented as of this encounter Additional Source Comments The information contained in this document represents components of the legal health record. It is not the complete legal health record.[facility]
--- OUTSIDE RECORDS SUMMARY | 2025-11-16 09:15 | XMS_ITS ---
Author Organization [facility] Address [address] [place] [address] Phone Care Team Providers Care Topper Packer Name Role Phone Yi Joseph MD Primary Care Provider [phone] Agus Noland MD Unavailable [phone] Self-Referred, Patient Unavailable Unavailab Vaughn Mcallister MD Unavailable Agustin Ybarra MD Unavailable [phone] Camila Yanes RN Unavailable [email or web address] Markus Gregory DO Unavailable Active Problems Patient Care Coordination No te Formatting of this note migh t be different from the original. Patient is currently without any acute Cell Therapy related signs and symptoms and has been cleared by their Cell Therapy MD to transfer care back to their primary oncology team. Patient will continue to be seen by the Cell Therapy research team for protocol required visits. Routine medical care should be managed by the primary team. For any questions please contact: [facility] Cellular Therapy Team phone: [phone] [facility] fax: [phone] Lenalidomide fills at [employer]. Copay is $1.44 Pa approved thru 04/14/25 cmm cardoza [id number] LK Problem Noted Date Diagnosed Date Fever in adult 09/27/2024 Assessment & Plan (09/27/2024 6:21 AM EST): Presents from home after developing fever to 100.8 at home, c/f CRS as below. - sending broad infectious work-up including blood and urine cultures, CXR, respiratory viral panel - tylenol prn for fever, headache - Start cefepime 2g q8 hours for neutropenic fever - hold home levofloxacin Numbness of left lower extremity 09/27/2024 Assessment & Plan (09/30/2024 7:47 AM EST): # headache (resolved) Presents with new LLE numbness and weakness with 3/5 strength in hip flexion, knee extension on left and preserved strength in RLE and upper extremities. Light touch sensation and proprioception intact. Also has new frontal CLARK R>L despite use of tylenol without relief. Brain MRI negative for acute infarct, hemorrhage, or new mass lesion. No tenderness on palpation to spine but with known lesions Total-spine CT (09/27) w/ known MM lesions T6 and L3, but no acute abnormalities. On 09/28, patient reported resolution of CLARK an d LLE paresthesias as well as improvement in LLE weakness; 4/5 strength all extremities. - Defer total spine MRI/MRA given marked symptoms improvement - Should symptoms return, in addition to MRI/MRA, consider neurology consult for this new neuro deficit, as appears less likely to be immune effector cell (IEC) - related - fall precautions - PT/OT eval Assessment & Plan (09/29/2024 9:57 AM EST): # headache (resolved) Presents with new LLE numbness and weakness with 3/5 strength in hip flexion, knee extension on left and preserved strength in RLE and upper extremities. Light touch sensation and proprioception intact. Also has new frontal CLARK R>L despite use of tylenol without relief. Brain MRI negative for acute infarct, hemorrhage, or new mass lesion. No tenderness on palpation to spine but with known lesions Total-spine CT (09/27) w/ known MM lesions T6 and L3, but no acute abnormalities. On 09/28, patient reported resolution of CLARK an d LLE paresthesias as well as improvement in LLE weakness. 4/5 strength all extremities. -- Defer total spine MRI/MRA given marked symptoms improvement - Should symptoms return, in addition to MRI/MRA, consider neurology consult for this new neuro deficit, as appears less likely to be immune effector cell (IEC) - related - fall precautions - PT/OT eval Assessment & Plan (09/28/2024 12:58 PM EST): # headache (resolved) Presents with new LLE numbness and weakness with 3/5 strength in hip flexion, knee extension on left and preserved strength in RLE and upper extremities. Light touch sensation and proprioception intact. Also has new frontal CLARK R>L despite use of tylenol without relief. Brain MRI negative for acute infarct, hemorrhage, or new mass lesion. No tenderness on palpation to spine but with known lesions Total-spine CT (09/27) w/ known MM lesions T6 and L3, but no acute abnormalities. On 09/28, patient reported resolution of CLARK an d LLE paresthesias as well as improvement in LLE weakness. 4/5 strength all extremities. -- Defer total spine MRI/MRA given marked symptoms improvement - Should symptoms return, in addition to MRI/MRA, consider neurology consult for this new neuro deficit, as appears less likely to be immune effector cell (IEC) - related - fall precautions - PT/OT eval Assessment & Plan (09/27/2024 2:58 PM EST): # headache Presents with new LLE numbness and weakness with 3/5 strength in hip flexion, knee extension on left and preserved strength in RLE and upper extremities. Light touch sensation and proprioception intact. Also has new frontal CLARK R>L despite use of tylenol without relief. Brain MRI negative for acute infarct, hemorrhage, or new mass lesion. No tenderness on palpation to spine but with known lesions. - f/u CT total spine -- consider MRI/MRA of spine as next modality of imaging, pending CT results -- consider neurology consult for this new neuro deficit, as appears less likely to be #IEC related - fall precautions - PT/OT eval Assessment & Plan (09/27/2024 6:11 AM EST): Presents with new LLE numbness and weakness with 3/5 strength in hip flexion, knee extension on left and preserved strength in RLE and upper extremities. Light touch sensation and proprioception intact. Also has new headache. - will obtain MRI brain - CT total spine to follow Chronic sinusitis 03/26/2021 Shortness of breath 12/13/2020 SOB (shortness of breath) 12/12/2020 Assessment & Plan (12/13/2020 11:33 AM EST): #COVID-19 infection: PCR turned positive during recent Auto-SCT admission, first +PCR 11/24/20. Consulted Transplant ID, ultimately treated with 2 x 5-day courses of Remdesivir (last 12/08/20), only received Decadron once on 11/25. Did not develop hypoxemia (other than transiently overnight thought to be related to SHAN), symptoms included fever (last 12/04/20), cough, loss of smell/taste. Last COVID PCR+ 12/03/20, per Infection control protocol not re-swabbed in ED. Not hypoxemic in ED this admission, Trops flat, EKG WNL, CXR w/ mild bibasilar patchy opacities, no evidence of PNA or edema. On admission reports persistent cough, smell just starting to return; chest heaviness and SOB 12/11 at home, not relieved by home O2 3L, prior to presenting to ED, now resolved since 12/12 AM. She also reported episode of dizziness 12/11 w/ trip/fall going up stairs, no acute pain, no significant bruises, no LOC, no headstrike. - Daily weights and I&Os - Trend CRP/Ferritin/D-dimer - Touchbase with ID if worsening s/s - Defer CT PE chest since no symptoms and labs stable - No further SOB, will defer Decadron 6mg Daily - Per last Transplant ID recs/discharge instructions: Maintain Enhanced Respiratory Isolation/Precautions No need to repeat further PCRs/PRO's, however low threshold to retest for COVID if symptomatic in future. 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 Coli iso F&N, started cefepime eventually transitioned to 5-day course of Augmentin on count recovery and completed this on 12/12/20. No longer neutropenic. - Continue ppx Acyclovir and Entecavir (06/22/18 HBC Core Ab+, Surface Ab low) - Blood Cx/ Urine Cx/CXR PRN Temp >100.4?, sputum culture if able - Stool for C.diff if diarrhea, PRN Imodium for loose stools #SHAN: H/o obstructive sleep apnea, has not used CPAP at night for 4 years. She uses nocturnal O2 PRN at home and did require 3L's supplemental O2 overnight with sats back to normal (>93%) upon awakening. - Supplemental O2 if needed - Monitoring as above Acute loss of vision 12/02/2020 Assessment & Plan (12/09/2020 9:12 AM EST): On 12/02/20, she reported sudden/acute central vision loss of R eye as well as flushing lights in the L eye. Neurologically exam intact. She reported seeing a hutchinson curtain in her R eye which was more then a line. Within 30 minutes to an hour her R eye vision was more blurry with vision improved. 12/[address] with and without contrast did not reveal stroke or bleed but revealed atherosclerotic calcified plaques in both carotid siphons causing mild stenosis, with a plaque adjacent to the origin of the right ophthalmic artery with good opacification in the intraconal portion likely in a setting of PVD. Neurology consulted 12/02/20 who recommended stroke work up (in setting of hypercoagulability of malignancy and COVID19) with c/f vascular event (BRAO). Was not a tPA candidate given thrombocytopenia and not an endovascular candidate given lack of large vessel occlusion. Started on atorvastatin 80 mg QD, then dose reduced 12/03 given normal lipid panel and absence of significant atherosclerosis (and based on 10-year ASCVD risk of 8.2%). Ophthalmology also consulted 12/02/20 and felt differential included impending CRVO, BRAO. Hgb A1c 6.4%. Throid test WNL. Lipid panel unremarkable. 12/02 MRI brain/face (orbits) and MRA neck was limited by motion artifact, however results unremarkable. Vision back to baseline, however notes that needs her glasses to read text (new for her). TTE: No LV thrombus., LA thrombus cannot be excluded by this transthoracic technique, normal LV and RV systolic function, no LV wall motion abnormalities, trace AR - Appreciate involvement of Neurology and Ophthalmology teams - Atorvastatin 20 mg QD --- Monitor LFTs - Hold ASA given thrombocytopenia; plan to restart with plts> 50K per Neuro - Will need 30D Holter monitor upon D/C, she received a call and this will be sent to her - Neuro arranged outpatient vascular neurology follow-up Sleep apnea 11/25/2020 Assessment & Plan (12/08/2020 10:55 AM EST): H/o obstructive sleep apnea, has not used CPAP at night for 4 years. She uses nocturnal O2 PRN at home - O2 saturation monitoring especially at night - Supplemental O2 if needed - Patient inquiring about a script for home O2 concentrator as hers is very old , which was provided COVID-19 11/25/2020 Assessment & Plan (12/09/2020 9:11 AM EST): PRO negative x2 11/19 & 11/22. Staff exposure documented 11/21, per Infection Control she did not meet criteria for COVID exposure (patient and staff both wore mask) , therefore was not on Enhanced precautions. 11/24 she developed new cough an tickle to throat, infection control then requested COVID-19 testing, with PCR then POSITIVE. She was given loading dose of Remdesivir 200mg IV X1 on 11/24 then 100mg IV daily 11/24-11/28 and Decadron 6mg IV X1 on 11/25. Transplant ID, Infection Control following. Chest CT 12/05 with mild bronchial wall thickening and GGO nodules in upper lobes as well as small 4 mm nodule in the RUL likely noncalcified granuloma or inflammatory/infectious nodule. Repeat PRO 12/03/20 per ID recommendations returned positive. Given COV2 PCR 11/24 was 25.9 and repeat was 22, ID recommended another course of Remdesivir given low risk and possible benefit without recommendations for further Decadron. Symptoms are improved - Maintain Enhanced Respiratory Isolation/Precautions - Discharge instructions per ID iso +COVID: No need to repeat further PCRs/PRO's, however low threshold to retest for COVID if symptomatic in future. Will need to quarantine 2 weeks after last +PRO (through 12/17) - Chest CT in 6-8 weeks to monitor RUL nodule and earlier if worse respiratory symptoms related to COVID - Supportive care: Tessalon 100-200mg PO TID PRN, Rotitussin PRN (obtained capsules and using as non- formulary) Infectious disease 11/20/2020 Assessment & Plan (09/30/2024 12:22 PM EST): # Neutropenic fever Received CAR-T outpatient with levofloxacin prophylaxis. Presented from home on 09/27 (Day +5 s/p CAR-T) with febrile neutropenia ( T100.8F at home, 101.4F in hospital). Mild cough recently as outpatient; CXR negative for PNA. Respiratory viral panel negative. Covid (-) x2. UA bland w/ negative Ucx. Cultures sent. MRSA screen (- ). Prophylactic Levofloxacin was rotated to empiric Cefepime for F&N coverage. Ongoing fevers (Tmax 102.1F). Last fever 1112 AM (101F). Fevers likely 2/2 CRS. Discontinued Vancomycin 1.25 g IV Q12H (D1=09/27) on 09/29 w/ negative blood cxs x48H and neg MRSA. - Discontinue Cefepime 2g IV q8h (D1=09/27) today 09/30 w/ ANC >1k - f/u blood cultures - CRS management, as noted elsewhere - PRN robitussin/tessalon sandy for cough - if febrile, repeat blood cultures q24h Prophylaxis: - s/p Fluconazole 400 mg PO daily given completion of HD steroids - Continue Acyclovir 400mg BID for VZV/HSV ppx - Continue Mepron 1500 mg daily for PJP ppx - Continues Entecavir 0.5 mg daily (to prevent Hep B reactivation) Assessment & Plan (09/29/2024 9:57 AM EST): # Neutropenic fever Received CAR-T outpatient with levofloxacin prophylaxis. Presented from home on 09/27 (Day +5 s/p CAR-T) with febrile neutropenia ( T100.8F at home, 101.4F in hospital). Mild cough recently as outpatient; CXR negative for PNA. Respiratory viral panel negative. Covid (-) x2. UA bland w/ negative Ucx. Cultures sent. MRSA screen (- ). Prophylactic Levofloxacin was rotated to empiric Cefepime for F&N coverage. Ongoing fevers (Tmax 102.1F). Last fever 1112 AM (101F). Fevers likely 2/2 CRS. - D/c vancomycin 1.25 g IV Q12H (D1=09/27) as blood cx's negative x48H and MRSA screen negative - Cefepime 2g IV q8h (D1=09/27) - f/u blood cultures--NGTD - CRS management, as noted elsewhere - PRN robitussin/tessalon sandy for cough - if febrile, repeat blood cultures q24h Prophylaxis: - D/c Fluconazole 400 mg PO daily given completion of HD steroids - Continue Acyclovir 400mg BID for VZV/HSV ppx - Continue Mepron 1500 mg daily for PJP ppx - Continues Entecavir 0.5 mg daily (to prevent Hep B reactivation) Assessment & Plan (09/28/2024 2:37 PM EST): # Neutropenic fever Received CAR-T outpatient with levofloxacin prophylaxis. Presented from home on 09/27 (Day +5 s/p CAR-T) with febrile neutropenia ( T100.8F at home, 101.4F in hospital). Mild cough recently as outpatient; CXR negative for PNA. Respiratory viral panel negative. Covid (-) x2. UA bland w/ negative Ucx. Cultures sent. Prophylactic Levofloxacin was rotated to empiric Cefepime for F&N coverage. Ongoing fevers (Tmax 102.1F). Fevers may also be related to CRS. - Cefepime 2g IV q8h (D1=09/27) - vancomycin 1.25 g IV Q12H (D1=09/27) w/ trough due tomorrow 09/29 @ 0500 - if blood cx's negative x48H and MRSA screen negative, d'c vancomycin IV - f/u blood cultures--NGTD - CRS management, as noted elsewhere - PRN robitussin/tessalon sandy for cough - if febrile, repeat blood cultures q24h Prophylaxis: - Start fluconazole 400 mg PO daily today 09/28 iso HD and likelihood to continue past 09/29 AM - Continue Acyclovir 400mg BID for VZV/HSV ppx - Continue Mepron 1500 mg daily for PJP ppx - Continues Entecavir 0.5 mg daily (to prevent Hep B reactivation) Assessment & Plan (09/27/2024 2:58 PM EST): # neutropenic fever Received CAR-T outpatient with levofloxacin prophylaxis. Presented from home on 09/27 (Day +5 s/p CAR-T) with febrile neutropenia ( T100.8F at home, 101.4F in hospital). Mild cough recently as outpatient; CXR negative for PNA. Respiratory viral panel negative. UA negative. Cultures sent. Prophylactic Levofloxacin was rotated to empiric Cefepime for F&N coverage. Fevers may also be related to CRS. - f/u Ucx - f/u blood cultures (sent 09/27) - repeat COVID swab 09/27 @ 2100 for clearance - PRN robitussin/tessalon sandy for cough - Cefepime 2g IV q8h (D1=09/27) - if febrile, repeat blood cultures q24h Prophylaxis: - Continue Acyclovir 400mg BID for VZV/HSV ppx - Continue Mepron 1500 mg daily for PJP ppx - Continues Entecavir 0.5 mg daily (to prevent Hep B reactivation) Assessment & Plan (12/09/2020 9:11 AM EST): Diagnosed with COVID 11/24 (please see COVID-19 section). Loose stools 11/29, C. Diff antigen negative. Developed first fever 12/03, CXR neg. Bcx with NGTD. Currently afebrile. First temp 12/03. Manrique-cultured. 12/04 UCx with moderate E Coli. Started on cefepime, tolerated test dose (PCN allergy) however s/p Lola for nasal congestion and throat irritation after full dose of cefepime, though unclear if symptoms were more attributed to +COVID. Remains afebrile. - Continue Augmentin 500mg BID X 5 days course - Remdesivir completed as noted elsewhere (please see COVID-19 section) - Acyclovir 400mg PO BID - Entecavir 0.5mg QD for Hep B ppx (06/22/18 HBC Core Ab+, Surface Ab low) - Blood Cx/ Urine Cx/CXR PRN Temp >100.4? 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 Day 0= 11/23/2020 Primary Outpatient Provider: Vaughn Boogie MD (Myeloma) / Fernando Henry MD (BMT) Plan: Today, 12/13/20 is Day +20 of ASCT c/w HD Melphalan. Course c/b Melphalan-related nausea and poor PO intake iso dysgeusia and lack of smell due to +COVID; this is improving and pt reports eating small amounts with each meal. Counts are now recovering in all lines. 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 Day 0= 11/23/2020 Primary Outpatient Provider: Vaughn Boogie MD (Myeloma) / Fernando Henry MD (BMT) Plan: PICC placed on admit. Today 12/09/20 is Day +16 of ASCT c/w HD Melphalan. Experiencing Melphalan- related nausea and poor PO intake iso dysgeusia and lack of smell due to +COVID. Counts are now recovering - Transfuse PRN for Hgb<8, Plt<10 (leukoreduced and irradiated products only), no transfusions indicated - Antiemetics and IVF per protocol - No G-CSF iso recent severe allergic reaction - Omeprazole GI ppx - Nutrition following. Continue to monitor PO intake - Remove PICC prior to D/C Completed onditioning chemotherapy as follows: Melphalan (70mg/m2) IV daily on Days: -3,-2 Taking medication for chronic disease 06/29/2018 Assessment & Plan (09/30/2024 7:47 AM EST): # Hypertension: home amlodipine-olmesartan and Bystolic, not on formulary - HOLDING home anti-hypertensive meds due to CRS # Hyperlipidemia: - Continue Crestor Assessment & Plan (09/29/2024 9:57 AM EST): # Hypertension: home amlodipine-olmesartan and Bystolic, not on formulary - holding home anti-hypertensive meds due to CRS # Hyperlipidemia: - Continue Crestor Assessment & Plan (09/28/2024 2:37 PM EST): # Hypertension: home amlodipine-olmesartan and Bystolic, not on formulary - holding home anti-hypertensive meds due to CRS # Hyperlipidemia: - Continue Crestor Assessment & Plan (09/27/2024 2:58 PM EST): # Hypertension: home amlodipine-olmesartan and Bystolic, not on formulary - holding home anti-hypertensive meds due to CRS # Hyperlipidemia: - Continue Crestor Assessment & Plan (09/27/2024 6:07 AM EST): # Other Medical Issues Hypertension: home amlodipine-olmesartan and Bystolic, not on formulary and currently held given CRS concerns Hyperlipidemia: Continue Crestor Assessment & Plan (12/13/2020 11:27 AM EST): #HTN: 07/2020 presented from PCP -> ED w/ chest pain and ventricular bigeminy on ECG. 08/2020 Zio-patch noted SR, rare runs of SVT <10 beats, rare PACs, rare PVCs and patient triggers w/o correlation to significant arrhythmia. Pre-transplant TTE 11/13/20 w/ LVEF 62% and Trace tricuspid and pulmonary regurgitation, otherwise WNL. Patient reports palpitations when switched off specific brands of antihypertensives/beta-annita. Had palpitations x1, none since. BP's well controlled. - Amlodipine-olmesartan (Ovi) 10-40mg QD (home medication, non formulary) - Nebivolol 2.5mg nightly (home medication, non formulary) - Patient has refills of her antihypertensives at home #Vit D deficiency: - Vitamin D 4000 units po QD (home medication) Assessment & Plan (12/08/2020 10:54 AM EST): #HTN: 07/2020 presented from PCP -> ED w/ chest pain and ventricular bigeminy on ECG. 08/2020 Zio-patch noted SR, rare runs of SVT <10 beats, rare PACs, rare PVCs and patient triggers w/o correlation to significant arrhythmia. Pre-transplant TTE 11/13/20 w/ LVEF 62% and Trace tricuspid and pulmonary regurgitation, otherwise WNL. Patient reports palpitations when switched off specific brands of antihypertensives/beta-annita. Had palpitations x1, none since. BP's well controlled. - Amlodipine-olmesartan (Ovi) 10-40mg QD (home medication, non formulary) - Nebivolol 2.5mg nightly (home medication, non formulary) - Patient has refills of her antihypertensives at home #Vit D deficiency: - Vitamin D 4000 units po QD (home medication) Multiple myeloma not having achieved remission 0 06/22/2018 Assessment & Plan (09/30/2024 12:21 PM EST): Diagnosis: multiple myeloma Current Treatment: Protocol 22-533 ARC-ddBCMA. S/p outpatient LDC and CAR-T. Day 0 (09/22/24) Disease Status: relapsed/refractory Primary Oncologist: MD Bibi (PI of protocol))/ Dr. Vaughn Boogie (Multiple Myeloma) Today 09/30/24 is day +8 of ddBCMA CAR-T. - Transfuse leukoreduced, irradiated blood products to keep hgb > 7, PLT > 10 - IVF and anti-emetics PRN - defer any G-CSF due to severe allergy (dyspnea and angina w/ tbo-filgrastim), reviewed neutropenic precautions CRS: Currently no e/o CRS. Patient initially reached grade 1 CRS on day +5 (09/27) with fevers (Tmax 101.F). On 09/28 (day +6) patient w/ ongoing CRS (Tmax 102.1F) iso rapid CRP increase in 24H (9-->68.4). Per discussion w/ PI, patient received tocilizumab 8 mg/kg x1 and dexamethasone 10 mg IV x3 (09/28 AM-09/29 AM). - Monitor closely for CRS (i.e. fevers, tachycardia, hypotension, hypoxia) - If febrile, rule out/treat potential infectious sources - For prolonged grade 1 CRS or for Grade 2 (or above), page PI/attending for consideration of tocilizumab AND steroids - Trend CRP, ferritin, and coagulation studies At risk for neurotoxicity: Currently no e/o neurotoxicity. ICE 10/. Presented on day +5 (09/27) with new LLE weakness, and headache. ICE 10. Inflammatory markers normal. Does endorse CLARK. Brain MRI negative. New #LLE weakness as discussed elsewhere. Less likely to be IEC toxicity at this point with workup still pending. - Monitor closely for signs of neurotoxicity (i.e. confusion, altered mental status, altered level of consciousness, seizure, aphasia) - Keppra 500 mg PO BID for seizure prophylaxis - For s/sx of neurological toxicity, page PI/attending for consideration of steroids At risk for tumor lysis syndrome: No current e/o TLS. - Monitor TLS labs daily - Allopurinol 300 mg PO daily At risk for DIC: - monitor coags daily Assessment & Plan (09/29/2024 9:57 AM EST): Diagnosis: multiple myeloma Current Treatment: Protocol 22-533 ARC-ddBCMA. S/p outpatient LDC and CAR-T. Day 0 (09/22/24) Disease Status: relapsed/refractory Primary Oncologist: MD Bibi (PI of protocol))/ Dr. Vaughn Boogie (Multiple Myeloma) Today 09/29/24 is day +7 of ddBCMA CAR-T. - Transfuse leukoreduced, irradiated blood products to keep hgb > 7, PLT > 10 - IVF and anti-emetics PRN -1L LR today 09/28 for poor PO intake and ongoing fevers - defer any G-CSF due to severe allergy (dyspnea and angina w/ tbo-filgrastim), reviewed neutropenic precautions CRS: Currently no e/o CRS. Patient initially reached grade 1 CRS on day +5 (09/27) with fevers (Tmax 101.F). On 09/28 (day +6) patient w/ ongoing CRS (Tmax 102.1F) iso rapid CRP increase in 24H (9-->68.4). Per discussion w/ PI, patient received tocilizumab 8 mg/kg x1 and dexamethasone 10 mg IV x3 (09/28 AM-09/29 AM). CRP now almost doubling in 24H (68.4--> 119.9). - Monitor closely for CRS (i.e. fevers, tachycardia, hypotension, hypoxia) - If febrile, rule out/treat potential infectious sources - For prolonged grade 1 CRS or for Grade 2 (or above), page PI/attending for consideration of tocilizumab AND steroids - Trend CRP, ferritin, and coagulation studies At risk for neurotoxicity: Currently no e/o neurotoxicity. ICE 10/. Presented on day +5 (09/27) with new LLE weakness, and headache. ICE 08/26. Inflammatory markers normal. Does endorse CLARK. Brain MRI negative. New #LLE weakness as discussed elsewhere. Less likely to be IEC toxicity at this point with workup still pending. - Monitor closely for signs of neurotoxicity (i.e. confusion, altered mental status, altered level of consciousness, seizure, aphasia) - Keppra 500 mg PO BID for seizure prophylaxis - For s/sx of neurological toxicity, page PI/attending for consideration of steroids At risk for tumor lysis syndrome: No current e/o TLS. - Monitor TLS labs daily - Allopurinol 300 mg PO daily At risk for DIC: - monitor coags daily Assessment & Plan (09/28/2024 2:37 PM EST): Diagnosis: multiple myeloma Current Treatment: Protocol 22-533 ARC-ddBCMA. S/p outpatient LDC and CAR-T. Day 0 (09/22/24) Disease Status: relapsed/refractory Primary Oncologist: MD Bibi (PI of protocol))/ Dr. Vaughn Boogie (Multiple Myeloma) Today 09/28/24 is day +6 of ddBCMA CAR-T. - Transfuse leukoreduced, irradiated blood products to keep hgb > 7, PLT > 10 - IVF and anti-emetics PRN -1L LR today 09/28 for poor PO intake and ongoing fevers - defer any G-CSF due to severe allergy (dyspnea and angina w/ tbo-filgrastim), reviewed neutropenic precautions CRS: Currently w/ gr 1 CRS (Tmax 102.1F). CRP 9-->68.4 in 24H. Patient initially reached grade 1 CRS on day +5 (09/27) with fevers (Tmax 101.F). - Per discussion w/ PI today 09/28, given rapid CRP increase in 24H and worsening fever curve, will treat as follows: - Tocilizumab 8 mg/kg w dexamethasone 10 mg IV x1 1112 AM - Dexamethasone 10 mg IV must be administered w/ first dose of tocilizumab per protocol - Dexamethasone 10 mg IV 09/28 @ 1600 and 09/29 @ 0900 - Monitor closely for CRS (i.e. fevers, tachycardia, hypotension, hypoxia) - If febrile, rule out/treat potential infectious sources - For prolonged grade 1 CRS or for Grade 2 (or above), page PI/attending for consideration of tocilizumab AND steroids - Trend CRP, ferritin, and coagulation studies At risk for neurotoxicity: Currently no e/o neurotoxicity. ICE 08/26. Presented on day +5 (09/27) with new LLE weakness, and headache. ICE 08/26. Inflammatory markers normal. Does endorse CLARK. Brain MRI negative. New #LLE weakness as discussed elsewhere. Less likely to be IEC toxicity at this point with workup still pending. - Monitor closely for signs of neurotoxicity (i.e. confusion, altered mental status, altered level of consciousness, seizure, aphasia) - Keppra 500 mg PO BID for seizure prophylaxis - For s/sx of neurological toxicity, page PI/attending for consideration of steroids At risk for tumor lysis syndrome: No current e/o TLS. - Monitor TLS labs daily - Allopurinol 300 mg PO daily At risk for DIC: - monitor coags daily Assessment & Plan (09/27/2024 2:58 PM EST): Diagnosis: multiple myeloma Current Treatment: Protocol 22533 ARC-ddBCMA, day 0 (09/22/24) Disease Status: relapsed/refractory Primary Oncologist: Dr. Vaughn Boogie (myeloma)/ Dr. Rubin Villalpando (cellular therapies) Today 09/27/24 is day +5 of ddBCMA CAR-T. Received LDC and CAR-T outpatient; here with with F&N/CRS amd possible IEC toxicities (CLARK, LLE weakness) - supportive care - defer any G-CSF due to severe allergy, reviewed neutropenic precautions CRS: Patient reached grade 1 CRS on day +5 (09/27) with fevers (Tmax 101.F). Supportive care for now. CRP and ferritin normal range. - Monitor closely for CRS (i.e. fevers, tachycardia, hypotension, hypoxia) - If febrile, rule out/treat potential infectious sources - For onset within 72H, prolonged grade 1 CRS or for Grade 2 (or above), page PI/attending for consideration of tocilizumab AND steroids - Trend CRP, ferritin, and coagulation studies At risk for neurotoxicity: Currently none. Presented on day +5 (09/27) with new LLE weakness, and headache. ICE 08/26. Inflammatory markers normal. Does endorse CLARK. Brain MRI negative. New #LLE weakness as discussed elsewhere. Less likely to be IEC toxicity at this point with workup still pending. - Monitor closely for signs of neurotoxicity (i.e. confusion, altered mental status, altered level of consciousness, seizure, aphasia) - Keppra 500 mg PO BID for seizure prophylaxis - For s/sx of neurological toxicity, page PI/attending for consideration of steroids At risk for tumor lysis syndrome: - Monitor TLS labs daily - Allopurinol 300 mg PO daily At risk for DIC: - monitor coags daily Assessment & Plan (09/27/2024 6:11 AM EST): Diagnosis: multiple myeloma Current Treatment: Protocol 22-533 ARC-ddBCMA, day 0 (09/22/24) Disease Status: relapsed/refractory Primary Oncologist: Dr. Vaughn Boogie (myeloma)/ Dr. Rubin Villalpando (cellular therapies) Bridging therapy completed on 09/08/24 with cyclophosphamide and dex. Receiving CAR T therapy on on protocol -53 ARC-ddBCMA as an outpatient. Today is Day +5 CANNOT receive G-CSF due to severe allergy, reviewed neutropenic precautions #Cough Improved, CXR yesterday negative. #CRS/Neurotox Management: Obtain daily CRP, ferritin, and DIC labs Monitor for CRS/neurotoxicity per hospital guidelines, grd 1 today (09/27) Tocilizumab/steroids discussed with inpatient attending - no indication currently Continue Keppra 500 mg BID for seizure prophylaxis # Prophylaxis: Continue Acyclovir 400mg BID for VZV ppx Continue Mepron 1500 mg daily for PCP ppx today Continue Levo 500 mg daily today given she is a outpatient (using levo as she has tolerated this medication, she does not tolerate cipro from a GI standpoint) Continues entecavir 0.5 mg daily # Vaccinations Covid and flu vaccine okay 3 months post CART infusion Current Treatment and Therapy Plans : REG ([facility])* Plan Start Date:09/17/2024 Plan Provider:Vaughn Boogie MD Linked Problems Multiple myeloma not having achieved remission Treatment Medications cycloPHOSphamide (CYTOXAN) i nfusion 100 mL (liquid vial)fludarabine (FLUDARA) IVPB {solution vial} 24 MONTHS [facility] POST AUTOLOGOUS HEMATOPOIETIC CELL TRANSPLANT VACCINES* Plan Start Date:01/20/2023 Plan Provider:Brynn Mireles CNP Linked Problems Multiple myeloma not having achieved remission Treatment Medications No medications scheduled. DENOSUMAB (XGEVA)* Plan Start Date:06/04/2021 Plan Provider:Jan Mancera CNP Linked Problems Multiple myeloma not having achieved remission Treatment Medications No medications scheduled. IMMUNE GLOBULIN (IVIG)??* Plan Start Date:01/01/2025 Plan Provider:Adis Mtz MD Linked Problems Multiple myeloma not having achieved remission Treatment Medications No medications scheduled. Past Treatment and Therapy Plans BMT PLAN Plan Name Start Date Discontinue Date Treatment Medications Discontinue Reason Plan Provider Cycles IP BMT 952 [facility] AUTO MELPHALAN 11/20/2020 02/16/2023 melphalan (EVOMELA) 2 mg/mL in NS IVPB Fr bag a. Therapy Complete Fernando Henry MD 1 of 1 cycle started Oncology Therapy Plan Plan Name Start Date Discontinue Date Treatment Medications Discontinue Reason Plan Provider ZOLEDRONIC ACID MONTHLY ( ZOMETA ) 11/23/2018 06/04/2021 No medications scheduled. f. Change in Level of Care Vaughn Boogie MD Oncology Therapy Plan Supplemental Plan Name Start Date Discontinue Date Treatment Medications Discontinue Reason Plan Provider 18 MONTHS [facility] POST AUTOLOGOUS HEMATOPOIETIC CELL TRANSPLANT VACCINES 08/05/2022 12/09/2022 No medications scheduled. a. Therapy Complete Vaughn Boogie MD 12 MONTHS [facility] POST AUTOLOGOUS HEMATOPOIETIC CELL TRANSPLANT VACCINES 02/05/2022 04/02/2022 No medications scheduled. a. Therapy Complete Vaughn Boogie MD PLERIXAFOR 08/13/2020 08/09/2021 No medications scheduled. a. Therapy Complete Kyle Eisenberg MD Oncology Therapy Plan Supplemental 2 Plan Name Start Date Discontinue Date Treatment Medications Discontinue Reason Plan Provider 9 MONTHS [facility] POST AUTOLOGOUS HEMATOPOIETIC CELL TRANSPLANT VACCINES 02/05/2022 No medications scheduled. a. Therapy Complete Vaughn Boogie MD 6 MONTHS [facility] POST AUTOLOGOUS HEMATOPOIETIC CELL TRANSPLANT VACCINES 06/04/2021 2021 No medications scheduled. a. Therapy Complete Jan Mancera, NIKKI TREATMENT PLAN Plan Name Start Date Discontinue Date Treatment Medications Discontinue Reason Plan Provider Cycles CYCLOPHOSPHAMIDE (PO/IV) / DEXAMETHASONE 024 09/17/2024 cycloPHOSphamide (CYTOXAN)cycloPHOS phamide (CYTOXAN) infusion 100 mL (liquid vial) a. Therapy Complete Vaughn Boogie MD 1 of 10 cycles started DARATUMUMAB (IV/SC) 06/06/20 20 08/04/2024 daratumumab-hyalur onidase-fihj (DARZALEX FASPRO) a. Therapy Complete Vaughn Boogie MD 23 of 23 cycles started DARATUMUMAB/WEEKLY BORTEZOMIB/DEXAMET HASONE 01/25/20 20 06/06/2020 bortezomib (VELCADE)daratumum ab (DARZALEX) IVPBdaratumumab (DARZALEX) IVPB in NS 1000 mL Bag a. Therapy Complete Vaughn Boogie MD 1 of 7 cycles started
--- OUTSIDE RECORDS SUMMARY | 2025-11-16 09:15 | XMS_ITS | Encounter Summary ---
Author Organization [facility] Address [address] [address] Phone Care Team Providers Care Second Cook And Baker Name Role Phone Yi Joseph MD Unavailable Cj Redding CNP Unavailable [phone] Yi Joseph MD Primary Care Provider [phone] Agus Noland MD Unavailable [phone] Self-Referred, Patient Unavailable Unavailab Vaughn Mcallister MD Unavailable Agustin Ybarra MD Unavailable [phone] Camila Yanes RN Unavailable [email or web address] Markus Gregory DO Unavailable Encounter Details Date Type Department Care Team (Late st Contact Info) Description 12/02/2020 Procedure Pass [facility], [place] 6 55 [facility], 6th [place] [address] Social History Tobacco Use Types Packs/Day Years [...] Acute Care Hospital Cellular Immunotherapy Program [address] [facility], 9th Floor, [address] [place] [address] Vaughn Boogie MD [address] [address] [email or web address]. du 12/14/2025 11:00 AM EST Nurse Only [facility] Cellular Immunotherapy Program [address] [facility], 9th Floor, [address] [place] [address] Vaughn Boogie MD [address] [address] [email or web address]. du 12/14/2025 11:00 AM EST Office Visit [facility] Hematologic Malignancies Clinic [address] [facility], 9th Floor, [address] [place] [address] Vaughn Boogie MD [address] [address] [email or web address]. heaven 03/14/2026 2:30 PM EDT Office Visit [facility] at [facility] [address] [facility], 5th Floor, [address] [place] [address] Juan Carlos Lim MD 55 [place] [address] [email or web address] .[email or web address] documented as of this encounter Visit Diagnoses [...] documented as of this encounter Care Teams Second Cook And Baker Relationship Specialty Start Date End Date Yi Joseph MD [facility] [place] [address] PCP - General 11/20/17 Yi Joseph MD [address] [facility] [place] [address] Historical LMR Provider 09/06/17 2 Cj Redding WARNING ANALYST [address] [place] [address], 2nd [place] [address] [email or web address] Historical LMR Provider 09/06/17 11/24/21 Agus Noland MD [address] [place] [address] Multiple Myeloma [facility] [place] [address] [email or web address] Primary Oncologist Medical Oncology 06/25/18 Self-Referred, Patient Referring Physician 06/29/18 Vaughn Boogie MD 55 [facility] [address] [place] [address] [email or web address] Primary Oncologist Medical Oncology 11/23/18 Agustin Ybarra MD [address] [place] [address] Division [place] [address] [email or web address] Thoracic Surgery 03/31/19 Camila Yanes, MANJU 55 [place] [address] [email or web address] Primary Infusion Nurse 06/14/20 Markus Gregory DO [facility] [address] [place] [address] [email or web address] Gastroenterology 06/29/24 documented as of this encounter Additional Source Comments The information contained in this document represents components of the legal health record. It is not the complete legal health record.[facility]
--- OUTSIDE RECORDS SUMMARY | 2025-11-16 09:15 | XMS_ITS | Encounter Summary ---
Author Organization [facility] Address [address] [address] Phone Care Team Providers Care Quality Control Lab Tech Name Role Phone Yi Joseph MD Unavailable Cj Redding CNP Unavailable [phone] Yi Joseph MD Primary Care Provider [phone] Agus Noland MD Unavailable [phone] Self-Referred, Patient Unavailable Unavailab Vaughn Mcallister MD Unavailable Agustin Ybarra MD Unavailable [phone] Camila Yanes RN Unavailable [email or web address] Markus Gregory DO Unavailable Encounter Details Date Type Department Care Team (Late st Contact Info) Description 12/02/2020 Ophth Exam MIRE[place]LE Consult from [address] [address] Mahesh Du MD [address] [place] [id number] [email or web address] Social History Tobacco Use Types [...] Description 12/14/2025 10:00 AM EST Blood Draw [facility] Cellular Immunotherapy Program [address] [facility], 9th Floor, [address] [place] [address] Vaughn Boogie MD [address] [place] [address] [email or web address] heaven 12/14/2025 11:00 AM EST Nurse Only [facility] Cellular Immunotherapy Program [address] [facility], 9th Floor, [address] [place] [address] Vaughn Boogie MD [address] [address] [email or web address] [facility] 12/14/2025 11:00 AM EST Office Visit [facility] Hematologic Malignancies Clinic [address] [facility], 9th Floor, [address] [place] [address] Vaughn Boogie MD [address] [place] [address] [email or web address] [facility] 03/14/2026 2:30 PM EDT Office Visit [facility]iology Clinic at the [facility] [address] [facility], 5th Floor, [address] [place] [address] Juan Carlos Lim MD 55 [place] [address] [email or web address] documented as of this encounter Visit [...] documented as of this encounter Care Teams Quality Control Lab Tech Relationship Specialty Start Date End Date Yi Joseph MD [facility] [address] PCP - General 11/20/17 Yi Joseph MD [address] [place] [address] [place] [address] Historical LMR Provider 09/06/17 2 Cj Redding ADMINISTRATIVE DIRECTOR [address] [facility], 2nd [place] [address] [email or web address] Historical LMR Provider 09/06/17 11/24/21 Agus Noland MD [address] [place] [address] [facility] [place] [address] [email or web address] Primary Oncologist Medical Oncology 06/25/18 Self-Referred, Patient Referring Physician 06/29/18 Vaughn Boogie MD [address] [place] [address] [email or web address] Primary Oncologist Medical Oncology 11/23/18 Agustin Ybarra MD [address] [place] [address] Division [place] [address] [email or web address] Thoracic Surgery 03/31/19 Camila Yanes, RN [address] [place] [address] [email or web address] Primary Infusion Nurse 06/14/20 Markus Gregory DO [facility] [address] [place] [address] [email or web address] Gastroenterology 06/29/24 documented as of this encounter Additional Source Comments The information contained in this document represents components of the legal health record. It is not the complete legal health record.[facility]
--- OUTSIDE RECORDS SUMMARY | 2025-11-16 09:15 | XMS_ITS | Encounter Summary ---
Author Organization [facility] Address [address] [place] [address] Phone Care Team Providers Care Silverware Buffing Machine Operator Name Role Phone Yi Joseph MD Primary Care Provider [phone] Agus Noland MD Unavailable [phone] Self-Referred, Patient Unavailable Unavailab Vaughn Mcallister MD Unavailable Agustin Ybarra MD Unavailable [phone] Camila Yanes RN Unavailable [email or web address] Markus Gregory DO Unavailable Encounter Details Date Type Department Care Team (Late st Contact Info) Description 12/10/2023 Procedure Pass [facility], [place] [address] [facility], 2nd Floor, [address] [place] [address] Social History Tobacco Use Types Packs/Day Years [...] Blood Draw [facility] Cellular Immunotherapy Program [address] [facility], 9th Floor, [address] [place] [address] Vaughn Boogie MD [address] [address] [email or web address] [place] 12/14/2025 11:[address] AM EST Nurse [address] [facility] Cellular Immunotherapy Program [address] [facility], 9th Floor, [address] [place] [address] Vaughn Boogie MD [address] [address] [email or web address]. [facility] 12/14/2025 11:00 AM EST Office Visit [facility] Hematologic Malignancies Clinic [address] [facility], 9th Floor, [address] [place] [address] Vaughn Boogie MD [address] [address] [email or web address] 03/14/2026 2:30 PM EDT Office Visit [facility] at [facility] [address] [facility], 5th Floor, [address] [place] [address] Juan Carlos Lim MD 55 [place] [address] [email or web address] .[email or web address] documented as of [...] documented as of this encounter Care Teams Silverware Buffing Machine Operator Relationship Specialty Start Date End Date Yi Joseph MD [address] [place] [address] PCP - General 11/20/17 Agus Noland MD [address] [place] [address] Multiple Myeloma [facility] [place] [address] [email or web address] Primary Oncologist Medical Oncology 06/25/18 Self-Referred, Patient Referring Physician 06/29/18 Vaughn Boogie MD [address] [place] [address] [email or web address] Primary Oncologist Medical Oncology 11/23/18 Agustin Ybarra MD [address] [place] [address] Division [place] [address] [email or web address] Thoracic Surgery 03/31/19 Camila Yanes RN [address] [place] [address] [email or web address] Primary Infusion Nurse 06/14/20 Markus Gregory DO [address] [place] [address] [email or web address] Gastroenterology 06/29/24 documented as of this encounter Additional Source Comments The information contained in this document represents components of the legal health record. It is not the complete legal health record.[facility]
--- OUTSIDE RECORDS SUMMARY | 2025-11-16 09:15 | XMS_ITS | Encounter Summary ---
Author Organization [facility] Address [address] [facility] [address] [place] [address] Phone Care Team Providers Care Corrosion Engineer Name Role Phone Yi Joseph MD Primary Care Provider [phone] Agus Noland MD Unavailable [phone] Self-Referred, Patient Unavailable Unavailab Vaughn Mcallister MD Unavailable Agustin Ybarra MD Unavailable [phone] Camila Yanes RN Unavailable [email or web address] Markus Gregory DO Unavailable Encounter Details Date Type Department Care Team (Late st Contact Info) Description 06/25/2024 Procedure Pass [facility] [address] [facility], 4th [place] [address] Social History Tobacco Use Types Packs/Day Years [...] Description 12/14/2025 10:00 AM EST Blood Draw [facility] Cellular Immunotherapy Program [address] [facility], 9th Floor, [address] [place] [address] Vaughn Boogie MD [address] [address] [email or web address] 12/14/2025 11:00 AM EST Nurse Only [facility] Cellular Immunotherapy Program [address] [facility], 9th Floor, [address] [place] [address] Vaughn Boogie MD [address] [address] [email or web address] 12/14/2025 11:00 AM EST Office Visit [facility] Hematologic Malignancies Clinic [address] [facility], 9th Floor, [address] [place] [address] Vaughn Boogie MD [address] [address] [email or web address] 03/14/2026 2:30 PM EDT Office Visit [facility] [address] [facility], 5th Floor, [address] [place] [address] Juan Carlos Lim MD 55 [place] [address] [email or web address] .[facility] documented as of this encounter Visit [...] documented as of this encounter Care Teams Corrosion Engineer Relationship Specialty Start Date End Date Yi Joseph MD [facility] [place] [address] PCP - General 11/20/17 Agus Noland MD [address] [place] [address] Multiple Myeloma [facility] [place] [address] [email or web address] Primary Oncologist Medical Oncology 06/25/18 Self-Referred, Patient Referring Physician 06/29/18 Vaughn Boogie MD [address] [place] [address] [email or web address] Primary Oncologist Medical Oncology 11/23/18 Agustin Ybarra MD [address] [place] [address] Division [place] [address] [email or web address] Thoracic Surgery 03/31/19 Camila Yanes, RN [address] [place] [address] [email or web address] Primary Infusion Nurse 06/14/20 Markus Gregory [place] [address] [email or web address] Gastroenterology 06/29/24 documented as of this encounter Additional Source Comments The information contained in this document represents components of the legal health record. It is not the complete legal health record.[facility]
--- OUTSIDE RECORDS SUMMARY | 2025-11-16 09:15 | XMS_ITS | Encounter Summary ---
Author Organization [facility] Address [address] [facility] [address] [place] [address] Phone Care Team Providers Care Mosaic Technician Name Role Phone Yi Joseph MD Primary Care Provider [phone] Agus Noland MD Unavailable [phone] Self-Referred, Patient Unavailable Unavailab Vaughn Mcallister MD Unavailable Agustin Ybarra MD Unavailable [phone] Camila Yanes RN Unavailable [email or web address] Markus Gregory DO Unavailable Encounter Details Date Type Department Care Team (Late st Contact Info) Description 07/01/2024 UTOP[facility] System Generated VIRTUAL DEPARTMENT [address] [place] [address] Unknown, Unknown, Social History Tobacco Use Types Packs/Day Years [...] with a working camera? Not on file 05 / Comments No Sex and Gender Information Value Date Recorded Sex Assigned at Not on file Legal Sex Female 5:33 PM EST Gender Identity Not on file Sexual Orientation Not on file documented as of this encounter Procedure Notes * Markus Gregory DO - 07/01/2024 11:54 AM EDTAssociated Order(s): ENDOSCOPY, COLON [facility] GI Patient Name: Padmini Caruso Procedure Date: 07/01/2024 11:54 AM Date of : 1950 Age: 73 Procedure: Colonoscopy Indications: Screening for colorectal malignant neoplasm, This is the patient's first colonoscopy Providers: Markus Gregory DO, Darby De Leon RN, Leobardo Torres, Tamiko Darnell MD Medicines: Monitored Anesthesia Care Complications: No immediate complications. Procedure: After I obtained informed consent, the scope was passed under direct vision. Throughout the procedure, the patient's blood pressure, pulse, and oxygen saturations were monitored continuously. The Colonoscope was introduced through the anus and advanced to the terminal ileum, with identification of the appendiceal orifice and IC valve. The colonoscopy was performed without difficulty. The patient tolerated the procedure well. Findings: The perianal and digital rectal examinations were normal. Pertinent negatives include normal sphincter tone and no palpable rectal lesions. Multiple small and large-mouthed diverticula were found in the entire colon. Six sessile polyps were found in the hepatic flexure and ascending colon. The polyps were small in size. These polyps were removed with a cold snare. Resection and retrieval were complete. Two sessile polyps were found in the rectum. The polyps were small in size. These polyps were removed with a cold snare. Resection and retrieval were complete. Non-bleeding internal hemorrhoids were found during retroflexion. The hemorrhoids were mild. The exam was otherwise without abnormality. Impression: - Diverticulosis in the entire examined colon. - Six small polyps at the hepatic flexure and in the ascending colon, removed with a cold snare. Resected and retrieved. - Two small polyps in the rectum, removed with a cold snare. Resected and retrieved. - Non-bleeding internal hemorrhoids. Recommendation: - Patient has a contact number available for emergencies. The signs and symptoms of potential delayed complications were discussed with the patient. Return to normal activities tomorrow. Written discharge instructions were provided to the patient. - Resume previous diet. - Continue present medications. - Repeat colonoscopy is recommended for surveillance. The colonoscopy date will be determined after pathology results from today's exam become available for review. DO Markus Garcia DO 07/01/2024 12:37:12 PM This report has been signed electronically. Number of Addenda: 0 Note Initiated On: 07/01/2024 11:54 AM Scope In: 12:10:07 PM Scope Out: 12:28:56 PM Scope Withdrawal Time 0 hours 14 minutes 47 seconds CC OTHER PROVIDER: PRIMARY CARE: NO PCP documented in this encounter Plan of Treatment Upcoming Encounters Date Type Department Care Team (Late st Contact Info) Description 12/14/2025 10:00 AM EST Blood Draw [facility] Cellular Immunotherapy Program [address] [place] [address], 9th Floor, [address] [place] [address] Vaughn Boogie MD [address] [address] [email or web address] 12/14/2025 11:00 AM EST Nurse Only [facility] Cellular Immunotherapy Program [address] [place] [address], 9th Floor, [address] [place] [address] Vaughn Boogie MD [address] [address] [email or web address] 12/14/2025 11:00 AM EST Office Visit [facility] Hematologic Malignancies Clinic 32 [facility], 9th Floor, [address] [place] [address] Vaughn Boogie MD 55 [facility] [address] [place] [address] [email or web address] 03/14/2026 2:30 PM EDT Office Visit [facility] [place] [facility] [address] [facility], 5th Floor, [address] [place] [address] Juan Carlos Lim MD 55 [place] [address] [email or web address] documented as of this encounter Procedures Procedure Name Priority Date/Time Associated Diagnosis Comments ENDOSCOPY, COLON 07/01/2024 11:5 4 AM EDT documented in this encounter Results * ENDOSCOPY, COLON (07/01/2024 11:54 AM EDT) 07/01/2024 11:5 4 AM EDT Narrative Procedure Note Markus Gregory DO - 07/01/2024 11:54 AM EDT [facility] GI Patient Name: Padmini Caruso Procedure Date: 07/01/2024 11:54 AM Date of : 1950 Age: 73 Procedure: Colonoscopy Indications: Screening for colorectal malignant neoplasm, This is the patient's first colonoscopy Providers: Markus Gregory DO, Darby De Leon RN, Leobardo Torres, Tamiko Darnell MD Medicines: Monitored Anesthesia Care Complications: No immediate complications. Procedure: After I obtained informed consent, the scope was passed under direct vision. Throughout the procedure, the patient's blood pressure, pulse, and oxygen saturations were monitored continuously. The Colonoscope was introduced through the anus and advanced to the terminal ileum, with identification of the appendiceal orifice and IC valve. The colonoscopy was performed without difficulty. The patient tolerated the procedure well. Findings: The perianal and digital rectal examinations were normal. Pertinent negatives include normal sphincter tone and no palpable rectal lesions. Multiple small and large-mouthed diverticula were found in the entire colon. Six sessile polyps were found in the hepatic flexure and ascending colon. The polyps were small in size. These polyps were removed with a cold snare. Resection and retrieval were complete. Two sessile polyps were found in the rectum. The polyps were small in size. These polyps were removed with a cold snare. Resection and retrieval were complete. Non-bleeding internal hemorrhoids were found during retroflexion. The hemorrhoids were mild. The exam was otherwise without abnormality. Impression: - Diverticulosis in the entire examined colon. - Six small polyps at the hepatic flexure and in the ascending colon, removed with a cold snare. Resected and retrieved. - Two small polyps in the rectum, removed with a cold snare. Resected and retrieved. - Non-bleeding internal hemorrhoids. Recommendation: - Patient has a contact number available for emergencies. The signs and symptoms of potential delayed complications were discussed with the patient. Return to normal activities tomorrow. Written discharge instructions were provided to the patient. - Resume previous diet. - Continue present medications. - Repeat colonoscopy is recommended for surveillance. The colonoscopy date will be determined after pathology results from today's exam become available for review. DO Markus Garcia DO 07/01/2024 12:37:12 PM This report has been signed electronically. Number of Addenda: 0 Note Initiated On: 07/01/2024 11:54 AM Scope In: 12:10:07 PM Scope Out: 12:28:56 PM Scope Withdrawal Time 0 hours 14 minutes 47 seconds CC OTHER PROVIDER: PRIMARY CARE: NO PCP Markus Gregory DO GI PROCEDURE ORDERABLES Final Re sult documented in this encounter Visit Diagnoses Not [...] documented as of this encounter Care Teams Mosaic Technician Relationship Specialty Start Date End Date Yi Joseph MD [address] [facility] [place] [address] PCP - General 11/20/17 Agus Noland MD [address] [place] [address] Multiple Myeloma [facility] [place] [address] [email or web address] Primary Oncologist Medical Oncology 06/25/18 Self-Referred, Patient Referring Physician 06/29/18 Vaughn Boogie MD 55 [facility] [address] [place] [address] [email or web address] Primary Oncologist Medical Oncology 11/23/18 Agustin Ybarra MD [address] [place] [address] Division [place] [address] [email or web address] Thoracic Surgery 03/31/19 Camila Yanes RN 55 [place] [address] [email or web address] Primary Infusion Nurse 06/14/20 Markus Gregory DO [address] [place] [address] [email or web address] Gastroenterology 06/29/24 documented as of this encounter Additional Source Comments The information contained in this document represents components of the legal health record. It is not the complete legal health record.[facility]
--- OUTSIDE RECORDS SUMMARY | 2025-11-16 09:15 | XMS_ITS | Encounter Summary ---
Author Organization [facility] Address [address] [place] [address] Phone Care Team Providers Care Final Inspector Name Role Phone Yi Joseph MD Primary Care Provider [phone] Agus Noland MD Unavailable [phone] Self-Referred, Patient Unavailable Unavailab Vaughn Mcallister MD Unavailable Agustin Ybarra MD Unavailable [phone] Camila Yanes RN Unavailable [email or web address] Markus Gregory DO Unavailable Encounter Details Date Type Department Care Team (Late st Contact Info) Description 11/05/2023 Procedure Pass MRI, [facility] [address] [place] [address] Social History Tobacco Use Types Packs/Day Years [...] Description 12/14/2025 10:00 AM EST Blood Draw [facility] Cellular Immunotherapy Program 32 [facility], 9th Floor, [address] [place] [address] Vaughn Boogie MD [address] [address] [email or web address] 12/14/2025 11:00 AM EST Nurse Only [facility] Cellular Immunotherapy Program [address] [facility], 9th Floor, [address] [place] [address] Vaughn Boogie MD [address] [place] [address] [email or web address] 12/14/2025 11:00 AM EST Office Visit [facility] Hematologic Malignancies Clinic [address] [facility], 9th Floor, [address] [place] [address] Vaughn Boogie MD [address] [address] [email or web address] 03/14/2026 2:30 PM EDT Office Visit [facility]iology Clinic at the [facility] [address] [facility], 5th Floor, [address] [place] [address] Juan Carlos Lim MD 55 [place] [address] [email or web address] .[facility] documented as of this encounter Visit [...] documented as of this encounter Care Teams Final Inspector Relationship Specialty Start Date End Date Yi Joseph MD [address] [facility] [place] [address] PCP - General 11/20/17 Agus Noland MD [address] [place] [address] Multiple Myeloma [place] [address] [email or web address] Primary Oncologist Medical Oncology 06/25/18 Self-Referred, Patient Referring Physician 06/29/18 Vaughn Boogie MD 55 [facility] [address] [place] [address] [email or web address] Primary Oncologist Medical Oncology 11/23/18 Agustin Ybarra MD [address] [place] [address] Division [place] [address] [email or web address] Thoracic Surgery 03/31/19 Camila Yanes, MANJU [address] [place] [address] SEBASTIAN@[email or web address] Primary Infusion Nurse 06/14/20 Markus Gregory [place] [address] [email or web address] Gastroenterology 06/29/24 documented as of this encounter Additional Source Comments The information contained in this document represents components of the legal health record. It is not the complete legal health record.[facility]
--- OUTSIDE RECORDS SUMMARY | 2025-11-16 09:15 | XMS_ITS | Encounter Summary ---
Author Organization [facility] Address [address] [employer] [address] [facility] [address] [place] [address] Phone Care Team Providers Care Gantry Rigger Name Role Phone Yi Joseph MD Primary Care Provider [phone] Agus Noland MD Unavailable [phone] Self-Referred, Patient Unavailable Unavailab Vaughn Mcallister MD Unavailable Agustin Ybarra MD Unavailable [phone] Camila Yanes RN Unavailable [email or web address] Markus Gregory DO Unavailable Encounter Details Date Type Department Care Team (Late st Contact Info) Description 08/03/2025 Procedure Pass [facility] Cardiology Referral Images [address] [place] [address] Social History Tobacco Use Types Packs/Day Years [...] Description 12/14/2025 10:00 AM EST Blood Draw [facility] [place] Cellular Immunotherapy Program 32 [facility], 9th Floor, [address] [place] [address] Vaughn Boogie MD 55 [facility] [address] [place] [address] [email or web address] 12/14/2025 11:00 AM EST Nurse Only [facility] Cellular Immunotherapy Program 32 [facility], 9th Floor, [address] [place] [address] Vaughn Boogie MD [address] [place] [address] [email or web address] 12/14/2025 11:00 AM EST Office Visit [facility] Hematologic Malignancies Clinic 32 [facility], 9th Floor, [address] [place] [address] Vaughn Boogie MD [address] [place] [address] [email or web address] 03/14/2026 2:30 PM EDT Office [facility] at the [facility] [address] [facility], 5th Floor, [address] [place] [address] Juan Carlos Lim MD 55 [place] [address] [email or web address] .[email or web address] documented as of this encounter Goals Goal Patient Goal Type Associated Problems Recent Progress Patient-Stated? Author Acute Care Plan Acute Care Plan Fatuma Slater RN Note: Cellular therapy/ Immune Effector Cell patient. Patient received cellular therapy product on protocol [id number] on 09/22/24 Page the on-call Immune Effector Cell Attending via [email or web address] [facility] Page immediately if patient presents [...] team evaluation. Patients should be admitted to [place] [address] to the Immune Effector Cell Service. documented as of this encounter Visit Diagnoses Not on filedocumented in this encounter Additional Health Concerns Assessment Noted Time PHQ-2 Depression Total Score: 0 04/06/20 19 9:24 AM EDT documented as of this encounter Care Teams Gantry Rigger Relationship Specialty Start Date End Date Yi Joseph MD [facility] [place] [address] PCP - General 11/20/17 Agus Noland MD [address] [place] [address] [place] [address] [email or web address] Primary Oncologist Medical Oncology 06/25/18 Self-Referred, Patient Referring Physician 06/29/18 Vaughn Boogie MD 55 [facility] [address] [place] [address] [email or web address] Primary Oncologist Medical Oncology 11/23/18 Agustin Ybarra MD [address] [place] [address] Division [place] [address] [email or web address] Thoracic Surgery 03/31/19 Camila Yanes, MANJU 55 [place] [address] SEBASTIAN@[email or web address] Primary Infusion Nurse 06/14/20 Markus Gregory [place] [address] [email or web address] Gastroenterology 06/29/24 documented as of this encounter Additional Source Comments The information contained in this document represents components of the legal health record. It is not the complete legal health record.[facility]
--- OUTSIDE RECORDS SUMMARY | 2025-11-16 09:15 | XMS_ITS | Encounter Summary ---
Author Organization [facility] Address [address] [facility] [address] [place] [address] Phone Care Team Providers Care Automotive Mechanical Engineer Name Role Phone Yi Joseph MD Primary Care Provider [phone] Agus Noland MD Unavailable [phone] Self-Referred, Patient Unavailable Unavailab Vaughn Mcallister MD Unavailable Agustin Ybarra MD Unavailable [phone] Camila Yanes RN Unavailable [email or web address] Markus Gregory DO Unavailable Encounter Details Date Type Department Care Team (Late st Contact Info) Description 06/26/2024 Procedure Pass [facility] 4 ENDO DEPT 55 [facility], 4th [place] [address] Social History Tobacco Use Types Packs/Day Years [...] Description 12/14/2025 10:00 AM EST Blood Draw [facility] Cellular Immunotherapy Program 32 [facility], 9th Floor, [address] [place] [address] Vaughn Boogie MD [address] [address] [email or web address] 12/14/2025 11:00 AM EST Nurse Only [facility] Cellular Immunotherapy Program 32 [facility], 9th Floor, [address] [place] [address] Vaughn Boogie MD [address] [address] [email or web address] 12/14/2025 11:00 AM EST Office Visit [facility] Hematologic Malignancies Clinic 32 [facility], 9th Floor, [address] [place] [address] Vaughn Boogie MD [address] [address] [email or web address] 03/14/2026 2:30 PM EDT Office Visit [facility] 32 [facility], 5th Floor, [address] [place] [address] Juan Carlos Lim MD 55 [place] [address] [email or web address].[place] .[facility] documented as of this encounter Visit Diagnoses [...] as of this encounter Care Teams Automotive Mechanical Engineer Relationship Specialty Start Date End Date Yi Joseph MD [facility] [place] [address] PCP - General 11/20/17 Agus Noland MD [address] [place] [address] Multiple Myeloma [facility] [place] [address] [email or web address] Primary Oncologist Medical Oncology 06/25/18 Self-Referred, Patient Referring Physician 06/29/18 Vaughn Boogie MD [address] [place] [address] [email or web address] Primary Oncologist Medical Oncology 11/23/18 Agustin Ybarra MD [address] [place] [address] Division [place] [address] [email or web address] Thoracic Surgery 03/31/19 Camila Yanes, RN [address] [place] [address] [email or web address] Primary Infusion Nurse 06/14/20 Markus Gregory DO [place] [address] [email or web address] Gastroenterology 06/29/24 documented as of this encounter Additional Source Comments The information contained in this document represents components of the legal health record. It is not the complete legal health record.[facility]
--- OUTSIDE RECORDS SUMMARY | 2025-11-16 09:15 | XMS_ITS | Encounter Summary ---
Author Organization [facility] Address [address] [address] Phone Care Team Providers Care Investment Representative Name Role Phone Yi Joseph MD Unavailable Cj Redding CNP Unavailable [phone] Yi Joseph MD Primary Care Provider [phone] Agus Noland MD Unavailable [phone] Self-Referred, Patient Unavailable Unavailab Vaughn Mcallister MD Unavailable Agustin Ybarra MD Unavailable [phone] Camila Yanes RN Unavailable [email or web address] Markus Gregory DO Unavailable Encounter Details Date Type Department Care Team (Late st Contact Info) Description 12/02/2020 Procedure Pass [facility] [place] [address] [facility], 2nd [place] [address] Social History Tobacco Use Types Packs/Day Years [...] Description 12/14/2025 10:00 AM EST Blood Draw [facility] Cellular Immunotherapy Program [address] [facility], 9th Floor, [address] [place] [address] Vaughn Boogie MD [address] [address] [email or web address] 12/14/2025 11:00 AM EST Nurse Only [facility] Cellular Immunotherapy Program [address] [facility], 9th Floor, [address] [place] [address] Vaughn Boogie MD [address] [address] [email or web address] 12/14/2025 11:00 AM EST Office Visit [facility] Hematologic Malignancies Clinic [address] [facility], 9th Floor, [address] [place] [address] Vaughn Boogie MD [address] [address] [email or web address] 03/14/2026 2:30 PM EDT Office Visit [facility] Cardiology Clinic at the [facility] [address] [facility], 5th Floor, [address] [place] [address] Juan Carlos Lim MD 55 [place] [address] [email or web address] .[email or web address] documented as of this encounter [...] documented as of this encounter Care Teams Investment Representative Relationship Specialty Start Date End Date Yi Joseph MD [facility] [place] [address] PCP - General 11/20/17 Yi Joseph MD [address] [facility] [place] [address] Historical LMR Provider 09/06/17 2 Cj Redding CHEMICAL DETECTION EXPERT [address] [place] [address], [address] [place] [address] [email or web address] Historical LMR Provider 09/06/17 11/24/21 Agus Noland MD [address] [place] [address] Multiple Myeloma [facility] [place] [address] [email or web address] Primary Oncologist Medical Oncology 06/25/18 Self-Referred, Patient Referring Physician 06/29/18 Vaughn Boogie MD 55 [facility] [address] [place] [address] [email or web address] Primary Oncologist Medical Oncology 11/23/18 Agustin Ybarra MD [address] [place] [address] Division [place] [address] [email or web address] Thoracic Surgery 03/31/19 Camila Yanes, MANJU 55 [place] [address] [email or web address] Primary Infusion Nurse 06/14/20 Markus Gregory DO [facility] [address] [place] [address] [email or web address] Gastroenterology 06/29/24 documented as of this encounter Additional Source Comments The information contained in this document represents components of the legal health record. It is not the complete legal health record.[facility]
--- OUTSIDE RECORDS SUMMARY | 2025-11-16 09:15 | XMS_ITS | Encounter Summary ---
Author Organization [facility] Address [address] [facility] [address] [place] [phone] Phone Care Team Providers Care Dehydrogenation Operator Name Role Phone Yi Joseph MD Primary Care Provider [phone] Agus Noland MD Unavailable Self-Referred, Patient Unavailable Unavailab Vaughn Mcallister MD Unavailable Agustin Ybarra MD Unavailable [phone] Camila Yanes RN Unavailable [email or web address] Markus Gregory DO Unavailable Encounter Details Date Type Department Care Team (Late st Contact Info) Description 09/07/2024 Procedure Pass [facility] Imaging - RF/IR [address] [place] [address] Social History Tobacco Use Types Packs/Day Years [...] Mental Health Services Cellular Immunotherapy Program [address] [facility], 9th Floor, [address] [place] [address] Vaughn Boogie MD 55 [facility] [address] [place] [address] [email or web address] 12/14/2025 11:00 AM EST Nurse Only [facility] Cellular Immunotherapy Program [address] [facility], 9th Floor, [address] [place] [address] Vaughn Boogie MD [address] [place] [address] [email or web address] 12/14/2025 11:00 AM EST Office Visit [facility] Hematologic Malignancies Clinic [address] [facility], 9th Floor, [address] [place] [address] Vaughn Boogie MD [address] [place] [address] [email or web address] 03/14/2026 2:30 PM EDT Office Visit [facility] Cardiology Clinic at the [facility] [address] [facility], 5th Floor, [address] [place] [address] Juan Carlos Lim MD 55 [place] [address] [email or web address] documented as of this encounter Visit Diagnoses Not on filedocumented in this encounter Additional Health Concerns Infection Onset Date Last Indicated Resolved Time CoV-Risk Comment:Per note documentation 09/20/2024 09/20/2024 7:31 AM EST CoV-Risk Comment:Per note documentation 09/27/2024 09/27/2024 4:50 AM EST CoV-Presumed 11/27/2024 11/27/2024 12/18/2024 1:21 AM EST CoV-Risk 12/30/2024 12/30/2024 01/10/2025 1:22 AM EST Influenza A 12/30/2024 12/30/2024 01/06/2025 1:22 AM EST Assessment Noted Time PHQ-2 Depression Total Score: 0 04/06/20 9:24 AM EDT documented as of this encounter Care Teams Dehydrogenation Operator Relationship Specialty Start Date End Date Yi Joseph MD [address] [facility] [place] [address] PCP - General 11/20/17 Agus Noland MD [address] [place] [address] Multiple [place]eloma [place] [address] [email or web address] Primary Oncologist Medical Oncology 06/25/18 Self-Referred, Patient Referring Physician 06/29/18 Vaughn Boogie MD 55 [facility] [address] [place] [address] [email or web address] Primary Oncologist Medical Oncology 11/23/18 Agustin Ybarra MD [address] [place] [address] Division [place] [address] [email or web address] Thoracic Surgery 03/31/19 Camila Yanes, MANJU 55 [place] [address] [email or web address] Primary Infusion Nurse 06/14/20 Markus Gregory DO [address] [place] [address] [email or web address] Gastroenterology 06/29/24 documented as of this encounter Additional Source Comments The information contained in this document represents components of the legal health record. It is not the complete legal health record.[facility]
--- OUTSIDE RECORDS SUMMARY | 2025-11-16 09:15 | XMS_ITS | Encounter Summary ---
Author Organization [facility] Address [address] [facility] [address] [place] [address] Phone Care Team Providers Care Tray Filler Name Role Phone Yi Joseph MD Unavailable Cj Redding CNP Unavailable [phone] Yi Joseph MD Primary Care Provider [phone] Agus Noland MD Unavailable [phone] Self-Referred, Patient Unavailable Unavailab Vaughn Mcallister MD Unavailable Agustin Ybarra MD Unavailable [phone] Camila Yanes RN Unavailable [email or web address] Markus Gregory DO Unavailable Encounter Details Date Type Department Care Team (Late st Contact Info) Description 12/05/2020 Procedure Pass [facility] Holter Lab [address] [facility], 5th Floor, [address] [place] [address] Social History Tobacco Use Types Packs/Day Years [...] Description 12/14/2025 10:00 AM EST Blood Draw [facility] Cellular Immunotherapy Program [address] [facility], 9th Floor, [address] [place] [address] Vaughn Boogie MD [address] [address] [email or web address] 12/14/2025 11:00 AM EST Nurse Only [facility] Cellular Immunotherapy Program [address] [facility], 9th Floor, [address] [place] [address] Vaughn Boogie MD [address] [address] [email or web address] 12/14/2025 11:00 AM EST Office Visit [facility] Hematologic Malignancies Clinic [address] [facility], 9th Floor, [address] [place] [address] Vaughn Boogie MD [address] [address] [email or web address] 03/14/2026 2:30 PM EDT Office Visit [facility]iology [facility] at the [facility] [address] [facility], 5th Floor, [address] [place] [address] Juan Carlos Lim MD 55 [place] [address] [email or web address] .[email or web address] documented as of this [...] documented as of this encounter Care Teams Tray Filler Relationship Specialty Start Date End Date Yi Joseph MD [facility] [place] [address] PCP - General 11/20/17 Yi Joseph MD [address] [place] [address] [place] [address] Historical LMR Provider 09/06/17 2 Cj Redding APICULTURIST [address] [place] [address], [address] [place] [address] [email or web address] Historical LMR Provider 09/06/17 11/24/21 Agus Noland MD [address] [place] [address] Multiple Myeloma [facility] [place] [address] [email or web address] Primary Oncologist Medical Oncology 06/25/18 Self-Referred, Patient Referring Physician 06/29/18 Vaughn Boogie MD 55 [facility] [address] [place] [address] [email or web address] Primary Oncologist Medical Oncology 11/23/18 Agustin Ybarra MD [address] [place] [address] Division of [place]acic [place] [address] [email or web address] Thoracic Surgery 03/31/19 Camila Yanes, MANJU 55 [place] [address] [email or web address] Primary Infusion Nurse 06/14/20 Markus Gregory DO [facility] [address] [place] [address] [email or web address] Gastroenterology 06/29/24 documented as of this encounter Additional Source Comments The information contained in this document represents components of the legal health record. It is not the complete legal health record.[facility]
--- OUTSIDE RECORDS SUMMARY | 2025-11-16 09:16 | XMS_ITS | Clinical Summary ---
Author Organization 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 Role Phone Yi Joseph MD Primary Care Provider [phone] Agus Noland MD Unavailable [phone] Self-Referred, Patient Unavailable Unavailab Vaughn Mcallister MD Unavailable Agustin Ybarra MD Unavailable [phone] Camila Yanes RN Unavailable [email or web address] Markus Gregory DO Unavailable Allergies Active Allergy Reactions Criticality Noted Date Comments Atenolol Palpitations Low 09/18/2016 Ciprofloxacin GI Upset 09/15/2024 Tbo-Filgrastim Shortness Of Breath,Angina High 11/24 Lisinopril Cough 09/18/2016 Morphine 06/30/2024 Other Reaction(s): nausea, vomiting Niacin Rash Low 09/18/2016 Valsartan Cough 09/18/2016 Medications acyclovir (ZOVIRAX) 400 MG tablet Take 1 tablet (400 mg total) by mouth 2 (two) times a day. 180 tablet 3 08/09/20 24 Active rosuvastatin (CRESTOR) 10 MG tablet Take 1 tablet (10 mg total) by mouth daily. 09/15/20 24 Active cholecalciferol (VITAMIN D3) 25 MCG (1,000 unit) tablet Take 1,000 Units by mouth daily. Active nebivoloL (BYSTOLIC) 10 MG tablet Take 20 mg by mouth daily. Active entecavir (BARACLUDE) 0.5 MG tablet Take 1 tablet (0.5 mg total) by mouth daily. 90 tablet 3 09/16/20 24 Active prochlorperazine (COMPAZINE) 5 MG tablet Take 1-2 tablets (5-10 mg total) by mouth every 6 (six) hours as needed for nausea. 30 tablet 09/16/20 Active Additional Information Patient not taking.Reported on 09/21/2025 ondansetron (ZOFRAN-ODT) 8 MG disintegrating tablet Take 1 tablet (8 mg total) by mouth every 8 (eight) hours as needed for nausea. 30 tablet 09/16/20 Active Additional Information Patient not taking.Reported on 09/21/2025 amLODIPine (NORVASC) 5 MG tablet Take 10 mg by mouth daily. Active albuterol 90 mcg/actuation inhaler Inhale 2 puffs into the lungs every 6 (six) hours as needed for wheezing. 18 g 5 06/28/20 25 Active olmesartan (BENICAR) 40 mg tablet Take 40 mg by mouth daily. Active aspirin 81 MG EC tablet Take 81 mg by mouth daily. Active Active Problems Patient Care Coordination No te [...] primary team. For any questions please contact: [facility] Cancer Center: Cellular Therapy Team phone: [phone] [facility] CAR-T fax: [phone] Lenalidomide fills at [facility]. 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 Ongoing fevers (Tmax 102.1F). Last fever 11/12 AM (101F). Fevers likely 2/2 CRS. 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 On 12 (day +6) patient w/ ongoing CRS (Tmax [...] with new LLE weakness, and headache. ICE 10/. Inflammatory markers normal. Does endorse CLARK. Brain [...] x1 and dexamethasone 10 mg IV x3 (11 AM-09/29 AM). CRP now almost doubling in [...] with new LLE weakness, and headache. ICE 10/. Inflammatory markers normal. Does endorse CLARK. Brain [...] Primary Oncologist: Dr. Vaughn Boogie (myeloma)/ Dr. Rubni Villalpando (cellular therapies) Today 09/27/24 is day [...] Receiving CAR T therapy on on protocol 22-533 ARC-ddBCMA as an outpatient. Today is Day [...] vaccine okay 3 months post CART infusion Encounters Date Type Department Care Team Description 11/02/2025 Orders Only [facility] Cellular Immunotherapy Program [address] [place] [address], 9th Floor, [address] [place] [address] Adis Mtz MD Multiple myeloma not having achieved remission (Primary Dx) 10/19/2025 Orders Only [facility] H[facility]ologic [facility]ignancies [facility] [address] [place] [address], 9th Floor, [address] [place] [address] Jan Mancera CNP 09/29/2025 Telephone [facility] [address] [facility], 9th Floor, [address] [place] [address] Barbara Miranda RN 09/22/2025 Lab Requisition [facility] Lab Main [address] [place] [address] Ashley De La Torre FNP Multiple myeloma not having achieved remission 09/21/2025 1:40 PM EST Procedure visit [facility] Cellular Immunotherapy Program [address] [place] [address], 9th Floor, [address] [place] [address] Magnolia Almanza, NIKKI Multiple myeloma not having achieved remission (Primary Dx) 09/21/2025 1:00 PM EST Nurse Only [facility] Cellular Immunotherapy Program [address] [place] [address], 9th Floor, [address] [place] [address] Vaughn Boogie MD Weiand, Christine T, RN Multiple myeloma (Primary Dx) 09/21/2025 1:00 PM EST Office Visit [facility] Cellular Immunotherapy Program [address] [place] [address], 9th Floor, [address] [place] [address] Vaughn Boogie MD Emmett, Jaclyn Michele, NIKKI Need for hepatitis B screening test (Primary Dx) 09/18/2025 Orders Only [facility] [address] [place] [address], 9th Floor, [address] [place] [address] Javed Thompson MD 09/18/2025 Orders Only [facility] [address] [place] [address], 9th Floor, [address] [place] [address] Sharmaine Serna MD, MPH Multiple myeloma without remission (Primary Dx) 09/05/2025 Orders Only [facility] [address] [place] [address] Dolores Kohler [facility] 08/31/2025 Telephone [facility] Cellular Immunotherapy Program [address] [place] [address], 9th Floor, [address] [place] [address] Amanda Durham, MANJU 08/19/2025 Orders Only [facility] Cellular Immunotherapy Program [address] [place] [address], 9th Floor, [address] [place] [address] Provider, MD Primitivo from Last 3 Months Immunizations Immunization Administration Dates Next Due DTaP-Hep B-IPV 01/20/2023,08/05/2022,02/05/2022 Hib,PRP-T 08/05/2022,10/08/2021,06/04/2021 INFLUENZA, SPLIT VIRUS, TRIV ALENT W/ PRESERVATIVE IM 10/09/2015,10/02/2010 Influenza High-Dose Quadriva lent Preservative Free IM 09/25/2020,09/25/2020(Deferred: Contraindication - duplicated ordered, Pt received dose on 09/25.) Influenza High-Dose Trivalen t Preservative Free IM 09/15/2019,12/01/2018 Influenza Quadrivalent w/ Preservative IM 08/06/2016 Influenza Trivalent Adjuvant ed Preservative free IM 07/17/2017 Meningococcal MCV4O 02/05/2022,10/08/2021 Pneumococcal conjugate PCV13 08/05/2022, 10/08/2021,06/04/2021,2016,07/17/2016,09/21/2015 Pneumococcal conjugate PCV20 01/20/2023 Zoster recombinant 10/08/2021,06/04/2021 Family History Medical History Relation Comments Diabetes mellitus Father CV disease Mother Heart attack Mother Hearing loss Neg Hx Relation Status Comments Father Mother Social History Tobacco Use Types Packs/Day Years Used Date Smoking Tobacco: Never Smokeless Tobacco: Never Tobacco Cessation:Counseling Given: Not Answered Alcohol Use Standard Drinks/Week Comments Not Currently [...] Sign Reading Time Taken Comments Blood Pressure 158/70 09/21/2025 12:19 PM EST Pulse 67 09/21/2025 12:19 PM EST Temperature 35.8 C (96.5 F) 09/21/2025 12:19 PM EST Respiratory Rate 18 09/21/2025 12:19 PM EST Oxygen Saturation 99% 09/21/2025 12:19 PM EST Inhaled Oxygen Concentration - - Weight 91.2 kg (201 lb) 09/21/2025 12:19 PM EST Height 162.6 cm (5' 4 ) 02/21/2025 2:30 PM EDT Body Mass Index 34.5 02/21/2025 2:30 PM EDT Plan of Treatment Upcoming Encounters Date Type Department Care Team (Late st Contact Info) Description 12/14/2025 10:00 AM EST Blood Draw [facility] [place] Cellular Immunotherapy Program [address] [facility], 9th Floor, [address] [place] [address] Vaughn Boogie MD [address] [facility] [address] [place] [address] [email or web address] 12/14/2025 11:00 AM EST Nurse Only [facility] Cellular Immunotherapy Program [address] [facility], 9th Floor, [address] [place] [address] Vaughn Boogie MD [address] [place] [address] [email or web address] 12/14/2025 11:00 AM EST Office Visit [facility]ancies [facility] [address] [facility], 9th Floor, [address] [place] [address] Vaughn Boogie MD [address] [place] [address] [email or web address] 03/14/2026 2:30 PM EDT Office Visit [facility] [address] [facility], 5th Floor, [address] [place] [address] Juan Carlos Lim MD [address] [place] [address] [email or web address] Health Maintenance Due Date Last Done Comments Adult Td,Tdap Booster 1952 MAMMOGRAM 1992 COLOGUARD 1997 FIT TEST 1997 FOBT 1997 SIGMOIDOSCOPY 1997 VIRTUAL COLONOSCOPY 1997 RSV VACCINE (1 - Risk 50-74 years 1-dose series) 2002 OSTEOPOROSIS SCREENING INITIAL (ONE-TIME) 2017 DEPRESSION SCREENING 04/06/2020 04/06/2019 LIPID PANEL 06/09/2025 06/09/2024, 12/02/2020 INFLUENZA VACCINE (#1) 2025 2, 09/25/2020, 09/15/2019, Additional history exists COVID-19 VACCINE ( season) 2025 03/15/2021, 02/22/2021 CREATININE LEVEL 09/21/2026 09/21/2025, 10/2025, 03/23/2025, Additional history exists POTASSIUM LEVEL 09/21/2026 09/21/2025, 06/17, 03/23/2025, Additional history exists COLONOSCOPY 07/01/2034 07/01/2024 COLORECTAL CANCER SCREENING 07/01/2034 HEPATITIS C SCREENING Completed 06/22/2018 , 06/22/2018, 06/22/2018 ZOSTER VACCINES Completed 10/08/2021, 06/04/2021 MENINGOCOCCAL VACCINES (ACWY) Aged Out 02/05/2022, 10/08/2021 No longer eligibl e based on patient's age to complete this topic HIB VACCINES Aged Out 08/05/2022, 09/18, 06/04/2021 No longer eligible based on patient's age to complete this topic PNEUMOCOCCAL VACCINES (50+ years) Completed 01/20/2023, 08/05/2022, 10/08/2021, Additional history exists SMOKING STATUS SCREENING (Once After 26 Yrs) Completed 08/15/2025 HEPATITIS A VACCINES Aged Out No long er eligible based on patient's age to complete this topic MENINGOCOCCAL VACCINES (B) Aged Out N o longer eligible based on patient's age to complete this topic Goals Goal Patient Goal Type Associated Problems Recent Progress Patient-Stated? Author Acute Care Plan Acute Care Plan No Fatuma Alexis, RN Note: Cellular therapy/ Immune Effector Cell patient. Patient received cellular therapy product on protocol 22-533 on 09/22/24 Page the on-call Immune Effector Cell Attending via [email or web address] Login [email or web address] Page immediately if patient presents within the [...] team evaluation. Patients should be admitted to [place] [address] to the Immune Effector Cell Service. Medical Devices Implanted Type Area Fixed Route Operator Device Identifier Shelf Expiration Date Model / Serial / Lot Patch [id number] Soft Tissue Ea - [id number] Implanted:Qty: 1 on 05/15/2018 by Eamon Ghosh MD at [facility] Left: Chest Wall W L GORE 04/16/2021 [id number] / [id number] / [id number] Description:soaked in NACL ( lot# [id number], exp 12/18/2020) mixed with vancomycin 1g (lot# [id number], exp 09/17/2019) GORE patch- safe to 1.5 and 3T per [employer] [email or web address] Procedures Procedure Name Priority Date/Time Associated Diagnosis Comments RAPID HEME PANEL Routine 09/21/2025 12:5 3 PM EST Multiple myeloma not having achieved remission BONE MARROW CORE BIOPSY Routine 09/21/20 12:53 PM EST Multiple myeloma not having achieved remission FLOW CYTOMETRY ON TISSUE/FNA/FLUID Routine 09/21/2025 12:53 PM EST Multiple myeloma not having achieved remission BONE MARROW ASPIRATE Routine 09/21/2025 12:53 PM EST Multiple myeloma not having achieved remission IMMUNOGLOBULINS IGG, IGA, IGM Routine 09/21/2025 11:19 AM EST Multiple myeloma, remission status unspecified TOTAL PROTEIN Routine 09/21/2025 11:19 AM EST Multiple myeloma, remission status unspecified IMMUNOFIXATION Routine 09/21/2025 11:19 AM EST Multiple myeloma, remission status unspecified CBC AND DIFFERENTIAL Routine 09/21/2025 11:19 AM EST Multiple myeloma, remission status unspecified LYMPHOCYTE SUBSET PANEL (T/B/NK), FLOW CYTOMETRY Routine 09/21/2025 11:19 AM EST Multiple myeloma, remission status unspecified MAGNESIUM Routine 09/21/2025 11:19 AM EST Multiple myeloma, remission status unspecified PHOSPHORUS Routine 09/21/2025 11:19 AM EST Multiple myeloma, remission status unspecified SPEP PANEL WITH IMMUNOFIXATION Routine 09/21/2025 11:19 AM EST Multiple myeloma, remission status unspecified URIC ACID Routine 09/21/2025 11:19 AM EST Multiple myeloma, remission status unspecified LDH Routine 09/21/2025 11:19 AM EST Multiple myeloma, remission status unspecified FREE LIGHT CHAINS, SERUM Routine 09/21/2025 11:19 AM EST Multiple myeloma, remission status unspecified FERRITIN Routine 09/21/2025 11:19 AM EST Multiple myeloma, remission status unspecified C-REACTIVE PROTEIN (CRP) Routine 09/21/2025 11:19 AM EST Multiple myeloma, remission status unspecified CREATINE KINASE (CK) Routine 09/21/2025 11:19 AM EST Multiple myeloma, remission status unspecified COMPREHENSIVE METABOLIC PANEL (CMP) Routine 09/21/2025 11:19 AM EST Multiple myeloma, remission status unspecified CBC AND DIFFERENTIAL Routine 09/21/2025 11:19 AM EST Multiple myeloma, remission status unspecified BETA-2 MICROGLOBULIN, BLOOD Routine 09/21/2025 11:19 AM EST Multiple myeloma, remission status unspecified IRON AND IRON BINDING CAPACITY Routine 09/21/2025 11:19 AM EST Multiple myeloma not having achieved remission VITAMIN B12 Routine 09/21/2025 11:19 AM EST Multiple myeloma not having achieved remission FOLATE Routine 09/21/2025 11:19 AM EST Multiple myeloma not having achieved remission TOTAL PROTEIN, 24 HR URINE Routine 09/21/2025 6:00 AM EST Multiple myeloma, remission status unspecified URINE PROTEIN ELECTROPHORESIS PANEL (UPEP) Routine 09/21/2025 6:00 AM EST Multiple myeloma, remission status unspecified OUTSIDE LAB Routine 08/19/2025 2:42 PM EDT ENDOSCOPY, COLON 07/01/2024 11:5 4 AM EDT LIPID PANEL Routine 06/09/2024 11:25 AM EDT Multiple myeloma not having achieved remission HEPATITIS C ANTIBODY, QUALITATIVE Routine 06/22/2018 3:52 PM EDT Plasmacytoma from Last 3 Months or Most Recently Relevant to Health Maintenance Results * Rapid Heme Panel (09/21/2025 12:53 PM EST) Result 10/02/2025 12:34 PM EST [facility] 2 LABORATORY Text Report RESULT: Sample Type: Bone Marrow Aspirate ==== RAPID HEME PANEL ==== QC: PASS Pathogenic Single Nucleotide Variants and Small Insertions/Deletions * DNMT3A c.2213T>A (p.L738Q) 10.5% VAF (1289x consensus coverage)# DNMT3A c.2580G>A (p.W860*) 4.5% VAF (156x consensus coverage)# DNMT3A c.2082+1G>A (splice site) 0.6% VAF (516x consensus coverage)#@ TET2 c.1237_1238delCC (p.B946Gik*29) 9.4% VAF (785x consensus coverage) #These DNMT3A variants are located on different amplicons; therefore, phasing (cis versus trans) cannot be assessed. @This low level DNMT3A c.2082+1G>A variant was below the detection threshold of the pipeline but was identified by manual review based on its presence in the prior RHP sample. A detailed investigation in igv does NOT identify the previously reported DNMT3A p.R882C mutation relative to the sequencing coverage level achieved ( consensus reads) . A detailed investigation in igv does NOT identify the potentially actionable BRAF p.V600E mutation that can be seen in a minority of cases of myeloma above the level of noise of the assay. The pipeline did not detect any variants in TP53 above the level of noise of the assay. *This test is designed for somatic analysis of variants and may provide information about the germline. It cannot distinguish between somatic and germline variants. Germline testing should be ordered separately, as indicated. Copy Number Analysis*: Read count analysis shows no significant copy number alterations in the regions tested. IKZF1 deletion: not detected ERG deletion: not detected KMT2A(MLL)-PTD: not detected *This test assesses only autosomal chromosomal copy number changes. FLT3-ITD Analysis None Detected. This assay has been validated to detect FLT3-ITDs with insert size up to 180 bp. AR (allelic ratio) is approximated as Mutant/Wildtype or Sum(Mutants)/Wildtyp e and is calculated from the variant allele fraction by the following formula: AR=FLT3-ITD alleles / wild-type alleles. However, the AR may be underestimated for certain ITDs by the technical limitations of the assay and should be considered semi-quantitative only for these cases. The validated limit of ITD detection is 0.01 AR, but lower ARs may be called at the pathologist discretion as clinically indicated. Values <0.01 should be viewed with caution. Other Variants of Unknown Significance (VUS)*: None Detected. *This test is designed for somatic analysis of variants and may provide information about the germline. It cannot distinguish between somatic and germline variants. Germline testing should be ordered separately, as indicated. Some variants on the VUS list may later found to be pathogenic and some may be of germline in nature. The following recurrently mutated codons have wild type sequences only: ABL1 315 BRAF 594 BRAF 595 BRAF 596 BRAF 597 BRAF 600 BRAF 601 CBL 371 CBL 384 CBL 404 CSF3R 615 CSF3R 617 CSF3R 618 DDX41 525 DNMT3A 882 ETNK1 244 FLT3 835 GNAS 201 GNB1 57 IDH1 132 IDH2 140 IDH2 172 JAK2 617 KIT 816 KIT 822 KIT 823 KRAS 12 KRAS 13 KRAS 61 KRAS 146 MAP2K1 57 MAP2K1 121 MPL 505 MPL 515 MYD88 265 NOTCH1 2514 NPM1 287 NPM1 288 NRAS 12 NRAS 13 NRAS 61 NRAS 146 PTPN11 60 PTPN11 61 PTPN11 71 PTPN11 72 PTPN11 73 PTPN11 76 SETBP1 868 SF3B1 625 SF3B1 626 SF3B1 662 SF3B1 666 SF3B1 700 SF3B1 742 SRSF2 95 STAT3 640 STAT3 661 U2AF1 34 U2AF1 156 U2AF1 157 XPO1 571 The following recurrently mutated codons have inadequate coverage(<100X): KRAS 12 KRAS 13 INTERPRETATION: QC details*: MTC: 511.6673 OR891v: 91.2% *MTC > 325 and RJ799u > 85% is considered as good quality DNMT3A p.L738Q chr2 :[id number] MISSENSE, p.W860* chr2 :[id number] NONSENSE, chr2 :[id number] 5' SPLICE 2p23.3: DNMT3A encodes a DNA methyltransferase responsible for de juan methylation of cytosine bases. DNMT3A mutations are recurrent in clonal hematopoiesis, MDS, MPN, MDS/MPN, AML, T-ALL, and peripheral T-cell lymphomas. Pathogenic mutations are truncating mutations and missense mutations in the methyltransferase domain (including hotspot p.R882) and the ADD domain. DNMT3A mutations can be found without overt disease and, in the context of known disease, can persist in morphologic remission. (PMIDs: 77034316, 96124711, 08585061) TET2 p.C872Xpd*29 chr4 :[id number] FRAMESHIFT 4q24: TET2 (Ten eleven translocation 2) encodes an alpha ketoglutarate-depend ent dioxygenase that converts 5-methylcytosine (5-MC) to 5-hydroxymethylcytos ine (5-hMC) and promotes DNA methylation. TET2 mutations are recurrent in clonal hematopoiesis, MDS, MPN, MDS/MPN, AML, AITL, PTCL, and DLBCL. Pathogenic nonsense, frameshift, and splice site mutations are found throughout the coding region and cause loss of function. Missense variants are also found in the catalytic cysteine-rich and double-stranded beta-helix domains. TET2 mutations can be found without overt disease and, in the context of known disease, can persist in morphologic remission. (PMIDs: 21670748, 05680525, 30191484) Test Information: The [facility] Rapid Heme Panel (RHP) Assay is a next generation sequencing assay based on the GEO'Suppt kit from [employer]. A detailed description of the assay is available upon request from [facility], [facility]. Amplification method: GEO'Suppt Direct(R), [employer] Assay Version: Rapid Heme Panel V3.0 Genes: Total 88,(183 KB) whole coding sequence for most genes Sequencing platform: Illumina NextSeq 550Dx, 150bp paired-end reads Raw data processing: BWA Mem (v0.7.17) SHANNON Correction: Fgbio (v0.4.0) Variant Caller: Vardict (v1.6.0) CNV Caller: RobustCNV (internally developed) FLT3-ITD: TsaiITD (internally developed) Data File formats: BAM, VCF Genome version: hg19 Metrics: GATK (v.4.0.5.0) and [employer] (v0.4.0) Variant Annotation: Variant Effect Predictor (v79) Pipeline cutoff: 3 Variant Reads and 1% variant allele frequency. Analytical sensitivity: Varies from locus to locus, but is estimated to be 3.0% at 325x consensus coverage The test performed at [facility] were developed and their performance characteristics determined by the Molecular Diagnostic Laboratory in the Department of Pathology at [facility]. They have not been cleared or approved by the U.S. Food and Drug Administration (FDA). The FDA has determined that such clearance or approval is not necessary. The following regions have insufficient number of sequence reads (<100X) for evaluation. Gene Exon Start End Coverage TOD e40 690628702 570238543 33.181347 e59 262031470 410096160 46.157817 ATRX e03 25313082 71045099 30.725 BRCC3 e2 701141667 800107787 39.783182 CREBBP e01 2914675 5393079 26.723155 e21 9000364 9017080 28.450409 HVSJ3Z0 e4 664867723 510103782 41.075110 CUX1 e01 519082457 462944553 25.253689 e08 839011475 370165001 21.734218 e24 106054496 353377955 18.734484 EZH2 e13 147661707 726520569 49 IDH2 e1 58728934 86421568 12.95844 JAK2 e15 6070246 4337695 38.838121 KMT2A e1 150782235 042970407 12.046865 KRAS e06 03907976 51216522 44.369603 NF1 e01 35678636 23685964 48.868658 e05 98208365 84532488 39.936160 e16 44679287 94800931 23.491775 e24 10838504 63849336 15.820300 e36 59760018 72621762 23.015782 PTEN e02 84616840 81770252 32.791428 PTPN11 e01 732886815 968562925 37.521575 e14 600910656 476647509 12.624298 SETD2 e02 54424204 73985289 30.925 SH2B3 e02 259386166 078316853 21.919544 STAT3 e11 57954487 58722377 19.439939 TERT e01 5664502 7165937 5.844320 Targeted Gene/Exon List (genomic coordinates available upon request): The [facility] Rapid Heme Panel (RHP) Assay is a next generation sequencing assay based on the GEO'Suppt kit from [employer]. A detailed description of the assay is available upon request from [facility], [facility]. ABL1 [id number] 5 alt e1 ABL1 [id number] 5 e1-e10 ASXL1 [id number] 4 e11-e12 TOD [id number] 4 e2-e63 ATRX [id number] 5 e1-e35 BCOR [id number] 4 e2-e15 BCORL1 [id number] 1 e1-e12 BCORL1 [id number] 1 alt e8 BRAF [id number] 6 e12-e16 BRCC3 [id number] 1 e1-e11 BTK [id number] 7 e11,e15-e16 CALR [id number] 5 e9 CBL BDBP43569192005 4 e7-e9 CCND1 EHUN77746403508 2 e1-e5 CD79B AQLY15915203223 3 e5-e6 CDKN2A MFVW43824393190 1 e1-e4 CDKN2A NM_058195 1 alt e1 CDKN2B LNGF63929873802 6 e1-e2 CEBPA WQWJ15673345863 2 e1 CREBBP ZLXQ65895236789 5 e1-e31 CRLF2 XICT21130355962 3 e5 CSF3R [id number] 1 e14-e17 NSWO6T7 JUHV14551031435 2 e1-e10 NYHD7O5 BMCU78869804120 2 alt e5 CTCF ZGTB26307881905 4 e3-e12 CUX1 AZEC07843740973 7 e1-e24 CUX1 KKYB27692669673 7 alt e1,e15-e23 CXCR4 KVQU49973692184 3 e3 DDX41 UXBD33880992246 1 e1-e17 DKC1 [id number] 5 e1-e15 DNMT3A YRQE77723860162 3 alt e1-e2 DNMT3A WNCW76611913116 3 e2-e23 DNMT3A [id number] 3 alt e1 EP300 JKNJ53652273123 7 e1-e31 ERG REYG48333715984 2 alt e1 ERG ZGKQ26991305109 2 e3-e12 ERG [id number] 2 alt e12 ETNK1 SCKS03052595123 4 e3 ETV6 [id number] 4 e1-e8 EZH2 ZDTX33540760752 2 e2-e20 FBXW7 [id number] 4 e10-e14 FLT3 [id number] 7 e14,e16-e17,e20 GATA1 [id number] 3 e2-e6 GATA2 [id number] 2 e2-e6 GNAS [id number] 3 e8-e9 GNB1 [id number] 4 e5-e6 IDH1 [id number] 2 e3-e10 IDH2 [id number] 3 e1-e11 IKZF1 [id number] 3 e2-e8 IKZF1 [id number] 3 alt e4 IKZF1 [id number] 3 alt e5 IL7R [id number] 3 e5-e7 JAK1 [id number] 4 e10-e25 JAK2 [id number] 3 e12-e20 JAK3 [id number] 1 e16-e24 KIT [id number] 5 e8-e11,e17 KRAS [id number] 3 e2-e6 KRAS [id number] 3 alt e5 KMT2A [id number] 1 e1-e13,e24-e26 MAP2K1 [id number] 5 e2-e3,e6 e28-e30 MPL [id number] 3 e4,e10 NF1 [id number] 3 e1-e57 NF1 [id number] 3 alt e31 MYC [id number] 2 e1-e3 MYD88 [id number] 3 e5 NOTCH2 [id number] 2 e24-e28,e34 NFE2 [id number] 1 e3-e4 NOTCH1 [id number] 6 e24-e28,e34 NSD2 [id number] 3 e20-e21 NPM1 [id number] 5 e10-e11 NRAS [id number] 4 e2-e5 PIGA [id number] 4 e1-e62 NT5C2 [id number] 5 e10-e18 PHF6 [id number] 1 e1-e9 PRPF8 [id number] 6 e25-e34 PLCG2 [id number] 3 e18-e19,e23 e26,e29 PPM1D [id number] 3 e6 RAD21 [id number] 2 e2-e14 PTEN [id number] 3 e1-e9 PTPN11 [id number] 2 e1-e15 SBDS [id number] 2 e1-e5 RIT1 [id number] 3 alt e1 RIT1 [id number] 3 e2-e6 RUNX1 [id number] 1 e2-e9 RUNX1 [id number] 1 alt e5 SF3B1 [id number] 6 e12-e18 SETBP1 [id number] 5 e4 SETD2 [id number] 3 e1-e21 SMC3 [id number] 4 e1-e29 SH2B3 [id number] 2 alt e1 SH2B3 [id number] 2 e2-e8 SMC1A [id number] 4 e1-e25 SMC1A [id number] 4 alt e2 STAT3 [id number] 5 e2-e24 SRSF2 [id number] 5 e1 STAG2 [id number] 9 e3-e35 TERT [id number] 5 e1-e16 STAT5B [id number] 3 e13-e19 TERC [id number] 1 e1 U2AF1 [id number] 4 e2,e6 TET2 [id number] 4 e3-e11 TP53 [id number] 4 e2-e11 TP53 [id number] 4 alt e10 ZRSR2 [id number] 7 e1-e11 WT1 [id number] 3 alt e1 WT1 [id number] 3 e1-e10 XPO1 [id number] 2 e15-e16 The test performed at [facility] and [facility] were developed and their performance characteristics determined by the Molecular Diagnostic Laboratory in the Department of Pathology at [facility]. They have not been cleared or approved by the U.S. Food and Drug Administration (FDA). The FDA has determined that such clearance or approval is not necessary. 10/02/2025 12:34 PM EST [facility] See Results PDF See Pathologist Report 10/02/2025 12:34 PM EST [facility] Signing Provider [id number] 10/02/2025 12:34 PM EST [facility] Bone Marrow Aspirate (Iliac Crest) Non-Blood Collection / Unknown 09/21/2025 12:53 PM EST 09/21/2025 4:07 PM EST us Magnolia Frank LEAD TELLER LAB MOLECULAR/CYTOGENE TICS ORDERABLES Final Result [facility] LAB[facility] [address] [place] [address] * Flow Cytometry on Tissue/FNA/Fluid (09/21/2025 12:53 PM EST) Electronic Signature 5:26 PM EST [facility] at 1726 EST. Interpretation Specimen [...] performed by the pathologist listed above at [place], [place]. 5 5:26 PM EST [facility] Regulatory Disclosure The technical component of this test was performed at [facility], [address] [place] [address] (CLIA Parking Station Attendant: Sury Sanchez MD, PhD). This test was developed and its performance characteristics determined by [facility]. It has not been cleared or approved by the U.S. Food and Drug Administration (FDA). The FDA has determined that such clearance or approval is not necessary; the performing laboratory has established and verified the test's accuracy and precision. This test is for clinical purposes, and should not be regarded as investigational or for research. The [facility] laboratory and [facility] laboratory are both certified under CLIA-88 as qualified to perform high complexity laboratory testing. By signing electronically, the senior physician certifies that they personally reviewed all the laboratory data of the described specimen(s) and rendered or confirmed the diagnosis(es) related thereto. 5 5:26 PM EST [facility] Bone Marrow Aspirate (Iliac Crest) 09/21/2025 12:53 PM EST 09/22/2025 9:26 AM EST us Ashley De La Torre CAUSTIC CRESYLATE SHIFT SUPERINTENDENT LAB FLOW CYTOMETRY ORDERAB LES Final Result [facility] [address] [place] [address] * Bone Marrow Core Biopsy (09/21/2025 12:53 PM [facility]) Final Pathologic Diagnosis A. ILIAC CREST BONE MARROW BIOPSY: Cellular marrow aspirate with maturing trilineage hematopoiesis. There is no morphologic or immunophenotypic evidence of plasma cell myeloma (see comment). 8:26 AM [facility] at 0826 EST Comment Although the bone marrow aspirate and flow cytometry show no evidence of involvement by plasma cell myeloma, the core biopsy is inadequate for evaluation. 8:26 AM [facility] Bone Marrow Core Biopsy Biopsy specimen adequacy: inadequate for evaluation, consisting entirely of bone with only rare scattered maturing erythroid and myeloid elements. Giemsa stain: performed to evaluate mast cells and plasma cells. Reticulin stain is non-contributory. 8:26 AM [facility] Aspirate Smear Differential A 200 cell-count reveals: Blasts : 0% Promyelocytes : 0% Neutrophils and precursors : 51% Erythroid precursors : 36% Monocytes : 4% Eosinophils : 2% Basophils : 1% Lymphocytes : 7% Plasma Cells : 0% Others : 0% M:E Ratio : 1.5 8:26 AM [facility] Aspirate Smear Description Aspirate specimen adequacy/cellularity: adequate; spicular Myeloid lineage: complete maturation; normal morphology Erythroid lineage: complete maturation; normal morphology Megakaryocytes: present; normal morphology Blasts: not increased 8:26 AM [facility] Peripheral Blood CBC results from 09/21/2025 11:36 AM are as follows: WBC 4.23 K/uL; HGB 13.6 g/dL; HCT 41.5%; MCV 93.3 fL; RDW 12.7%; PLT 112 K/uL. Auto Diff: 61.9% neutrophils; 25.1% lymphocytes; 9.7% monocytes; 2.4% eosinophils; 0.7% basophils; 0.2% immature granulocytes; 0 nRBC/100WBC Review of the peripheral smear confirms the CBC findings and shows normal leukocytes. Circulating plasma cells are not seen. 8:26 AM [facility] Additional Pathologists Delta Roy MD, PhD - Resident Pathologist 8:26 AM [facility] Gross Description A. ILIAC CREST; ILIAC CREST BONE MARROW BIOPSY: Name: Padmini Caruso; ; and : 1950 Collection/Order Information: Bone Marrow Tissue ; Iliac Crest ; ''Iliac crest bone marrow biopsy'' Specimen Label: matches the above (Confirmed by: Dig) Received in B Plus fixative is a 0.4 x 0.2 cm brown firm tissue core. Specimen is filtered and submitted entirely in A1, following decalcification (using Rapid-Trey Immuno). 8:26 AM [facility] Clinical History 75 yp hx of MM, s/p Anito-mariama CAR T cells on protocol [id number] 8:26 AM [facility] Grossed By Rochelle Lovett 8:26 AM [facility] Result Priority Level Routine 8:26 AM [facility] Disclaimer By their signature above, the pathologist listed as making the Final Diagnosis certifies that they have personally reviewed the case and confirmed the diagnosis. All slides and stains were of sufficient quality to establish the diagnosis, unless otherwise stated. Due to loss of elastic tension and/or tissue shrinkage in formalin, the clinical sizes of tissue specimens may be larger than those provided in this report. Unless otherwise stated above, immunohistochemical, in-situ hybridization and immunofluorescence tests were performed at the Anatomic Pathology laboratory. These tests were developed, and their performance characteristics were determined by the laboratory. Appropriate controls were performed and evaluated. Certain tests may not have been validated in decalcified tissues, therefore results in decalcified tissues should be interpreted with caution. These tests have not been cleared or approved by the U.S. Food and Drug Administration (FDA); however, the FDA has determined that such clearance or approval is not necessary. These tests are for clinical purposes and should not be regarded as investigational or for research. It was medically necessary to review selected markers by immunohistochemistry and/or in situ hybridization as well as flow cytometry to assess their expression in the context of the tissue architecture or because their expression by flow cytometry was not reliably demonstrated in the cells of interest. 8:26 AM [facility] Bone Marrow Tissue (Iliac Crest) Non-Blood Collection / Unknown 09/21/2025 12:53 PM EST 09/21/2025 4:07 PM EST Magnolia Frank CNP LAB PATHOLOGY ORDERABL ES Final Result Performing Organization Address City/[facility]/ZIP Co de Phone Number [address] [address] * Bone Marrow Aspirate (09/21/2025 12:53 PM EST) # Cells Counted 200 8:26 AM EST [facility] Blasts 0 % 09/24/2025 8:26 AM EST [facility] Promyelocytes 0 % 09/24/2025 8:26 AM EST [facility] Neutrophils/Precu rsors 51 % 09/24/2025 8:26 AM EST [facility] Erythroid Precursors 36 % 09/24/2025 8:26 AM EST [facility] Monocytes 4 % 09/24/2025 8:26 AM EST [facility] Eosinophils 2 % 09/24/2025 8:26 AM EST [facility] Basophils 1 % 09/24/2025 8:26 AM EST [facility] Lymphocytes 7 % 09/24/2025 8:26 AM EST [facility] Plasma Cells 0 % 09/24/2025 8:26 AM EST [facility] Others 0 % 09/24/2025 8:26 AM EST [facility] M:E Ratio 1.50 09/24/2025 8:26 AM EST [facility] Bone Marrow Aspirate (Iliac Crest) Non-Blood Collection / Unknown 09/21/2025 12:53 PM EST 09/21/2025 4:11 PM EST Narrative [facility] - 09/24/2025 8:26 AM EST Magnolia Frank CNP LAB GENERAL ORDERABLES Final Result [address] [address] * Serum Protein Electrophoresis (SPEP) Panel, with Immunofixation (09/21/2025 11:19 AM EST) Serum Protein Electrophoresis Interpretation Protein electrophores is: A monoclonal band is detected. Immunofixatio n: There is a 0.10 g/dl IgG kappa M component in the gamma region. 09/23/2025 1:01 PM EST [facility] Comment: . Blood 09/21/2025 11:1 9 AM EST 09/21/2025 11:30 AM EST Vaughn Boogie MD LAB BLOOD BKR ORDERABLES Final R esult Performing Organization Address City/[facility] Co de Phone Number [address] [address] * Immunofixation (09/21/2025 11:19 AM EST) Pathologist [facility] Immunofixation See Interpretation 09/23/2025 1:02 PM EST [facility] Blood 09/21/2025 11:1 9 AM EST 09/21/2025 11:30 AM EST Vaughn Boogie MD LAB BLOOD BKR ORDERABLES Final R esult Performing Organization Address [facility] Co de Phone Number [address] [address] * (ABNORMAL) Lactate Dehydrogenase (LDH) (09/21/2025 11:19 AM EST) [facility] LDH 222(H) 135 - 214 U/L 09/21/2025 12:10 PM [facility] Comment:NOTE: Specimen hemol yzed. Results may be affected. Blood 09/21/2025 11:1 9 AM EST 09/21/2025 11:30 AM EST Vaughn Boogie MD LAB BLOOD BKR ORDERABLES Final R esult Performing Organization Address City/[facility] Co de Phone Number [address] [address] * (ABNORMAL) Immunoglobulins IgG, IgA, IgM (09/21/2025 11:19 AM EST) Pathologist [facility] Immunoglobulin G 649(L) 700 - 1,600 mg/dL 09/21/2025 7:52 PM [facility] Immunoglobulin A 31(L) 70 - 400 mg/dL 09/21/2025 7:52 PM [facility] Immunoglobulin M 93 40 - 230 mg/dL 09/21/2025 7:52 PM [facility] Blood 09/21/2025 11:1 9 AM EST 09/21/2025 11:30 AM EST us Vaughn Boogie MD LAB BLOOD BKR ORDERABLES Final R esult [facility] [address] [place] [address] * (ABNORMAL) Comprehensive Metabolic Panel (CMP) (09/21/2025 11:19 AM EST) Pathologist [facility] Sodium 142 136 - 145 mmol/L 09/21/2025 12:10 PM [facility] Potassium 4.6 3.4 - 5.1 mmol/L 09/21/2025 12:10 PM [facility] Chloride 102 98 - 107 mmol/L 09/21/2025 12:10 PM [facility] CO2 25 20 - 31 mmol/L 09/21/2025 12:10 PM [facility] Anion Gap 15 3 - 17 mmol/L 09/21/2025 12:10 PM [facility] BUN 24(H) 6 - 23 mg/dL 09/21/2025 12:10 PM [facility] Creatinine 0.86 0.50 - 1.00 mg/dL 09/21/2025 12:10 PM [facility] eGFR 71 >59 mL/min/1. 73m2 09/21/2025 12:10 PM [facility] Comment:Estimated glomerular filtration rate calculated using the CKD-EPI refit equation. Glucose 106(H) 70 - 99 mg/dL 09/21/2025 12:10 PM [facility] Calcium 9.9 8.5 - 10.5 mg/dL 09/21/2025 12:10 PM [facility] AST 29 9 - 32 U/L 09/21/2025 12:10 PM [facility] ALT 28 7 - 33 U/L 09/21/2025 12:10 PM [facility] Alkaline Phosphatase 108 40 - 130 U/L 09/21/2025 12:10 PM [facility] Bilirubin, Total 0.8 0.0 - 1.2 mg/dL 09/21/2025 12:10 PM [facility] Total Protein 6.8 6.4 - 8.3 g/dL 09/21/2025 12:10 PM [facility] Albumin 4.5 3.5 - 5.2 g/dL 09/21/2025 12:10 PM [facility] Globulin 2.3 1.9 - 4.1 g/dL 09/21/2025 12:10 PM [facility] Blood 09/21/2025 11:1 9 AM EST 09/21/2025 11:30 AM EST us Vaughn Boogie MD LAB BLOOD BKR ORDERABLES Final R esult Performing Organization Address City/State/[facility] Co de Phone Number [address] [address] * (ABNORMAL) CBC and Differential (09/21/2025 11:19 AM EST) WBC 4.23 4.00 - 11.00 K/uL 09/21/2025 11:37 AM [facility] RBC 4.45 4.00 - 5.20 M/uL 09/21/2025 11:37 AM [facility] Hemoglobin 13.6 12.0 - 16.0 g/dL 09/21/2025 11:37 AM [facility] Hematocrit 41.5 36.0 - 46.0 % 09/21/2025 11:37 AM [facility] MCV 93.3 80.0 - 100.0 fL 09/21/2025 11:37 AM [facility] MCH 30.6 27.0 - 31.0 pg 09/21/2025 11:37 AM [facility] MCHC 32.8 32.0 - 36.0 g/dL 09/21/2025 11:37 AM [facility] MPV 9.5 8.4 - 12.0 fL 09/21/2025 11:37 AM [facility] RDW-CV 12.7 11.5 - 14.5 % 09/21/2025 11:37 AM [facility] PLT 112(L) 150 - 450 K/uL 09/21/2025 11:37 AM [facility] Neutrophils 61.9 % 09/21/2025 11:37 AM [facility] Lymphocytes 25.1 % 09/21/2025 11:37 AM [facility] Monocytes 9.7 % 09/21/2025 11:37 AM [facility] Eosinophils 2.4 % 09/21/2025 11:37 AM [facility] Basophils 0.7 % 09/21/2025 11:37 AM [facility] Imm Grans 0.2 % 09/21/2025 11:37 AM [facility] NRBC 0.0 <=0.0 /100 WBCs 09/21/2025 11:37 AM [facility] Absolute Neutrophils 2.62 1.92 - 7.60 K/uL 09/21/2025 11:37 AM [facility] Absolute Lymphocytes 1.06 0.72 - 4.10 K/uL 09/21/2025 11:37 AM [facility] Absolute Monocytes 0.41 0.16 - 1.10 K/uL 09/21/2025 11:37 AM [facility] Absolute Eosinophils 0.10 0.00 - 0.50 K/uL 09/21/2025 11:37 AM [facility] Absolute Basophils 0.03 0.00 - 0.15 K/uL 09/21/2025 11:37 AM [facility] Absolute Imm Grans 0.01 0.00 - 0.09 K/uL 09/21/2025 11:37 AM [facility] Absolute NRBC 0.00 <=0.00 K cells/uL 09/21/2025 11:37 AM [facility] Absolute Neutrophils 2.62 1.92 - 7.60 K/uL 09/21/2025 11:37 AM [facility] Comment:Automated cell count . Manual ANC may differ if performed. Diff Type Auto 09/21/2025 11:37 AM [facility] Blood 09/21/2025 11:1 9 AM EST 09/21/2025 11:30 AM EST us Vaughn Boogie MD LAB BLOOD BKR ORDERABLES Final R esult [facility] [address] [place] [address] * (ABNORMAL) Lymphocyte Subset Panel (T/B/NK), Flow Cytometry (09/21/2025 11:19 AM EST) ABSCT 1,183 950 - 2,967 cells/uL 09/22/2025 1:27 PM EST [facility] 3ABS 937 474 - 1,600 cells/uL 09/22/2025 1:27 PM EST [facility] 3PCT 79.2(H) 45.0 - 79.0 % Lymphs 09/22/2025 1:27 PM EST [facility] CD3+ CD4+ ABS 223(L) 256 - 1,198 cells/uL 09/22/2025 1:27 PM EST [facility] CD3+ CD4+ PCT 18.8(L) 26.0 - 64.0 % Lymphs 09/22/2025 1:27 PM EST [facility] CD3+ CD8+ ABS 680(H) 86 - 556 cells/uL 09/22/2025 1:27 PM EST [facility] CD3+ CD8+ PCT 57.5(H) 7.0 - 36.0 % Lymphs 09/22/2025 1:27 PM EST [facility] CD3- CD19+ ABS 115 79 - 472 cells/uL 09/22/2025 1:27 PM EST [facility] CD3- CD19+ PCT 9.7 7.0 - 26.0 % Lymphs 09/22/2025 1:27 PM EST [facility] CD3- CD(16+56)+ ABS 130 41 - 531 cells/uL 09/22/2025 1:27 PM EST [facility] CD3- CD(16+56)+ PCT 11.0 4.0 - 36.0 % Lymphs 09/22/2025 1:27 PM EST [facility] CD4+:CD8+ RATIO 0.33 09/22/2025 1:27 PM EST [facility] Blood 09/21/2025 11:1 9 AM EST 09/21/2025 11:30 AM EST us Vaughn Boogie MD LAB FLOW CYTOMETRY ORDERABLES Fi nal Result [facility] [address] [place] [address] * Iron and Total Iron Binding Capacity (Iron/TIBC) (09/21/2025 11:19 AM EST) Pathologist [facility] Iron 97 28 - 170 ug/dL 09/21/2025 4:09 PM EST [facility] Total Iron-Binding Capacity (TIBC) 400 220 - 460 ug/dL 09/21/2025 4:09 PM EST [facility] Transferrin Saturation 24 14 - 50 % 09/21/2025 4:09 PM EST [facility] Blood 09/21/2025 11:1 9 AM EST 09/21/2025 11:30 AM EST Vuaghn Boogie MD LAB BLOOD BKR ORDERABLES Final R esult Performing Organization Address City/[facility]/ZIP Co de Phone Number [address] [address] * Light Chains, Free, Serum (09/21/2025 11:19 AM EST) [facility] Free [place] Light Chain 17.4 3.3 - 19.4 mg/L 09/22/2025 11:14 AM EST [facility] Free Lambda Light Chain 13.0 5.7 - 26.3 mg/L 09/22/2025 11:14 AM EST [facility] Free [place] Lambda Ratio 1.34 0.26 - 1.65 09/22/2025 11:14 AM EST [facility] Blood 09/21/2025 11:1 9 AM EST 09/21/2025 11:30 AM EST us Vaughn Boogie MD LAB BLOOD BKR ORDERABLES Final R esult [address] [address] * C-Reactive Protein (CRP) (09/21/2025 11:19 AM EST) [facility] C Reactive Protein 1.6 <10.0 mg/L 09/22/2025 2:00 AM EST [facility] Comment:NOTE: This reference range is for the evaluation of inflammation. Order CRP, High Sensitivity for cardiac risk status evaluation. Blood 09/21/2025 11:1 9 AM EST 09/21/2025 11:30 AM EST us Vaughn Boogie MD LAB BLOOD BKR ORDERABLES Final R esult Performing Organization Address City/[facility] Co de Phone Number [address] [address] * Uric Acid (09/21/2025 11:19 AM EST) Uric Acid 5.6 2.4 - 5.7 mg/dL 09/21/2025 12:10 PM EST [facility] Blood 09/21/2025 11:1 9 AM EST 09/21/2025 11:30 AM EST Vaughn Boogie MD LAB BLOOD BKR ORDERABLES Final R esult Performing Organization Address [facility] Co de Phone Number [address] [address] * Protein, Total (09/21/2025 11:19 AM EST) Total Protein 6.5 6.4 - 8.3 g/dL 09/22/2025 7:36 AM EST [facility] Blood 09/21/2025 11:1 9 AM EST 09/21/2025 11:30 AM EST Vaughn Boogie MD LAB BLOOD BKR ORDERABLES Final R esult Performing Organization Address City/[facility] Co de Phone Number [address] [address] * Phosphorus (09/21/2025 11:19 AM EST) Phosphorus 4.4 2.5 - 4.5 mg/dL 09/21/2025 12:10 PM EST [facility] Blood 09/21/2025 11:1 9 AM EST 09/21/2025 11:30 AM EST us Vaughn Boogie MD LAB BLOOD BKR ORDERABLES Final R esult Performing Organization Address City/[facility]/ZIP Co de Phone Number [address] [address] * Magnesium (09/21/2025 11:19 AM EST) Magnesium 2.1 1.7 - 2.6 mg/dL 09/21/2025 12:10 PM EST [facility] Blood 09/21/2025 11:1 9 AM EST 09/21/2025 11:30 AM EST us Vaughn Boogie MD LAB BLOOD BKR ORDERABLES Final R esult Performing Organization Address City/[facility] Co de Phone Number [address] [address] * Folate (09/21/2025 11:19 AM EST) Folic Acid 12.5 >4.7 ng/mL 09/21/2025 3:45 PM EST [facility] Blood 09/21/2025 11:1 9 AM EST 09/21/2025 11:30 AM EST us Vaughn Boogie MD LAB BLOOD BKR ORDERABLES Final R esult Performing Organization Address City/[facility] Co de Phone Number [address] [address] * Ferritin (09/21/2025 11:19 AM EST) Ferritin 41 30 - 150 ug/L 09/21/2025 7:31 PM EST [facility] Comment:The lower limit of t he reference range has been increased to 30 ug/L for all adults to reflect a physiologically sufficient level. See Document Link for additional information. Blood 09/21/2025 11:1 9 AM EST 09/21/2025 11:30 AM EST us Vaughn Boogie MD LAB BLOOD BKR ORDERABLES Final R esult [address] [address] * Vitamin B12 (09/21/2025 11:19 AM EST) Vitamin B12 937 232 - 1,245 pg/mL 09/21/2025 7:27 PM EST [facility] Blood 09/21/2025 11:1 9 AM EST 09/21/2025 11:30 AM EST us Vaughn Boogie MD LAB BLOOD BKR ORDERABLES Final R esult Performing Organization Address City/[facility] Co de Phone Number [address] [address] * Creatine Kinase (CK) (09/21/2025 11:19 AM EST) Creatine Kinase (CK) 79 26 - 192 U/L 09/21/2025 12:10 PM EST [facility] Blood 09/21/2025 11:1 9 AM EST 09/21/2025 11:30 AM EST us Vaughn Boogie MD LAB BLOOD BKR ORDERABLES Final R esult Performing Organization Address City/[facility]/ZIP Co de Phone Number [address] [address] * (ABNORMAL) Beta-2 Microglobulin, Blood (09/21/2025 11:19 AM EST) Beta-2 Microglobulin 2.71(H) 0.80 - 2.34 mcg/mL 09/22/2025 8:22 AM EST [facility] Blood 09/21/2025 11:1 9 AM EST 09/21/2025 11:30 AM EST us Vaughn Boogie MD LAB BLOOD BKR ORDERABLES Final R esult [address] [address] * Urine Protein Electrophoresis Panel (UPEP) (09/21/2025 6:00 AM EST) Urine Protein Electrophoresis Interpretation No Bence Morales protein detected in urine. Trace amount of albumin present in the urine. 10/03/2025 11:25 AM EST [facility] Comment: . Urine (Urine) Non-Blood Collection / Unknown 09/21/2025 6:00 AM EST 09/21/2025 4:58 PM EST Vaughn Boogie MD LAB URINE ORDERABLES Final Resul t Performing Organization Address [facility] Co de Phone Number [address] [address] * Protein, 24 Hr Urine, Total (09/21/2025 6:00 AM EST) Collection Duration (Hours) 24.00 09/26/2025 4:20 PM EST [facility] Total Volume 2,000 mL 09/26/2025 4:20 PM EST [facility] Total Protein, Urine 6.2 <=13.5 mg/dL 09/26/2025 4:20 PM EST [facility] Total Protein, Urine Output 124 <150 mg/total output 09/26/2025 4:20 PM EST [facility] Urine (Urine) Non-Blood Collection / Unknown 09/21/2025 6:00 AM EST 09/21/2025 4:58 PM EST Vaughn Boogie MD LAB URINE ORDERABLES Final Resul t Performing Organization Address City/[facility]/ZIP Co de Phone Number [address] [address] * Outside Lab (08/19/2025 2:42 PM EDT) Historical Provider LAB BLOOD BKR ORDERABLES Final Result * ENDOSCOPY, COLON (07/01/2024 11:54 AM EDT) 07/01/2024 11:5 4 AM EDT Narrative Procedure Note Markus Gregory DO - 07/01/2024 11:54 AM EDT [facility] GI Patient Name: Padmini Caruso Procedure Date: [...] exam become available for review. DO Markus Gacria DO 07/01/2024 12:37:12 PM This report has been signed electronically. Number of Addenda: 0 Note Initiated On: 07/01/2024 11:54 AM Scope In: 12:10:07 PM Scope Out: 12:28:56 PM Scope Withdrawal Time 0 hours 14 minutes 47 seconds CC OTHER PROVIDER: PRIMARY CARE: NO PCP Markus Gregory DO GI PROCEDURE ORDERABLES Final Re sult * (ABNORMAL) Lipid panel (06/09/2024 11:25 AM EDT) HDL 62 35 - 100 mg/dL [facility] CHOLESTEROL 320(H) <200 mg/dL [facility] TRIGLYCERIDES 222(H) 40 - 150 mg/dL [facility] LDL 214(H) 50 - 129 mg/dL [facility] CARDIAC RISK RATIO 5.2(H) 0.0 - 5.0 [facility] NON-HDL CHOLESTEROL 258 mg/dL [facility] Comment:NCEP ATP III guideli melony suggest a non-HDL cholesterol goal 30 mg/dl higher than the patient-specific LDL goal. 06/09/2024 11:2 5 AM EDT 06/09/2024 1:13 PM EDT Result [facility] Vaughn Boogie MD LAB BLOOD BKR ORDERABLES Final R esult [facility] [address] [place] [address] * Hepatitis C antibody, qualitative (06/22/2018 3:52 PM EDT) HCV ANTIBODY Negative Negative [facility] Comment:Antibodies to HCV no t detected. Does not exclude the possibility of exposure to HCV. 06/22/2018 3:52 PM EDT 06/22/2018 4:06 PM EDT Vaughn Boogie MD LAB BLOOD BKR ORDERABLES Final R esult [facility] [address] [place] [address] from Last 3 Months or Most Recently Relevant to Health Maintenance Insurance [facility] MEDICARE PPO BLUE REPLACEMENT [facility] MEDICARE PART A & B [facility] MEDICARE PPO BLUE REPLACEMENT [address] [place], [place] [address]HEALTH MEDICARE PART A & B [place] BL[place] BL[place] [facility] MEDIC[facility] PART A & B [facility] MED[facility] PPO BLUE REPLACEMENT [facility] MEDIC[facility] PART A & B [facility] MED[facility]ARE PPO BLUE REPLACEMENT [place] B [place] RE[place] [facility] MEDIC[facility] PART A & B [facility] MED[facility] PPO BLUE REPLACEMENT [facility] MEDIC[facility] PART A & B [facility] MEDICARE PPO BLUE [facility]PLACEMENT [facility] MEDICARE PART A & B MEDICARE CLINICAL TRIAL RESTRICTED USE [place] BLUE REPLACEMENT Advance Directives For more information, please contact: [phone] (9AM - 5PM Carla/[facility], Friday-Friday) Documents on File Type Date Recorded Patient Paper Products Inspector Expl anation Healthcare Proxy 12/14/2020 3:33 PM * Full Code (Latest Code Status on File) Date Activated Date Inactivated Comments 12/12/2020 12:03 PM Question Answer Comments Code Status Confirmed With: Patient * Full Code Date Activated Date Inactivated Comments 11/19/2020 1:46 PM 12/12/2020 12:03 PM Question Answer Comments Code Status Confirmed With: Patient * Full Code (Presumed) Date Activated Date Inactivated Comments 05/15/2018 12:22 PM 05/17/2018 2:05 PM Care Teams Diamond Driller Helper Relationship Specialty Start Date End Date Yi Joseph MD [facility] [place] [address] PCP - General 11/20/17 Agus Noland MD [address] [place] [address] Multiple [facility] [place] [address] [email or web address] Primary Oncologist Medical Oncology 06/25/18 Self-Referred, Patient Referring Physician 06/29/18 Vaughn Boogie MD [address] [place] [address] [email or web address] Primary Oncologist Medical Oncology 11/23/18 Agustin Ybarra MD [address] [place] [address] Division [place] [address] [email or web address] Thoracic Surgery 03/31/19 Camila Yanes, RN [address] [place] [id number] [email or web address] Primary Infusion Nurse 06/14/20 Markus Gregory DO [address] [place] [address] [email or web address] Gastroenterology 06/29/24 Additional Source Comments The information contained in this document represents components of the legal health record. It is not the complete legal health record.[facility]
--- OUTSIDE RECORDS SUMMARY | 2025-11-16 09:16 | XMS_ITS | Encounter Summary ---
Author Organization [facility] Address [address] [place] [id number] Phone Care Team Providers Care Nitrocellulose Operator Name Role Phone Yi Joseph MD Primary Care Provider [phone] Agus Noland MD Unavailable [phone] Self-Referred, Patient Unavailable Unavailab Vaughn Mcallister MD Unavailable Agustin Ybarra MD Unavailable [phone] Camila Yanes RN Unavailable [email or web address] Markus Gregory DO Unavailable Encounter Details Date Type Department Care Team (Late st Contact Info) Description 07/16/2024 Procedure Pass [facility] Cardiac Ultrasound [address] [place] [address] Social History Tobacco Use Types Packs/Day Years [...] [facility] [address], 9th [address], [address] [place] [address] Vaughn Boogie MD [address] [address] [email or web address] 12/14/2025 11:00 AM EST Nurse Only [facility] Cellular Immunotherapy Program [address], [address] [place] [address] Vaughn Boogie MD [address] [address] [email or web address] 12/14/2025 11:00 AM EST Office Visit [facility] Hematologic Malignancies [facility] [address]th [address], [address] [place] [address] Vaughn Boogie MD [address] [place] [address] [email or web address] 03/14/2026 2:30 PM EDT Office Visit [facility] Cardiology Clinic at the [facility] [address] 5th [address], [address] [place] [address] Juan Carlos Lim MD [address] [place] [address] [email or web address] documented as of this encounter [...] documented as of this encounter Care Teams Nitrocellulose Operator Relationship Specialty Start Date End Date Yi Joseph MD [facility] [place] [address] PCP - General 11/20/17 Agus Noland MD [address] [place] [address] [place] [address] [email or web address] Primary Oncologist Medical Oncology 06/25/18 Self-Referred, Patient Referring Physician 06/29/18 Vaughn Boogie MD [address] [facility] [address] [place] [address] [email or web address] Primary Oncologist Medical Oncology 11/23/18 Agustin Ybarra MD [address] [place] [address] Division [place] [address] [email or web address] Thoracic Surgery 03/31/19 Camila Yanes RN [address] [place] [id number] [email or web address] Primary Infusion Nurse 06/14/20 Markus Gregory DO [address] [place] [address] [email or web address] Gastroenterology 06/29/24 documented as of this encounter Additional Source Comments The information contained in this document represents components of the legal health record. It is not the complete legal health record.[facility]
== END 2025-11-16 09:53 | disposition home or self-care (01) ==
LOC: HO.HMCC 09:03
PROVIDERS: PCP Internal Medicine; Visit Provider Internal Medicine
DX: G50.0 Trigeminal neuralgia (principal)

== ENCOUNTER → 2025-11-16 09:02 | Outpatient (BNVA) | payer MEDICARE, MEDICAID, SELFPAY | PROVIDERS: PCP Internal Medicine; Visit Provider Internal Medicine | DX: G50.0 Trigeminal neuralgia (principal); R51.9 Headache, unspecified | CPT/HCPCS: 99202; 99212 ==

== ENCOUNTER 2025-11-16 10:22 | Outpatient (AMB) | payer MEDICARE, MEDICAID, SELFPAY ==
--- NOTE | 2025-11-16 10:41 | A.OFFVIS_ITS ---
Intake Visit Reasons: pain left side of head Allergies amlodipine Allergy (Mild, Verified 11/16/25 09:07) knee pain niacin (NIACIN) Allergy (Mild, Verified 11/16/25 09:07) REDNESS, rash, rash tbo-filgrastim (From Granix) Allergy (Unknown, Verified 11/16/25 09:07) palpitations atenolol Adverse Reaction (Unknown, Verified 11/16/25 09:07) palpatations, palpitations lisinopril Adverse Reaction (Unknown, Verified 11/16/25 09:07) cough valsartan (Diovan) Adverse Reaction (Unknown, Verified 11/16/25 09:07) cough HPI Comments Details: The patient is a 75 year old female presenting with left-sided facial pain. The symptoms began approximately three months ago with what she describes as a toothache, but a dental evaluation ruled out a dental cause. The pain has progressively worsened to involve the entire left side of her face and is now associated with numbness and intermittent tingling. She rates the pain as a 4 out of 10 currently, but notes it has been as severe as 8 out of 10, to the point she considered going to the emergency room. The pain worsens at night while sleeping. 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 Her treatments have included chemotherapy, radiation, a stem cell transplant, and most recently, CAR-T cell therapy one year ago. She is currently in a clinical trial for her condition. For the facial pain, she has used Tylenol and Motrin. She previously took carbamazepine 100 mg for 40 days, which provided some relief but did not eliminate the pain, and she stopped after the prescription ran out. [facility] Medical History PVCs (premature ventricular contractions) Intermittent palpitations Allergic rhinitis Obstructive sleep apnea Lipid disorder Multiple myeloma in remission Hypertension, essential Surgical History History of appendectomy Family History Father No problems noted. Mother Diabetes mellitus Sister Diabetes mellitus Sister History of high blood pressure Social History Household Members: Spouse Housing: House Do you presently have visiting nurse or other home services: No Patient Tobacco Use Status: Never used Tobacco e-Cigarette/Vaping Use: Never Used Second Hand Smoke Exposure: Yes (childhood secondhand) service: No Current occupational status: retired Cognitive needs: No Hearing needs: No Vision needs: No Review of Systems Narrative Constitutional:?No fever, chills, fatigue, weight loss, or night sweats. HEENT:?No headache, vision changes, hearing loss, nasal congestion, sore throat. Cardiovascular:? Complain of palpitation Respiratory:?No cough, shortness of breath, wheezing, or hemoptysis. Gastrointestinal:?No nausea, vomiting, abdominal pain, diarrhea, or constipation. Genitourinary:?No dysuria, frequency, incontinence, or hematuria. Musculoskeletal:?No joint pain, stiffness, weakness, or muscle aches. Neurological:?No dizziness, syncope, seizures, numbness, tingling, weakness, tremors, memory loss. Psychiatric:?No anxiety, depression, mood swings, sleep disturbance, or hallucinations. Endocrine:?No heat/cold intolerance, polydipsia, polyuria, or hair/skin changes. Hematologic/Lymphatic:?No easy bruising, bleeding, or lymphadenopathy. Integumentary (Skin):?No rash, lesions, itching, or color changes. Allergic/Immunologic:?No seasonal allergies, hives, or recurrent infections. Physical Exam Neuro Other: Mental Status: Alert and oriented to person, place, and time. Normal attention. Normal spontaneous speech, fluency, and comprehension. No obvious issues with mood and memory. Affect is appropriate. Cranial Nerves: CN II: Visual matos full to confrontation, visual acuity intact. CN III, IV, : Pupils equal, round, reactive to light and accommodation. Extraocular movements are normal. CN V: Facial sensation is normal. CN VII: Facial movements symmetrical. CN VIII: Hearing intact to bedside conversation is normal. CN IX, X: Palate elevates symmetrically. CN XI: Shoulder shrug and head turn symmetrical. CN XII: Tongue midline without atrophy or fasciculations. Motor: Bulk and tone normal in all extremities. No significant muscle weakness in arms and legs. No drift. Reflexes: Deep tendon reflexes are trace to absent. Coordination: Nbunby-na-sppn is okay. Gait and Station: No obvious gait abnormality. No ataxia or instability. Extrapyramidal: Full facial expressions and blinking. No rigidity. Movements are appropriate with no tremor or abnormality. Speech: Normal; no dysarthria or tremor. Assessment & Plan Assessment & Plan (1) Lt facial pain: Code(s): R51.9 - Headache, unspecified Category: Medical Plan Impression: New onset of left sided facial pain and numbness with underlying diagnosis of multiple myeloma Rec: a: Gabapentin 100mg caps, 1-3, 3 times a day b: MRI brain WWO I discussed with the patient that her facial pain is likely neuropathic in nature. I explained the plan to start a new medication, gabapentin, starting with one pill three times a day, with the option to increase the dose if the pain persists. I noted that her previous medication, carbamazepine, was likely at too low a dose to be fully effective. We also discussed the need for a brain MRI to investigate for any underlying causes of her symptoms, and I confirmed that her prescription was sent to the pharmacy and the MRI would be scheduled. Orders: Orders MR head/brain wo/w con Today R51.9 - Headache, unspecified Medications: New gabapentin 100 mg PO TID 270 caps 0RF Coding Level of Care Code New Pt Level 4 (55947) Diagnoses Lt facial pain R51.9
== END 2025-11-16 10:54 | disposition home or self-care (01) ==
LOC: HO.HSM 10:23
PROVIDERS: PCP Internal Medicine; Visit Provider Psychiatry & Neurology Neurology
DX: R51.9 Headache, unspecified (principal)
CPT/HCPCS: 99204